=== PATIENT | female | born 1935 | race Caucasian/White ===

== ENCOUNTER 2018-09-25 07:03 | Outpatient (CLI) | payer MEDICARE, BC, SELFPAY ==
[2018-09-25 07:34] LABS: HCT 39.8 % (36.0-46.0); HGB 13.6 g/dL (12.0-15.5); Mean Corp. HGB Concentration 34.2 g/dL (32.0-36.0); Mean Corpuscular Hemoglobin 33.1 pg (27.0-33.0); Mean Corpuscular Volume 96.8 fL (80-95); Mean Platelet Volume 9.5 fL (8.0-11.0); Platelet Count 151 x1000/uL (130-400); RBC 4.11 m/cumm (4.00-5.20); RBC Distribution Width 13.9 % (11.7-14.6); White Blood Cell Count 4.14 k/cumm (4.4-10.8)
[2018-09-25 08:43] LABS: ALT 24 U/L (12-78); AST 24 U/L (15-37); Albumin 3.7 g/dL (3.4-5.0); Alkaline Phosphatase 63 U/L (46-116); Anion Gap 8.3 mmol/L (3-11); BUN 13 mg/dL (7-18); Bilirubin, Total 1.1 mg/dL (0.2-1.0); CO2 28.7 mmol/L (21.0-32.0); CREATININE 0.82 mg/dL (0.55-1.02); Calcium 8.9 mg/dL (8.5-10.1); Chloride 95 mmol/L (98-107); Glucose 90 mg/dL (70-100); Potassium 4.3 mmol/L (3.5-5.1); Sodium 132 mmol/L (136-145); TSH 2.08 uIU/mL (0.358-3.74); Total Protein 6.6 g/dL (6.4-8.2)
== END 2018-09-25 07:23 ==
PROVIDERS: PCP Family Medicine; Visit Provider Internal Medicine
DX: I48.0 Paroxysmal atrial fibrillation (principal); R63.4 Abnormal weight loss; Z79.01 Long term (current) use of anticoagulants
CPT/HCPCS: 36415; 80053; 85027; 84443

== ENCOUNTER 2018-10-14 01:41 | Outpatient (CLI) | payer MEDICARE, BC, SELFPAY ==
[2018-10-14 09:31] LABS: Vitamin B12 356 pg/mL (193-986)
== END 2018-10-14 02:01 ==
PROVIDERS: PCP Family Medicine; Visit Provider Internal Medicine
DX: D75.89 Other specified diseases of blood and blood-forming organs (principal)
CPT/HCPCS: 36415; 82607

== ENCOUNTER 2019-08-04 15:37 | Inpatient (IN) | payer MEDICARE, BC, SELFPAY ==
[2019-08-04] VITALS (72 sets, daily range): BP systolic 105–148; BP diastolic 62–87; PULSE 69–142; RESP 13–33; TEMP 36–36.3; O2SAT 93–99
--- NOTE | 2019-08-04 16:19 | W.ED.GENAD ---
Discharge Plan Disposition Patient Disposition: [facility] INPATIENT Condition: Serious Discharge Details Chief Complaint: Abd Prob Clinical Impression: Cecal volvulus Primary Care Provider: Gulshan Howe ED Provider: Keisha Clarke Home Meds and New Rx's Prescriptions: No Action metoprolol succinate 25 mg tablet extended release 24 hr 25 mg PO DAILY Qty: 90 RF: 3 sertraline 25 mg tablet 12.5 mg PO DAILY Qty: 45 RF: 3 calcium carbonate [Tums] 300 MG tablet,chewable 300 mg PO BID RF: 0 acetaminophen [Acetaminophen Extra Strength] 500 MG tablet 1,000 mg PO TID PRNRF: 0 Eliquis 2.5 mg tablet 2.5 mg PO BID Qty: 180 RF: 3 Medical Decision Making Patient is a pleasant 84-year-old female with past medical history of atrial fibrillation, mitral valve problems, carcinoma in situ uterine cervix, memory disturbance. She is currently anticoagulated on Eliquis. Patient reports that the past 3 days she has been feeling unwell. Describes his further as fatigue. Denies any true abdominal upset to stay. States that she woke feeling nauseated and vomited x1 this morning. Denies any hematemesis. Reports normal bowel and bladder functions with no change in habits. She denies any abdominal discomfort. Denies any fevers. No cough. No chest pain. Shortness of breath. States she has been taking her medications as prescribed. Patient lives alone but is frequently visited by her daughter On exam, patient is resting comfortably. She does appear slightly ill but is notably tachycardic at 117. She is in atrial fibrillation. Lungs are clear. She is irregularly irregular cardiac rhythm. Abdomen is soft she has hypoactive bowel sounds. No tenderness elicited on exam. Hold off on imaging at this time plan for laboratory evaluation. EKG was reviewed by Dr. Michael. Patient is an irregularly irregular rhythm consistent with her history of atrial fibrillation. Currently 117. She does have occasional PVCs. No acute ischemic changes noted. Compared to previous. Spoke with daughter who states that the patient has had pain in the right side of her abdomen. She states that she is confused at baseline but that it has been worse over past 3 days. She states that she has been checking on her daily. She states that she has been encouraging hydration and believes patient has been taking good amount of fluids daily. With this, I am more concerned about potential surgical etiology, particularly as the patient has an elevated lactate. Will obtain noncontrast CT. I did reexamine the patient and she is endorsing some right lower quadrant discomfort on exam although this was not listed initially. Was contacted by the lab as the patient has a lactate of 2.2. Remaining labs are reviewed. No leukocytosis. Sodium is low at 132. She does have acute kidney injury with creatinine 1.4. BUN of 45. Patient is receiving IV hydration. FINDINGS: Heart: The heart demonstrates diffuse enlargement. Liver: The liver is nodular in contour, suggesting cirrhosis. Gallbladder and bile ducts: Sludge in the gallbladder. No calcified stones. No ductal dilation. Pancreas: Normal. No ductal dilation. Spleen: Normal. No splenomegaly. Adrenals: There is a focal hypodense mass in the left adrenal gland, consistent in appearance and density with a benign adrenal adenoma. Kidneys and ureters: 3 cm simple cyst in the right kidney. Stomach and bowel: There is diverticular disease of the colon, without evidence of acute diverticulitis. No perforation, or abscess. No signs or history of bleeding provided. Multiple dilated small bowel loops seen, and markedly dilated cecum with volvulus noted. Appendix: No evidence of appendicitis. Intraperitoneal space: There is a small amount of free fluid in the pelvis and around the liver. No free air. Vasculature: There is coronary artery calcification. Mild dilation of the infrarenal abdominal aorta up to 26 mm. Lymph nodes: Unremarkable. No enlarged lymph nodes. Bladder: Unremarkable as visualized. Reproductive: Unremarkable as visualized. Bones/joints: Unremarkable. No acute fracture. Soft tissues: There is a small fat-containing left inguinal hernia. IMPRESSION: Cecal volvulus with resulting obstruction. No perforation. Spoke with the patient as well as her daughter Renu at this point he would like to move forward with surgical intervention if necessary. Coretta may be reached at [phone]. Patient has a COLST form on file. SHe is a DNR/DNI. Consulted with Dr. Valles who will admit the patient, plan for surgical intervention in the morning. We did discuss reversal of her anticoagulation. Dr. Mejias has ordered this and I did speak with pharmacy will come to prepare the medication. We did attempt to place NG tube and Tavares per patient refused. She has increasing confusion and does appear to be sundowning some. At this time, I feel that she is not actively vomiting, is actually requesting food, NG tube does not emergently need to be placed in the risk of forcing patient to have a study as well outweighs the benefit. I did let Dr. Mejias know of this. Patient was transferred to ICU. HPI General Mode of arrival: ambulatory. Date/Time Provider Initiated Documentation: 08/04/19 16:07. Limitations to Documentation: no limitations. Information obtained by: patient and RN notes reviewed. History of Present Illness 84 year old F presents to the emergency department with the chief complaint of nausea, vomiting, unwell feeling, described as mild, Quality is described as other (denies any pain), and is localized to the abdomen. Patient reports no radiation. Patient started experiencing this day(s) (feeling of unwell x 3 days, N/V this AM) and it has been constant. No relieving factors improve symptom(s), No exacerbating factors reported . Patient notes no other symptoms.. Patient did receive the following treatments prior to arrival, none Related Data Home Medications Medication Instructions Recorded Confirmed calcium carbonate [Tums] 300 mg PO BID tab.chew 09/13/14 08/04/19 acetaminophen [Acetaminophen Extra 1,000 mg PO TID PRN 10/06/15 08/04/19 Strength] metoprolol succinate 25 mg 25 mg PO DAILY #90 tab 09/08/18 08/04/19 tablet,extended release 24 hr sertraline 25 mg tablet 12.5 mg PO DAILY #45 tab 03/09/19 08/04/19 apixaban 2.5 mg tablet 2.5 mg PO BID #180 tab 06/18/19 08/04/19 Previous Rx's Medication Instructions Recorded metoprolol succinate 25 mg 25 mg PO DAILY #90 tab 09/08/18 tablet,extended release 24 hr sertraline 25 mg tablet 12.5 mg PO DAILY #45 tab 03/09/19 apixaban 2.5 mg tablet 2.5 mg PO BID #180 tab 06/18/19 Allergies Allergy/AdvReac Type Severity Reaction Status Date / Time cimetidine AdvReac Intermediate BREAST Verified 03/09/19 13:49 TENDERNESS diltiazem AdvReac Intermediate bowel Verified 03/09/19 13:49 problem Penicillins AdvReac Unknown unknown Verified 03/09/19 13:49 General Stated Complaint: Abd Prob JODY: 3 Review of Systems Constitutional Constitutional: Reports as per HPI, Denies chills, Denies fatigue, Denies fever(s) and Denies headache(s) ENT Ears, Nose, Mouth, and Throat: Denies headache(s) Cardiovascular Cardiovascular: Reports as per HPI, Denies chest pain and Denies dyspnea Respiratory Respiratory: Reports as per HPI, Denies cough and Denies dyspnea Gastrointestinal Gastrointestinal: Reports as per HPI Musculoskeletal Musculoskeletal: Reports as per HPI and Denies back pain Integumentary/Breasts Skin/Breast: Reports as per HPI and Denies rash Neurologic Neurologic: Reports as per HPI and Denies headache(s) Endocrine Endocrine: Denies fatigue PFSH Medical History Low body mass index (Acute) Seasonal affective disorder (Acute) Surgical History Incarcerated Obdurator Hernia (01/31/16) Dr Nicholas, [facility] Family History Mother , vascular at age 95. No problems noted. Social History (Updated 04/07/18 @ 13:14 by Marilu Saravia LPN) Smoking/Tobacco Use Status: Former Tobacco Use Alcohol Intake: never Drug use: Never Substance use type: does not use Adopted: No Caregiver/Support person: No Foster care: No Household members: none Number of Children: 2 Current gender identity: female What type of physical activity do you participate in: walking Frequency: 5-6 times per week Seatbelt use: always Drive intox or ride w/intox port cdl a driver: No Working smoke detector in home: Yes Carbon monox detector in home: Yes Do you feel safe at home: Yes Do you feel safe in your relationship?: Yes Additional Social history: lives alone daughter checks on her Exam Const General: cooperative, comfortable, no acute distress, well developed and ill appearing acutely Nutritional Appearance: average body habitus and well nourished Orientation: alert and awake HENMA Head: normal to inspection Mouth: mucous membranes dry Resp Effort & Inspection: normal respiratory effort, able to speak in complete sentences and no respiratory distress Auscultation: clear to auscultation bilaterally, no rales, no rhonchi and no wheezes Cardio Rate: regular rate Rhythm: regular rhythm Heart Sounds: S1 normal and S2 normal GI Inspection: normal to inspection, no abdominal wall ecchymosis, no edema, non-distended, scar (well healed surgical scar), no visible herniation and no visible pulsation Palpation: soft, no hepatosplenomegaly, not firm, no guarding, no hernias, no masses, not rigid, nontender and No ascites Percussion: dullness to percussion Auscultation: hypoactive bowel sounds Back/Spine/Pelvis Back: no CVA tenderness Skin General skin exam: no rashes or lesions noted Trauma: no lacerations or abrasions Neuro General: patient alert and patient awake Cognition: normal cognition Speech: speech normal Gait: normal gait Psych Appearance: grossly normal and well kempt Mental Status: mental status grossly normal Speech and Movement: speech and movement normal Course Vital Signs Vital signs: Vital Signs Temperature 36 C L 08/04/19 15:40 Pulse 117 H 08/04/19 15:40 Respiratory Rate 16 08/04/19 15:40 Blood Pressure 131/83 08/04/19 15:40 Pulse Oximetry 97 08/04/19 15:40 Temperature 36 C L 08/04/19 15:40 Temperature Source Skin 08/04/19 15:40 Pulse 117 H 08/04/19 15:40 Respiratory Rate 16 08/04/19 15:40 Respiratory Effort 08/04/19 15:55 Blood Pressure 131/83 08/04/19 15:40 Pulse Oximetry 97 08/04/19 15:40 Oxygen Delivery Method Room Air 08/04/19 15:40 Oxygen Flow Rate 0 08/04/19 15:40 Pain Level 0 08/04/19 15:40
[2019-08-04 16:22] LABS: Abs Immature Grans 0.02 k/cumm (0.0-0.09); Absolute Basophil Count 0.01 k/cumm (0.0-0.2); Absolute Lymphocyte Count 1.11 k/cumm (1.2-3.4); Absolute Monocyte Count 0.87 k/cumm (0.11-0.7); Absolute Neutrophil Count 7.88 k/cumm (1.2-6.7); Basophils % 0.1; HCT 48.2 % (36.0-46.0); HGB 16.7 g/dL (12.0-15.5); Immature Grans % 0.2 %; Lymphocytes % 11.2; Mean Corp. HGB Concentration 34.6 g/dL (32.0-36.0); Mean Corpuscular Volume 95.3 fL (80-95); Mean Platelet Volume 10.2 fL (8.0-11.0); Monocytes % 8.8; Neutrophils % 79.7; Platelet Count 249 x1000/uL (130-400); RBC 5.06 m/cumm (4.00-5.20); RBC Distribution Width 14.6 % (11.7-14.6); White Blood Cell Count 9.89 k/cumm (4.4-10.8)
[2019-08-04] MEDS: Normal Saline 1,000 ML 1000 ML IV (16:30)
[2019-08-04 16:40] LABS: ALT 20 U/L (14-59); AST 24 U/L (15-37); Albumin 4.1 g/dL (3.4-5.0); Alkaline Phosphatase 62 U/L (46-116); Anion Gap 9.9 mmol/L (3-11); BUN 45 mg/dL (7-18); Bilirubin, Total 1.7 mg/dL (0.2-1.0); CO2 28.1 mmol/L (21.0-32.0); CREATININE 1.41 mg/dL (0.55-1.02); Calcium 9.4 mg/dL (8.5-10.1); Chloride 94 mmol/L (98-107); Estimated GFR 35.62 (mL/min/1.73m2); Glucose 166 mg/dL (74-106); Potassium 4.1 mmol/L (3.5-5.1); Sodium 132 mmol/L (136-145); Total Protein 7.7 g/dL (6.4-8.2)
[2019-08-04 16:41] LABS: Lactate 2.2 mmol/L (0.6-1.4)
[2019-08-04 16:58] LABS: Troponin I 0.06 ng/Ml (<0.06)
--- NOTE | 2019-08-04 17:00 | DI.CT_ITS ---
EXAM: CT ABDOMEN PELVIS WO CLINICAL HISTORY: N/V, right sided abdominal discomfort COMPARISON: ABD PELVIS WO CONTRAST from 01/31/2016 FINDINGS: CT examination of the abdomen and pelvis was performed without contrast administration. Images obtai mitra through the lung bases. No free intraperitoneal air. Mild free intraperitoneal fluid. There is apparent cecal volvulus with typical bird's beek configuration and cecal dilatation to about 7 cm. There is proximal small bowel obstruction. Colon is otherwise essentially empty. Liver, spleen, and pancreas are unremarkable by noncontrast criteria as are the gallbladder and bile ducts. Abdominal aorta is at the upper limits of normal at about 27 millimeters. No gross abdominal or pelvic adenopathy. Incidental approximately 25 millimeter in diameter right upper pole renal cys t noted, no urinary tract calcification or obstruction. Unremarkable appearance of the urinary bladd er. Incidental sacral nerve root cysts are noted, unchanged from January 2016. IMPRESSION: Findings highly suggestive of cecal volvulus and proximal small bowel obstruction. No significant ad ditional findings.
--- NOTE | 2019-08-04 17:49 | DI.VRAD_ITS ---
Addendum created by Erin Henderson MD on 08/04/2019 5:51:37 PM EDT Findings discussed with TERESA HURST 08/04/2019 5:51 PM EDT. Initial report created on 08/04/2019 5:49:16 PM EDT PROCEDURE INFORMATION: Exam: CT Abdomen And Pelvis Without Contrast Exam date and time: 08/04/2019 5:11 PM Age: 84 years old Clinical indication: Nausea and vomiting; Abdominal pain; Other: RT sided TECHNIQUE: Imaging protocol: Computed tomography of the abdomen and pelvis without contrast. Radiation optimization: All CT scans at this facility use at least one of these dose optimization techniques: automated exposure control; mA and/or kV adjustment per patient size (includes targeted exams where dose is matched to clinical indication); or iterative reconstruction. COMPARISON: CT ABD PELVIS WO CONTRAST 01/31/2016 3:46 PM FINDINGS: Heart: The heart demonstrates diffuse enlargement. Liver: The liver is nodular in contour, suggesting cirrhosis. Gallbladder and bile ducts: Sludge in the gallbladder. No calcified stones. No ductal dilation. Pancreas: Normal. No ductal dilation. Spleen: Normal. No splenomegaly. Adrenals: There is a focal hypodense mass in the left adrenal gland, consistent in appearance and density with a benign adrenal adenoma. Kidneys and ureters: 3 cm simple cyst in the right kidney. Stomach and bowel: There is diverticular disease of the colon, without evidence of acute diverticulitis. No perforation, or abscess. No signs or history of bleeding provided. Multiple dilated small bowel loops seen, and markedly dilated cecum with volvulus noted. Appendix: No evidence of appendicitis. Intraperitoneal space: There is a small amount of free fluid in the pelvis and around the liver. No free air. Vasculature: There is coronary artery calcification. Mild dilation of the infrarenal abdominal aorta up to 26 mm. Lymph nodes: Unremarkable. No enlarged lymph nodes. Bladder: Unremarkable as visualized. Reproductive: Unremarkable as visualized. Bones/joints: Unremarkable. No acute fracture. Soft tissues: There is a small fat-containing left inguinal hernia. IMPRESSION: Cecal volvulus with resulting obstruction. No perforation. Dictated and Authenticated by: Erin Henderson MD. Ordering:JOSLYN Valdes MD
[2019-08-04] MEDS: Lactated Ringers 1,000 ML 200 ML IV (18:09)
--- NOTE | 2019-08-04 20:17 | HPE_ITS ---
Date of service: 08/04/19 Time of Service: 20:17 Assessment and Plan Assessment and plan (1) Unintentional weight loss: Status: Chronic (2) Paroxysmal atrial fibrillation: Status: Chronic (3) Mitral valve disorder: Status: Chronic (4) penitentiary current use of anticoagulant therapy: Status: Acute (5) Atrial flutter by electrocardiography: Status: Acute (6) Seasonal affective disorder: Status: Acute (7) Low body mass index: Status: Acute (8) Atrial flutter by electrocardiography: Status: Inactive (9) Cecal volvulus: Status: Acute Assessment and plan: -reverse elliquis -hydration -type and cross -NPO -supportive care -planning CE in am w/ GETA. d/w daughter and is in agreement w/ Coretta degroot cell: [phone] risk: bleeding/infection/perforation/pneumonia/blood clots there is a 25% chance we would need to proceed w/ laparotomy- for perforation/ ischemia/inability to de-torse. Given her age she is at high risk for heart attack/stroke/prolonged mechanical ventilation. She is also at high risk for wound infections /wound dehiscence/ and other wound complications because of her low body weight. We would need to do GETAa and assoc risks of this. We will plan on reversing her Eliquis at 6 AM, for a 9 AM procedure tomorrow. With the Eliquis reversed that the surgery again higher risk for blood clots and strokes. Patient should have a Tavares and NG tube placed. She is currently refusing. We will consult hospitalist service for medical management. 90 mins spent in consultation w/ family and coordinating care History of Present Illness Consults Consult date: 08/04/19 Narrative: pt is demented. c/o abdominal pain. She has had a previous SLICK for cervical cancer. She does not wear O2 at home. She is not DM. She lives independently- her daughters are very involved in her care. She has had a hernia repair done approx 4 yrs ago. No hx of prior SBO or volvuous to her knowledge. She has lost wt recently. She is on sertraline. She is on elliquis for A. fib. I did d/w Coretta how to proceed w/ Daina's care. They do wish to try CE in am. It will need to be done w/ GETA. There is about 25% change of failure to reduce the volvulous/perforation/ischemia. If she fail turning/has necrosis or we perforate the ceucm- than she would need to go to the OR for surgery. She will need to have anesthesia- risk include: LA/CVA/prolonged mechanical ventilation. D/w daughter and she is in agreement. Will get phone consent in am for procedure- around 8:30. We can't really do surgery tonight b/c of Christieiquseb. Her last dose was this am. will have hosp see for medical management. Review of Systems All systems reviewed & are unremarkable except as noted in HPI and below [facility] Medical History Cecal volvulus (Acute) Low body mass index (Acute) Seasonal affective disorder (Acute) Surgical History Incarcerated Obdurator Hernia (01/31/16) Dr Nicholas, [facility] Family History Mother , vascular at age 95. No problems noted. Social History Smoking/Tobacco Use Status: Former Tobacco Use Alcohol Intake: never Drug use: Never Substance use type: does not use Adopted: No Caregiver/Support person: No Foster care: No Household members: none Number of Children: 2 Current gender identity: female What type of physical activity do you participate in: walking Frequency: 5-6 times per week Seatbelt use: always Drive intox or ride w/intox port cdl a driver: No Working smoke detector in home: Yes Carbon monox detector in home: Yes Do you feel safe at home: Yes Do you feel safe in your relationship?: Yes Additional Social history: lives alone daughter checks on her Meds Home Medications and Allergies Home Medications Medication Instructions Recorded Confirmed Type calcium carbonate [Tums] 300 mg PO BID tab.chew 09/13/14 08/04/19 History acetaminophen [Acetaminophen Extra 1,000 mg PO TID PRN 10/06/15 08/04/19 History Strength] metoprolol succinate 25 mg 25 mg PO DAILY #90 tab 09/08/18 08/04/19 Rx tablet,extended release 24 hr sertraline 25 mg tablet 12.5 mg PO DAILY #45 tab 03/09/19 08/04/19 Rx apixaban 2.5 mg tablet 2.5 mg PO BID #180 tab 06/18/19 08/04/19 Rx Allergies Allergy/AdvReac Type Severity Reaction Status Date / Time cimetidine AdvReac Intermediate BREAST Verified 03/09/19 13:49 TENDERNESS diltiazem AdvReac Intermediate bowel Verified 03/09/19 13:49 problem Penicillins AdvReac Unknown unknown Verified 03/09/19 13:49 Exam HENMT Other: a 7 O x1 at best head is AT/NC PERRLA no eye pain. no sclera redness/jaundice. dentition in good repair pt won't cooperate w/exam Chest Chest: normal inspection of the chest and normal palpation of entire chest wall Resp Effort & Inspection: normal respiratory effort and able to speak in complete sentences Auscultation: clear to auscultation bilaterally Cardio Other: afib. rate controlled. BP stable GI Other: distended. min BS. no hernias. pt denies abdominal pain. no signs of peritontis Skin Other: no breakdown Neuro Other: pt cannot cooperate for exam. moving all ext independently. no focal d eficits Extrem Other: cachexia and muscle wasting. 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 Results Labs Result diagrams: 08/05/19 06:09 08/05/19 06:09 Labs: Laboratory Results - last 24 hr 08/04/19 08/04/19 08/04/19 16:12 16:12 16:35 WBC 9.89 RBC 5.06 Hgb 16.7 H Hct 48.2 H MCV 95.3 H MCH 33.0 MCHC 34.6 RDW 14.6 Plt Count 249 MPV 10.2 Immature Gran % 0.2 Neutrophils % 79.7 Lymphocytes % 11.2 Monocytes % 8.8 Eosinophils % 0.0 Basophils % 0.1 Absolute Neutrophils 7.88 H Absolute Lymphocytes 1.11 L Absolute Monocytes 0.87 H Absolute Eosinophils 0.00 Absolute Basophils 0.01 Sodium 132 L Potassium 4.1 Chloride 94 L Carbon Dioxide 28.1 Anion Gap 9.9 BUN 45 H Creatinine 1.41 H Estimated GFR/1.73 m2 35.62 Glucose 166 H Lactate 2.2 H* Calcium 9.4 Total Bilirubin 1.7 H AST 24 ALT 20 Alkaline Phosphatase 62 Troponin I Total Protein 7.7 Albumin 4.1 08/04/19 16:35 WBC RBC Hgb Hct MCV MCH MCHC RDW Plt Count MPV Immature Gran % Neutrophils % Lymphocytes % Monocytes % Eosinophils % Basophils % Absolute Neutrophils Absolute Lymphocytes Absolute Monocytes Absolute Eosinophils Absolute Basophils Sodium Potassium Chloride Carbon Dioxide Anion Gap BUN Creatinine Estimated GFR/1.73 m2 Glucose Lactate Calcium Total Bilirubin AST ALT Alkaline Phosphatase Troponin I 0.06 Total Protein Albumin Last Vital Signs Temp 36 C L 08/04/19 15:40 Pulse 102 H 08/04/19 19:45 Resp 20 08/04/19 19:45 BP 131/81 08/04/19 19:45 Pulse Ox 96 08/04/19 19:45 COVID-19 Screening Traveled to [place] from one of the affected countries or regions?: No Recent travel in the [place] within the last 8 weeks?: No Recent out of the country travel within the last 8 weeks?: No Exposure or possible exposure to illness during travel?: No Had IN PERSON contact w/suspected or confirmed C-19 person: No Have you had the following symptoms in the past few days?: No Symptoms noted since travel?: No Symptoms
--- NOTE | 2019-08-04 20:51 | NUR.NOTE ---
Nursing Note: Attempted to educate pt on NGT insertion and henley insertion. Pt repeated over and over again I'm going to call my dirt bike mechanic about being held against my will. Pt refusing ALL lines except IV. Provider and surgeon made aware. Receiving nurse made aware.
--- NOTE | 2019-08-04 21:42 | W.MEDCONSULT ---
Date of service: 08/04/19 Time of Service: 21:42 Assessment and Plan Assessment and plan (1) Atrial fibrillation and flutter: Status: Acute Assessment and plan: AFib-flutter. Firstly, Eliquis will need to be reversed. If procedure can be delayed to a window within the 24-48 hour time frame from last dose (depending on surgical risk of bleeding) then can simply hold; if need to proceed sooner then active reversal. As to rate control would continue beta blockers. Since NPO would substitute IV Lopressor 5 mg iv q6h, with additional q4prn doses to maintain rate less than 100. Will so order. History of Present Illness History of Present Illness Chief Complaint: Asked to consult regarding atrial fibrillation Narrative: 84 female with h/o AF, on anticoagulation with Eliquis, and Lopressor for rate control. Admitted to surgical service for cecal volvulus, with planned colonoscopy in AM, and possibly requiring surgery. Last dose Eliquis this AM. Patient denies CP or SOB. EKG shows AF with nonspecific STTW changes; monitor shows AFlutter with variable block. Review of Systems All systems reviewed & are unremarkable except as noted in HPI and below PFSH Medical History Cecal volvulus (Acute) Low body mass index (Acute) Seasonal affective disorder (Acute) Surgical History Incarcerated Obdurator Hernia (01/31/16) Dr Nicholas, [facility] Family History Mother , vascular at age 95. No problems noted. Social History Smoking/Tobacco Use Status: Former Tobacco Use Alcohol Intake: never Drug use: Never Substance use type: does not use Adopted: No Caregiver/Support person: No Foster care: No Household members: none Number of Children: 2 Current gender identity: female What type of physical activity do you participate in: walking Frequency: 5-6 times per week Seatbelt use: always Drive intox or ride w/intox chain saw driver: No Working smoke detector in home: Yes Carbon monox detector in home: Yes Do you feel safe at home: Yes Do you feel safe in your relationship?: Yes Additional Social history: lives alone daughter checks on her Exam Narrative Exam Narrative: 134/87, 100, 36.0, 21. 96% RA. Lungs clear; heart irr/irr, abdomen distended and tympanitic; extremities w/o edema Results Last Vital Signs Temp 36 C L 08/04/19 15:40 Pulse 97 H 08/04/19 20:39 Resp 21 08/04/19 20:39 BP 134/78 08/04/19 20:39 Pulse Ox 96 08/04/19 20:39 Labs Result diagrams: 08/04/19 16:12 08/04/19 16:12 Labs: Laboratory Results - last 24 hr 08/04/19 08/04/19 08/04/19 16:12 16:12 16:35 WBC 9.89 RBC 5.06 Hgb 16.7 H Hct 48.2 H MCV 95.3 H MCH 33.0 MCHC 34.6 RDW 14.6 Plt Count 249 MPV 10.2 Immature Gran % 0.2 Neutrophils % 79.7 Lymphocytes % 11.2 Monocytes % 8.8 Eosinophils % 0.0 Basophils % 0.1 Absolute Neutrophils 7.88 H Absolute Lymphocytes 1.11 L Absolute Monocytes 0.87 H Absolute Eosinophils 0.00 Absolute Basophils 0.01 Sodium 132 L Potassium 4.1 Chloride 94 L Carbon Dioxide 28.1 Anion Gap 9.9 BUN 45 H Creatinine 1.41 H Estimated GFR/1.73 m2 35.62 Glucose 166 H Lactate 2.2 H* Calcium 9.4 Total Bilirubin 1.7 H AST 24 ALT 20 Alkaline Phosphatase 62 Troponin I C-Reactive Protein Total Protein 7.7 Albumin 4.1 08/04/19 08/04/19 16:35 20:29 WBC RBC Hgb Hct MCV MCH MCHC RDW Plt Count MPV Immature Gran % Neutrophils % Lymphocytes % Monocytes % Eosinophils % Basophils % Absolute Neutrophils Absolute Lymphocytes Absolute Monocytes Absolute Eosinophils Absolute Basophils Sodium Potassium Chloride Carbon Dioxide Anion Gap BUN Creatinine Estimated GFR/1.73 m2 Glucose Lactate Calcium Total Bilirubin AST ALT Alkaline Phosphatase Troponin I 0.06 C-Reactive Protein Cancelled Total Protein Albumin
[2019-08-04] MEDS: ACETAMINOPHEN 1,000 MG/100 ML BTL 400 MG IVPB (22:00)
[2019-08-04] MEDS: cefTRIAXone 1 GM/50 ML BAG IVPB (23:23)
[2019-08-04] MEDS: FAMOTIDINE 20 MG/50 ML BAG 200 MG IVPB (23:24)
[2019-08-04] MEDS: metroNIDAZOLE 500 MG/100 ML BAG 100 MG IVPB (23:25)
[2019-08-04] MEDS: Metoprolol 5 MG/5 ML VIAL IVP (23:26)
[2019-08-04] MEDS: Normal Saline 1,000 ML 80 ML IV (23:32)
[2019-08-05] VITALS (87 sets, daily range): BP systolic 70–148; BP diastolic 50–96; PULSE 62–145; RESP 11–31; TEMP 36–36.4; O2SAT 92–100
[2019-08-05] MEDS: MORPHine 2 MG/ML SYR IVP ×3 (03:06→20:29)
[2019-08-05] MEDS: ACETAMINOPHEN 1,000 MG/100 ML BTL 400 MG IVPB ×2 (05:16→22:39)
[2019-08-05] MEDS: Metoprolol 5 MG/5 ML VIAL IVP ×2 (05:23→20:40)
[2019-08-05] MEDS: metroNIDAZOLE 500 MG/100 ML BAG 100 MG IVPB ×3 (05:24→22:41)
[2019-08-05 06:40] LABS: Abs Immature Grans 0.02 k/cumm (0.0-0.09); Absolute Eosinophil Count 0.01 k/cumm (0.0-0.7); Absolute Lymphocyte Count 1.12 k/cumm (1.2-3.4); Absolute Monocyte Count 0.92 k/cumm (0.11-0.7); Absolute Neutrophil Count 7.23 k/cumm (1.2-6.7); Eosinophils % 0.1; HCT 42.9 % (36.0-46.0); HGB 14.7 g/dL (12.0-15.5); Immature Grans % 0.2 %; Mean Corp. HGB Concentration 34.3 g/dL (32.0-36.0); Mean Corpuscular Hemoglobin 32.9 pg (27.0-33.0); Mean Platelet Volume 10.2 fL (8.0-11.0); Monocytes % 9.9; Neutrophils % 77.8; Platelet Count 194 x1000/uL (130-400); RBC 4.47 m/cumm (4.00-5.20); RBC Distribution Width 14.4 % (11.7-14.6)
[2019-08-05 06:42] LABS: Lactate 1.5 mmol/L (0.6-1.4)
[2019-08-05 06:57] LABS: ALT 16 U/L (14-59); AST 22 U/L (15-37); Albumin 3.2 g/dL (3.4-5.0); Alkaline Phosphatase 47 U/L (46-116); BUN 34 mg/dL (7-18); Bilirubin, Total 1.2 mg/dL (0.2-1.0); C-Reactive Protein 0.07 mg/dL (0.0-0.3); CREATININE 0.91 mg/dL (0.55-1.02); Calcium 8.2 mg/dL (8.5-10.1); Chloride 99 mmol/L (98-107); Estimated GFR 59.04 (mL/min/1.73m2); Glucose 105 mg/dL (74-106); Potassium 3.5 mmol/L (3.5-5.1); Sodium 135 mmol/L (136-145); Total Protein 6.1 g/dL (6.4-8.2)
--- NOTE | 2019-08-05 07:00 | DI.RAD_ITS ---
EXAM: XR ABDOMEN FLAT PLATE CLINICAL HISTORY: cecal volvulous TECHNIQUE: COMPARISON: CT ABDOMEN PELVIS WO from 08/04/2019 CT ABDOMEN PELVIS WO from 08/04/2019 FINDINGS: Abdominal film obtained at 0730. Comparison with CT from August 03 again shows large gas collection in the right lower quadrant consistent with cecal volvulus. Marked small bowel distension, gas-fille d, again noted. No gross free air on this supine film. 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 No overall change in comparison with yesterday's C T examination.
--- NOTE | 2019-08-05 08:47 | PDOC.CMIN ---
- If Service Date Differs Date of service: 08/05/19 Time of Service: 08:48 Care Management Initial Assess REASON FOR HOSPITALIZATION:: Cecal volvulus. PAST MEDICAL HISTORY/PAST SURGICAL HISTORY:: Medical/Surgical History: Cecal volvulus, Low body mass index, Seasonal affective disorder, and incarcerated Obdurator Hernia - Dr Nicholas, [facility]. PREVIOUS FUNCTIONAL STATUS/SOCIAL/FAMILY SUPPORTS:: is unable to meet with Daina as she has been in the OR for most of the day. CM contacts Daina's daughter, Coretta, by telephone to obtain information. Coretta reports that Daina lives alone in an apartment in [place]. 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 Daina no longer drives but still cooks her own meals and remains active in her [employer], the [employer] located in [place]. Daina enjoys reading, watching television, corresponding in writing with friends, and going for walks. Daina is independent with her ADLs at baseline. Daina keeps in touch with several good friends in the community and has a supportive family. CURRENT FUNCTIONAL STATUS:: CM is unable to meet with Daina today as she is in the OR. ADVANCE DIRECTIVES:: On file; German Reddy is listed as healthcare agent and Aleena Reddy as alternate agent. Has patient been provided with information about the portal?: No Did the patient sign up for the portal?: No CODE STATUS:: DNR/DNI INSURANCE COVERAGE / FINANCIAL ISSUES:: BCBS, Medicare, and Financial Assist 100. CURRENT HOME/COMMUNITY SERVICES/EQUIPMENT:: Daughter Coretta reports that Daina is independent at baseline and does not have any home/community services. She also does not utilize any medical equipment. Daina is an active member of the [employer] in [place]. PRIMARY CARE PHYSICIAN:: Gulshan Howe DO ([facility]). POTENTIAL DISCHARGE NEEDS:: Follow-up appointments with PCP and surgeon. PATIENT/FAMILY EDUCATION NEEDS:: Discharge instructions, limitations, follow-up plan of care, including Ask Me Three and self-management. ANTICIPATED BARRIERS TO DISCHARGE:: No anticipated barriers at this time. TRANSPORTATION:: To be determined. PLAN:: Anticipate Daina will require short-term rehab prior to returning home when ready. CM will continue to follow.
[2019-08-05] MEDS: cefTRIAXone 1 GM/50 ML BAG IVPB ×2 (09:37→22:17)
--- NOTE | 2019-08-05 09:37 | W.PM.PROGNOT ---
Date of Service Date of service: 08/05/19 Time of Service: 09:38 Assessment and Plan Assessment and plan (1) Atrial fibrillation and flutter: Status: Acute (2) Cecal volvulus: Status: Acute Assessment and plan: pt condition is unchanged from last PM daughter wants to proceed w/ aggressive care. I did d/.w her at lengths risks and benefits. regardless of if we need to proceed with surgery- she is going to require some type of SNF after this admission daughter understands high rate of CT/CVA/penumonia/wound complications- including hernia/infections/dehiscence. prolonged mechanical ventilation. She still wishes to proceed w/ aggressive care. 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 no bm since she has been in ICU. pt would not allow RN to palce ngt or henley. heart rthymn is controlled a. fib. I did review her flat plate from this am w/ rads and is unchanged from CT last pm adn still shows signif volvulus. She denies pain. her abdom is distended. basically unchanged since yest. I did d/w her care w/ daughter gena Reddy. She does want her mom to have a colonoscopy. she will need to geta. risks: bleeding/infection/perforation/aspiration/mi/cav/prolonged mechanical ventilation. there is high risk or perforation and recurrence of the torsion. If the torsion reoccurs- -than we would have to repeat he CE in the am. If there is perforation, or the cecum is ischemic, or we cannot reduce it- than we would need to proceed w/ laparotomy. Risks: high risk for CT/CVA. high risk for wound complications, infections and non healling. she may require colostomy. she may require prolonged mechanical ventilation. This will make her dementia worse and may require permanent SNF. She will prob need to go to short SNF after this admission regardless of what type of reduction we do. She is very confused at this point, and does not appear to be safe for indepent living situation. pt does not know where she is at and orientated to person only. Exam HENMT Other: dentition is fair. no sore throat eyes are clear- no pain or redness. no jaundice no dental abscess Chest Chest: normal inspection of the chest Resp Effort & Inspection: normal respiratory effort and able to speak in complete sentences Auscultation: clear to auscultation bilaterally Cardio Rate: other Rhythm: regular rhythm Other: a fib. rate controlled GI Inspection: normal to inspection and distended Auscultation: absent bowel sounds Other: abdom is firm and distended pt denies pain. mild guarding. 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 pt csannot cooperate w/ exam Objective Objective Clinical Data: Abnormal lab results 08/04/19 08/04/19 08/04/19 Range/Units 16:12 16:12 16:35 Hgb 16.7 H (12.0-15.5) g/dL Hct 48.2 H (36.0-46.0) % MCV 95.3 H (80-95) fL Absolute Neutrophils 7.88 H (1.2-6.7) k/cumm Absolute Lymphocytes 1.11 L (1.2-3.4) k/cumm Absolute Monocytes 0.87 H (0.11-0.7) k/cumm Sodium 132 L (136-145) mmol/L Chloride 94 L (98-107) mmol/L BUN 45 H (7-18) mg/dL Creatinine 1.41 H (0.55-1.02) mg/dL Glucose 166 H (74-106) mg/dL Lactate 2.2 H* (0.6-1.4) mmol/L Calcium (8.5-10.1) mg/dL Total Bilirubin 1.7 H (0.2-1.0) mg/dL Total Protein (6.4-8.2) g/dL Albumin (3.4-5.0) g/dL 08/05/19 08/05/19 08/05/19 Range/Units 06:09 06:09 06:09 Hgb (12.0-15.5) g/dL Hct (36.0-46.0) % MCV 96.0 H (80-95) fL Absolute Neutrophils 7.23 H (1.2-6.7) k/cumm Absolute Lymphocytes 1.12 L (1.2-3.4) k/cumm Absolute Monocytes 0.92 H (0.11-0.7) k/cumm Sodium 135 L (136-145) mmol/L Chloride (98-107) mmol/L BUN 34 H D (7-18) mg/dL Creatinine (0.55-1.02) mg/dL Glucose (74-106) mg/dL Lactate 1.5 H (0.6-1.4) mmol/L Calcium 8.2 L (8.5-10.1) mg/dL Total Bilirubin 1.2 H (0.2-1.0) mg/dL Total Protein 6.1 L (6.4-8.2) g/dL Albumin 3.2 L (3.4-5.0) g/dL Vital Signs Temperature 36 C L 08/05/19 05:16 Temperature Source Temporal Artery Scan 08/05/19 00:51 Pulse 86 08/05/19 03:00 Pulse 90 08/05/19 03:10 Respiratory Rate 17 08/05/19 03:10 Respiratory Effort Non-Labored 08/05/19 00:51 Respiratory Depth Normal 08/05/19 00:51 Respiratory Pattern Normal 08/05/19 00:51 Blood Pressure 123/85 08/05/19 03:00 Blood Pressure Mean 94 08/05/19 03:00 Blood Pressure Position Supine 08/05/19 00:51 Pulse Oximetry 94 L 08/05/19 02:40 Oxygen Delivery Method Room Air 08/05/19 00:51 Oxygen Flow Rate 0 08/05/19 00:51 Pain Level 1 08/05/19 05:16 Intake & Output 08/04/19 08/04/19 08/05/19 11:59 23:59 11:59 Intake Total 1999 600 / 600 Output Total 200 / 200 Balance 1999 400 / 400 Weight 43.6 kg 44.5 kg Intake: IV 1999 600 / 600 Output: Urine 200 / 200 Other: Urine Color Straw Urine Appearance Cloudy Urine Odor Strong Voiding Methods Bedside Commode Laboratory Results WBC 9.30 k/cumm (4.4-10.8) 08/05/19 06:09 RBC 4.47 m/cumm (4.00-5.20) 08/05/19 06:09 Hgb 14.7 g/dL (12.0-15.5) 08/05/19 06:09 Hct 42.9 % (36.0-46.0) 08/05/19 06:09 MCV 96.0 fL (80-95) H 08/05/19 06:09 MCH 32.9 pg (27.0-33.0) 08/05/19 06:09 MCHC 34.3 g/dL (32.0-36.0) 08/05/19 06:09 RDW 14.4 % (11.7-14.6) 08/05/19 06:09 Plt Count 194 x1000/uL (130-400) 08/05/19 06:09 MPV 10.2 fL (8.0-11.0) 08/05/19 06:09 Immature Gran % 0.2 % 08/05/19 06:09 Neutrophils % 77.8 08/05/19 06:09 Lymphocytes % 12.0 08/05/19 06:09 Monocytes % 9.9 08/05/19 06:09 Eosinophils % 0.1 08/05/19 06:09 Basophils % 0.0 08/05/19 06:09 Absolute Neutrophils 7.23 k/cumm (1.2-6.7) H 08/05/19 06:09 Absolute Lymphocytes 1.12 k/cumm (1.2-3.4) L 08/05/19 06:09 Absolute Monocytes 0.92 k/cumm (0.11-0.7) H 08/05/19 06:09 Absolute Eosinophils 0.01 k/cumm (0.0-0.7) 08/05/19 06:09 Absolute Basophils 0.00 k/cumm (0.0-0.2) 08/05/19 06:09 PT Cancelled 08/05/19 07:21 INR Cancelled 08/05/19 07:21 APTT Cancelled 08/05/19 07:21 Sodium 135 mmol/L (136-145) L 08/05/19 06:09 Potassium 3.5 mmol/L (3.5-5.1) 08/05/19 06:09 Chloride 99 mmol/L (98-107) 08/05/19 06:09 Carbon Dioxide 29.0 mmol/L (21.0-32.0) 08/05/19 06:09 Anion Gap 7.0 mmol/L (3-11) 08/05/19 06:09 BUN 34 mg/dL (7-18) H D 08/05/19 06:09 Creatinine 0.91 mg/dL (0.55-1.02) D 08/05/19 06:09 Estimated GFR/1.73 m2 59.04 (mL/min/1.73m2) 08/05/19 06:09 Glucose 105 mg/dL (74-106) D 08/05/19 06:09 Lactate 1.5 mmol/L (0.6-1.4) H 08/05/19 06:09 Calcium 8.2 mg/dL (8.5-10.1) L 08/05/19 06:09 Total Bilirubin 1.2 mg/dL (0.2-1.0) H 08/05/19 06:09 AST 22 U/L (15-37) 08/05/19 06:09 ALT 16 U/L (14-59) 08/05/19 06:09 Alkaline Phosphatase 47 U/L (46-116) 08/05/19 06:09 Troponin I 0.06 ng/Ml (<0.06) 08/04/19 16:35 C-Reactive Protein 0.07 mg/dL (0.0-0.3) 08/05/19 06:09 Total Protein 6.1 g/dL (6.4-8.2) L 08/05/19 06:09 Albumin 3.2 g/dL (3.4-5.0) L 08/05/19 06:09 Patient ABO/Rh A Positive 08/04/19: Antibody Screen Negative 08/04/19:21
[2019-08-05] MEDS: Lactated Ringers 1,000 ML 80 ML IV (09:48)
--- NOTE | 2019-08-05 11:09 | PHA.ADMREV ---
Pharmacy Clinical Review - Admission Clinical Review (Last Reviewed 08/05/19 @ 09:53 by Sharyn Valles DO) Atrial fibrillation and flutter (Acute) Cecal volvulus (Acute) Cecal volvulus (Acute) Low body mass index (Acute) Seasonal affective disorder (Acute) Atrial flutter by electrocardiography (Acute 02/01/16) senior care current use of anticoagulant therapy (Acute 09/25/15) cimetidine Adverse Reaction (Intermediate, Verified 03/09/19 13:49) BREAST TENDERNESS diltiazem Adverse Reaction (Intermediate, Verified 03/09/19 13:49) bowel problem Penicillins Adverse Reaction (Unknown, Verified 03/09/19 13:49) unknown Height 5 ft 3.5 in Weight 44.5 kg - Renal Dosing Renal Dosing: BUN 34 mg/dL (7-18) H D 08/05/19 06:09 Creatinine 0.91 mg/dL (0.55-1.02) D 08/05/19 06:09 Medications needing adjustments: Reviewed - Anticoagulation Anticoagulation: Hgb 14.7 g/dL (12.0-15.5) 08/05/19 06:09 Hct 42.9 % (36.0-46.0) 08/05/19 06:09 Plt Count 194 x1000/uL (130-400) 08/05/19 06:09 INR Cancelled 08/05/19 07:21 Creatinine 0.91 mg/dL (0.55-1.02) D 08/05/19 06:09 DVT Prohphylaxis: N/A Therapeutic Anticoagulation: N/A (CHRONIC COAGULATION HAS BEEN REVERSED WITH ANDEXXA, resume eliquis ZAHIDA) - Opiate Usage Evaluate Pain Scale/Pains Meds: Reviewed Scheduled Bowel Reg ordered if on Opiates?: No ( aware) - Relevant Labs Sodium 135 mmol/L (136-145) L 08/05/19 06:09 Potassium 3.5 mmol/L (3.5-5.1) 08/05/19 06:09 Chloride 99 mmol/L (98-107) 08/05/19 06:09 C-Reactive Protein 0.07 mg/dL (0.0-0.3) 08/05/19 06:09 Electrolytes, C-Reactive P, ESR: Reviewed - Antimicrobial Stewardship Antibiotic appropriateness: Reviewed Surgical Abx d/c within 24 hr: N/A Culture review/Resistance: N/A - DM Control DM Control: Glucose 105 mg/dL (74-106) D 08/05/19 06:09 Insulin Dosing: N/A - Heart Failure/IL Heart Failure/IL: Troponin I 0.06 ng/Ml (<0.06) 08/04/19 16:35 EF%, BELKIS's, B-Blockers, Diuretics: Reviewed - BP Control BP Control: Blood Pressure [Right Arm] 130/87 Blood Pressure 123/85 Blood Pressure 129/92 Blood Pressure 148/75 Blood Pressure 143/76 Blood Pressure 135/62 If elevated: Reviewed - QTc Review If Elevated: Reviewed - IV to PO Switch IV Medications: Reviewed - Home Meds Home Med List reviewed: Reviewed Relevent Home Meds Not ordered & why?: Sertraline (currently npo) - Current meds Current Medication Order Review: Reviewed - Comments Comments/Follow Ups: Low dose Andexxa protocol began @0630
--- NOTE | 2019-08-05 11:54 | W.PM.OP ---
Date of service: 08/05/19 Time of Service: 11:55 Operative Note Operative Note DATE OF PROCEDURE: 08/05/19 PRE-OP DIAGNOSIS: cecal volvulus POST-OP DIAGNOSIS: same PROCEDURE: CE Procedure Description: After informed consent was obtained from her daughter, the patient was taken to the OR and GETA was administered per the dept of anesthesia. a time out was done. The patients name, date of , procedure, allergies to medications and metal in their body was reviewed. a rectal exam was done. External exam was normal. Internal exam revealed a normal sphincter tone and no palpable masses. The scope was then introduced and retrofelexed. No internal hemorrhoids were identified. The scope was then passed up the rectal sigmoid valves. The patient tolerated the procedure well and there were no immediate complications. -could not pass scope thru sigmoid- either adhesions from SLICK or b/c there is no room to distended the colon. I spoke w/ gena and we will proceed w/ open surgery.
--- NOTE | 2019-08-05 12:45 | BOWEL_PTH ---
PATIENT: Daina Reddy LOC: U#:[id number] AGE/SX: 84/F ROOM: RE08/04/[address]: Sharyn Valles : 1935 BED: A DIS: 08/19/2019 SPEC #: [id number] RECD: 08/05/19 15:59 STATUS: SOUT REQ #: [id number] YOSELIN: 08/05/19 12:[address]: Sharyn Valles DEPT: Surgical Specimen RECD BY: Eulalia Perales ENTERED: 08/05/19 15:59 SP TYPE: Bowel OTHR DR: Gulshan Howe, DO Charly Amador Tissues: 1 - BOWEL RESECTION(OTHER) Procedures: GROSS AND MICRO LEVEL 5 Comments: [id number]
--- NOTE | 2019-08-05 13:33 | ROE_ITS ---
Date of service: 08/05/19 Time of Service: 13:33 Operative Note Operative Note DATE OF PROCEDURE: 08/05/19 PRE-OP DIAGNOSIS: cecal volvulus unable to decompress w/ colonoscope POST-OP DIAGNOSIS: same areas of necrosis and splitting of the serosa PROCEDURE: ex lap cecal resection ] SURGEON: Sharyn Valles ASSISTING SURGEON: Michelle Olivera MAINTENANCE SERVICE TECHNICIAN: Chula Cunningham ANESTHESIA: GETA ESTIMATED BLOOD LOSS: 50 PATHOLOGY: other COMPLICATIONS: None Patient was transported to: PACU Patient's condition: stable Findings: 700cc of fluid removed from bowels NGT and henley placed in OR Procedure Description: .dict pt daughter was appraised of findings and pt condition
--- NOTE | 2019-08-05 13:50 | ROE_ITS ---
DATE: AUGUST 05, 2019 Preoperative Diagnosis: Continued cecal volvulus We were unable to proceed with colonoscopy and will proceed with laparotomy. Postoperative Diagnosis: Same with areas of necrosis and serosa denuding to the cecum. Operation: Exploratory laparotomy and right cecal resection. Surgeon: Sharyn aVlles D.O. Access Lead: JOHNNA Diez PA Anesthesia: General Estimated Blood Loss: 50 cc. , 700 cc. of stool was evacuated from the GI tract. Drain was placed on the right side in the pelvis. The patient tolerated the procedure well without complications. History: The patient is an 84 year-old female with advanced dementia but otherwise is in good health from a cardiopulmonary standpoint. She presented to the Emergency Department with a cecal volvulus that did not resolve with conservative medical management. We attempted to do a colonoscopy on her to decompress but I could not could not pass the scope through the sigmoid colon. She has had a previous total abdominal hysterectomy and a hernia repair. I did discuss this with her daughter and she elected to proceed with laparotomy. Informed consent was obtained from her daughter Coretta Reddy, who is her power of estimator printing. I explained the risks and benefits of the procedure including but not limited to bleeding, infection, blood clots, risks of wound problems including infection and dehiscence and hernia, complications from anesthesia including myocardial infarction, cerebrovascular accident, requirement of mechanical ventilation and worsening of her dementia. The patient is a DNR/DNI but her daughter does wish to proceed with surgery. Procedure: The patient was brought to the Surgical Suite and placed in the supine position. Anesthesia was administered per the Department of Anesthesia taking respiratory precautions for COVID. Tavares catheter and NG tube were placed. She has two IVs for access. The patient was prepped and draped in the usual sterile fashion using ChloraPrep scrub solution. She did receive preoperative antibiotics. Time-out was performed. She has had a previous lower abdominal laparotomy for a total abdominal hysterectomy. A vertical midline incision was created 2 inches above and 3 inches below the umbilicus. Electrocautery was used for hemostasis. Baljeet were used to dissect down to the fascia and the fascia was entered sharply. Her abdomen was grossly distended. The incision was then carried superiorly and inferiorly using electrocautery. She has omental adhesions up to the anterior abdominal wall and these were taken down with electrocautery. THe liver and stomach are grossly nl. The NGT is in good position. Pelvic organs are absent. The rest of the colon is colapsed, but normal w no masses. There are a few diverticula in the sigmoid colon. The small bowel is run and is nl. She does have a few small jejunal adhesions down in the pelvis and from her prior obturator hernia repair and SLICK.. These were taken down sharply. She has a gross, massively distended cecum that is probably close to 6 inches in dilation. This is torsed on its mesentery as well as having a few adhesions from small bowel, most likely from her prior surgery. The adhesions were taken down. The cecum is untorsed. When viewing the cecum there is some serosal denuding and some punctate areas of ischemia that do not resolve. There is no gross perforation but it is on such a long floppy, single mesentery that this most likely will just retorse if left in-situ so it was elected to perform a cecal resection. The mesentery attachments were taken down with LigaSure and the mesentery was incised with LigaSure as well. The DHAVAL stapler was used to divide the colon midway on the right colon and removing about 3 inches of distal ileum and dividing the ileum. The antimesenteric ends were then brought together and a DHAVAL was placed on either limb of the bowel and fired creating an anastomosis. A TA-60 was used to close the remaining defect and the ends were oversewn with #4-0 Vicryl. A stay suture was placed proximally and distally to anchor the small bowel together. We have a good lumen and there is no bleeding. There is little spillage of gastric contents but not more than 10 cc. The mesenteric defect was closed with #2-0 Vicryl in a running fashion. The abdomen was copiously irrigated with three liters of saline. All saline was removed. There was no bleeding from the dissection site. There was no bleeding from the staple sites. The liver was normal. She has had a previous total abdominal hysterectomy with bilateral salpingo-oophorectomy. There were no signs of any recurrent cancer in the pelvis. There were a few small diverticula in the sigmoid colon. A G-tube was in good position in the stomach. The stomach appears grossly normal. There were calcifications in the main artery. Sponge, needle, and instrument counts were correct. Because we did have some spillage, a DEBRA-drain was placed in the right lower quadrant and left in the pelvis. Seprafilm was placed on the incision. The peritoneum was closed with #0 Vicryl in an interrupted fashion. The fascia was closed with #0 PDS in a running fashion. The wound fat pad was then irrigated and skin was closed with cade. The drain was sewn with #2-0 Prolene and a wound VACC is applied. The patient tolerated the procedure well. She was extubated in the room and recovered in the Operating Room for 30 minutes and then transferred to the Intensive Care Unit. All COVID respiratory precaution were followed. Her daughter Coretta was advised of the findings.
--- NOTE | 2019-08-05 15:02 | W.PM.PROGNOT ---
Date of Service Date of service: 08/05/19 Time of Service: 15:02 Assessment and Plan Assessment and plan (1) Atrial fibrillation and flutter: Status: Acute Assessment and plan: stable continue metoprolol (2) Cecal volvulus: Status: Acute Assessment and plan: cecum did not appear viable and was on a very long mesentery. resection and primary anastomosis done rather than attempt pexy procedure. no ostomy. pt tolerated well. Daughter- Coretta was updated. cont supportive care telemetry and metoprolol cont abx d/w pharmacy adexxa- pt should not require another dose. there was no bleeding in surgery. ok to start lovenox in am. will not use toradol cont NGT decompression henley to monitor cont supportive care hospitalist will follow pro will need rehab postOP. will see how she progressive. B/c of memory issues- familiar settings may be more benficial (3) Cecal volvulus: Status: Acute (4) S/P right hemicolectomy: Status: Acute Subjective Subjective Interval history since last seen: pt sleeping comfortable in room. arousalable to name. no signs of bleeding currently and none in case. pt not reliable historian. denies abdominal pain or chest pain daughter was updated by nursing on her condition Exam HENMT Other: NGT in place. only about 100cc out since pacu Chest Chest: normal inspection of the chest Resp Effort & Inspection: normal respiratory effort Auscultation: clear to auscultation bilaterally Cardio Rate: regular rate Other: a fib GI Other: dress in place. slight bleeding. otherwise c/d/i. no BS. no distention. DEBRA- 200cc- but looks like irrigation fluid Skin Other: intact Extrem Other: no edema or breakdown Objective Objective Clinical Data: Abnormal lab results 08/04/19 08/04/19 08/04/19 Range/Units 16:12 16:12 16:35 Hgb 16.7 H (12.0-15.5) g/dL Hct 48.2 H (36.0-46.0) % MCV 95.3 H (80-95) fL Absolute Neutrophils 7.88 H (1.2-6.7) k/cumm Absolute Lymphocytes 1.11 L (1.2-3.4) k/cumm Absolute Monocytes 0.87 H (0.11-0.7) k/cumm Sodium 132 L (136-145) mmol/L Chloride 94 L (98-107) mmol/L BUN 45 H (7-18) mg/dL Creatinine 1.41 H (0.55-1.02) mg/dL Glucose 166 H (74-106) mg/dL Lactate 2.2 H* (0.6-1.4) mmol/L Calcium (8.5-10.1) mg/dL Total Bilirubin 1.7 H (0.2-1.0) mg/dL Total Protein (6.4-8.2) g/dL Albumin (3.4-5.0) g/dL 08/05/19 08/05/19 08/05/19 Range/Units 06:09 06:09 06:09 Hgb (12.0-15.5) g/dL Hct (36.0-46.0) % MCV 96.0 H (80-95) fL Absolute Neutrophils 7.23 H (1.2-6.7) k/cumm Absolute Lymphocytes 1.12 L (1.2-3.4) k/cumm Absolute Monocytes 0.92 H (0.11-0.7) k/cumm Sodium 135 L (136-145) mmol/L Chloride (98-107) mmol/L BUN 34 H D (7-18) mg/dL Creatinine (0.55-1.02) mg/dL Glucose (74-106) mg/dL Lactate 1.5 H (0.6-1.4) mmol/L Calcium 8.2 L (8.5-10.1) mg/dL Total Bilirubin 1.2 H (0.2-1.0) mg/dL Total Protein 6.1 L (6.4-8.2) g/dL Albumin 3.2 L (3.4-5.0) g/dL Vital Signs Temperature 36.1 C L 08/05/19 14:29 Temperature Source Temporal Artery Scan 08/05/19 08:00 Pulse 99 H 08/05/19 14:29 Pulse 90 08/05/19 03:10 Respiratory Rate 12 08/05/19 14:29 Respiratory Effort Non-Labored 08/05/19 07:32 Respiratory Depth Normal 08/05/19 07:32 Respiratory Pattern Normal 08/05/19 07:32 Blood Pressure 137/79 04/02/20 14:29 Blood Pressure Mean 100 08/05/19 07:32 Blood Pressure Position Supine 08/05/19 07:32 Pulse Oximetry 98 08/05/19 14:29 Respiratory End-tidal CO2 32 08/05/19 14:29 Oxygen Delivery Method Nasal Cannula 08/05/19 14:29 Oxygen Flow Rate 3 08/05/19 14:29 Pain Level 0 08/05/19 08:00 Intake & Output 08/04/19 08/05/19 08/05/19 23:59 11:59 23:59 Intake Total 1999 / 1999 700 / 1600 900 / 1600 Output Total 200 / 500 300 / 500 Balance 1999 2000 500 / 1100 600 / 1100 Weight 43.6 kg 44.5 kg Intake: IV 1999 700 / 1600 900 / 1600 Output: Urine 200 / 500 300 / 500 Other: Urine Color Yellow Yellow Light Natalia Urine Appearance Clear Clear Urine Odor Strong Emesis Description None Voiding Methods Bedside Commode Laboratory Results WBC 9.30 k/cumm (4.4-10.8) 08/05/19 06:09 RBC 4.47 m/cumm (4.00-5.20) 08/05/19 06:09 Hgb 14.7 g/dL (12.0-15.5) 08/05/19 06:09 Hct 42.9 % (36.0-46.0) 08/05/19 06:09 MCV 96.0 fL (80-95) H 08/05/19 06:09 MCH 32.9 pg (27.0-33.0) 08/05/19 06:09 MCHC 34.3 g/dL (32.0-36.0) 08/05/19 06:09 RDW 14.4 % (11.7-14.6) 08/05/19 06:09 Plt Count 194 x1000/uL (130-400) 08/05/19 06:09 MPV 10.2 fL (8.0-11.0) 08/05/19 06:09 Immature Gran % 0.2 % 08/05/19 06:09 Neutrophils % 77.8 08/05/19 06:09 Lymphocytes % 12.0 08/05/19 06:09 Monocytes % 9.9 08/05/19 06:09 Eosinophils % 0.1 08/05/19 06:09 Basophils % 0.0 08/05/19 06:09 Absolute Neutrophils 7.23 k/cumm (1.2-6.7) H 08/05/19 06:09 Absolute Lymphocytes 1.12 k/cumm (1.2-3.4) L 08/05/19 06:09 Absolute Monocytes 0.92 k/cumm (0.11-0.7) H 08/05/19 06:09 Absolute Eosinophils 0.01 k/cumm (0.0-0.7) 08/05/19 06:09 Absolute Basophils 0.00 k/cumm (0.0-0.2) 08/05/19 06:09 PT Cancelled 08/05/19 07:21 INR Cancelled 08/05/19 07:21 APTT Cancelled 08/05/19 07:21 Sodium 135 mmol/L (136-145) L 08/05/19 06:09 Potassium 3.5 mmol/L (3.5-5.1) 08/05/19 06:09 Chloride 99 mmol/L (98-107) 08/05/19 06:09 Carbon Dioxide 29.0 mmol/L (21.0-32.0) 08/05/19 06:09 Anion Gap 7.0 mmol/L (3-11) 08/05/19 06:09 BUN 34 mg/dL (7-18) H D 08/05/19 06:09 Creatinine 0.91 mg/dL (0.55-1.02) D 08/05/19 06:09 Estimated GFR/1.73 m2 59.04 (mL/min/1.73m2) 08/05/19 06:09 Glucose 105 mg/dL (74-106) D 08/05/19 06:09 Lactate 1.5 mmol/L (0.6-1.4) H 08/05/19 06:09 Calcium 8.2 mg/dL (8.5-10.1) L 08/05/19 06:09 Total Bilirubin 1.2 mg/dL (0.2-1.0) H 08/05/19 06:09 AST 22 U/L (15-37) 08/05/19 06:09 ALT 16 U/L (14-59) 08/05/19 06:09 Alkaline Phosphatase 47 U/L (46-116) 08/05/19 06:09 Troponin I 0.06 ng/Ml (<0.06) 08/04/19 16:35 C-Reactive Protein 0.07 mg/dL (0.0-0.3) 08/05/19 06:09 Total Protein 6.1 g/dL (6.4-8.2) L 08/05/19 06:09 Albumin 3.2 g/dL (3.4-5.0) L 08/05/19 06:09 Patient ABO/Rh A Positive 08/04/19 20:21 Antibody Screen Negative 08/04/19 20:21
--- NOTE | 2019-08-05 16:03 | NUR.NOTE ---
Nursing Note: 1510 Pt back to room 221 S/P planned surgery. VSS. 112/72, 102, 96% sat on 2L NC., RR16. PT SLEEPY, BUT AROUSABLE, THEN FALLS RIGHT BACK TO SLEEP. ET TUBE IN PLACE FROM OR AND PLACED ON LOW INTERMITTENT SUCTION ORDERED. WOULD VAC IN PLACE FROM OR AND DSG WITH SM AMT OF DRAINAGE THAT WAS MARKED UPON ARRIVAL TO ICU. DEBRA TUBE PATENT 100 ML MARIE COLORED DRAINAGE NOTED AND EMPTIED. FAUSTIN PLACED IN OR, PATENT WITH CLEAR YELLOW URINE DRAINING. SCD'S ON. PER MD ORDER SOFT RESTRAINS PLACED SO PATIENT DOES NOT PULL OUT TUBES. TELEM REAPPLIED, AFLUTTER/AFIB PREVIOUSLY NOTED. NS @ 80 CC RUNNING ORDERED. CHANGE OF SHIFT NURSE ENTERED AND REPORT GIVEN AND ALL LINES REVIEWED.
--- NOTE | 2019-08-05 19:07 | PGE_ITS ---
Date of Service Date of service: 08/05/19 Time of Service: 19:07 Assessment and Plan Assessment and plan (1) Atrial fibrillation and flutter: Status: Acute Assessment and plan: Low-dose Lopressor 2.5 mg IV every 6 hours as tolerated. She also has a as needed order if she gets significantly tachycardic. Anticoagulation is on hold for now. I will discuss with Dr. Valles when she would feel that the patient has recovered enough from surgery to restart her anticoagulation. We will check an H&H tonight. Give a small volume bolus and monitor blood pressure overnight. (2) S/P right hemicolectomy: Status: Acute Assessment and plan: Plan as per surgery. Subjective Subjective Interval history since last seen: Patient is waking up from her sedation. She is status post exploratory laparotomy and right cecal resection due to a necrotic cecal volvulus. She did well with surgery and was able to be successfully extubated. She is now on 1/2 L/min per nasal cannula with an oxygen saturation of 97%. Her blood pressures are little soft running in the systolic BP in the low 100s to high 90s. We will recheck an H&H tonight although reportedly there was minimal blood loss with the surgery. Her DEBRA drain has a small amount of blood. I will also give her a fluid bolus as she was felt to be somewhat dehydrated preoperatively. As evidenced by an elevated BUN and elevated urine specific gravity. As for her atrial fibrillation she has a as needed order for IV Lopressor. If her blood pressure will tolerate I will start her on a low scheduled dose of Lo pressor 2.5 mg IV every 6 hours while she is n.p.o. We will hold off anticoagulation until tomorrow. Dr. Valles is written for Lovenox 30 mg subcu daily beginning tomorrow. I will talk with Dr. Valles when we can restart full anticoagulation. Exam Narrative Exam Narrative: Lethargic elderly female who is beginning to wake up she is talking and asking what hospital she is in. She complains of abdominal pain over the incision site. Lungs are clear to auscultation. Heart is irregularly irregular slightly tachycardic in the low 100s. Abdomen is nondistended there is a bandage over the midline with a DEBRA drain that has a small amount of blood in the tubing and in the vacuum bottle. Bowel s ounds are absent. Objective Objective Clinical Data: Abnormal lab results 08/05/19 08/05/19 08/05/19 Range/Units 06:09 06:09 06:09 MCV 96.0 H (80-95) fL Absolute Neutrophils 7.23 H (1.2-6.7) k/cumm Absolute Lymphocytes 1.12 L (1.2-3.4) k/cumm Absolute Monocytes 0.92 H (0.11-0.7) k/cumm Sodium 135 L (136-145) mmol/L BUN 34 H D (7-18) mg/dL Lactate 1.5 H (0.6-1.4) mmol/L Calcium 8.2 L (8.5-10.1) mg/dL Total Bilirubin 1.2 H (0.2-1.0) mg/dL Total Protein 6.1 L (6.4-8.2) g/dL Albumin 3.2 L (3.4-5.0) g/dL Vital Signs Temperature 36.3 C L 08/05/19 15:15 Temperature Source Temporal Artery Scan 08/05/19 08:00 Pulse 103 H 08/05/19 15:15 Pulse 90 08/05/19 03:10 Respiratory Rate 13 08/05/19 15:15 Respiratory Effort Non-Labored 08/05/19 07:32 Respiratory Depth Normal 08/05/19 07:32 Respiratory Pattern Normal 08/05/19 07:32 Blood Pressure 133/79 08/05/19 15:15 Blood Pressure Mean 100 08/05/19 07:32 Blood Pressure Position Supine 08/05/19 07:32 Pulse Oximetry 97 08/05/19 19:00 Respiratory End-tidal CO2 35 08/05/19 14:45 Oxygen Delivery Method Nasal Cannula 08/05/19 19:00 Oxygen Flow Rate 1.5 08/05/19 19:00 Pain Level 0 08/05/19 08:00 Comment 08/05/19 19:00 Intake & Output 08/04/19 08/05/19 08/05/19 23:59 11:59 23:59 Intake Total 1999 800 / 1910 111 1910 Output Total 200 / 850 650 / 850 Balance 1999 600 / 1060 460 / 1060 Weight 43.6 kg 44.5 kg Intake: IV 1999 1110 Output: Drainage 275 / 275 Right Lower Abdomen 275 / 275 Urine 200 / 575 375 / 575 Other: Urine Color Yellow Dark Natalia Urine Appearance Clear Clear Urine Odor Strong Emesis Description None Voiding Methods Bedside Commode Laboratory Results WBC 9.30 k/cumm (4.4-10.8) 08/05/19 06:09 RBC 4.47 m/cumm (4.00-5.20) 08/05/19 06:09 Hgb 14.7 g/dL (12.0-15.5) 08/05/19 06:09 Hct 42.9 % (36.0-46.0) 08/05/19 06:09 MCV 96.0 fL (80-95) H 08/05/19 06:09 MCH 32.9 pg (27.0-33.0) 08/05/19 06:09 MCHC 34.3 g/dL (32.0-36.0) 08/05/19 06:09 RDW 14.4 % (11.7-14.6) 08/05/19 06:09 Plt Count 194 x1000/uL (130-400) 08/05/19 06:09 MPV 10.2 fL (8.0-11.0) 08/05/19 06:09 Immature Gran % 0.2 % 08/05/19 06:09 Neutrophils % 77.8 08/05/19 06:09 Lymphocytes % 12.0 08/05/19 06:09 Monocytes % 9.9 08/05/19 06:09 Eosinophils % 0.1 08/05/19 06:09 Basophils % 0.0 08/05/19 06:09 Absolute Neutrophils 7.23 k/cumm (1.2-6.7) H 08/05/19 06:09 Absolute Lymphocytes 1.12 k/cumm (1.2-3.4) L 08/05/19 06:09 Absolute Monocytes 0.92 k/cumm (0.11-0.7) H 08/05/19 06:09 Absolute Eosinophils 0.01 k/cumm (0.0-0.7) 08/05/19 06:09 Absolute Basophils 0.00 k/cumm (0.0-0.2) 08/05/19 06:09 PT Cancelled 08/05/19 07:21 INR Cancelled 08/05/19 07:21 APTT Cancelled 08/05/19 07:21 Sodium 135 mmol/L (136-145) L 08/05/19 06:09 Potassium 3.5 mmol/L (3.5-5.1) 08/05/19 06:09 Chloride 99 mmol/L (98-107) 08/05/19 06:09 Carbon Dioxide 29.0 mmol/L (21.0-32.0) 08/05/19 06:09 Anion Gap 7.0 mmol/L (3-11) 08/05/19 06:09 BUN 34 mg/dL (7-18) H D 08/05/19 06:09 Creatinine 0.91 mg/dL (0.55-1.02) D 08/05/19 06:09 Estimated GFR/1.73 m2 59.04 (mL/min/1.73m2) 08/05/19 06:09 Glucose 105 mg/dL (74-106) D 08/05/19 06:09 Lactate 1.5 mmol/L (0.6-1.4) H 08/05/19 06:09 Calcium 8.2 mg/dL (8.5-10.1) L 08/05/19 06:09 Total Bilirubin 1.2 mg/dL (0.2-1.0) H 08/05/19 06:09 AST 22 U/L (15-37) 08/05/19 06:09 ALT 16 U/L (14-59) 08/05/19 06:09 Alkaline Phosphatase 47 U/L (46-116) 08/05/19 06:09 Troponin I 0.06 ng/Ml (<0.06) 08/04/19 16:35 C-Reactive Protein 0.07 mg/dL (0.0-0.3) 08/05/19 06:09 Total Protein 6.1 g/dL (6.4-8.2) L 08/05/19 06:09 Albumin 3.2 g/dL (3.4-5.0) L 08/05/19 06:09 Patient ABO/Rh A Positive 08/04/19 20:21 Antibody Screen Negative 08/04/19 20:21
[2019-08-05 19:30] LABS: HGB 16.6 g/dL (12.0-15.5)
[2019-08-05] MEDS: Normal Saline 250 ML IV (20:23)
[2019-08-05 21:19] LABS: Bilirubin Small (Negative); Blood Large (Negative); Clarity Clear (Clear); Glucose Negative (Negative); Ketones 15 mg/dL (Negative); Leukocyte Esterase Negative (Negative); Nitrite Negative (Negative); Specific Gravity >= 1.030 (1.005-1.025); Urobilinogen 0.2 EU/dL (Up TO 0.2); pH 6.5 (5-8)
[2019-08-05 21:37] LABS: Bacteria Negative HPF (Negative); C & S Indicated? No; Casts Negative LPF (Negative); Crystals Negative HPF (Negative); Epithelial Cells Negative HPF (Negative); Mucus Negative (Negative); Other Cells Negative (Negative); RBC >50 HPF (0-2); WBC 0-2 HPF (0-5)
[2019-08-05] MEDS: FAMOTIDINE 20 MG/50 ML BAG 50 MG IVPB (22:16)
[2019-08-06] VITALS (160 sets, daily range): BP systolic 61–128; BP diastolic 39–90; PULSE 72–154; RESP 10–32; TEMP 36.3–37; O2SAT 93–99
[2019-08-06] MEDS: ACETAMINOPHEN 1,000 MG/100 ML BTL 400 MG IVPB ×3 (05:29→21:32)
[2019-08-06] MEDS: Normal Saline 1,000 ML 150 ML IV (05:33)
[2019-08-06] MEDS: metroNIDAZOLE 500 MG/100 ML BAG 100 MG IVPB ×3 (05:35→21:58)
[2019-08-06 06:48] LABS: Abs Immature Grans 0.02 k/cumm (0.0-0.09); HCT 40.9 % (36.0-46.0); HGB 13.9 g/dL (12.0-15.5); Mean Corpuscular Hemoglobin 32.9 pg (27.0-33.0); Mean Corpuscular Volume 96.7 fL (80-95); Mean Platelet Volume 10.4 fL (8.0-11.0); Platelet Count 152 x1000/uL (130-400); RBC 4.23 m/cumm (4.00-5.20); RBC Distribution Width 14.7 % (11.7-14.6)
[2019-08-06 07:11] LABS: ALT 10 U/L (14-59); AST 23 U/L (15-37); Absolute Monocyte Count 0.62 k/cumm (0.11-0.7); Absolute Neutrophil Count 7.48 k/cumm (1.2-6.7); Alkaline Phosphatase 30 U/L (46-116); Anion Gap 7.5 mmol/L (3-11); Atypical Lymphocytes % 4; BUN 28 mg/dL (7-18); Bilirubin, Total 1.1 mg/dL (0.2-1.0); C-Reactive Protein 7.66 mg/dL (0.0-0.3); CO2 23.5 mmol/L (21.0-32.0); CREATININE 0.86 mg/dL (0.55-1.02); Calcium 7.2 mg/dL (8.5-10.1); Chloride 107 mmol/L (98-107); Diff Comment Manual Differential; Glucose 87 mg/dL (74-106); Magnesium 1.5 mg/dL (1.8-2.4); Potassium 3.6 mmol/L (3.5-5.1); RBC Morphology Normal; Sodium 138 mmol/L (136-145); Total Protein 4.1 g/dL (6.4-8.2)
[2019-08-06] MEDS: Normal Saline 500 ML IV (08:12)
[2019-08-06] MEDS: Enoxaparin 30 MG/0.3 ML SYR SC (08:45)
[2019-08-06] MEDS: Pantoprazole 40 MG VIAL IVP (08:45)
[2019-08-06] MEDS: MAGNESIUM SULFATE 4 GM/100 ML BAG IVPB (08:45)
[2019-08-06] MEDS: Normal Saline Flush 10 ML SYR IVP ×7 (08:46→21:36)
--- NOTE | 2019-08-06 09:01 | PDOC.CMIN ---
Care Management Initial Assess REASON FOR HOSPITALIZATION:: Cecal Volvulus PAST MEDICAL HISTORY/PAST SURGICAL HISTORY:: severe mitral valve prolapse, AFIB, hemorrhoidectomy, TIA with symptoms of amaurosis fugax, paraxysmal AFIB; Chronic warfarin therapy, non-hemodynamically significiant atherosclerosis, mile hypercholesterolemia, GERD, SAD, cervical carcinoma in situ diagnosed 2005, essential hypertension. Cone biopsy 1982,1983, Hemorrhoidectomy 1966, oral surgery and dental extractions in 1962 PREVIOUS FUNCTIONAL STATUS/SOCIAL/FAMILY SUPPORTS:: Daina resides alone in her apartment in [place]. She moved from her lifetime house in [facility] in August of 2015. 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 She attends [employer]. She has a very large and supportive family. CURRENT FUNCTIONAL STATUS:: Daina has presented with some confusion. Undetermined if this is her current baseline or if complicated by medical needs at this time; CM continues to follow.
--- NOTE | 2019-08-06 09:02 | PGE_ITS ---
Date of Service Date of service: 08/06/19 Time of Service: 09:02 Assessment and Plan Assessment and plan (1) S/P right hemicolectomy: Status: Acute Assessment and plan: Per Dr. Valles's notes, the patient had a laparotomy and cecal resection but not truly a complete hemicolectomy. The patient is having some postoperative hypotension which appears to be volume related. She w as dehydrated going into her surgery and probably is still hypovolemic. She had minimal blood loss w/ her surgery but her drop in her hemoglobin by 2.6 gm is concerning however she is overall 4500 mL positive for her total hospitalization. I will repeat her hemogram this afternoon. Until we are sure that there is no active bleeding, I will withold her lovenox. If her hemogram is stable then I will restart her lovenox this afternoon. (2) Atrial fibrillation and flutter: Status: Acute Assessment and plan: rate is overall elevated d/t her lopressor being held this a.m. Oncer her BP has stabilized from her fluid boluses, then we can give her lopressor. (3) Hypotension: Status: Acute Assessment and plan: as above. give fluid boluses and monitor her hemogram. No evidence for sepsis (patient w/ no fever or leukocytosis). Qualifiers: Hypotension type: hypotension due to hypovolemia Qualified Code(s): I95.89 - Other hypotension; E86.1 - Hypovolemia (4) Cecal volvulus: Status: Acute Subjective Subjective Interval history since last seen: Postop day #1 laparotomy with cecal resection due to volvulus. Patient's had some mild hypotension overnight requiring repeated fluid boluses. She is in atrial fibrillation with variable rate control. Currently her heart rates in the 130s but had been in the low 100s to 110s during the night. Because of soft blood pressures this morning her morning dose of Lopressor was withheld. She is alert and talking to her family on the phone but she is confused thinking that the nurses are trying to hurt her when in fact they are just trying to do her dressing changes. She is afebrile and her white count is normalized at 8900. Hemoglobin dropped overnight to 13.9 g. However I think she was a little polycythemic due to being dehydrated. Yesterday's hemoglobin is 16 g. DEBRA drain is draining some serosanguineous fluid. There is no clots in the tubing therefore I think this is primarily left of her blood and irrigation fluid from her abdomen. We will keep an eye on her hemoglobin hematocrit. Exam Narrative Exam Narrative: Elderly female lying in bed talking on the phone with her daughter. She seems to be in no acute distress. Lungs are clear to auscultation. Heart is irregularly irregular and tachycardic without murmur Abdomen: She has active bowel sounds the left lower quadrant. Some dried blood on her abdominal dressing. DEBRA drain w/ serosanguinous fluid. Moderate tenderness over her incision Lower extremities w/o edema or cyanosis Neuro: she is alert but confused. She is currently talking on the phone w/ her daughter. She seems to be oriented to knowing she is talking to her daughter but is confused as to where she is or what her nurse is doing. Objective Objective Clinical Data: Abnormal lab results 08/05/19 08/05/19 08/06/19 Range/Units 19:18 20:50 06:06 Hgb 16.6 H (12.0-15.5) g/dL Hct 49.0 H (36.0-46.0) % MCV (80-95) fL RDW (11.7-14.6) % Absolute Neutrophils (1.2-6.7) k/cumm Absolute Lymphocytes (1.2-3.4) k/cumm BUN 28 H (7-18) mg/dL Calcium 7.2 L (8.5-10.1) mg/dL Magnesium 1.5 L (1.8-2.4) mg/dL Total Bilirubin 1.1 H (0.2-1.0) mg/dL ALT 10 L (14-59) U/L Alkaline Phosphatase 30 L (46-116) U/L C-Reactive Protein 7.66 H (0.0-0.3) mg/dL Total Protein 4.1 L (6.4-8.2) g/dL Albumin 2.0 L (3.4-5.0) g/dL Ur Specific [place] >= 1.030 H (1.005-1.025) Urine Protein 100 H (Negative) mg/dL Urine Ketones 15 H (Negative) mg/dL Urine Blood Large H (Negative) Urine Bilirubin Small H (Negative) Urine RBC >50 H (0-2) HPF 04/03/20 Range/Units 06:06 Hgb (12.0-15.5) g/dL Hct (36.0-46.0) % MCV 96.7 H (80-95) fL RDW 14.7 H (11.7-14.6) % Absolute Neutrophils 7.48 H (1.2-6.7) k/cumm Absolute Lymphocytes 0.80 L (1.2-3.4) k/cumm BUN (7-18) mg/dL Calcium (8.5-10.1) mg/dL Magnesium (1.8-2.4) mg/dL Total Bilirubin (0.2-1.0) mg/dL ALT (14-59) U/L Alkaline Phosphatase (46-116) U/L C-Reactive Protein (0.0-0.3) mg/dL Total Protein (6.4-8.2) g/dL Albumin (3.4-5.0) g/dL Ur Specific [place] (1.005-1.025) Urine Protein (Negative) mg/dL Urine Ketones (Negative) mg/dL Urine Blood (Negative) Urine Bilirubin (Negative) Urine RBC (0-2) HPF Vital Signs Temperature 36.3 C L 08/06/19 06:00 Temperature Source Temporal Artery Scan 08/06/19 06:00 Pulse 128 H 08/06/19 06:00 Pulse 108 H 08/06/19 06:20 Respiratory Rate 18 08/06/19 06:20 Respiratory Effort 08/06/19 06:00 Respiratory Depth Normal 08/06/19 04:55 Respiratory Pattern Normal 08/05/19 17:00 Blood Pressure 96/63 L 08/06/19 06:00 Blood Pressure Mean 68 08/06/19 06:00 Blood Pressure Position Supine 08/06/19 04:55 Pulse Oximetry 95 08/06/19 06:20 Respiratory End-tidal CO2 35 08/05/19 14:45 Oxygen Delivery Method Nasal Cannula 08/06/19 04:55 Oxygen Flow Rate 2 08/06/19 04:55 Pain Level 4 08/06/19 05:29 Comment 08/05/19 19:00 Intake & Output 08/05/19 08/05/19 08/06/19 11:59 23:59 11:59 Intake Total 800 / 3160 2360 / 3160 900 / 900 Output Total 200 / 900 700 / 900 750 / 750 Balance 600 / 2260 1660 / 2260 150 / 150 Weight 44.5 kg 50.4 kg Intake: IV 800 / 3160 2360 / 3160 900 / 900 Output: Gastric Drainage 200 / 200 Right Nare 200 / 200 Drainage 275 / 275 250 / 250 Right Lower Abdomen 275 / 275 250 / 250 Urine 200 / 625 425 / 625 300 / 300 Other: Urine Color Yellow Dark Natalia Brown Urine Appearance Clear Cloudy Cloudy Urine Odor Strong Comment ua sent to lab ua sent to lab Emesis Description None Gastric Occult Blood Right Nare Positive Positive Voiding Methods Bedside Commode Laboratory Results WBC 8.90 k/cumm (4.4-10.8) 08/06/19 06:06 RBC 4.23 m/cumm (4.00-5.20) 08/06/19 06:06 Hgb 13.9 g/dL (12.0-15.5) D 08/06/19 06:06 Hct 40.9 % (36.0-46.0) 08/06/19 06:06 MCV 96.7 fL (80-95) H 08/06/19 06:06 MCH 32.9 pg (27.0-33.0) 08/06/19 06:06 MCHC 34.0 g/dL (32.0-36.0) 08/06/19 06:06 RDW 14.7 % (11.7-14.6) H 08/06/19 06:06 Plt Count 152 x1000/uL (130-400) 08/06/19 06:06 MPV 10.4 fL (8.0-11.0) 08/06/19 06:06 Immature Gran % 0.0 % 08/06/19 06:06 Neutrophils % 83.0 08/06/19 06:06 Band Neutrophils % 1.0 % 08/06/19 06:06 Lymphocytes % 5.0 08/06/19 06:06 Atypical Lymphs % 4 08/06/19 06:06 Monocytes % 7.0 08/06/19 06:06 Eosinophils % 0.0 08/06/19 06:06 Basophils % 0.0 08/06/19 06:06 Absolute Neutrophils 7.48 k/cumm (1.2-6.7) H 08/06/19 06:06 Absolute Lymphocytes 0.80 k/cumm (1.2-3.4) L 08/06/19 06:06 Absolute Monocytes 0.62 k/cumm (0.11-0.7) 08/06/19 06:06 Absolute Eosinophils 0.00 k/cumm (0.0-0.7) 08/06/19 06:06 Absolute Basophils 0.00 k/cumm (0.0-0.2) 08/06/19 06:06 Differential Comment Manual differential 08/06/19 06:06 RBC Morphology Normal 08/06/19 06:06 PT Cancelled 08/05/19 07:21 INR Cancelled 08/05/19 07:21 APTT Cancelled 08/05/19 07:21 Sodium 138 mmol/L (136-145) 08/06/19 06:06 Potassium 3.6 mmol/L (3.5-5.1) 08/06/19 06:06 Chloride 107 mmol/L (98-107) 08/06/19 06:06 Carbon Dioxide 23.5 mmol/L (21.0-32.0) 08/06/19 06:06 Anion Gap 7.5 mmol/L (3-11) 08/06/19 06:06 BUN 28 mg/dL (7-18) H 08/06/19 06:06 Creatinine 0.86 mg/dL (0.55-1.02) 08/06/19 06:06 Estimated GFR/1.73 m2 >= 60.00 (mL/min/1.73m2) 08/06/19 06:06 Glucose 87 mg/dL (74-106) 08/06/19 06:06 Lactate 1.5 mmol/L (0.6-1.4) H 08/05/19 06:09 Calcium 7.2 mg/dL (8.5-10.1) L 08/06/19 06:06 Magnesium 1.5 mg/dL (1.8-2.4) L 08/06/19 06:06 Total Bilirubin 1.1 mg/dL (0.2-1.0) H 08/06/19 06:06 AST 23 U/L (15-37) 08/06/19 06:06 ALT 10 U/L (14-59) L 08/06/19 06:06 Alkaline Phosphatase 30 U/L (46-116) L 08/06/19 06:06 Troponin I 0.06 ng/Ml (<0.06) 08/04/19 16:35 C-Reactive Protein 7.66 mg/dL (0.0-0.3) H 08/06/19 06:06 Total Protein 4.1 g/dL (6.4-8.2) L 08/06/19 06:06 Albumin 2.0 g/dL (3.4-5.0) L 08/06/19 06:06 Urine Color Yellow (Yellow) 08/05/19 20:50 Urine Clarity Clear (Clear) 08/05/19 20:50 Urine pH 6.5 (5-8) 08/05/19 20:50 Ur Specific [place] >= 1.030 (1.005-1.025) H 08/05/19 20:50 Urine Protein 100 mg/dL (Negative) H 08/05/19 20:50 Urine Ketones 15 mg/dL (Negative) H 08/05/19 20:50 Urine Blood Large (Negative) H 08/05/19 20:50 Urine Nitrite Negative (Negative) 08/05/19 20:50 Urine Bilirubin Small (Negative) H 08/05/19 20:50 Urine Urobilinogen 0.2 EU/dL (Up TO 0.2) 08/05/19 20:50 Ur Leukocyte Esterase Negative (Negative) 08/05/19 20:50 Urine RBC >50 HPF (0-2) H 08/05/19 20:50 Urine WBC 0-2 HPF (0-5) 08/05/19 20:50 Ur Epithelial Cells Negative HPF (Negative) 08/05/19 20:50 Urine Crystals Negative HPF (Negative) 08/05/19 20:50 Urine Bacteria Negative HPF (Negative) 08/05/19 20:50 Urine Casts Negative LPF (Negative) 08/05/19 20:50 Urine Mucus Negative (Negative) 08/05/19 20:50 Urine Other Negative (Negative) 08/05/19 20:50 Ur Culture Indicated? No 08/05/19 20:50 Urine Glucose Negative mg/dL (Negative) 08/05/19 20:50 Patient ABO/Rh A Positive 08/04/19 20:21 Antibody Screen Negative 08/04/19 20:21
--- NOTE | 2019-08-06 09:13 | PGE_ITS ---
Date of Service Date of service: 08/06/19 Time of Service: 09:13 Assessment and Plan Assessment and plan (1) S/P right hemicolectomy: Status: Acute Assessment and plan: no signs of infection- rocphin and flagyl pain appear well controlled on IV tylenol Lovenox for DVT pepcid pulm toilet/inc spirom PT consulted. up walking as tolerated consider rehab vs home w/ home PT. we will see how she continues to progress -low urine output. 500cc fluid bolus over 1hr and will reassess try to follow ERAS protocol- entereg started if NGT b/c dislodged- leave it out. (very diff to insert in OR) (2) Atrial fibrillation and flutter: Status: Acute Assessment and plan: rate currently controlled. there was minimal dissection. Any bleeding when be from anastomosis or the skin incision. Probably safe to resume on POD #3 (3) Cecal volvulus: Status: Acute (4) Low body mass index: Status: Acute (5) Dementia: Status: Chronic Subjective Subjective Interval history since last seen: pt slept well doing the night. She has not seemed like she had much pain. She has had a low urine output and BP's have been soft. hosp is giving fluid bolus and holding B josefina. She has had minimal out of NGT. no bleeding thru dressing/PICOs unit. She notes mild pain at the lower portion of the incision. She denies CP or COB or cough- but she is a poor historian. She has not had any temps. HR has been stable/controlled. Exam [facility] Head: normal to inspection Other: pt awake/alert adn orientated to self. She seems comfortable and no pain, or anxiety no thrush. no eye pain/redness. no jaw or dental pain. She finds the NGT annoying. Chest Chest: normal inspection of the chest Resp Effort & Inspection: normal respiratory effort and able to speak in complete sentences Auscultation: clear to auscultation bilaterally Cardio Rate: other Rhythm: regular rhythm GI Inspection: incision (dressed. the dressing is c/d/i) Palpation: soft Auscultation: normal bowel sounds Skin Other: no breakdown. she has good IV access Extrem General: capillary refill normal and no clubbing, cyanosis or edema Objective Objective Clinical Data: Abnormal lab results 08/05/19 08/05/19 08/06/19 Range/Units 19:18 20:50 06:06 Hgb 16.6 H (12.0-15.5) g/dL Hct 49.0 H (36.0-46.0) % MCV (80-95) fL RDW (11.7-14.6) % Absolute Neutrophils (1.2-6.7) k/cumm Absolute Lymphocytes (1.2-3.4) k/cumm BUN 28 H (7-18) mg/dL Calcium 7.2 L (8.5-10.1) mg/dL Magnesium 1.5 L (1.8-2.4) mg/dL Total Bilirubin 1.1 H (0.2-1.0) mg/dL ALT 10 L (14-59) U/L Alkaline Phosphatase 30 L (46-116) U/L C-Reactive Protein 7.66 H (0.0-0.3) mg/dL Total Protein 4.1 L (6.4-8.2) g/dL Albumin 2.0 L (3.4-5.0) g/dL Ur Specific [place] >= 1.030 H (1.005-1.025) Urine Protein 100 H (Negative) mg/dL Urine Ketones 15 H (Negative) mg/dL Urine Blood Large H (Negative) Urine Bilirubin Small H (Negative) Urine RBC >50 H (0-2) HPF 08/06/19 Range/Units 06:06 Hgb (12.0-15.5) g/dL Hct (36.0-46.0) % MCV 96.7 H (80-95) fL RDW 14.7 H (11.7-14.6) % Absolute Neutrophils 7.48 H (1.2-6.7) k/cumm Absolute Lymphocytes 0.80 L (1.2-3.4) k/cumm BUN (7-18) mg/dL Calcium (8.5-10.1) mg/dL Magnesium (1.8-2.4) mg/dL Total Bilirubin (0.2-1.0) mg/dL ALT (14-59) U/L Alkaline Phosphatase (46-116) U/L C-Reactive Protein (0.0-0.3) mg/dL Total Protein (6.4-8.2) g/dL Albumin (3.4-5.0) g/dL Ur Specific [place] (1.005-1.025) Urine Protein (Negative) mg/dL Urine Ketones (Negative) mg/dL Urine Blood (Negative) Urine Bilirubin (Negative) Urine RBC (0-2) HPF Vital Signs Temperature 36.3 C L 08/06/19 06:00 Temperature Source Temporal Artery Scan 08/06/19 06:00 Pulse 128 H 08/06/19 06:00 Pulse 108 H 08/06/19 06:20 Respiratory Rate 18 08/06/19 06:20 Respiratory Effort 08/06/19 06:00 Respiratory Depth Normal 08/06/19 04:55 Respiratory Pattern Normal 08/05/19 17:00 Blood Pressure 96/63 L 08/06/19 06:00 Blood Pressure Mean 68 08/06/19 06:00 Blood Pressure Position Supine 08/06/19 04:55 Pulse Oximetry 95 08/06/19 06:20 Respiratory End-tidal CO2 35 08/05/19 14:45 Oxygen Delivery Method Nasal Cannula 08/06/19 04:55 Oxygen Flow Rate 2 08/06/19 04:55 Pain Level 4 08/06/19 05:29 Comment 08/05/19 19:00 Intake & Output 08/05/19 08/05/19 08/06/19 11:59 23:59 11:59 Intake Total 800 / 3160 2360 / 3160 900 / 900 Output Total 200 / 900 700 / 900 750 / 750 Balance 600 / 2260 1660 / 2260 150 / 150 Weight 44.5 kg 50.4 kg Intake: IV 800 / 3160 2360 / 3160 900 / 900 Output: Gastric Drainage 200 / 200 Right Nare 200 / 200 Drainage 275 / 275 250 / 250 Right Lower Abdomen 275 / 275 250 / 250 Urine 200 / 625 425 / 625 300 / 300 Other: Urine Color Yellow Dark Natalia Brown Urine Appearance Clear Cloudy Cloudy Urine Odor Strong Comment ua sent to lab ua sent to lab Emesis Description None Gastric Occult Blood Right Nare Positive Positive Voiding Methods Bedside Commode Laboratory Results WBC 8.90 k/cumm (4.4-10.8) 08/06/19 06:06 RBC 4.23 m/cumm (4.00-5.20) 08/06/19 06:06 Hgb 13.9 g/dL (12.0-15.5) D 08/06/19 06:06 Hct 40.9 % (36.0-46.0) 08/06/19 06:06 MCV 96.7 fL (80-95) H 08/06/19 06:06 MCH 32.9 pg (27.0-33.0) 08/06/19 06:06 MCHC 34.0 g/dL (32.0-36.0) 08/06/19 06:06 RDW 14.7 % (11.7-14.6) H 08/06/19 06:06 Plt Count 152 x1000/uL (130-400) 08/06/19 06:06 MPV 10.4 fL (8.0-11.0) 08/06/19 06:06 Immature Gran % 0.0 % 08/06/19 06:06 Neutrophils % 83.0 08/06/19 06:06 Band Neutrophils % 1.0 % 08/06/19 06:06 Lymphocytes % 5.0 08/06/19 06:06 Atypical Lymphs % 4 08/06/19 06:06 Monocytes % 7.0 08/06/19 06:06 Eosinophils % 0.0 08/06/19 06:06 Basophils % 0.0 08/06/19 06:06 Absolute Neutrophils 7.48 k/cumm (1.2-6.7) H 08/06/19 06:06 Absolute Lymphocytes 0.80 k/cumm (1.2-3.4) L 08/06/19 06:06 Absolute Monocytes 0.62 k/cumm (0.11-0.7) 08/06/19 06:06 Absolute Eosinophils 0.00 k/cumm (0.0-0.7) 08/06/19 06:06 Absolute Basophils 0.00 k/cumm (0.0-0.2) 08/06/19 06:06 Differential Comment Manual differential 08/06/19 06:06 RBC Morphology Normal 08/06/19 06:06 PT Cancelled 08/05/19 07:21 INR Cancelled 08/05/19 07:21 APTT Cancelled 08/05/19 07:21 Sodium 138 mmol/L (136-145) 08/06/19 06:06 Potassium 3.6 mmol/L (3.5-5.1) 08/06/19 06:06 Chloride 107 mmol/L (98-107) 08/06/19 06:06 Carbon Dioxide 23.5 mmol/L (21.0-32.0) 08/06/19 06:06 Anion Gap 7.5 mmol/L (3-11) 08/06/19 06:06 BUN 28 mg/dL (7-18) H 08/06/19 06:06 Creatinine 0.86 mg/dL (0.55-1.02) 08/06/19 06:06 Estimated GFR/1.73 m2 >= 60.00 (mL/min/1.73m2) 08/06/19 06:06 Glucose 87 mg/dL (74-106) 08/06/19 06:06 Lactate 1.5 mmol/L (0.6-1.4) H 08/05/19 06:09 Calcium 7.2 mg/dL (8.5-10.1) L 08/06/19 06:06 Magnesium 1.5 mg/dL (1.8-2.4) L 08/06/19 06:06 Total Bilirubin 1.1 mg/dL (0.2-1.0) H 08/06/19 06:06 AST 23 U/L (15-37) 08/06/19 06:06 ALT 10 U/L (14-59) L 08/06/19 06:06 Alkaline Phosphatase 30 U/L (46-116) L 08/06/19 06:06 Troponin I 0.06 ng/Ml (<0.06) 08/04/19 16:35 C-Reactive Protein 7.66 mg/dL (0.0-0.3) H 08/06/19 06:06 Total Protein 4.1 g/dL (6.4-8.2) L 08/06/19 06:06 Albumin 2.0 g/dL (3.4-5.0) L 08/06/19 06:06 Urine Color Yellow (Yellow) 08/05/19 20:50 Urine Clarity Clear (Clear) 08/05/19 20:50 Urine pH 6.5 (5-8) 08/05/19 20:50 Ur Specific [place] >= 1.030 (1.005-1.025) H 08/05/19 20:50 Urine Protein 100 mg/dL (Negative) H 08/05/19 20:50 Urine Ketones 15 mg/dL (Negative) H 08/05/19 20:50 Urine Blood Large (Negative) H 08/05/19 20:50 Urine Nitrite Negative (Negative) 08/05/19 20:50 Urine Bilirubin Small (Negative) H 08/05/19 20:50 Urine Urobilinogen 0.2 EU/dL (Up TO 0.2) 08/05/19 20:50 Ur Leukocyte Esterase Negative (Negative) 08/05/19 20:50 Urine RBC >50 HPF (0-2) H 08/05/19 20:50 Urine WBC 0-2 HPF (0-5) 08/05/19 20:50 Ur Epithelial Cells Negative HPF (Negative) 08/05/19 20:50 Urine Crystals Negative HPF (Negative) 08/05/19 20:50 Urine Bacteria Negative HPF (Negative) 08/05/19 20:50 Urine Casts Negative LPF (Negative) 08/05/19 20:50 Urine Mucus Negative (Negative) 08/05/19 20:50 Urine Other Negative (Negative) 08/05/19 20:50 Ur Culture Indicated? No 08/05/19 20:50 Urine Glucose Negative mg/dL (Negative) 08/05/19 20:50 Patient ABO/Rh A Positive 08/04/19 20:21 Antibody Screen Negative 08/04/19 20:21
--- NOTE | 2019-08-06 09:15 | CMPROGNOTE_ITS ---
Care Management Progress Note S/O: Daina remains in the ICU at this time. There is a question as to if her mental status is at baseline, per MD. Anticipate she will remain at [facility] for at least the next five days, per MD. She will need to be evaluated by PT/OT for further needs prior to discharge. CM will discuss family [id number] options with Daina and her family when she is more clear. A: 84 year old female admitted 08/04/19 for Cecal Volvulus P: Anticipate she will remain at [facility] for at least the next five days, per MD. She will need to be evaluated by PT/OT for further needs prior to discharge. Dr. Valles reports, at this juncture, she anticipates Daina will likely need family to stay with her with VNA supports or SNF upon discharge.
[2019-08-06] MEDS: MORPHine 2 MG/ML SYR IVP ×4 (09:17→19:40)
[2019-08-06] MEDS: POTASSIUM CHLORIDE/0.9% NACL 1,000 ML 125 MEQ IV ×2 (09:21→18:36)
--- NOTE | 2019-08-06 11:10 | PT.INIE ---
Date of service: 08/06/19 Time of Service: 11:15 PT Notes Visit Reasons: CECAL VOLVULUS Physical Therapy Inpatient Initial Evaluation Date: 08/06/2019 Referring Doctor: Sharyn Valles MD PT Orders: PT CONSULT: In a.m.. Patient has dementia. S/P laparotomy Precautions: Fall. Standard. Activity as tolerated. Patient Profile/Admitting Diagnosis: Patient is an [age]of[age]-old female on long-term anticoagulation who presented to the ED on 08/04/2019 with chief complaint of feeling unwell that started 3 days prior to admission. Per chart review patient reported fatigue as well as nausea with an episode of vomiting. 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 Valles on 08/05/2019. PMHX: Medical History Cecal volvulus (Acute) Low body mass index (Acute) Seasonal affective disorder (Acute) Surgical History Incarcerated Obdurator Hernia (01/31/16) Dr Nicholas, [facility] Social History/Home Situation: Patient is an unreliable historian. Per case management initial report on 08/05/2019, CM contacts Daina's daughter, Coretta, by telephone to obtain information. Coretta reports that Daina lives alone in an apartment in [place]. 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 Daina enjoys reading, watching television, corresponding in writing with friends, and going for walks. Daina is independent with her ADLs at baseline. Daina keeps in touch with several good friends in the community and has a supportive family. Equipment Owned/DME: None Subjective: Patient is agreeable to a PT consult. Patient reports discomfort in her abdominal area with movement and after ambulation activity. Per ICU nurse Lisa, patient has a tendency to be agitated. She remarks that she used to walk and run a lot in the past. Objective: General Observation: Telemetry monitoring in place. IV access to left UE. Anti-thromboembolic pumps on bilateral legs. Surgical dressing over abdominal incision. NGT drain in place. DEBRA drain in place. Quick release foam limb gallegos to bilateral wrists due to tendency of patient to be agitated. Mental Status: Alert and oriented as to person Pain: Patient reported an unquantified pain on the abdominal area with bed mobility and ambulation performance. Vital Signs: Quick HR fluctuations from 126 bpm to 155 bpm throughout session ROM: Right Upper Extremity: Shoulder Flexion WFL. Shoulder abduction WFL. Elbow flexion WFL. Wrist flexion WFL. Opening and closing of hand WFL. Left Upper Extremity: Shoulder Flexion WFL. Shoulder abduction WFL. Elbow flexion WFL. Wrist flexion WFL. Opening and closing of hand WFL. Right Lower Extremity: Hip flexion WFL. Hip abduction WFL. Knee flexion WFL. Ankle dorsiflexion WFL. Ankle plantarflexion WFL. Left Lower Extremity: Hip flexion WFL. Hip abduction WFL. Knee flexion WFL. Ankle dorsiflexion WFL. Ankle plantarflexion WFL. Strength: Right Upper Extremity: Shoulder flexors 4/5. Shoulder abductors 4/5. Elbow flexors 4/5. Elbow extensors 4/5. Pitch Worker strong. Left Upper Extremity: Shoulder flexors 4/5. Shoulder abductors 4/5. Elbow flexors 4/5. Elbow extensors 4/5. Pitch Worker strong. Right Lower Extremity: Hip flexors 4-/5. Hip abductors 4/5. Knee flexors 4/5. Knee extensors 4-/5. Ankle dorsiflexors 4/5. Ankle plantarflexors 4/5. Left Lower Extremity:Hip flexors 4-/5. Hip abductors 4/5. Knee flexors 4/5. Knee extensors 4-/5. Ankle dorsiflexors 4/5. Ankle plantarflexors 4/5. Sensation: Intact as to pain and pressure on bilateral lower extremities. Bed Mobility/Transfers: Rolling minimal assist with minimal to moderate verbal cues needed for correct technique Supine to sit minimal assist with minimal to moderate verbal cues needed for correct technique Sit to supine minimal assist with minimal to moderate verbal cues needed for correct technique Sit to stand minimal assist with minimal to moderate verbal cues needed for correct technique Stand to sit minimal assist with minimal to moderate verbal cues needed for correct technique Bed to chair minimal assist with minimal to moderate verbal cues needed for correct technique Chair to bed minimal assist with minimal to moderate verbal cues needed for correct technique Gait: Patient was able to tolerate level surface ambulation of 60 feet using front wheeled walker with full weight bearing requiring minimal assist and IV pole management from PT as well as wheelchair followed by ICU nurse Lisa. Patient required moderate verbal cueing for walker management, overall safety, and directional changes. Patient complained of abdominal pain after ambulation activity but denied dizziness, chest pain, and headache. Patient demonstrated quick fluctuations in her heart rate from 126 through 152 bpm. Decreased marc. Decreased step height and length. Balance: Static Sitting: Good Dynamic Sitting: Good Static Standing: Fair Dynamic Standing: Fair Special Tests: Mobility Limitations Standardized Measure [facility] AM-PAC 6 clicks Basic Mobility Inpatient Short Form: Raw Score: 17 CMS Score: 50.57% deficit Informed Consent/Education: Patient instructed in purpose of PT consult and plan of care. Assessment: Need for assistive device for all mobility ADL performance, unsteadiness on feet, impaired safety awareness, decreased activity tolerance, and generalized muscle weakness. Patient is an [age]g-old female on long-term anticoagulation who presented to the ED on 08/04/2019 with chief complaint of feeling unwell that started 3 days prior to admission. Per chart review patient reported fatigue as well as nausea with an episode of vomiting. 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 Valles on 08/05/2019. Patient is able to follow simple step commands and was pleasant throughout PT consult and treatment. Patient presents with clinical signs and symptoms consistent with current/admitting diagnoses that have resulted to mobility limitations, gait instability, generalized weakness, and impairment of motor control as demonstrated by the following impairment level findings: 1. Decreased strength to B UE/LE major muscle groups 2. Impaired standing balance 3. Impaired activity tolerance 4. Impaired safety awareness due to dementia Impairments are contributing to the following functional limitations: 1. Dependent bed mobility skills 2. Increased dependence with transfers 3. Inability to safely ambulate without assistive device and physical assistance 4. Increase completion time for mobility ADL performance 5. Increased fall risk 6. Inability to negotiate steps alone safely Patient is assessed as a 97648 moderate complexity based on the following: History: 84-year-old female with impairment level findings, functional limitations, and medical history as listed above Examination: Demonstrable impairment in strength, balance, and activity tolerance with underlying impairments and functional limitations as documented above Presentation: Evolving Decision Makin moderate complexity Goals: Goals X1 week 1. Supine-Sit independent 2. Sit-Supine independent 3. Sit-Stand supervision with FWW 4. Stand-Sit supervision with FWW 5. Bed-Chair supervision with FWW 6. Chair-Bed supervision with FWW 7. Supervision gait on level surface with use of least restrictive device for at least 100 feet without report of pain nor dyspnea with FWW 8. Supervision with home exercise program 9. Good static and dynamic standing balance/tolerance Plan of Care/Treatment Plan: 1-2x/day, 7 days/week x 1 week. Plan of care has been reviewed with the [employer] providing the service under Physical Therapy direction. Initiate Physical Therapy intervention for strengthening, bed mobility, transfers, gait, stairs, balance training, use of assistive device. PT Intervention: Session today consisted of physical therapy initial evaluation followed by initiating bed mobility, transfer and ambulation patient and caregiver retraining along with mobilization to minimize postoperative complications. DISCHARGE RECOMMENDATIONS: Patient will have a benefit from the use of a front-wheeled walker in order to increase independence and reduce fall risk. Patient will benefit from longterm facility placement for continued skilled physical therapy services in order to progress mobility level, strength, and balance in preparation for a safe discharge to home. TREATMENT CODE/TIME: 65850 x 30 minutes, 90504 x 14 minutes beginning at 11:10 AM. Thank you very much for this referral. Venessa Wong PT, DPT, CLT [facility] [place], [place]
[2019-08-06 12:28] LABS: HCT 42.5 % (36.0-46.0); HGB 14.6 g/dL (12.0-15.5)
--- NOTE | 2019-08-06 13:06 | W.NUTCONSULT ---
Date of service: 08/06/19 Time of Service: 13:07 Nutritional Consult ASSESSMENT: 84 year old female admitted in ICU s/p surgery for cecal volvulus. Currently NPO, BMI low for age. Daina at high nutritional risk in view of recent surgery, advanced age, low BMI, hx of poor intake. PMH: dementia. Estimated Needs: 7549-5063 kcal, 50-60 g protein, 1500 ml fluid. Currently DNR/DNI, unclear if would want tube feeding if unable to meet nutrient needs by mouth. Will be available prn. NUTRITIONAL DIAGNOSIS: Unable to meet nutrient intake by mouth as NPO s/p surgery INTERVENTION: NPO MONITORING AND EVALUATION: diet advancement, weight Time Spent in Nutritional Counseling and Treatment: 0 time spent face to face
[2019-08-06] MEDS: Normal Saline 500 ML 30 ML IV (13:52)
[2019-08-06] MEDS: Metoprolol 5 MG/5 ML VIAL IVP ×3 (15:21→23:36)
--- NOTE | 2019-08-06 15:21 | CHAPLAIN ---
Daina was very pleasant and invited me to sit down with her. She is a member of the [facility], [employer], and said the evangelical is aware she is here. She share some personal history, telling me about her four children, her and his . She is very proud of her kids and repeated a few times that they are good kids. Daina struggled with a couple of questions, like where she worked and what he did for work, but in general she seems to be content with life, like being with her kids and seems to be comfortable being here.
--- NOTE | 2019-08-06 15:34 | NUR.NOTE ---
Nursing Note: Pt has been sitting in chair, very compliant with care and easily redirected. Pt not pulling at tubes or lines. Though both IV's in left arm failed today at 1130. New IV placed in right AC. Pt reports having minimal pain when she breaths deep or uses incentive spirometry. Pt has had increased tachycardia- 2.5 mg IVP metoprolol given per MD (Dr. Copeland) recommendation. Pt is reporting having no dizziness, sob, chest pain. LS remain clear, urine out put 150 total for 7a-3p.
--- NOTE | 2019-08-06 15:42 | PT.INTREAT ---
Date of service: 08/06/19 Time of Service: 03:42 PT Notes Visit Reasons: CECAL VOLVULUS Inpatient Physical Therapy Treatment Note [facility] Date: 08/06/2019 Precautions: Fall. Standard. Activity as tolerated. Subjective: Patient is agreeable to a PT afternoon session. Patient reports discomfort in her abdominal area with movement and after ambulation activity. She did ask if she can drink anything as she states that she is very thirsty. ICU nurse Lisa gave patient ice chips per order. Objective: General Observation: Telemetry monitoring in place. IV access to left UE. Anti-thromboembolic pumps on bilateral legs. Surgical dressing over abdominal incision. NGT drain in place. DEBRA drain in place. Quick release foam limb gallegos to bilateral wrists due to tendency of patient to be agitated. Mental Status: Alert and oriented as to person Pain: Patient reported an unquantified pain on the abdominal area with bed mobility and ambulation performance. Vital Signs: Quick HR fluctuations from 126 bpm to 147 Bpm throughout session Sensation: Intact as to pain and pressure on bilateral lower extremities. Assessment: Patient is pleasant and cooperative during PT evaluation this morning and PT session this afternoon. She remains confused requiring moderate to maximal verbal cueing for session participation. Need for assistive device for all mobility ADL performance, unsteadiness on feet, impaired safety awareness, decreased activity tolerance, and generalized muscle weakness. Patient is an 48-57-vipt-old female on long-term anticoagulation who presented to the ED on 08/04/2019 with chief complaint of feeling unwell that started 3 days prior to admission. Per chart review patient reported fatigue as well as nausea with an episode of vomiting. 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 Valles on 08/05/2019. THERA EX: Session in the afternoon consisted of seated range of motion exercises that included ankle dorsiflexion plantarflexion x 20, LAQs x10 seated hip flexion x10 and seated clamshell exercises x10. THERA ACT: Explanation regarding the PT plan of care and plan for tomorrow session shared with patient. Daughter Coretta was also updated about PT plan of care as well as patient performance this morning via phone. Patient was assisted with proper positioning while on bedside recliner to maximize comfort and minimize pain on abdominal area. DISCHARGE RECOMMENDATIONS: Patient will have a benefit from the use of a front-wheeled walker in order to increase independence and reduce fall risk. Patient will benefit from halfway facility placement for continued skilled physical therapy services in order to progress mobility level, strength, and balance in preparation for a safe discharge to home. TREATMENT CODE/TIME: 46501 x 18 minutes, 51617 x 10 minutes beginning at 15:42 PM.
[2019-08-06] MEDS: Normal Saline 1,000 ML 500 ML IV (18:13)
[2019-08-06] MEDS: LORazepam 2 MG/ML VIAL 0.5 MG IVP (20:28)
--- NOTE | 2019-08-06 20:54 | NUR.NOTE ---
Addendum entered by Barby Sahni RN 08/06/19 22:40: Pt still did not respond well to the bolus and Dr. Renner was called again. He ordered a stat EKG to ensure that there was not an ischemic process going on and noted that he would come up to see the pt. He assessed the pt in the room. By this time the BP came up a little better. He did note that there was a 7 point drop in the Hematocrit from earlier at noon, which he noted may be dilutional but he wanted the surgeons to be aware and he had them paged and discussed it with them. He spoke with Dr. Burk who agreed that it was dilutional and that the pt would be reassessed with AM labs. Pt did begin to improve and BPs came back up to acceptable levels without being in reversed trend. Original Note: Nursing Note: 08/06/20191999: Pt began to get very agitated and was stating that she wanted to go home. She noted that she didn't want to get changed and go to the wedding. This nurse along with Aleena Florian RN attempted to re-orient pt numerous times and the was getting more and more irritated and began pulling at her lines. When all attempts to re-direct and reorient were not working and pt began grabbing at this nurses hands and squeezing in an aggressive manner both nurses briefly discussed and decided to give pt ativan as was ordered PRN. Pt was given the ativan and responded quickly. She was then assisted to bed and PM care was finished. Pt continued to get very sleepy and vital signs were assessed. Initially blood pressure dropped to 72/53 with HR in 120's then went up to 91/57 in trend. She was again assessed and BP dropped again. Dr. Renner was then called and he ordered another 250ml bolus and a stat H&H.
[2019-08-06 21:30] LABS: HCT 35.2 % (36.0-46.0); HGB 12.2 g/dL (12.0-15.5)
[2019-08-06] MEDS: Normal Saline 250 ML 999 ML IV (21:37)
--- NOTE | 2019-08-06 21:56 | W.PM.PROGNOT ---
Date of Service Date of service: 08/06/19 Time of Service: 21:56 Assessment and Plan Assessment and plan (1) Hypotension: Status: Acute Assessment and plan: Hypotension. Seems to have been temporally related to dosing of Ativan, but some concern for 7 point drop in hematocrit . May be dilutional but will advise and update surgeon,. No evidence at present for cardiac ischemia or sepsis. Has responded well to fluid bolus, will continue IVF as is for now. Subjective Subjective Interval history since last seen: Called for hypotension. Chart reviewed, patient s/p hemicolectomy for cecal volvulus. Staff report that patient became hypotensive to 70/sys shortly after dose of Ativan given for agitation. Given 250 saline bolus. At present BP 99/sys, pulse 110 (AF), temp 37.0. Heart irr/irr; abdomen somewhat firm but non-tender; dried blood on abdominal dressing. EKG without change; hematocrit down to 35 (from 42 earlier today. I/O + 2600 Exam Narrative Exam Narrative: see above Objective Objective Clinical Data: Abnormal lab results 08/06/19 08/06/19 08/06/19 Range/Units 06:06 06:06 21:20 Hct 35.2 L (36.0-46.0) % MCV 96.7 H (80-95) fL RDW 14.7 H (11.7-14.6) % Absolute Neutrophils 7.48 H (1.2-6.7) k/cumm Absolute Lymphocytes 0.80 L (1.2-3.4) k/cumm BUN 28 H (7-18) mg/dL Calcium 7.2 L (8.5-10.1) mg/dL Magnesium 1.5 L (1.8-2.4) mg/dL Total Bilirubin 1.1 H (0.2-1.0) mg/dL ALT 10 L (14-59) U/L Alkaline Phosphatase 30 L (46-116) U/L C-Reactive Protein 7.66 H (0.0-0.3) mg/dL Total Protein 4.1 L (6.4-8.2) g/dL Albumin 2.0 L (3.4-5.0) g/dL Vital Signs Temperature 37.0 C 08/06/19 19:56 Temperature Source Temporal Artery Scan 08/06/19 19:56 Pulse 104 H 04/03/20 20:00 Pulse 128 H 08/06/19 20:00 Respiratory Rate 14 08/06/19 20:00 Respiratory Effort Non-Labored 08/06/19 19:56 Respiratory Depth Normal 08/06/19 19:56 Respiratory Pattern Normal 08/06/19 19:56 Blood Pressure 110/66 08/06/19 20:00 Blood Pressure Mean 76 08/06/19 20:00 Blood Pressure Position Sitting 08/06/19 19:56 Pulse Oximetry 98 08/06/19 20:00 Respiratory End-tidal CO2 35 08/05/19 14:45 Oxygen Delivery Method Room Air 08/06/19 19:56 Oxygen Flow Rate 0 08/06/19 19:56 Pain Level 2 08/06/19 12:42 Comment 08/05/19 19:00 Intake & Output 08/05/19 08/06/19 08/06/19 23:59 11:59 23:59 Intake Total 2360 / 3160 1440 / 3844.0 2404.0 / 3844.0 Output Total 700 / 900 900 / 1420 520 / 1420 Balance 1660 / 2260 540 / 2424.0 1884.0 / 2424.0 Weight 50.4 kg Intake: IV 2360 / 3160 1440 / 3694.0 2254.0 / 3694.0 Oral 150 / 150 Output: Gastric Drainage 300 / 500 200 / 500 Right Nare 300 / 500 200 / 500 Drainage 275 / 275 300 / 470 170 / 470 Right Lower Abdomen 275 / 275 300 / 470 170 / 470 Urine 425 / 625 300 / 450 150 / 450 Other: Urine Color Dark Jaguar Brown Dark Jaguar Urine Appearance Cloudy Cloudy Comment ua sent to lab henley patent and draining dark jaguar urine No change from previous assessment. Pt still having poor output and MD aware. Giving slow 1000ml bolus NS per order. Emesis Description None Gastric Occult Blood Right Nare Positive Positive Positive Laboratory Results WBC 8.90 k/cumm (4.4-10.8) 08/06/19 06:06 RBC 4.23 m/cumm (4.00-5.20) 08/06/19 06:06 Hgb 12.2 g/dL (12.0-15.5) D 08/06/19 21:20 Hct 35.2 % (36.0-46.0) L 04/03/20 21:20 MCV 96.7 fL (80-95) H 08/06/19 06:06 MCH 32.9 pg (27.0-33.0) 08/06/19 06:06 MCHC 34.0 g/dL (32.0-36.0) 08/06/19 06:06 RDW 14.7 % (11.7-14.6) H 08/06/19 06:06 Plt Count 152 x1000/uL (130-400) 08/06/19 06:06 MPV 10.4 fL (8.0-11.0) 08/06/19 06:06 Immature Gran % 0.0 % 08/06/19 06:06 Neutrophils % 83.0 08/06/19 06:06 Band Neutrophils % 1.0 % 08/06/19 06:06 Lymphocytes % 5.0 08/06/19 06:06 Atypical Lymphs % 4 08/06/19 06:06 Monocytes % 7.0 08/06/19 06:06 Eosinophils % 0.0 08/06/19 06:06 Basophils % 0.0 08/06/19 06:06 Absolute Neutrophils 7.48 k/cumm (1.2-6.7) H 08/06/19 06:06 Absolute Lymphocytes 0.80 k/cumm (1.2-3.4) L 08/06/19 06:06 Absolute Monocytes 0.62 k/cumm (0.11-0.7) 08/06/19 06:06 Absolute Eosinophils 0.00 k/cumm (0.0-0.7) 08/06/19 06:06 Absolute Basophils 0.00 k/cumm (0.0-0.2) 08/06/19 06:06 Differential Comment Manual differential 08/06/19 06:06 RBC Morphology Normal 08/06/19 06:06 PT Cancelled 08/05/19 07:21 INR Cancelled 08/05/19 07:21 APTT Cancelled 08/05/19 07:21 Sodium 138 mmol/L (136-145) 08/06/19 06:06 Potassium 3.6 mmol/L (3.5-5.1) 08/06/19 06:06 Chloride 107 mmol/L (98-107) 08/06/19 06:06 Carbon Dioxide 23.5 mmol/L (21.0-32.0) 08/06/19 06:06 Anion Gap 7.5 mmol/L (3-11) 08/06/19 06:06 BUN 28 mg/dL (7-18) H 08/06/19 06:06 Creatinine 0.86 mg/dL (0.55-1.02) 08/06/19 06:06 Estimated GFR/1.73 m2 >= 60.00 (mL/min/1.73m2) 08/06/19 06:06 Glucose 87 mg/dL (74-106) 08/06/19 06:06 Lactate 1.5 mmol/L (0.6-1.4) H 08/05/19 06:09 Calcium 7.2 mg/dL (8.5-10.1) L 08/06/19 06:06 Magnesium 1.5 mg/dL (1.8-2.4) L 08/06/19 06:06 Total Bilirubin 1.1 mg/dL (0.2-1.0) H 08/06/19 06:06 AST 23 U/L (15-37) 08/06/19 06:06 ALT 10 U/L (14-59) L 08/06/19 06:06 Alkaline Phosphatase 30 U/L (46-116) L 08/06/19 06:06 Troponin I 0.06 ng/Ml (<0.06) 08/04/19 16:35 C-Reactive Protein 7.66 mg/dL (0.0-0.3) H 08/06/19 06:06 Total Protein 4.1 g/dL (6.4-8.2) L 08/06/19 06:06 Albumin 2.0 g/dL (3.4-5.0) L 08/06/19 06:06 Urine Color Yellow (Yellow) 08/05/19 20:50 Urine Clarity Clear (Clear) 08/05/19 20:50 Urine pH 6.5 (5-8) 08/05/19 20:50 Ur Specific [place] >= 1.030 (1.005-1.025) H 08/05/19 20:50 Urine Protein 100 mg/dL (Negative) H 08/05/19 20:50 Urine Ketones 15 mg/dL (Negative) H 08/05/19 20:50 Urine Blood Large (Negative) H 08/05/19 20:50 Urine Nitrite Negative (Negative) 08/05/19 20:50 Urine Bilirubin Small (Negative) H 08/05/19 20:50 Urine Urobilinogen 0.2 EU/dL (Up TO 0.2) 08/05/19 20:50 Ur Leukocyte Esterase Negative (Negative) 08/05/19 20:50 Urine RBC >50 HPF (0-2) H 08/05/19 20:50 Urine WBC 0-2 HPF (0-5) 08/05/19 20:50 Ur Epithelial Cells Negative HPF (Negative) 08/05/19 20:50 Urine Crystals Negative HPF (Negative) 08/05/19 20:50 Urine Bacteria Negative HPF (Negative) 08/05/19 20:50 Urine Casts Negative LPF (Negative) 08/05/19 20:50 Urine Mucus Negative (Negative) 08/05/19 20:50 Urine Other Negative (Negative) 08/05/19 20:50 Ur Culture Indicated? No 08/05/19 20:50 Urine Glucose Negative mg/dL (Negative) 08/05/19 20:50 Patient ABO/Rh A Positive 08/04/19 20:21 Antibody Screen Negative 08/04/19 20:21
[2019-08-06] MEDS: FAMOTIDINE 20 MG/50 ML BAG 200 MG IVPB (22:02)
[2019-08-06] MEDS: cefTRIAXone 1 GM/50 ML BAG IVPB (23:37)
--- NOTE | 2019-08-06 23:48 | NUR.NOTE ---
Nursing Note:2330 Pt was scheduled for the 0000 metoprolol push. This nurse stayed to co-sign the medication and Aleena Florian RN gave half now and will wait an hour to give the other half if the pt can tolerate the first half. If not, will be paged.
[2019-08-07] VITALS (140 sets, daily range): BP systolic 81–152; BP diastolic 47–97; PULSE 70–153; RESP 14–37; TEMP 36.3–37.1; O2SAT 95–99
[2019-08-07] MEDS: Metoprolol 5 MG/5 ML VIAL IVP ×5 (03:00→17:50)
[2019-08-07] MEDS: metroNIDAZOLE 500 MG/100 ML BAG 100 MG IVPB ×3 (05:35→21:46)
[2019-08-07] MEDS: ACETAMINOPHEN 1,000 MG/100 ML BTL 400 MG IVPB ×3 (06:08→21:45)
[2019-08-07] MEDS: POTASSIUM CHLORIDE/0.9% NACL 1,000 ML 125 MEQ IV ×3 (06:09→20:28)
[2019-08-07] MEDS: Normal Saline Flush 10 ML SYR IVP ×4 (06:10→14:11)
[2019-08-07 06:50] LABS: Abs Immature Grans 0.08 k/cumm (0.0-0.09); Absolute Eosinophil Count 0.01 k/cumm (0.0-0.7); Absolute Lymphocyte Count 0.54 k/cumm (1.2-3.4); Eosinophils % 0.1; HCT 36.7 % (36.0-46.0); HGB 12.2 g/dL (12.0-15.5); Immature Grans % 0.7 %; Lymphocytes % 4.6; Mean Corp. HGB Concentration 33.2 g/dL (32.0-36.0); Mean Corpuscular Volume 99.2 fL (80-95); Mean Platelet Volume 10.2 fL (8.0-11.0); Monocytes % 5.1; Neutrophils % 89.5; Platelet Count 156 x1000/uL (130-400); RBC Distribution Width 14.9 % (11.7-14.6); White Blood Cell Count 11.67 k/cumm (4.4-10.8)
[2019-08-07 06:51] LABS: Absolute Neutrophil Count 10.44 k/cumm (1.2-6.7)
[2019-08-07 06:55] LABS: Anion Gap 10.4 mmol/L (3-11); BUN 27 mg/dL (7-18); CO2 18.6 mmol/L (21.0-32.0); CREATININE 0.81 mg/dL (0.55-1.02); Calcium 7.5 mg/dL (8.5-10.1); Chloride 111 mmol/L (98-107); Glucose 85 mg/dL (74-106); Magnesium 2.6 mg/dL (1.8-2.4); Potassium 4.3 mmol/L (3.5-5.1); Sodium 140 mmol/L (136-145)
--- NOTE | 2019-08-07 08:30 | PGE_ITS ---
Date of Service Date of service: 08/07/19 Time of Service: 08:30 Assessment and Plan Assessment and plan (1) Atrial fibrillation and flutter: Status: Acute Assessment and plan: Variable atrial fibrillation rate control. Continues to receive IV Lopressor 5 mg every 6 hours with PRN doses for sustained tachycardia of 130 or greater. If surgery will allow we can try giving her Lopressor via her NG. If she is to remain n.p.o. then we will continue with IV Lopressor. If hypotension becomes problematic from her Lopressor we could try digitalizing her. (2) Hypotension: Status: Acute Assessment and plan: BP seems to have responded to IV fluid boluses. I think she remains relatively hypovolemic. H&H is stabilized overnight. Continue w/ iv fluid hydration. Qualifiers: Hypotension type: hypotension due to hypovolemia Qualified Code(s): I95.89 - Other hypotension; E86.1 - Hypovolemia (3) S/P right hemicolectomy: Status: Acute Assessment and plan: Per Dr. Valles's notes, the patient had a laparotomy and cecal resection but not truly a complete hemicolectomy. 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 (5) DVT prophylaxis: Status: Acute Assessment and plan: resume lovenox as there is no apparent bleeding complications. Once she is able to take oral anticoagulation, she should be put back on her Apixaban. Subjective Subjective Interval history since last seen: Patient currently sleeping. Overnight she had some hypotension that responded to IV fluid boluses. She remains in atrial fibrillation with variable rate control. Hemoglobin stable at 12.2 g. Oxygen saturation 98% on 2 L/min per nasal cannula. According to the cumulative intake and output there is been 530 mL of her DEBRA drain. DEBRA drain looks serosanguineous. I spoke w/ the night nurse and there was only 60 mL total from 2300 on 08/06/2019 to 0700 this morning. Exam Narrative Exam Narrative: Elderly female sleeping. Lungs with some scattered coarse breath sounds Heart irregular irregular and slightly tachycardic Abdomen with hypoactive bowel sounds. DEBRA drain with small amount of serosanguineous fluid. Extremities without peripheral cyanosis or edema Objective Objective Clinical Data: Abnormal lab results 04/07/2208/07/19 08/07/19 Range/Units 21:20 06:25 06:25 WBC 11.67 H D (4.4-10.8) k/cumm RBC 3.70 L (4.00-5.20) m/cumm Hct 35.2 L (36.0-46.0) % MCV 99.2 H (80-95) fL RDW 14.9 H (11.7-14.6) % Absolute Neutrophils 10.44 H (1.2-6.7) k/cumm Absolute Lymphocytes 0.54 L (1.2-3.4) k/cumm Chloride 111 H (98-107) mmol/L Carbon Dioxide 18.6 L (21.0-32.0) mmol/L BUN 27 H (7-18) mg/dL Calcium 7.5 L (8.5-10.1) mg/dL Magnesium 2.6 H (1.8-2.4) mg/dL Vital Signs Temperature 36.4 C L 08/07/19 04:16 Temperature Source Temporal Artery Scan 08/07/19 00:28 Pulse 122 H 08/07/19 08:00 Pulse 112 H 08/07/19 08:01 Respiratory Rate 16 08/07/19 08:01 Respiratory Effort 08/07/19 04:16 Respiratory Depth Normal 08/07/19 04:16 Respiratory Pattern Normal 08/07/19 04:16 Blood Pressure 96/60 L 08/07/19 08:00 Blood Pressure Mean 66 08/07/19 08:00 Blood Pressure Position Sitting 08/06/19 19:56 Pulse Oximetry 98 08/07/19 08:01 Respiratory End-tidal CO2 35 08/05/19 14:45 Oxygen Delivery Method Nasal Cannula 08/07/19 04:16 Oxygen Flow Rate 2 08/07/19 04:16 Pain Level 2 08/06/19 12:42 Comment 08/05/19 19:00 Intake & Output 08/06/19 08/06/19 08/07/19 11:59 23:59 11:59 Intake Total 1440 / 4294.0 2854.0 / 4294.0 1210 / 1210 Output Total 900 / 1730 830 / 1730 340 / 340 Balance 540 / 2564.0 2024.0 / 2564.0 870 / 870 Weight 50.4 kg 49.5 kg Intake: IV 1440 / 4144.0 2704.0 / 4144.0 1100 / 1100 Oral 150 / 150 50 / 50 Injectate 60 / 60 Right Lower Abdomen 60 / 60 Output: Gastric Drainage 300 / 550 250 / 550 200 / 200 Right Nare 300 / 550 250 / 550 200 / 200 Drainage 300 / 530 230 / 530 Right Lower Abdomen 300 / 530 230 / 530 Urine 300 / 650 350 / 650 140 / 140 Other: Urine Color Brown Dark Jaguar Dark Jaguar Urine Appearance Cloudy Cloudy Cloudy Comment henley patent and draining dark jaguar urine No change from previous assessment. Pt still having poor output and MD aware. Giving slow 1000ml bolus NS per order. henley in place draining adequate amts of dark jaguar urine since 2299. Gastric Occult Blood Right Nare Positive Positive Positive Laboratory Results WBC 11.67 k/cumm (4.4-10.8) H D 08/07/19 06:25 RBC 3.70 m/cumm (4.00-5.20) L 08/07/19 06:25 Hgb 12.2 g/dL (12.0-15.5) 08/07/19 06:25 Hct 36.7 % (36.0-46.0) 08/07/19 06:25 MCV 99.2 fL (80-95) H 08/07/19 06:25 MCH 33.0 pg (27.0-33.0) 08/07/19 06:25 MCHC 33.2 g/dL (32.0-36.0) 08/07/19 06:25 RDW 14.9 % (11.7-14.6) H 08/07/19 06:25 Plt Count 156 x1000/uL (130-400) 08/07/19 06:25 MPV 10.2 fL (8.0-11.0) 08/07/19 06:25 Immature Gran % 0.7 % 08/07/19 06:25 Neutrophils % 89.5 08/07/19 06:25 Band Neutrophils % 1.0 % 08/06/19 06:06 Lymphocytes % 4.6 08/07/19 06:25 Atypical Lymphs % 4 08/06/19 06:06 Monocytes % 5.1 08/07/19 06:25 Eosinophils % 0.1 08/07/19 06:25 Basophils % 0.0 08/07/19 06:25 Absolute Neutrophils 10.44 k/cumm (1.2-6.7) H 08/07/19 06:25 Absolute Lymphocytes 0.54 k/cumm (1.2-3.4) L 08/07/19 06:25 Absolute Monocytes 0.60 k/cumm (0.11-0.7) 08/07/19 06:25 Absolute Eosinophils 0.01 k/cumm (0.0-0.7) 08/07/19 06:25 Absolute Basophils 0.00 k/cumm (0.0-0.2) 08/07/19 06:25 Differential Comment Manual differential 08/06/19 06:06 RBC Morphology Normal 08/06/19 06:06 PT Cancelled 08/05/19 07:21 INR Cancelled 08/05/19 07:21 APTT Cancelled 08/05/19 07:21 Sodium 140 mmol/L (136-145) 08/07/19 06:25 Potassium 4.3 mmol/L (3.5-5.1) 08/07/19 06:25 Chloride 111 mmol/L (98-107) H 08/07/19 06:25 Carbon Dioxide 18.6 mmol/L (21.0-32.0) L 08/07/19 06:25 Anion Gap 10.4 mmol/L (3-11) 08/07/19 06:25 BUN 27 mg/dL (7-18) H 08/07/19 06:25 Creatinine 0.81 mg/dL (0.55-1.02) 08/07/19 06:25 Estimated GFR/1.73 m2 >= 60.00 (mL/min/1.73m2) 08/07/19 06:25 Glucose 85 mg/dL (74-106) 08/07/19 06:25 Lactate 1.5 mmol/L (0.6-1.4) H 08/05/19 06:09 Calcium 7.5 mg/dL (8.5-10.1) L 08/07/19 06:25 Magnesium 2.6 mg/dL (1.8-2.4) H 08/07/19 06:25 Total Bilirubin 1.1 mg/dL (0.2-1.0) H 08/06/19 06:06 AST 23 U/L (15-37) 08/06/19 06:06 ALT 10 U/L (14-59) L 08/06/19 06:06 Alkaline Phosphatase 30 U/L (46-116) L 08/06/19 06:06 Troponin I 0.06 ng/Ml (<0.06) 08/04/19 16:35 C-Reactive Protein 7.66 mg/dL (0.0-0.3) H 08/06/19 06:06 Total Protein 4.1 g/dL (6.4-8.2) L 08/06/19 06:06 Albumin 2.0 g/dL (3.4-5.0) L 08/06/19 06:06 Urine Color Yellow (Yellow) 08/05/19 20:50 Urine Clarity Clear (Clear) 08/05/19 20:50 Urine pH 6.5 (5-8) 08/05/19 20:50 Ur Specific [place] >= 1.030 (1.005-1.025) H 08/05/19 20:50 Urine Protein 100 mg/dL (Negative) H 08/05/19 20:50 Urine Ketones 15 mg/dL (Negative) H 08/05/19 20:50 Urine Blood Large (Negative) H 08/05/19 20:50 Urine Nitrite Negative (Negative) 08/05/19 20:50 Urine Bilirubin Small (Negative) H 08/05/19 20:50 Urine Urobilinogen 0.2 EU/dL (Up TO 0.2) 08/05/19 20:50 Ur Leukocyte Esterase Negative (Negative) 08/05/19 20:50 Urine RBC >50 HPF (0-2) H 08/05/19 20:50 Urine WBC 0-2 HPF (0-5) 08/05/19 20:50 Ur Epithelial Cells Negative HPF (Negative) 08/05/19 20:50 Urine Crystals Negative HPF (Negative) 08/05/19 20:50 Urine Bacteria Negative HPF (Negative) 08/05/19 20:50 Urine Casts Negative LPF (Negative) 08/05/19 20:50 Urine Mucus Negative (Negative) 08/05/19 20:50 Urine Other Negative (Negative) 08/05/19 20:50 Ur Culture Indicated? No 08/05/19 20:50 Urine Glucose Negative mg/dL (Negative) 08/05/19 20:50 Patient ABO/Rh A Positive 08/04/19 20:21 Antibody Screen Negative 08/04/19 20:21
[2019-08-07] MEDS: Enoxaparin 30 MG/0.3 ML SYR SC (09:45)
[2019-08-07] MEDS: Pantoprazole 40 MG VIAL IVP (09:47)
--- NOTE | 2019-08-07 09:50 | W.PM.PROGNOT ---
Date of Service Date of service: 08/07/19 Time of Service: 09:51 Assessment and Plan Assessment and plan (1) DVT prophylaxis: Status: Acute Assessment and plan: A\\ No signs of bleeding P\ Lovenox restarted by Dr. Copeland this am (2) Dementia: Status: Chronic Assessment and plan: A\\ Had to get a small dose of Ativan. Has been sleeping since P\\ Will decrease dose of ativan to 0.25 mg Qualifiers: Dementia behavioral disturbance: with behavioral disturbance Dementia type: unspecified type Qualified Code(s): F03.91 - Unspecified dementia with behavioral disturbance (3) S/P right hemicolectomy: Status: Acute Assessment and plan: A\\ POD # 2 s/p cecectomy for cecal volvulous Few bowel sounds noted Still with bilious NG output P\\ Continue with NG suction As soon as NG output decreases will start her back on eliquis and lopressor (4) Atrial fibrillation and flutter: Status: Acute Assessment and plan: A\\ A-fib. On IV metoprolol P\\ Appreciate Hospitalist group assisting with patient Will try to start Eliquis as soon as NG output decreased (5) Leukocytosis: Status: Acute Assessment and plan: A\\ Slight increase in her wbc count On rocephin and Flagyl P\\ Continue on antibiotics Monitor for fevers and recheck WBC count tomorrow At risk for pneumonia- contiinue with ISP as much as possible Qualifiers: Leukocytosis type: other Qualified Code(s): D72.828 - Other elevated white blood cell count (6) Discharge planning issues: Status: Acute Assessment and plan: A\\ Will need Rehab once she recovers Subjective Subjective Interval history since last seen: Mrs. Reddy was agitated last night at just after 7 pm. She was give one dose of 0.5 mg of ativan. She has been sleeping since then. She will arouse to when shaken a little but will go right back to sleep. Had a low BP after the ativan with SBP in the 70's. HCT was lower but HGB was stable. She was give a [address] Renner. Appreciate his assistance. This morning BP's in the 90's to low 100's which is her normal. No BM and no flatus NG still putting out quite a bit of bilious fluid. Exam Const General: comfortable (sleeping) Resp Effort & Inspection: normal respiratory effort Auscultation: clear to auscultation bilaterally Cardio Rate: regular rate Rhythm: abnormal rhythm Heart Sounds: no murmurs GI Inspection: other (OPAL in place with small amount of blood) Palpation: soft and nontender (no grimacing and doesn't wake up with palpation) Auscultation: hypoactive bowel sounds Other: DEBRA drain with serosanguinous discharge. Tubbing stripped of any clots Objective Objective Clinical Data: Abnormal lab results 08/06/19 08/07/19 08/07/19 Range/Units 21:20 06:25 06:25 WBC 11.67 H D (4.4-10.8) k/cumm RBC 3.70 L (4.00-5.20) m/cumm Hct 35.2 L (36.0-46.0) % MCV 99.2 H (80-95) fL RDW 14.9 H (11.7-14.6) % Absolute Neutrophils 10.44 H (1.2-6.7) k/cumm Absolute Lymphocytes 0.54 L (1.2-3.4) k/cumm Chloride 111 H (98-107) mmol/L Carbon Dioxide 18.6 L (21.0-32.0) mmol/L BUN 27 H (7-18) mg/dL Calcium 7.5 L (8.5-10.1) mg/dL Magnesium 2.6 H (1.8-2.4) mg/dL Vital Signs Temperature 97.3 F L 08/07/19 07:40 Temperature Source Temporal Artery Scan 08/07/19 07:40 Pulse 122 H 08/07/19 08:00 Pulse 112 H 08/07/19 08:01 Respiratory Rate 16 08/07/19 08:01 Respiratory Effort Non-Labored 08/07/19 07:40 Respiratory Depth Normal 08/07/19 07:40 Respiratory Pattern Normal 08/07/19 07:40 Blood Pressure 96/60 L 08/07/19 08:00 Blood Pressure Mean 66 08/07/19 08:00 Blood Pressure Position Sitting 08/06/19 19:56 Pulse Oximetry 98 08/07/19 09:11 Respiratory End-tidal CO2 35 08/05/19 14:45 Oxygen Delivery Method Nasal Cannula 08/07/19 09:11 Oxygen Flow Rate 2 08/07/19 09:11 Pain Level 0 08/07/19 07:40 Comment 08/05/19 19:00 Intake & Output 08/06/19 08/06/19 08/07/19 11:59 23:59 11:59 Intake Total 1440 / 4294.0 2854.0 / 4294.0 1410 / 1410 Output Total 900 / 1730 830 / 1730 340 / 340 Balance 540 / 2564.0 2024.0 / 2564.0 1070 / 1070 Weight 111 lb 1.808 oz 109 lb 2.061 oz Intake: IV 1440 / 4144.0 2704.0 / 4144.0 1300 / 1300 Oral 150 / 150 50 / 50 Injectate 60 / 60 Right Lower Abdomen 60 / 60 Output: Gastric Drainage 300 / 550 250 / 550 200 / 200 Right Nare 300 / 550 250 / 550 200 / 200 Drainage 300 / 530 230 / 530 Right Lower Abdomen 300 / 530 230 / 530 Urine 300 / 650 350 / 650 140 / 140 Other: Urine Color Brown Dark Jaguar Dark Jaguar Urine Appearance Cloudy Cloudy Cloudy Comment henley patent and draining dark jaguar urine No change from previous assessment. Pt still having poor output and MD aware. Giving slow 1000ml bolus NS per order. Pt sleeping per last shift no complaints Gastric Occult Blood Right Nare Positive Positive Positive Laboratory Results WBC 11.67 k/cumm (4.4-10.8) H D 08/07/19 06:25 RBC 3.70 m/cumm (4.00-5.20) L 08/07/19 06:25 Hgb 12.2 g/dL (12.0-15.5) 08/07/19 06:25 Hct 36.7 % (36.0-46.0) 08/07/19 06:25 MCV 99.2 fL (80-95) H 08/07/19 06:25 MCH 33.0 pg (27.0-33.0) 08/07/19 06:25 MCHC 33.2 g/dL (32.0-36.0) 08/07/19 06:25 RDW 14.9 % (11.7-14.6) H 08/07/19 06:25 Plt Count 156 x1000/uL (130-400) 08/07/19 06:25 MPV 10.2 fL (8.0-11.0) 08/07/19 06:25 Immature Gran % 0.7 % 08/07/19 06:25 Neutrophils % 89.5 08/07/19 06:25 Band Neutrophils % 1.0 % 08/06/19 06:06 Lymphocytes % 4.6 08/07/19 06:25 Atypical Lymphs % 4 08/06/19 06:06 Monocytes % 5.1 08/07/19 06:25 Eosinophils % 0.1 08/07/19 06:25 Basophils % 0.0 08/07/19 06:25 Absolute Neutrophils 10.44 k/cumm (1.2-6.7) H 08/07/19 06:25 Absolute Lymphocytes 0.54 k/cumm (1.2-3.4) L 08/07/19 06:25 Absolute Monocytes 0.60 k/cumm (0.11-0.7) 08/07/19 06:25 Absolute Eosinophils 0.01 k/cumm (0.0-0.7) 08/07/19 06:25 Absolute Basophils 0.00 k/cumm (0.0-0.2) 08/07/19 06:25 Differential Comment Manual differential 08/06/19 06:06 RBC Morphology Normal 08/06/19 06:06 PT Cancelled 08/05/19 07:21 INR Cancelled 08/05/19 07:21 APTT Cancelled 08/05/19 07:21 Sodium 140 mmol/L (136-145) 08/07/19 06:25 Potassium 4.3 mmol/L (3.5-5.1) 08/07/19 06:25 Chloride 111 mmol/L (98-107) H 08/07/19 06:25 Carbon Dioxide 18.6 mmol/L (21.0-32.0) L 08/07/19 06:25 Anion Gap 10.4 mmol/L (3-11) 08/07/19 06:25 BUN 27 mg/dL (7-18) H 08/07/19 06:25 Creatinine 0.81 mg/dL (0.55-1.02) 08/07/19 06:25 Estimated GFR/1.73 m2 >= 60.00 (mL/min/1.73m2) 08/07/19 06:25 Glucose 85 mg/dL (74-106) 08/07/19 06:25 Lactate 1.5 mmol/L (0.6-1.4) H 08/05/19 06:09 Calcium 7.5 mg/dL (8.5-10.1) L 08/07/19 06:25 Magnesium 2.6 mg/dL (1.8-2.4) H 08/07/19 06:25 Total Bilirubin 1.1 mg/dL (0.2-1.0) H 08/06/19 06:06 AST 23 U/L (15-37) 08/06/19 06:06 ALT 10 U/L (14-59) L 08/06/19 06:06 Alkaline Phosphatase 30 U/L (46-116) L 08/06/19 06:06 Troponin I 0.06 ng/Ml (<0.06) 08/04/19 16:35 C-Reactive Protein 7.66 mg/dL (0.0-0.3) H 08/06/19 06:06 Total Protein 4.1 g/dL (6.4-8.2) L 08/06/19 06:06 Albumin 2.0 g/dL (3.4-5.0) L 08/06/19 06:06 Urine Color Yellow (Yellow) 08/05/19 20:50 Urine Clarity Clear (Clear) 08/05/19 20:50 Urine pH 6.5 (5-8) 08/05/19 20:50 Ur Specific [place] >= 1.030 (1.005-1.025) H 08/05/19 20:50 Urine Protein 100 mg/dL (Negative) H 08/05/19 20:50 Urine Ketones 15 mg/dL (Negative) H 08/05/19 20:50 Urine Blood Large (Negative) H 08/05/19 20:50 Urine Nitrite Negative (Negative) 08/05/19 20:50 Urine Bilirubin Small (Negative) H 08/05/19 20:50 Urine Urobilinogen 0.2 EU/dL (Up TO 0.2) 08/05/19 20:50 Ur Leukocyte Esterase Negative (Negative) 08/05/19 20:50 Urine RBC >50 HPF (0-2) H 08/05/19 20:50 Urine WBC 0-2 HPF (0-5) 08/05/19 20:50 Ur Epithelial Cells Negative HPF (Negative) 08/05/19 20:50 Urine Crystals Negative HPF (Negative) 08/05/19 20:50 Urine Bacteria Negative HPF (Negative) 08/05/19 20:50 Urine Casts Negative LPF (Negative) 08/05/19 20:50 Urine Mucus Negative (Negative) 08/05/19 20:50 Urine Other Negative (Negative) 08/05/19 20:50 Ur Culture Indicated? No 08/05/19 20:50 Urine Glucose Negative mg/dL (Negative) 08/05/19 20:50 Patient ABO/Rh A Positive 08/04/19 20:21 Antibody Screen Negative 08/04/19 20:21
--- NOTE | 2019-08-07 11:39 | PT.INNT ---
Date of service: 08/07/19 Time of Service: 11:39 PT Notes Visit Reasons: CECAL VOLVULUS Attempted several times to rouse patient, she is unable to sustain opening her yes and would resume sleep. Tried sliding B LE to edge of bed to elicit some active muscle contraction for supine to sit but to no avail. Per nurse, patient was given 0.5 mg of Ativan at 7 pm last noc due to increased agitation. Will see patient in the afternoon and will re-attempt mobility retraining as tolerated.
--- NOTE | 2019-08-07 12:09 | CMPROGNOTE_ITS ---
- If Service Date Differs Date of service: 08/07/19 Time of Service: 12:09 Care Management Progress Note S/O: Daina was sleeping when CM attempted to meet with her. Per RN, she was agitated last night and was given a small dose of ativan, and has been sleeping since. CM called Daina's daughter, Coretta, and discussed discharge plans with her. Coretta agrees that a short term rehab stay would benefit her mother. She will determine the next steps with the facility regarding ferry terminal supervisor placement vs home with more support. Coretta stated that her mother would prefer to be home, but as we don't know what her capacity will be going forward, she thinks she will be agreeable to short term rehab to see how she does in that environment. Coretta requested referrals to be sent to the [facility] for consideration. CM will continue to follow. A: 84 year old female admitted 08/04/19 for Cecal Volvulus P: Anticipate she will remain at [facility] for at least the next four days, per MD. She was evaluated by PT/OT for further needs prior to discharge. PT recommends SNF vs 24/[address] Valles reports, at this juncture, she anticipates Daina will likely need family to stay with her with VNA supports or SNF upon discharge. CM will send referrals to local SNF's for consideration. CM will continue to follow and support discharge planning considerations.
--- NOTE | 2019-08-07 14:39 | PT.INTREAT ---
Date of service: 08/07/19 Time of Service: 14:39 PT Notes Visit Reasons: CECAL VOLVULUS Inpatient Physical Therapy Treatment Note [facility] Date: 08/07/2019 Precautions: Fall. Standard. Activity as tolerated. Subjective: Patient is more awake this afternoon is able to sustain a longer conversation although speech is still a little garbled. Patient is agreeable to a PT afternoon session. Patient reports discomfort in her abdominal area with movement and after ambulation activity. Per ICU nurse, patient is able to move her lower legs a lot better than she did this morning. Patient reported being dizzy when she was assisted back in bed. Objective: General Observation: Telemetry monitoring in place. IV access to left UE. Anti-thromboembolic pumps on bilateral legs. Surgical dressing over abdominal incision. NGT drain in place. DEBRA drain in place. Patient appears to be more pale than she did yesterday. Pain: Patient reported an unquantified pain on the abdominal area with bed mobility and ambulation performance. Vital Signs: Patient continues to be in atrial fibrillation. BED MOBILITY/TRANSFERS: Rolling moderate assist of 2 Supine to sit moderate assist of 2 with HOB at 35 degrees Sit to supine moderate assist of 2 with HOB at 35 degrees Sit to stand minimal assist of 2 with moderate to maximal verbal cueing Stand to sit moderate assist of 2 with HOB at 35 degrees Bed to chair moderate assist of 2 with HOB at 35 degrees Chair to bed moderate assist of 2 with HOB at 35 degrees GAIT: Patient is able to tolerate short distance ambulation of 5 steps forward and 5 steps backward using front wheeled walker to and from edge of bed with minimal assist of ICU nurse and this PT and with maximal verbal cueing for safe technique. Patient did report discomfort and abdominal area with ambulation activity. She also reported dizziness once that she was placed back in bed. Assessment: Patient is more aware of her environment in the afternoon and is able to to follow instructions for mobility ADL retraining with the assistance of a nurse. Her speech though remains mildly garbled. Discomfort in abdominal area limits ability and tolerance for transfer and ambulation tasks at this time. No services were provided this morning for patient due to extreme drowsiness that resulted from from intake of Ativan to manage increasing agitation last night. DISCHARGE RECOMMENDATIONS: Patient will benefit from the use of a front-wheeled walker in order to increase independence and reduce fall risk. SNF versus 25/11 care. TREATMENT CODE/TIME: 59843 x 27 minutes beginning at 14:39 PM.
[2019-08-07] MEDS: MORPHine 2 MG/ML SYR IVP ×2 (18:26→22:12)
[2019-08-07] MEDS: LORazepam 2 MG/ML VIAL IVP ×2 (19:49→21:46)
[2019-08-07] MEDS: cefTRIAXone 1 GM/50 ML BAG IVPB (22:19)
--- NOTE | 2019-08-07 23:07 | NUR.NOTE ---
Nursing Note: Pt very agitated beginning at 2100, PRN ativan given by Trevor Zavala RN as ordered PRN. This had no effect on pt. She continues to pull at tunes and lines , these being IV's, DEBRA drain, Wound Vac and [place]. PT also given PRN morphine for pain management, this medication also had no effect on pt behavior. Pt not redirectable and is a direct risk to self at this time. This nurse and Trevor Zavala RN attempted to help pt to chair , pt was unable to follow commands and unable to be directed. Pt took a few steps and then returned to bed. MD notified of situation, new orders at that time (see JUL). Pt lost IV access in right wrist, new IV placed by this nurse in left wrist. Vital signs have remain stable 129/65, HR 123, RR 16. PT agitation ceased and is currently (5) sleeping in bed.
[2019-08-08] VITALS (49 sets, daily range): BP systolic 105–159; BP diastolic 61–111; PULSE 74–121; RESP 12–27; TEMP 36.1–37.1; O2SAT 93–98
[2019-08-08] MEDS: Normal Saline Flush 10 ML SYR IVP ×5 (00:06→09:36)
[2019-08-08] MEDS: Metoprolol 5 MG/5 ML VIAL IVP ×2 (00:06→05:00)
[2019-08-08] MEDS: metroNIDAZOLE 500 MG/100 ML BAG 100 MG IVPB ×3 (04:59→21:35)
[2019-08-08] MEDS: ACETAMINOPHEN 1,000 MG/100 ML BTL 400 MG IVPB ×3 (04:59→21:34)
[2019-08-08 06:26] LABS: Abs Immature Grans 0.05 k/cumm (0.0-0.09); Absolute Basophil Count 0.01 k/cumm (0.0-0.2); Absolute Eosinophil Count 0.07 k/cumm (0.0-0.7); Absolute Monocyte Count 0.51 k/cumm (0.11-0.7); Absolute Neutrophil Count 9.74 k/cumm (1.2-6.7); Basophils % 0.1; Eosinophils % 0.6; HCT 37.2 % (36.0-46.0); HGB 12.3 g/dL (12.0-15.5); Immature Grans % 0.5 %; Lymphocytes % 6.1; Mean Corp. HGB Concentration 33.1 g/dL (32.0-36.0); Mean Corpuscular Hemoglobin 33.1 pg (27.0-33.0); Mean Platelet Volume 9.9 fL (8.0-11.0); Monocytes % 4.6; Neutrophils % 88.1; Platelet Count 172 x1000/uL (130-400); RBC 3.72 m/cumm (4.00-5.20); RBC Distribution Width 15.1 % (11.7-14.6); White Blood Cell Count 11.06 k/cumm (4.4-10.8)
[2019-08-08 06:30] LABS: Absolute Lymphocyte Count 0.67 k/cumm (1.2-3.4)
[2019-08-08 07:09] LABS: Anion Gap 13.4 mmol/L (3-11); BUN 28 mg/dL (7-18); CO2 17.6 mmol/L (21.0-32.0); CREATININE 0.87 mg/dL (0.55-1.02); Calcium 7.9 mg/dL (8.5-10.1); Chloride 114 mmol/L (98-107); Glucose 94 mg/dL (74-106); Potassium 4.7 mmol/L (3.5-5.1); Sodium 145 mmol/L (136-145)
--- NOTE | 2019-08-08 08:57 | W.PM.PROGNOT ---
Date of Service Date of service: 08/08/19 Time of Service: 08:57 Assessment and Plan Assessment and plan (1) DVT prophylaxis: Status: Acute Assessment and plan: A\\ No signs of bleeding P\\ Restart Eliquis today Stop Lovenox tomorrow (2) Dementia: Status: Chronic Assessment and plan: A\\ Night time agitation Given Phenergan last night Very somnolent this am P\\ Discuss with Hospitalist about a PO medication for agitation Qualifiers: Dementia behavioral disturbance: with behavioral disturbance Dementia type: unspecified type Qualified Code(s): F03.91 - Unspecified dementia with behavioral disturbance (3) S/P right hemicolectomy: Status: Acute Assessment and plan: A\\ POD # 3 s/p cecectomy for cecal volvulous bowel sounds noted P\\ Start on sips of clears (4) Atrial fibrillation and flutter: Status: Acute Assessment and plan: A\\ A-fib. Has some crackles today on exam as well as increase in murmur- most likely patient is fluid overloaded P\\ Appreciate Hospitalist group assisting with patient Start Eliquis and Lopressor today IV lasix x1 this am (5) Leukocytosis: Status: Acute Assessment and plan: A\\ Slight decrease in her wbc count from yesterday On rocephin and Flagyl P\\ Continue on antibiotics Monitor for fevers and recheck WBC count tomorrow At risk for pneumonia- contiinue with ISP as much as possible Qualifiers: Leukocytosis type: other Qualified Code(s): D72.828 - Other elevated white blood cell count (6) Discharge planning issues: Status: Acute Assessment and plan: A\\ Will need Rehab once she recovers Subjective Subjective Interval history since last seen: Mrs Reddy is sedated again this am. She was agitated last night and was given some phenergan. She doesn't complain of pain with re-positioning. She does wake up when you shake her shoulder. UOP did drop to 20 cc an hour last night. Increased serous drainage from around the DEBRA drain NG tube was removed last night after being clamped for 4 hours Exam Const General: other (somnolent) Resp Effort & Inspection: normal respiratory effort Auscultation: crackles Cardio Rate: tachycardic Rhythm: abnormal rhythm Heart Sounds: murmur systolic IV/ GI Palpation: soft and nontender Other: OPAL dressing in place DEBRA drain stripped again. Serous output No erythema around the DEBRA drain Objective Objective Clinical Data: Abnormal lab results 08/08/19 08/08/19 Range/Units 06:05 06:05 WBC 11.06 H (4.4-10.8) k/cumm RBC 3.72 L (4.00-5.20) m/cumm MCV 100.0 H (80-95) fL MCH 33.1 H (27.0-33.0) pg RDW 15.1 H (11.7-14.6) % Absolute Neutrophils 9.74 H (1.2-6.7) k/cumm Absolute Lymphocytes 0.67 L (1.2-3.4) k/cumm Chloride 114 H (98-107) mmol/L Carbon Dioxide 17.6 L (21.0-32.0) mmol/L Anion Gap 13.4 H (3-11) mmol/L BUN 28 H (7-18) mg/dL Calcium 7.9 L (8.5-10.1) mg/dL Vital Signs Temperature 97.0 F L 08/08/19 07:36 Temperature Source Temporal Artery Scan 08/08/19 07:36 Pulse 76 08/08/19 06:00 Pulse 109 H 08/08/19 07:00 Respiratory Rate 13 08/08/19 07:00 Respiratory Effort Non-Labored 08/08/19 07:36 Respiratory Depth Normal 08/08/19 07:36 Respiratory Pattern Normal 08/08/19 04:15 Blood Pressure 117/64 08/08/19 06:00 Blood Pressure Mean 77 08/08/19 06:00 Blood Pressure Position Right Lateral 08/07/19 15:30 Pulse Oximetry 96 08/08/19 07:00 Respiratory End-tidal CO2 35 08/05/19 14:45 Oxygen Delivery Method Room Air 08/08/19 07:36 Oxygen Flow Rate 0 08/08/19 07:36 Pain Level 0 08/08/19 07:36 Comment 08/05/19 19:00 Intake & Output 08/07/19 08/07/19 08/08/19 11:59 23:59 11:59 Intake Total 1410 / 3439.584 2029.584 / 3439.584 550.25 / 550.25 Output Total 495 / 955 460 / 955 143 / 143 Balance 915 / 2484.584 1569.584 / 2484.584 407.25 / 407.25 Weight 109 lb 2.061 oz 106 lb 14.787 oz Intake: IV 1300 / 3289.584 1989.584 / 3289.584 500.25 / 500.25 Oral 50 / 70 20 / 70 0 / 0 Injectate 60 / 80 20 / 80 50 / 50 Right Lower Abdomen 60 / 80 20 / 80 50 / 50 Output: Gastric Drainage 200 / 250 50 / 250 Right Nare 200 / 250 50 / 250 Drainage 30 / 140 110 / 140 Right Lower Abdomen 30 / 140 110 / 140 Urine 265 / 565 300 / 565 143 / 143 Other: Urine Color Dark Jaguar Dark Jaguar Light Jaguar Urine Appearance Cloudy Clear Sediment Comment Urine Dip done, pulled clean UA from leg port not from bag patent and draining dark jaguar urine. Urine Output/hr is 27ml/hr since 0315 Gastric Occult Blood Right Nare Positive Laboratory Results WBC 11.06 k/cumm (4.4-10.8) H 08/08/19 06:05 RBC 3.72 m/cumm (4.00-5.20) L 08/08/19 06:05 Hgb 12.3 g/dL (12.0-15.5) 08/08/19 06:05 Hct 37.2 % (36.0-46.0) 08/08/19 06:05 MCV 100.0 fL (80-95) H 08/08/19 06:05 MCH 33.1 pg (27.0-33.0) H 08/08/19 06:05 MCHC 33.1 g/dL (32.0-36.0) 08/08/19 06:05 RDW 15.1 % (11.7-14.6) H 08/08/19 06:05 Plt Count 172 x1000/uL (130-400) 08/08/19 06:05 MPV 9.9 fL (8.0-11.0) 08/08/19 06:05 Immature Gran % 0.5 % 08/08/19 06:05 Neutrophils % 88.1 08/08/19 06:05 Band Neutrophils % 1.0 % 08/06/19 06:06 Lymphocytes % 6.1 08/08/19 06:05 Atypical Lymphs % 4 08/06/19 06:06 Monocytes % 4.6 08/08/19 06:05 Eosinophils % 0.6 08/08/19 06:05 Basophils % 0.1 08/08/19 06:05 Absolute Neutrophils 9.74 k/cumm (1.2-6.7) H 08/08/19 06:05 Absolute Lymphocytes 0.67 k/cumm (1.2-3.4) L 08/08/19 06:05 Absolute Monocytes 0.51 k/cumm (0.11-0.7) 08/08/19 06:05 Absolute Eosinophils 0.07 k/cumm (0.0-0.7) 08/08/19 06:05 Absolute Basophils 0.01 k/cumm (0.0-0.2) 08/08/19 06:05 Differential Comment Manual differential 08/06/19 06:06 RBC Morphology Normal 08/06/19 06:06 PT Cancelled 08/05/19 07:21 INR Cancelled 08/05/19 07:21 APTT Cancelled 08/05/19 07:21 Sodium 145 mmol/L (136-145) 08/08/19 06:05 Potassium 4.7 mmol/L (3.5-5.1) 08/08/19 06:05 Chloride 114 mmol/L (98-107) H 08/08/19 06:05 Carbon Dioxide 17.6 mmol/L (21.0-32.0) L 08/08/19 06:05 Anion Gap 13.4 mmol/L (3-11) H 08/08/19 06:05 BUN 28 mg/dL (7-18) H 08/08/19 06:05 Creatinine 0.87 mg/dL (0.55-1.02) 08/08/19 06:05 Estimated GFR/1.73 m2 >= 60.00 (mL/min/1.73m2) 08/08/19 06:05 Glucose 94 mg/dL (74-106) 08/08/19 06:05 Lactate 1.5 mmol/L (0.6-1.4) H 08/05/19 06:09 Calcium 7.9 mg/dL (8.5-10.1) L 08/08/19 06:05 Magnesium 2.6 mg/dL (1.8-2.4) H 08/07/19 06:25 Total Bilirubin 1.1 mg/dL (0.2-1.0) H 08/06/19 06:06 AST 23 U/L (15-37) 08/06/19 06:06 ALT 10 U/L (14-59) L 08/06/19 06:06 Alkaline Phosphatase 30 U/L (46-116) L 08/06/19 06:06 Troponin I 0.06 ng/Ml (<0.06) 08/04/19 16:35 C-Reactive Protein 7.66 mg/dL (0.0-0.3) H 08/06/19 06:06 Total Protein 4.1 g/dL (6.4-8.2) L 08/06/19 06:06 Albumin 2.0 g/dL (3.4-5.0) L 08/06/19 06:06 Urine Color Yellow (Yellow) 08/05/19 20:50 Urine Clarity Clear (Clear) 08/05/19 20:50 Urine pH 6.5 (5-8) 08/05/19 20:50 Ur Specific [place] >= 1.030 (1.005-1.025) H 08/05/19 20:50 Urine Protein 100 mg/dL (Negative) H 08/05/19 20:50 Urine Ketones 15 mg/dL (Negative) H 08/05/19 20:50 Urine Blood Large (Negative) H 08/05/19 20:50 Urine Nitrite Negative (Negative) 08/05/19 20:50 Urine Bilirubin Small (Negative) H 08/05/19 20:50 Urine Urobilinogen 0.2 EU/dL (Up TO 0.2) 08/05/19 20:50 Ur Leukocyte Esterase Negative (Negative) 08/05/19 20:50 Urine RBC >50 HPF (0-2) H 08/05/19 20:50 Urine WBC 0-2 HPF (0-5) 08/05/19 20:50 Ur Epithelial Cells Negative HPF (Negative) 08/05/19 20:50 Urine Crystals Negative HPF (Negative) 08/05/19 20:50 Urine Bacteria Negative HPF (Negative) 08/05/19 20:50 Urine Casts Negative LPF (Negative) 08/05/19 20:50 Urine Mucus Negative (Negative) 08/05/19 20:50 Urine Other Negative (Negative) 08/05/19 20:50 Ur Culture Indicated? No 08/05/19 20:50 Urine Glucose Negative mg/dL (Negative) 08/05/19 20:50 Patient ABO/Rh A Positive 08/04/19 20:21 Antibody Screen Negative 08/04/19 20:21
--- NOTE | 2019-08-08 09:07 | PGE_ITS ---
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 Trial of clear liquids today as per Dr. Burk. (2) Atrial fibrillation and flutter: Status: Acute Assessment and plan: Resume PO lopressor w/ continued use of prn iv lopressor for sustained HR = or > 130 bpm. resume her Apixaban and dc her lovenox (3) Hypotension: Status: Resolved Assessment and plan: stable hemogram (Hb 12 gm). no evidence for bleeding. At this point she is probably a little hypervolemic (increase of her MR murmur and bibasliar rales); I agree w/ Dr. Burk that we can decrease her iv fluids and give her some lasix. Qualifiers: Hypotension type: hypotension due to hypovolemia Qualified Code(s): I95.89 - Other hypotension; E86.1 - Hypovolemia (4) Dementia: Status: Chronic Assessment and plan: trial of low dose Desyrel at night. Hopefully it will not over sedate her. Qualifiers: Dementia type: unspecified type Dementia behavioral disturbance: with behavioral disturbance Qualified Code(s): F03.91 - Unspecified dementia with behavioral disturbance (5) DVT prophylaxis: Status: Acute Assessment and plan: resume lovenox as there is no apparent bleeding complications. Once she is able to take oral anticoagulation, she should be put back on her Apixaban. Subjective Subjective Interval history since last seen: Patient became agitated last night required Phenergan. She is now very somnolent. She is arousable with tactile stimulation moaning and groaning but not having any coherent conversation. Exam Narrative Exam Narrative: Thin elderly female who is somnolent but arousable. Not oriented. She will reach out the air or moan if she is stimulated. Lungs are clear to auscultation anteriorly. She has some basilar rales. Heart is irregularly irregular with a harsh holosystolic murmur over the apex. Abdomen with scant bowel sounds. DEBRA drain with no output Objective Objective Clinical Data: Abnormal lab results 08/08/19 08/08/19 Range/Units 06:05 06:05 WBC 11.06 H (4.4-10.8) k/cumm RBC 3.72 L (4.00-5.20) m/cumm MCV 100.0 H (80-95) fL MCH 33.1 H (27.0-33.0) pg RDW 15.1 H (11.7-14.6) % Absolute Neutrophils 9.74 H (1.2-6.7) k/cumm Absolute Lymphocytes 0.67 L (1.2-3.4) k/cumm Chloride 114 H (98-107) mmol/L Carbon Dioxide 17.6 L (21.0-32.0) mmol/L Anion Gap 13.4 H (3-11) mmol/L BUN 28 H (7-18) mg/dL Calcium 7.9 L (8.5-10.1) mg/dL Vital Signs Temperature 36.1 C L 08/08/19 07:36 Temperature Source Temporal Artery Scan 08/08/19 07:36 Pulse 76 08/08/19 06:00 Pulse 109 H 08/08/19 07:00 Respiratory Rate 13 08/08/19 07:00 Respiratory Effort Non-Labored 08/08/19 07:36 Respiratory Depth Normal 08/08/19 07:36 Respiratory Pattern Normal 08/08/19 04:15 Blood Pressure 117/64 08/08/19 06:00 Blood Pressure Mean 77 08/08/19 06:00 Blood Pressure Position Right Lateral 08/07/19 15:30 Pulse Oximetry 96 08/08/19 07:00 Respiratory End-tidal CO2 35 08/05/19 14:45 Oxygen Delivery Method Room Air 08/08/19 07:36 Oxygen Flow Rate 0 08/08/19 07:36 Pain Level 0 08/08/19 07:36 Comment 08/05/19 19:00 Intake & Output 08/07/19 08/07/19 08/08/19 11:59 23:59 11:59 Intake Total 1410 / 3439.584 2029.584 / 3439.584 550.25 / 550.25 Output Total 495 / 955 460 / 955 143 / 143 Balance 915 / 2484.584 1569.584 / 2484.584 407.25 / 407.25 Weight 49.5 kg 48.5 kg Intake: IV 1300 / 3289.584 1989584 / 3289.584 500.25 / 500.25 Oral 50 / 70 20 / 70 0 / 0 Injectate 60 / 80 20 / 80 50 / 50 Right Lower Abdomen 60 / 80 20 / 80 50 / 50 Output: Gastric Drainage 200 / 250 50 / 250 Right Nare 200 / 250 50 / 250 Drainage 30 / 140 110 / 140 Right Lower Abdomen 30 / 140 110 / 140 Urine 265 / 565 300 / 565 143 / 143 Other: Urine Color Dark Jaguar Dark Jaguar Light Jaguar Urine Appearance Cloudy Clear Sediment Comment Urine Dip done, pulled clean UA from leg port not from bag patent and draining dark jaguar urine. Urine Output/hr is 27ml/hr since 0315 Gastric Occult Blood Right Nare Positive Laboratory Results WBC 11.06 k/cumm (4.4-10.8) H 08/08/19 06:05 RBC 3.72 m/cumm (4.00-5.20) L 08/08/19 06:05 Hgb 12.3 g/dL (12.0-15.5) 08/08/19 06:05 Hct 37.2 % (36.0-46.0) 08/08/19 06:05 MCV 100.0 fL (80-95) H 08/08/19 06:05 MCH 33.1 pg (27.0-33.0) H 08/08/19 06:05 MCHC 33.1 g/dL (32.0-36.0) 08/08/19 06:05 RDW 15.1 % (11.7-14.6) H 08/08/19 06:05 Plt Count 172 x1000/uL (130-400) 08/08/19 06:05 MPV 9.9 fL (8.0-11.0) 08/08/19 06:05 Immature Gran % 0.5 % 08/08/19 06:05 Neutrophils % 88.1 08/08/19 06:05 Band Neutrophils % 1.0 % 08/06/19 06:06 Lymphocytes % 6.1 08/08/19 06:05 Atypical Lymphs % 4 08/06/19 06:06 Monocytes % 4.6 08/08/19 06:05 Eosinophils % 0.6 08/08/19 06:05 Basophils % 0.1 08/08/19 06:05 Absolute Neutrophils 9.74 k/cumm (1.2-6.7) H 08/08/19 06:05 Absolute Lymphocytes 0.67 k/cumm (1.2-3.4) L 08/08/19 06:05 Absolute Monocytes 0.51 k/cumm (0.11-0.7) 08/08/19 06:05 Absolute Eosinophils 0.07 k/cumm (0.0-0.7) 08/08/19 06:05 Absolute Basophils 0.01 k/cumm (0.0-0.2) 08/08/19 06:05 Differential Comment Manual differential 08/06/19 06:06 RBC Morphology Normal 08/06/19 06:06 PT Cancelled 08/05/19 07:21 INR Cancelled 08/05/19 07:21 APTT Cancelled 08/05/19 07:21 Sodium 145 mmol/L (136-145) 08/08/19 06:05 Potassium 4.7 mmol/L (3.5-5.1) 08/08/19 06:05 Chloride 114 mmol/L (98-107) H 08/08/19 06:05 Carbon Dioxide 17.6 mmol/L (21.0-32.0) L 08/08/19 06:05 Anion Gap 13.4 mmol/L (3-11) H 08/08/19 06:05 BUN 28 mg/dL (7-18) H 08/08/19 06:05 Creatinine 0.87 mg/dL (0.55-1.02) 08/08/19 06:05 Estimated GFR/1.73 m2 >= 60.00 (mL/min/1.73m2) 08/08/19 06:05 Glucose 94 mg/dL (74-106) 08/08/19 06:05 Lactate 1.5 mmol/L (0.6-1.4) H 08/05/19 06:09 Calcium 7.9 mg/dL (8.5-10.1) L 08/08/19 06:05 Magnesium 2.6 mg/dL (1.8-2.4) H 08/07/19 06:25 Total Bilirubin 1.1 mg/dL (0.2-1.0) H 08/06/19 06:06 AST 23 U/L (15-37) 08/06/19 06:06 ALT 10 U/L (14-59) L 08/06/19 06:06 Alkaline Phosphatase 30 U/L (46-116) L 08/06/19 06:06 Troponin I 0.06 ng/Ml (<0.06) 08/04/19 16:35 C-Reactive Protein 7.66 mg/dL (0.0-0.3) H 08/06/19 06:06 Total Protein 4.1 g/dL (6.4-8.2) L 08/06/19 06:06 Albumin 2.0 g/dL (3.4-5.0) L 08/06/19 06:06 Urine Color Yellow (Yellow) 08/05/19 20:50 Urine Clarity Clear (Clear) 08/05/19 20:50 Urine pH 6.5 (5-8) 08/05/19 20:50 Ur Specific [place] >= 1.030 (1.005-1.025) H 08/05/19 20:50 Urine Protein 100 mg/dL (Negative) H 08/05/19 20:50 Urine Ketones 15 mg/dL (Negative) H 08/05/19 20:50 Urine Blood Large (Negative) H 08/05/19 20:50 Urine Nitrite Negative (Negative) 08/05/19 20:50 Urine Bilirubin Small (Negative) H 08/05/19 20:50 Urine Urobilinogen 0.2 EU/dL (Up TO 0.2) 08/05/19 20:50 Ur Leukocyte Esterase Negative (Negative) 08/05/19 20:50 Urine RBC >50 HPF (0-2) H 08/05/19 20:50 Urine WBC 0-2 HPF (0-5) 08/05/19 20:50 Ur Epithelial Cells Negative HPF (Negative) 08/05/19 20:50 Urine Crystals Negative HPF (Negative) 08/05/19 20:50 Urine Bacteria Negative HPF (Negative) 08/05/19 20:50 Urine Casts Negative LPF (Negative) 08/05/19 20:50 Urine Mucus Negative (Negative) 08/05/19 20:50 Urine Other Negative (Negative) 08/05/19 20:50 Ur Culture Indicated? No 08/05/19 20:50 Urine Glucose Negative mg/dL (Negative) 08/05/19 20:50 Patient ABO/Rh A Positive 04/01/20 20:21 Antibody Screen Negative 08/04/19 20:21
[2019-08-08] MEDS: Pantoprazole 40 MG VIAL IVP (09:32)
[2019-08-08] MEDS: Furosemide 20 MG/2 ML VIAL IVP (09:34)
[2019-08-08] MEDS: Metoprolol 25 MG TAB PO ×3 (09:38→20:18)
[2019-08-08] MEDS: Apixaban 2.5 MG TAB PO ×2 (09:38→20:17)
--- NOTE | 2019-08-08 13:20 | CMPROGNOTE_ITS ---
- If Service Date Differs Date of service: 08/08/19 Time of Service: 13:21 Care Management Progress Note S/O: Per report, Daina has spent most of the day sleeping. CM sent referrals to both the [facility] and [facility] for consideration, at the request of Coretta, her daughter. CM explained that these would not be reviewed until Friday, and that CM would update Coretta after hearing from these facilities on Friday. CM will continue to follow. A: 84 year old female admitted 08/04/19 for Cecal Volvulus P: Anticipate she will remain at [facility] for at least the next three days, per MD. She was evaluated by PT/OT for further needs prior to discharge. PT recommends SNF vs 24/[address] Valles reports, at this juncture, she anticipates Daina will likely need family to stay with her with VNA supports or SNF upon discharge. CM sent referrals to local SNF's for consideration. CM will continue to follow and support discharge planning considerations.
--- NOTE | 2019-08-08 14:02 | PTTR_ITS ---
Date of service: 08/08/19 Time of Service: 14:02 PT Notes Visit Reasons: CECAL VOLVULUS Inpatient Physical Therapy Treatment Note [facility] Date: 08/08/2019 Precautions: Fall. Standard. Activity as tolerated. Subjective: I want water. In the afternoon, patient was looking for her pocketbook, coat, and shoes so she could go for a walk. She asked to go to the bathroom after a short ambulation activity with this PT. She continues to comp nedra of abdominal pain when asked to stand up from chair. Objective: General Observation: Telemetry monitoring in place. Tavares catheter in place. NGT removed last noc. IV access to R UE. Surgical dressing over abdominal incision. DEBRA drain in place. Patient appears to be more pale than she did yesterday. Pain: Patient reported an unquantified pain on the abdominal area with bed mobility and ambulation performance. Vital Signs: Patient continues to be in nonsustained atrial fibrillation. BED MOBILITY/TRANSFERS: Rolling moderate assist of 2 Supine to sit minimal assist of 2 in the morning; in the afternoon moderate assist of 2 with HOB at 35 degrees Sit to supine minimal assist of 2 in the morning; in the afternoon moderate assist of 2 with HOB at 35 degrees Sit to stand minimal assist of 2 with moderate to maximal verbal cueing Stand to sit minimal assist of 2 in the morning; in the afternoon moderate assist of 2 Bed to chair minimal assist of 2 in the morning; in the afternoon moderate assist of 2 Chair to bed minimal assist of 2 in the morning; in the afternoon moderate assist of 2 GAIT: Patient is able to tolerate level surface ambulation of 40 feet in the morning and 20 feet in the afternoon using front wheeled walker to and from edge of bed with minimal assist of ICU nurse and this PT and with maximal verbal cueing for safe technique. Patient did report discomfort and abdominal area with ambulation activity. No report of dizziness but of fatigue on both legs in the afternoon. Assessment: Patient remained somnolent this morning but is able to open eyes on command although required repetitive cueing to stay on task throughout PT session. She looked more tired during the afternoon session and required more assistance/cueing. Patient will continue to benefit from skilled services in order to maximize mobility level. DISCHARGE RECOMMENDATIONS: Patient will benefit from the use of a front-wheeled walker in order to increase independence and reduce fall risk. SNF versus 25/11 care. TREATMENT CODE/TIME: Session 1, 31679 x 34 minutes beginning at 10:40AM. Session [id number] 0 x 34 minutes beginning at 14:02 PM.
[2019-08-08] MEDS: POTASSIUM CHLORIDE/0.9% NACL 1,000 ML 125 MEQ IV (16:10)
[2019-08-08] MEDS: traZODone 50 MG TAB 25 MG PO (20:16)
[2019-08-08] MEDS: cefTRIAXone 1 GM/50 ML BAG IVPB (22:40)
[2019-08-08] MEDS: MORPHine 2 MG/ML SYR IVP (23:51)
[2019-08-09] VITALS (41 sets, daily range): BP systolic 103–164; BP diastolic 61–109; PULSE 58–154; RESP 14–24; TEMP 36.1–36.7; O2SAT 94–100
[2019-08-09] MEDS: MORPHine 2 MG/ML SYR IVP ×2 (01:50→06:40)
[2019-08-09] MEDS: traZODone 50 MG TAB 25 MG PO (03:12)
[2019-08-09] MEDS: ACETAMINOPHEN 1,000 MG/100 ML BTL 400 MG IVPB (04:40)
[2019-08-09] MEDS: metroNIDAZOLE 500 MG/100 ML BAG 100 MG IVPB ×2 (04:41→14:33)
[2019-08-09] MEDS: POTASSIUM CHLORIDE/0.9% NACL 1,000 ML 85 MEQ IV (04:41)
[2019-08-09] MEDS: Metoprolol 25 MG TAB PO (06:31)
[2019-08-09 06:32] LABS: Abs Immature Grans 0.09 k/cumm (0.0-0.09); Absolute Basophil Count 0.02 k/cumm (0.0-0.2); Absolute Eosinophil Count 0.28 k/cumm (0.0-0.7); Absolute Lymphocyte Count 1.04 k/cumm (1.2-3.4); Absolute Monocyte Count 0.56 k/cumm (0.11-0.7); Absolute Neutrophil Count 7.65 k/cumm (1.2-6.7); Basophils % 0.2; Eosinophils % 2.9; HCT 40.2 % (36.0-46.0); HGB 13.6 g/dL (12.0-15.5); Immature Grans % 0.9 %; Lymphocytes % 10.8; Mean Corp. HGB Concentration 33.8 g/dL (32.0-36.0); Mean Corpuscular Hemoglobin 33.2 pg (27.0-33.0); Mean Platelet Volume 9.8 fL (8.0-11.0); Monocytes % 5.8; Neutrophils % 79.4; Platelet Count 205 x1000/uL (130-400); RBC Distribution Width 14.9 % (11.7-14.6); White Blood Cell Count 9.64 k/cumm (4.4-10.8)
[2019-08-09 06:40] LABS: Anion Gap 9.7 mmol/L (3-11); BUN 22 mg/dL (7-18); CO2 21.3 mmol/L (21.0-32.0); Calcium 7.9 mg/dL (8.5-10.1); Chloride 112 mmol/L (98-107); Glucose 131 mg/dL (74-106); Potassium 3.9 mmol/L (3.5-5.1); Sodium 143 mmol/L (136-145)
[2019-08-09] MEDS: Normal Saline Flush 10 ML SYR IVP ×4 (06:40→16:59)
[2019-08-09] MEDS: Pantoprazole 40 MG VIAL IVP (07:48)
[2019-08-09] MEDS: Metoprolol CR 50 MG TABCR PO (07:50)
[2019-08-09] MEDS: Apixaban 2.5 MG TAB PO ×2 (07:50→19:33)
--- NOTE | 2019-08-09 08:23 | W.PM.PROGNOT ---
Date of Service Date of service: 08/09/19 Time of Service: 08:24 Assessment and Plan Assessment and plan (1) Cecal volvulus: Status: Acute Assessment and plan: s/p laparotomy and cecectomy POD #4. Trial of soft foods as per ordered by surgery. Entereg put on hold due to diarrhea pending review by surgeon later today. (2) Atrial fibrillation and flutter: Status: Acute Assessment and plan: Switch from short acting Lopressor to long-acting Toprol-XL and increase her dose to 50 mg daily. Continue to use IV Lopressor on a as needed basis for sustained heart rates greater than or equal to 130 bpm. Continue apixaban. (3) Dementia: Status: Chronic Assessment and plan: Increase her Desyrel to 50 mg each evening and add melatonin at bedtime. Try to avoid benzodiazepines or other strongly sedating medications.. Qualifiers: Dementia type: unspecified type Dementia behavioral disturbance: with behavioral disturbance Qualified Code(s): F03.91 - Unspecified dementia with behavioral disturbance (4) DVT prophylaxis: Status: Acute Assessment and plan: Currently on apixaban (5) Discharge planning issues: Status: Acute Assessment and plan: Patient will likely need short-term SNF placement for rehab. Physical therapy has been ordered to assist with regaining her strength and ambulatory abilities Subjective Subjective Interval history since last seen: POD #4 status post laparotomy and cecal resection for cecal volvulus. Patient is having liquid diarrhea. Heme positive which is not unexpected. No shortness of breath. No increase in abdominal discomfort. Still with poor oral intake. Adequate urine output. We will continue with IV fluids until she is taking adequate oral intake. Diet has been advanced this morning to soft foods. Rhythm remains atrial fibrillation in the high 90s to 110s. Again increase her metoprolol dose and switch her to long-acting Toprol-XL. She is currently back on her apixaban for stroke prophylaxis. With regard to her dementia she had a restless night last night got confused. She was started on Desyrel 25 mg every evening and required an additional Desyrel 25 mg around 2 AM. We will try and avoid heavy sedatives because of her sensitivity. The 2 previous nights she been treated with Ativan and then treated with Phenergan both of which caused oversedation. I would increase her Desyrel to 50 mg each evening and add melatonin at bedtime. Exam Narrative Exam Narrative: Thin elderly female who is awake and alert and oriented to person but is confused in terms of time and place. She knows she is in [place]. She believes that she been watching a football game last night. When asked who she was watching she said [place] I expect. Lungs are clear to auscultation anteriorly posteriorly she has diminished breath sounds at the bases no rhonchi or wheezing and no rales. Heart is irregularly irregular and slightly tachycardic. Her mitral regurgitant murmur is less prominent today. Abdomen has DEBRA drain and dressing. Dressing has dried blood over it. There is no fresh blood coming from the wound. Abdomen soft with minimal tenderness and active bowel sounds. 90 ML's of serous to serosanguineous drainage from her DEBRA drain from last night. 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 Objective Objective Clinical Data: Abnormal lab results 08/09/19 08/09/19 Range/Units 06:00 06:00 MCV 98.0 H (80-95) fL MCH 33.2 H (27.0-33.0) pg RDW 14.9 H (11.7-14.6) % Absolute Neutrophils 7.65 H (1.2-6.7) k/cumm Absolute Lymphocytes 1.04 L (1.2-3.4) k/cumm Chloride 112 H (98-107) mmol/L BUN 22 H D (7-18) mg/dL Glucose 131 H (74-106) mg/dL Calcium 7.9 L (8.5-10.1) mg/dL Vital Signs Temperature 36.4 C L 08/09/19 03:33 Temperature Source Tympanic 08/08/19 19:45 Pulse 102 H 08/09/19 06:58 Pulse 113 H 08/09/19 06:58 Respiratory Rate 19 08/09/19 06:58 Respiratory Effort 08/09/19 03:33 Respiratory Depth Normal 08/09/19 03:33 Respiratory Pattern Normal 08/09/19 03:33 Blood Pressure 153/93 H 08/09/19 06:58 Blood Pressure Mean 108 08/09/19 06:58 Blood Pressure Position Right Lateral 08/07/19 15:30 Pulse Oximetry 95 08/09/19 03:33 Respiratory End-tidal CO2 35 08/05/19 14:45 Oxygen Delivery Method Room Air 08/09/19 03:33 Oxygen Flow Rate 0 08/09/19 03:33 Pain Level 0 08/09/19 03:33 Comment 08/05/19 19:00 Intake & Output 08/08/19 08/08/19 08/09/19 11:59 23:59 11:59 Intake Total 1905.25 / 3367.75 1462.50 / 3367.75 1078.75 / 1078.75 Output Total 1013 / 1923 910 / 1923 225 / 225 Balance 892.25 / 1444.75 552.50 / 1444.75 853.75 / 853.75 Weight 48.5 kg 43.2 kg Intake: IV 1500.25 / 2362.75 862.50 / 2362.75 818.75 / 818.75 Oral 355 / 915 560 / 915 170 / 170 Injectate 50 / 90 40 / 90 90 / 90 Right Lower Abdomen 50 / 90 40 / 90 90 / 90 Output: Drainage 70 / 155 85 / 155 Right Lower Abdomen 70 / 155 85 / 155 Urine 943 / 1768 825 / 1768 225 / 225 Other: Urine Color Straw Dark Natalia Dark Natalia Urine Appearance Clear Clear Clear Comment Urine dip complete, as reminder this is after 20mg IV push Lasix earlier. henley to gravity with medium yellow urine henley is intact,with adequate urine output. Stool Occult Blood Positive Positive Stool Size Moderate Moderate Stool Characteristics Brown Liquid Black Brown Laboratory Results WBC 9.64 k/cumm (4.4-10.8) 08/09/19 06:00 RBC 4.10 m/cumm (4.00-5.20) 08/09/19 06:00 Hgb 13.6 g/dL (12.0-15.5) 08/09/19 06:00 Hct 40.2 % (36.0-46.0) 08/09/19 06:00 MCV 98.0 fL (80-95) H 08/09/19 06:00 MCH 33.2 pg (27.0-33.0) H 08/09/19 06:00 MCHC 33.8 g/dL (32.0-36.0) 08/09/19 06:00 RDW 14.9 % (11.7-14.6) H 08/09/19 06:00 Plt Count 205 x1000/uL (130-400) 08/09/19 06:00 MPV 9.8 fL (8.0-11.0) 08/09/19 06:00 Immature Gran % 0.9 % 08/09/19 06:00 Neutrophils % 79.4 08/09/19 06:00 Band Neutrophils % 1.0 % 08/06/19 06:06 Lymphocytes % 10.8 08/09/19 06:00 Atypical Lymphs % 4 08/06/19 06:06 Monocytes % 5.8 08/09/19 06:00 Eosinophils % 2.9 08/09/19 06:00 Basophils % 0.2 08/09/19 06:00 Absolute Neutrophils 7.65 k/cumm (1.2-6.7) H 08/09/19 06:00 Absolute Lymphocytes 1.04 k/cumm (1.2-3.4) L 08/09/19 06:00 Absolute Monocytes 0.56 k/cumm (0.11-0.7) 08/09/19 06:00 Absolute Eosinophils 0.28 k/cumm (0.0-0.7) 08/09/19 06:00 Absolute Basophils 0.02 k/cumm (0.0-0.2) 08/09/19 06:00 Differential Comment Manual differential 08/06/19 06:06 RBC Morphology Normal 08/06/19 06:06 PT Cancelled 08/05/19 07:21 INR Cancelled 08/05/19 07:21 APTT Cancelled 08/05/19 07:21 Sodium 143 mmol/L (136-145) 08/09/19 06:00 Potassium 3.9 mmol/L (3.5-5.1) 08/09/19 06:00 Chloride 112 mmol/L (98-107) H 08/09/19 06:00 Carbon Dioxide 21.3 mmol/L (21.0-32.0) 08/09/19 06:00 Anion Gap 9.7 mmol/L (3-11) 08/09/19 06:00 BUN 22 mg/dL (7-18) H D 08/09/19 06:00 Creatinine 0.80 mg/dL (0.55-1.02) 08/09/19 06:00 Estimated GFR/1.73 m2 >= 60.00 (mL/min/1.73m2) 08/09/19 06:00 Glucose 131 mg/dL (74-106) H 08/09/19 06:00 Lactate 1.5 mmol/L (0.6-1.4) H 08/05/19 06:09 Calcium 7.9 mg/dL (8.5-10.1) L 08/09/19 06:00 Magnesium 2.6 mg/dL (1.8-2.4) H 08/07/19 06:25 Total Bilirubin 1.1 mg/dL (0.2-1.0) H 08/06/19 06:06 AST 23 U/L (15-37) 08/06/19 06:06 ALT 10 U/L (14-59) L 08/06/19 06:06 Alkaline Phosphatase 30 U/L (46-116) L 08/06/19 06:06 Troponin I 0.06 ng/Ml (<0.06) 08/04/19 16:35 C-Reactive Protein 7.66 mg/dL (0.0-0.3) H 08/06/19 06:06 Total Protein 4.1 g/dL (6.4-8.2) L 08/06/19 06:06 Albumin 2.0 g/dL (3.4-5.0) L 08/06/19 06:06 Urine Color Yellow (Yellow) 08/05/19 20:50 Urine Clarity Clear (Clear) 08/05/19 20:50 Urine pH 6.5 (5-8) 08/05/19 20:50 Ur Specific [place] >= 1.030 (1.005-1.025) H 08/05/19 20:50 Urine Protein 100 mg/dL (Negative) H 08/05/19 20:50 Urine Ketones 15 mg/dL (Negative) H 08/05/19 20:50 Urine Blood Large (Negative) H 08/05/19 20:50 Urine Nitrite Negative (Negative) 08/05/19 20:50 Urine Bilirubin Small (Negative) H 08/05/19 20:50 Urine Urobilinogen 0.2 EU/dL (Up TO 0.2) 08/05/19 20:50 Ur Leukocyte Esterase Negative (Negative) 08/05/19 20:50 Urine RBC >50 HPF (0-2) H 08/05/19 20:50 Urine WBC 0-2 HPF (0-5) 08/05/19 20:50 Ur Epithelial Cells Negative HPF (Negative) 08/05/19 20:50 Urine Crystals Negative HPF (Negative) 08/05/19 20:50 Urine Bacteria Negative HPF (Negative) 08/05/19 20:50 Urine Casts Negative LPF (Negative) 08/05/19 20:50 Urine Mucus Negative (Negative) 08/05/19 20:50 Urine Other Negative (Negative) 08/05/19 20:50 Ur Culture Indicated? No 08/05/19 20:50 Urine Glucose Negative mg/dL (Negative) 08/05/19 20:50 Patient ABO/Rh A Positive 08/04/19 20:21 Antibody Screen Negative 08/04/19 20:21
--- NOTE | 2019-08-09 13:02 | W.NUTRFU ---
Date of service: 08/09/19 Time of Service: 13:02 Nutritional Follow up NOTE: Daina advanced to Regular Diet on 08/08/19 at dinner. Met with Daina today, she is pleasantly confused, is eating about 20% of meals, nursing is supplementing with ensure clear- takes 1-2 daily. Will continue to provide small calorie dense meals. Weight down since admission, most likely a result of fluid shifts and not meeting nutrient needs for several days. Will continue to monitor po intake, weight trends and labs and make recommendations for optimal nutrient/fluid intake. At nutritional risk in view of low BMI, advanced age and poor intake. Time Spent in Nutritional Counseling and Treatment: 10 min spent face to face
--- NOTE | 2019-08-09 13:05 | PT.INTREAT ---
Date of service: 08/09/19 Time of Service: 13:05 PT Notes Visit Reasons: CECAL VOLVULUS Inpatient Physical Therapy Treatment Note [facility] Date: 08/09/2019 Precautions: Fall. Standard. Activity as tolerated. Impaired safety awareness. Subjective: Patient continues to be somnolent in the morning but was more awake and conversant in the afternoon. Per nurse Clarice, patient had a rough night last night and was only able to to rest about 45 minutes prior to the afternoon visit. Patient denies any headache, chest pain, and dizziness for both sessions. She did complain of discomfort on R UE (disappeared with rest) when assistance with positioning was given by nurse Pedersen. Patient did verbalize discomfort in abdominal area with bed mobility and transfer tasks in the morning; none was reported in the afternoon. Objective: General Observation: Dark/rust-colored urine. Telemetry monitoring in place. Tavares catheter in place. IV access to R UE. Surgical dressing over abdominal incision. DEBRA drain in place. Lips pale as yesterday. Pain: Patient continues to report pain on the abdominal area with bed mobility and ambulation performance. BED MOBILITY/TRANSFERS: Supine to sit total assist in the morning; minimal assist of 2 with HOB at 35 degrees in the afternoon Sit to stand total assist in the morning, minimal assist of 2 in the afternoon with maximal verbal cues required for correct technique Stand to sit total assist in the morning, minimal assist of 2 in the afternoon with maximal verbal cues required for correct technique Bed to chair total assist in the morning, minimal assist of 2 in the afternoon with maximal verbal cues required for correct technique Chair to bed total assist in the morning, minimal assist of 2 in the afternoon with maximal verbal cues required for correct technique GAIT: Patient was not able to perform any ambulation task in the morning due to somnolence and severe fatigue. In the afternoon patient was able to tolerate 4 feet +6 feet of short distance ambulation from bed to the commode for toileting and then to the bedside recliner to rest afterwards using front wheeled walker with minimal assist of 2 and maximal verbal cueing for safe technique. THERA EX: In the morning session, patient tolerated seated level range of motion exercises consisting of ankle dorsiflexion/plantarflexion x10, long arc quads x10, and active assistive seated hip flexion exercises x10 with good response. Assessment: Level of wakefulness, impaired safety awareness, abdominal pain, and generalized muscle weakness continue to limit patient performance during PT sessions. The STEDY machine needed to be used for transfer activities during the morning session as patient's level of alertness was very low and was having difficulty bearing her body weight despite assistance of 2 caregivers. Patient will continue to benefit from skilled physical therapy services in order to maximize functional mobility level and reduce fall risk. DISCHARGE RECOMMENDATIONS: Patient will benefit from the use of a front-wheeled walker in order to increase independence and reduce fall risk. SNF versus / care. TREATMENT CODE/TIME: Session 1--44292 x 31 minutes, 44583 x 10 minutes beginning at 9:52 AM. Session 2--9753 [id number] x 43 minutes beginning at 13:05 PM.
[2019-08-09] MEDS: Acetaminophen 325 MG TAB 650 MG PO ×2 (14:33→19:32)
--- NOTE | 2019-08-09 15:05 | PDOC.CMPRO ---
- If Service Date Differs Date of service: 08/09/19 Time of Service: 15:05 Care Management Progress Note S/O: Daina is sitting in a chair when CM meets with her. She easily engages in conversation but is pleasantly confused. Nursing staff advise she's received several phone calls from family members today. When CM asks Daina about the phone calls, she replies she and her were the only ones on the train so when the phone rang, she had to answer it. Her diet was advanced to soft foods last evening and she reportedly is tolerating it well. Anticipate she will remain at [facility] for a few more days. CM will continue to follow. A: Daina is a 84 year old male admitted to [facility] on 08/04/2019 for cecal volvulus. P: Anticipate Daina will discharge to a SNF placement when medically cleared by provider. At the request of family, [facility] and [facility], but CM learned this morning that [facility] to [facility]. Daina has been evaluated by PT, who notes Daina would benefit from the use of a FWW. CM will continue to support patient and discharge planning needs.
--- NOTE | 2019-08-09 15:55 | CHAPLAIN ---
Daina was sitting up in the chair when I visited. She talked about her family, her parents and her children, without any sense of timing - as if her parents were still alive and her children were young, and then talking about her children in the present time. She was very pleasant, and easily engaged in a conversation. She asked me if I'd seen someone walking in with me. There was not one with me. She did not seem to be clear on where she is and made it sound like she had been demanded to do some work while she was here.
--- NOTE | 2019-08-09 16:18 | W.PM.PROGNOT ---
Date of Service Date of service: 08/09/19 Time of Service: 16:18 Assessment and Plan Assessment and plan (1) Dementia: Status: Chronic Qualifiers: Dementia type: unspecified type Dementia behavioral disturbance: with behavioral disturbance Qualified Code(s): F03.91 - Unspecified dementia with behavioral disturbance (2) S/P right hemicolectomy: Status: Acute Assessment and plan: Patient is doing well from a surgical standpoint. Wound. We will stop the Entereg. There are no signs of infection. I am going to stop her antibiotics. Her DEBRA drain was removed. We will continue her on lactobacillus. She is tolerating a regular diet. We will continue with protein supplements. Stop her GI prophylaxis. She was restarted on Eliquis. There is no signs of bleeding. Her hemoglobin is stable. Her Lovenox has been stopped. cont to encourage pulm toilet -she does have some swelling in LE. stop fluids and 20mg lasix -she will need some type of rehab post-hospitalization. her mentation is poor and I'm not certain she is ok to go back to independent living situation. prob plan for d/c on Friday. doing very well (3) Atrial fibrillation and flutter: Status: Acute Assessment and plan: rate controlled back on po beta josefina and ellquis (4) Low body mass index: Status: Acute Assessment and plan: protein supplements Subjective Subjective Interval history since last seen: pt is doing well. generally she does not seem to be in pain- except when she was up walking. She has not been sleeping at night. She is eating pretty well- mostly picks at food. Will eat when queued. Seems to be more of a memory issue than a GI issue. she was incont of stool x2 today. heme+. But Hgb has been stable. Pt does not c/o of anything- denies cp or sob. She is tolerating diet and fluids. LE are mildly swollen. will d/c fluids. if no improvement in am - than lasix. drain is just serous- this is removed and will stop abx. pt walked early in the day and did ok. However, this afternoon, the Rn's state she is very tired and a 2 person transfer w/ minimal pt assistance. Her mentation seems to be the same as prior to surgery. She will need rehab after her admission. I think she is going to require 24 hr memory care assistance post-hospitalization Exam HENMT Ears: hearing grossly normal bilaterally Mouth: oral mucosae normal and tongue normal Teeth and gingiva: dentures Other: no thrush Eyes Sclera: sclerae normal Resp Effort & Inspection: normal respiratory effort Auscultation: clear to auscultation bilaterally Other: few crackles at bases per RN GI Other: incision c/d/i. + BS. drain- serous only. site c/d/i- drain is removed. Skin Other: no breakdown Extrem Other: +1 edema Objective Objective Clinical Data: Abnormal lab results 08/09/19 08/09/19 Range/Units 06:00 06:00 MCV 98.0 H (80-95) fL MCH 33.2 H (27.0-33.0) pg RDW 14.9 H (11.7-14.6) % Absolute Neutrophils 7.65 H (1.2-6.7) k/cumm Absolute Lymphocytes 1.04 L (1.2-3.4) k/cumm Chloride 112 H (98-107) mmol/L BUN 22 H D (7-18) mg/dL Glucose 131 H (74-106) mg/dL Calcium 7.9 L (8.5-10.1) mg/dL Vital Signs Temperature 36.7 C 08/09/19 15:56 Temperature Source Temporal Artery Scan 08/09/19 15:56 Pulse 101 H 08/09/19 15:56 Pulse 118 H 08/09/19 14:09 Respiratory Rate 15 08/09/19 15:56 Respiratory Effort Non-Labored 08/09/19 15:56 Respiratory Depth Normal 08/09/19 15:56 Respiratory Pattern Normal 08/09/19 15:56 Blood Pressure 125/85 08/09/19 15:56 Blood Pressure Mean 98 08/09/19 15:56 Blood Pressure Position Sitting 08/09/19 15:56 Pulse Oximetry 95 08/09/19 15:56 Respiratory End-tidal CO2 35 08/05/19 14:45 Oxygen Delivery Method Room Air 08/09/19 15:56 Oxygen Flow Rate 0 08/09/19 15:56 Pain Level 0 08/09/19 11:34 Comment 08/05/19 19:00 Intake & Output 08/08/19 08/09/19 08/09/19 23:59 11:59 23:59 Intake Total 1462.50 / 3367.75 1613.167 / 2258.750 645.583 / 2258.750 Output Total 910 / 1923 385 / 765 380 / 765 Balance 552.50 / 1444.75 1228.167 / 1493.750 265.583 / 1493.750 Weight 43.2 kg Intake: IV 862.50 / 2362.75 1343.167 / 1628.750 285.583 / 1628.750 Oral 560 / 915 270 / 630 360 / 630 Injectate 40 / 90 0 / 0 Right Lower Abdomen 40 / 90 0 / 0 Output: Drainage 85 / 155 160 / 240 80 / 240 Right Lower Abdomen 85 / 155 160 / 240 80 / 240 Urine 825 / 1768 225 / 525 300 / 525 Other: Urine Color Dark Jaguar Dark Jaguar Dark Jaguar Urine Appearance Clear Clear Clear Comment henley to gravity with medium yellow urine henley draining jaguar urine Dark urine in henley Stool Occult Blood Positive Positive Positive Stool Size Moderate Moderate Moderate Stool Characteristics Brown Liquid Liquid Black Brown Brown Laboratory Results WBC 9.64 k/cumm (4.4-10.8) 08/09/19 06:00 RBC 4.10 m/cumm (4.00-5.20) 08/09/19 06:00 Hgb 13.6 g/dL (12.0-15.5) 08/09/19 06:00 Hct 40.2 % (36.0-46.0) 08/09/19 06:00 MCV 98.0 fL (80-95) H 08/09/19 06:00 MCH 33.2 pg (27.0-33.0) H 08/09/19 06:00 MCHC 33.8 g/dL (32.0-36.0) 08/09/19 06:00 RDW 14.9 % (11.7-14.6) H 08/09/19 06:00 Plt Count 205 x1000/uL (130-400) 08/09/19 06:00 MPV 9.8 fL (8.0-11.0) 08/09/19 06:00 Immature Gran % 0.9 % 08/09/19 06:00 Neutrophils % 79.4 08/09/19 06:00 Band Neutrophils % 1.0 % 08/06/19 06:06 Lymphocytes % 10.8 08/09/19 06:00 Atypical Lymphs % 4 08/06/19 06:06 Monocytes % 5.8 08/09/19 06:00 Eosinophils % 2.9 08/09/19 06:00 Basophils % 0.2 08/09/19 06:00 Absolute Neutrophils 7.65 k/cumm (1.2-6.7) H 08/09/19 06:00 Absolute Lymphocytes 1.04 k/cumm (1.2-3.4) L 08/09/19 06:00 Absolute Monocytes 0.56 k/cumm (0.11-0.7) 08/09/19 06:00 Absolute Eosinophils 0.28 k/cumm (0.0-0.7) 08/09/19 06:00 Absolute Basophils 0.02 k/cumm (0.0-0.2) 08/09/19 06:00 Differential Comment Manual differential 08/06/19 06:06 RBC Morphology Normal 08/06/19 06:06 PT Cancelled 08/05/19 07:21 INR Cancelled 08/05/19 07:21 APTT Cancelled 08/05/19 07:21 Sodium 143 mmol/L (136-145) 08/09/19 06:00 Potassium 3.9 mmol/L (3.5-5.1) 08/09/19 06:00 Chloride 112 mmol/L (98-107) H 08/09/19 06:00 Carbon Dioxide 21.3 mmol/L (21.0-32.0) 08/09/19 06:00 Anion Gap 9.7 mmol/L (3-11) 08/09/19 06:00 BUN 22 mg/dL (7-18) H D 08/09/19 06:00 Creatinine 0.80 mg/dL (0.55-1.02) 08/09/19 06:00 Estimated GFR/1.73 m2 >= 60.00 (mL/min/1.73m2) 08/09/19 06:00 Glucose 131 mg/dL (74-106) H 08/09/19 06:00 Lactate 1.5 mmol/L (0.6-1.4) H 08/05/19 06:09 Calcium 7.9 mg/dL (8.5-10.1) L 08/09/19 06:00 Magnesium 2.6 mg/dL (1.8-2.4) H 08/07/19 06:25 Total Bilirubin 1.1 mg/dL (0.2-1.0) H 08/06/19 06:06 AST 23 U/L (15-37) 08/06/19 06:06 ALT 10 U/L (14-59) L 08/06/19 06:06 Alkaline Phosphatase 30 U/L (46-116) L 08/06/19 06:06 Troponin I 0.06 ng/Ml (<0.06) 08/04/19 16:35 C-Reactive Protein 7.66 mg/dL (0.0-0.3) H 08/06/19 06:06 Total Protein 4.1 g/dL (6.4-8.2) L 08/06/19 06:06 Albumin 2.0 g/dL (3.4-5.0) L 08/06/19 06:06 Urine Color Yellow (Yellow) 08/05/19 20:50 Urine Clarity Clear (Clear) 08/05/19 20:50 Urine pH 6.5 (5-8) 08/05/19 20:50 Ur Specific [place] >= 1.030 (1.005-1.025) H 08/05/19 20:50 Urine Protein 100 mg/dL (Negative) H 08/05/19 20:50 Urine Ketones 15 mg/dL (Negative) H 08/05/19 20:50 Urine Blood Large (Negative) H 08/05/19 20:50 Urine Nitrite Negative (Negative) 08/05/19 20:50 Urine Bilirubin Small (Negative) H 08/05/19 20:50 Urine Urobilinogen 0.2 EU/dL (Up TO 0.2) 08/05/19 20:50 Ur Leukocyte Esterase Negative (Negative) 08/05/19 20:50 Urine RBC >50 HPF (0-2) H 08/05/19 20:50 Urine WBC 0-2 HPF (0-5) 08/05/19 20:50 Ur Epithelial Cells Negative HPF (Negative) 08/05/19 20:50 Urine Crystals Negative HPF (Negative) 08/05/19 20:50 Urine Bacteria Negative HPF (Negative) 08/05/19 20:50 Urine Casts Negative LPF (Negative) 08/05/19 20:50 Urine Mucus Negative (Negative) 08/05/19 20:50 Urine Other Negative (Negative) 08/05/19 20:50 Ur Culture Indicated? No 08/05/19 20:50 Urine Glucose Negative mg/dL (Negative) 08/05/19 20:50 Patient ABO/Rh A Positive 08/04/19 20:21 Antibody Screen Negative 08/04/19 20:21
[2019-08-09] MEDS: Furosemide 20 MG/2 ML VIAL IVP (16:59)
[2019-08-09] MEDS: Metoprolol 12.5 MG TAB PO (18:52)
[2019-08-09] MEDS: Lactobacillus Acidophilus CAP 1 CAP PO (19:32)
[2019-08-09] MEDS: traZODone 50 MG TAB PO (19:33)
[2019-08-09] MEDS: Melatonin 3 MG TAB 6 MG PO (19:33)
--- NOTE | 2019-08-09 20:06 | NUR.NOTE ---
Nursing Note: 199908/09/2019 Dr. Renner came in and re-assessed the pt and noted that he would like an order for Metoprolol 12.5mg at 2300 if her heart rate increased and sustained again. He was not able to elaborate in his order, but this nurse noted that a note would be made as to the conversation. Both this nurse and Mary Haney RN were made aware of the order and the parameters. He also noted that she should have 75mg of Metoprolol XL in the morning.
--- NOTE | 2019-08-09 22:40 | NUR.NOTE ---
Nursing Note:[id number] 08/09/2019 In reviewing the MAR this nurse realized that Dr. Valles had not d/c'd the NS with 20Kcl at 85ml/hr, though this nurse was present in the room when she told off going nurse Clarice Andrews RN to d/c the fluids due to edema. This nurse then cancelled the fluid as a verbal order. Dr. Valles's note after her visit does correlate with this plan.
[2019-08-10] VITALS (78 sets, daily range): BP systolic 84–148; BP diastolic 50–110; PULSE 60–140; RESP 14–26; TEMP 36.4–37.3; O2SAT 93–98
--- NOTE | 2019-08-10 00:02 | NUR.NOTE ---
Nursing Note:At beginning of shift pt very agitated wanting to leave- Unable to be redirected. Pt repeating self I need to go, my parents will worry if I don't get home. This nurse attempted to reorient pt that she is in hospital post surgery. Pt continued to pull at henley and lines, unable to redirect. At 2345 pt repositioned by this nurse and Jackie Haney RN and given oral hydration. She quickly fell asleep after repositioning, she is currently resting quietly.
[2019-08-10] MEDS: MORPHine 2 MG/ML SYR IVP (01:59)
[2019-08-10] MEDS: Normal Saline Flush 10 ML SYR IVP ×2 (02:00→10:40)
[2019-08-10] MEDS: Metoprolol 12.5 MG TAB PO (02:56)
[2019-08-10 06:30] LABS: Abs Immature Grans 0.16 k/cumm (0.0-0.09); Absolute Basophil Count 0.01 k/cumm (0.0-0.2); Absolute Lymphocyte Count 0.73 k/cumm (1.2-3.4); Absolute Monocyte Count 0.53 k/cumm (0.11-0.7); Absolute Neutrophil Count 6.31 k/cumm (1.2-6.7); Basophils % 0.1; Eosinophils % 3.7; HCT 37.5 % (36.0-46.0); HGB 12.6 g/dL (12.0-15.5); Lymphocytes % 9.1; Mean Corp. HGB Concentration 33.6 g/dL (32.0-36.0); Mean Corpuscular Hemoglobin 32.6 pg (27.0-33.0); Mean Corpuscular Volume 96.9 fL (80-95); Mean Platelet Volume 9.2 fL (8.0-11.0); Monocytes % 6.6; Neutrophils % 78.5; Platelet Count 197 x1000/uL (130-400); RBC 3.87 m/cumm (4.00-5.20); RBC Distribution Width 14.7 % (11.7-14.6); White Blood Cell Count 8.04 k/cumm (4.4-10.8)
[2019-08-10 06:32] LABS: Anion Gap 8.3 mmol/L (3-11); BUN 18 mg/dL (7-18); CO2 21.7 mmol/L (21.0-32.0); CREATININE 0.73 mg/dL (0.55-1.02); Calcium 7.5 mg/dL (8.5-10.1); Chloride 110 mmol/L (98-107); Glucose 114 mg/dL (74-106); Potassium 3.1 mmol/L (3.5-5.1); Sodium 140 mmol/L (136-145)
--- NOTE | 2019-08-10 08:14 | W.PM.PROGNOT ---
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 Tolerated soft foods as per ordered by surgery. Appears to be recovering well given her age. Normalized white count is reassuring. Nutritional status is poor, as evident by low albumin. Continue to supplement potassium. Will ask for additional nutrition support as this will be dozier to improve her strength so she can regain function after this significant surgery. (2) Atrial fibrillation and flutter: Status: Acute Assessment and plan: Patient was switched yesterday from short acting metoprolol tartrate to long-acting metoprolol succinate and dose increased to 50 mg and then 75 mg daily this morning. I expect it will take a few more days to come to steady state, so I would not increase this dose further today, the patient's rate is above my tolerant goal of 90-110 bpm. continue to use IV metoprolol on a as needed basis for sustained heart rates greater than or equal to 130 bpm. Continue apixaban. (3) Dementia: Status: Chronic Assessment and plan: Continue trazodone 50 mg each evening with melatonin at bedtime. Continue to try to avoid benzodiazepines or other strongly sedating medications. Qualifiers: Dementia behavioral disturbance: with behavioral disturbance Dementia type: unspecified type Qualified Code(s): F03.91 - Unspecified dementia with behavioral disturbance (4) DVT prophylaxis: Status: Acute Assessment and plan: Currently on apixaban (5) Discharge planning issues: Status: Acute Assessment and plan: Patient will likely need short-term SNF placement for rehab. Physical therapy has been ordered to assist with regaining her strength and ambulatory abilities Subjective Subjective Patient reports: denies blood in stool Interval history since last seen: 24 hr: Metoprolol succinate increased to 50mg, then got additional 25mg tartrate overnight, AM succinate dose increased again to 75mg. Last dose of morphine for abdominal pain about 2 AM DEBRA drain removed by surgery yesterday, diet advanced by surgery 1 time dose of furosemide yesterday Patient had difficulty tolerating full physical therapy yesterday due to fatigue No new complaints per patient, other than feeling drained of energy. Minimal pain currently. Denies fever. States she had some nausea yesterday, but not currently. She does feel like she would like to eat. Per nursing, HR low in mid 80s, running 110s even at rest. Had loose stools yesterday but only smears overnight. Stool is occult blood positive, but less gross blood in the stool. She did eat some food and a full shake last night. Exam Narrative Exam Narrative: Thin elderly female who is awake and alert and oriented to person. Lungs are clear to auscultation anteriorly posteriorly she has mildly diminished breath sounds at the bases but no rhonchi or wheezing and no rales. Heart is irregularly irregular and slightly tachycardic. I do not appreciate a murmur today. Abdomen soft. Active bowel sounds. midline wound is dry and intact with cade. There is no fresh blood or other drainage coming from the wound. Extremities are warm, 1+ edema to the shins bilaterally, not tender. Objective Objective Clinical Data: Abnormal lab results 08/10/19 08/10/19 Range/Units 06:04 06:04 RBC 3.87 L (4.00-5.20) m/cumm MCV 96.9 H (80-95) fL RDW 14.7 H (11.7-14.6) % Absolute Lymphocytes 0.73 L (1.2-3.4) k/cumm Potassium 3.1 L (3.5-5.1) mmol/L Chloride 110 H (98-107) mmol/L Glucose 114 H (74-106) mg/dL Calcium 7.5 L (8.5-10.1) mg/dL Vital Signs Temperature 36.4 C L 08/09/19 19:15 Temperature Source Temporal Artery Scan 08/09/19 19:15 Pulse 103 H 08/10/19 04:00 Pulse Rhythm Irregular 08/09/19 23:10 Pulse 106 H 08/10/19 04:01 Respiratory Rate 17 08/10/19 04:01 Respiratory Effort Non-Labored 08/09/19 23:10 Respiratory Depth Normal 08/09/19 23:10 Respiratory Pattern Normal 08/09/19 23:10 Blood Pressure 112/77 08/10/19 04:00 Blood Pressure Mean 85 08/10/19 04:00 Blood Pressure Position Sitting 08/09/19 15:56 Pulse Oximetry 93 L 08/10/19 01:31 Respiratory End-tidal CO2 35 08/05/19 14:45 Oxygen Delivery Method Room Air 08/09/19 19:15 Oxygen Flow Rate 0 08/09/19 19:15 Pain Level 0 08/09/19 11:34 Comment 08/05/19 19:00 Intake & Output 08/09/19 08/09/19 08/10/19 11:59 23:59 11:59 Intake Total 1613.167 / 2658.750 1045.583 / 2658.750 Output Total 385 / 1865 1480 / 1865 450 / 450 Balance 1228.167 / 793.750 -434.417 / 793.750 -450 / -450 Weight 43.2 kg 56.2 kg Intake: IV 1343.167 / 1728.750 385.583 / 1728.750 Oral 270 / 930 660 / 930 Injectate 0 / 0 Right Lower Abdomen 0 / 0 Output: Drainage 160 / 240 80 / 240 Right Lower Abdomen 160 / 240 80 / 240 Urine 225 / 1625 1400 / 1625 450 / 450 Other: Urine Color Dark Jaguar Yellow Yellow Straw Urine Appearance Clear Clear Clear Comment henley draining jaguar urine Urine was jaguar prior to Lasix admin,then went pale yellow. Stool Occult Blood Positive Positive Stool Size Moderate Moderate Smear Stool Characteristics Liquid Liquid Brown Mucoid Brown Green Laboratory Results WBC 8.04 k/cumm (4.4-10.8) 08/10/19 06:04 RBC 3.87 m/cumm (4.00-5.20) L 08/10/19 06:04 Hgb 12.6 g/dL (12.0-15.5) 08/10/19 06:04 Hct 37.5 % (36.0-46.0) 08/10/19 06:04 MCV 96.9 fL (80-95) H 08/10/19 06:04 MCH 32.6 pg (27.0-33.0) 08/10/19 06:04 MCHC 33.6 g/dL (32.0-36.0) 08/10/19 06:04 RDW 14.7 % (11.7-14.6) H 08/10/19 06:04 Plt Count 197 x1000/uL (130-400) 08/10/19 06:04 MPV 9.2 fL (8.0-11.0) 08/10/19 06:04 Immature Gran % 2.0 % 08/10/19 06:04 Neutrophils % 78.5 08/10/19 06:04 Band Neutrophils % 1.0 % 08/06/19 06:06 Lymphocytes % 9.1 08/10/19 06:04 Atypical Lymphs % 4 08/06/19 06:06 Monocytes % 6.6 08/10/19 06:04 Eosinophils % 3.7 08/10/19 06:04 Basophils % 0.1 08/10/19 06:04 Absolute Neutrophils 6.31 k/cumm (1.2-6.7) 08/10/19 06:04 Absolute Lymphocytes 0.73 k/cumm (1.2-3.4) L 08/10/19 06:04 Absolute Monocytes 0.53 k/cumm (0.11-0.7) 08/10/19 06:04 Absolute Eosinophils 0.30 k/cumm (0.0-0.7) 08/10/19 06:04 Absolute Basophils 0.01 k/cumm (0.0-0.2) 08/10/19 06:04 Differential Comment Manual differential 08/06/19 06:06 RBC Morphology Normal 08/06/19 06:06 PT Cancelled 08/05/19 07:21 INR Cancelled 08/05/19 07:21 APTT Cancelled 08/05/19 07:21 Sodium 140 mmol/L (136-145) 08/10/19 06:04 Potassium 3.1 mmol/L (3.5-5.1) L 08/10/19 06:04 Chloride 110 mmol/L (98-107) H 08/10/19 06:04 Carbon Dioxide 21.7 mmol/L (21.0-32.0) 08/10/19 06:04 Anion Gap 8.3 mmol/L (3-11) 08/10/19 06:04 BUN 18 mg/dL (7-18) 08/10/19 06:04 Creatinine 0.73 mg/dL (0.55-1.02) 08/10/19 06:04 Estimated GFR/1.73 m2 >= 60.00 (mL/min/1.73m2) 08/10/19 06:04 Glucose 114 mg/dL (74-106) H 08/10/19 06:04 Lactate 1.5 mmol/L (0.6-1.4) H 08/05/19 06:09 Calcium 7.5 mg/dL (8.5-10.1) L 08/10/19 06:04 Magnesium 2.6 mg/dL (1.8-2.4) H 08/07/19 06:25 Total Bilirubin 1.1 mg/dL (0.2-1.0) H 08/06/19 06:06 AST 23 U/L (15-37) 08/06/19 06:06 ALT 10 U/L (14-59) L 08/06/19 06:06 Alkaline Phosphatase 30 U/L (46-116) L 08/06/19 06:06 Troponin I 0.06 ng/Ml (<0.06) 08/04/19 16:35 C-Reactive Protein 7.66 mg/dL (0.0-0.3) H 08/06/19 06:06 Total Protein 4.1 g/dL (6.4-8.2) L 08/06/19 06:06 Albumin 2.0 g/dL (3.4-5.0) L 08/06/19 06:06 Urine Color Yellow (Yellow) 08/05/19 20:50 Urine Clarity Clear (Clear) 08/05/19 20:50 Urine pH 6.5 (5-8) 08/05/19 20:50 Ur Specific [place] >= 1.030 (1.005-1.025) H 08/05/19 20:50 Urine Protein 100 mg/dL (Negative) H 08/05/19 20:50 Urine Ketones 15 mg/dL (Negative) H 08/05/19 20:50 Urine Blood Large (Negative) H 08/05/19 20:50 Urine Nitrite Negative (Negative) 08/05/19 20:50 Urine Bilirubin Small (Negative) H 08/05/19 20:50 Urine Urobilinogen 0.2 EU/dL (Up TO 0.2) 08/05/19 20:50 Ur Leukocyte Esterase Negative (Negative) 08/05/19 20:50 Urine RBC >50 HPF (0-2) H 08/05/19 20:50 Urine WBC 0-2 HPF (0-5) 08/05/19 20:50 Ur Epithelial Cells Negative HPF (Negative) 08/05/19 20:50 Urine Crystals Negative HPF (Negative) 08/05/19 20:50 Urine Bacteria Negative HPF (Negative) 08/05/19 20:50 Urine Casts Negative LPF (Negative) 08/05/19 20:50 Urine Mucus Negative (Negative) 08/05/19 20:50 Urine Other Negative (Negative) 08/05/19 20:50 Ur Culture Indicated? No 08/05/19 20:50 Urine Glucose Negative mg/dL (Negative) 08/05/19 20:50 Patient ABO/Rh A Positive 08/04/19 20:21 Antibody Screen Negative 08/04/19 20:21
[2019-08-10] MEDS: Potassium Chloride Liquid 20 MEQ PKT PO ×2 (09:17→20:11)
[2019-08-10] MEDS: Apixaban 2.5 MG TAB PO ×2 (09:18→20:12)
[2019-08-10] MEDS: Sertraline 25 MG TAB 12.5 MG PO (09:18)
[2019-08-10] MEDS: Lactobacillus Acidophilus CAP 1 CAP PO ×2 (09:19→20:12)
[2019-08-10] MEDS: METOPROLOL CR 50 MG, METOPROLOL CR 25 MG 75 MG PO (09:19)
[2019-08-10] MEDS: Metoprolol 5 MG/5 ML VIAL 2.5 MG IVP (10:38)
--- NOTE | 2019-08-10 10:56 | W.NUTRFU ---
Date of service: 08/10/19 Time of Service: 10:56 Nutritional Follow up NOTE: Daina continues to have poor po intake, will consume two ensure clears per day (400 kcal, 20 g protein) and about 20% of meals (300-400 kcal). Estimated Needs: 3439-5741 (25-30 kcal/kg), 56-67 g protein, 1650 ml fluid. Current po intake meeting approximately 50% of needs at this time. Daina at risk for malnutrition due to illness due to extended period of time meeting 50% of less nutrient needs for weight stability. Met with Daina/nursing in ICU today and discussed ways to increase po intake. Will provide ensure clear, CIB shakes and additional high nutrient foods at all meals. Nursing to document intake. Will continue to follow and adjust meal plan for optimal intake for strength and ADLs. Time Spent in Nutritional Counseling and Treatment: 15 min spent face to face
[2019-08-10] MEDS: Metoprolol 25 MG TAB PO ×3 (12:26→23:22)
--- NOTE | 2019-08-10 12:31 | NUR.NOTE ---
Nursing Note: 1050 Metoprolol IVP x1 2.5mg given per MD order for HR control. Pt tolerated well. VSS throughout IVP.
--- NOTE | 2019-08-10 13:11 | PT.INTREAT ---
Date of service: 08/10/19 Time of Service: 13:11 PT Notes Visit Reasons: CECAL VOLVULUS Inpatient Physical Therapy Treatment Note [facility] Date: 08/10/2019 Precautions: Fall. Standard. Activity as tolerated. Subjective: I want water, my mouth is dry. In the afternoon, patient was looking for her pocketbook. She asked to go to the bathroom after a short ambulation activity with PT in morning. She continues to complain of abdominal pain when asked to stand up from chair. Objective: General Observation: Telemetry monitoring in place. Tavares catheter in place. IV access to R UE. Surgical dressing over abdominal incision. DEBRA drain in place. Pain: Patient reported an unquantified pain on the abdominal area with bed mobility and ambulation performance. Vital Signs: Patient continues to be in nonsustained atrial fibrillation. BED MOBILITY/TRANSFERS: Rolling moderate assist of 2 Supine to sit minimal assist of 2 in the morning; in the afternoon moderate assist of 2 with HOB at 35 degrees Sit to supine minimal assist of 2 in the morning; in the afternoon moderate assist of 2 with HOB at 35 degrees Sit to stand minimal assist of 2 with moderate to maximal verbal cueing, Patient tolerated standing for 2 minutes with use FWW to assist in bathing from nursing. Noted fatigue post. Stand to sit minimal assist of 2 in the morning; in the afternoon moderate assist of 2 Bed to chair minimal assist of 1 in the morning Chair to bed moderate assist of 2 in the afternoon moderate assist of 2 GAIT: Patient is able to tolerate level surface ambulation of 5 feet in the morning and 5 feet in the afternoon using front wheeled walker to and from edge of bed with minimal assist of ICU nurse and this PT and with maximal verbal cueing for safe technique. Patient did report discomfort and abdominal area with ambulation activity. Reported dizziness and fatigue on both legs in the afternoon. Assessment: Patient remained somnolent this morning but is able to open eyes on command although required repetitive cueing to stay on task throughout PT session. She looked more tired during the afternoon session and required more assistance/cueing. Patient will continue to benefit from skilled services in order to maximize mobility level. DISCHARGE RECOMMENDATIONS: Patient will benefit from the use of a front-wheeled walker in order to increase independence and reduce fall risk. SNF versus 25/11 care. TREATMENT CODE/TIME: Session 1, 03630, 43215 x 30 minutes beginning at 8:45AM. Session 2 25004 x2 35 minutes minutes combined session beginning at 11:00 AM and resumed at 12:50.
--- NOTE | 2019-08-10 13:38 | W.PM.PROGNOT ---
Date of Service Date of service: 08/10/19 Time of Service: 09:05 Assessment and Plan Assessment and plan (1) Discharge planning issues: Status: Acute (2) S/P right hemicolectomy: Status: Acute Assessment and plan: A/P: Patient is doing very well, up with one assist with transfers this morning. Midline incision is healing well. No signs or symptoms of infection. DEBRA drain site (DEBRA drain removed yesterday) is healing with minimal drainage Denies abdominal pain. (3) Dementia: Status: Chronic Qualifiers: Dementia type: unspecified type Dementia behavioral disturbance: with behavioral disturbance Qualified Code(s): F03.91 - Unspecified dementia with behavioral disturbance Subjective Subjective Interval history since last seen: Daina denies having any pain this morning. She was sitting up in the chair upon this providers arrival. Exam Const General: cooperative, healthy appearing and comfortable Orientation: alert and oriented to person Resp Effort & Inspection: normal respiratory effort, no audible wheezes and no cough GI Inspection: normal to inspection and incision (Dany in place. ) Palpation: soft, no guarding and nontender Other: DEBRA drain site- Mild drainage on dressing. NO erythema, swelling or induration. Other: Dark yellow colored urine in the henley bag. Objective Objective Clinical Data: Abnormal lab results 08/10/19 08/10/19 Range/Units 06:04 06:04 RBC 3.87 L (4.00-5.20) m/cumm MCV 96.9 H (80-95) fL RDW 14.7 H (11.7-14.6) % Absolute Lymphocytes 0.73 L (1.2-3.4) k/cumm Potassium 3.1 L (3.5-5.1) mmol/L Chloride 110 H (98-107) mmol/L Glucose 114 H (74-106) mg/dL Calcium 7.5 L (8.5-10.1) mg/dL Vital Signs Temperature 36.4 C L 08/10/19 12:33 Temperature Source Temporal Artery Scan 08/10/19 12:33 Pulse 107 H 08/10/19 13:10 Pulse Rhythm Irregular 08/10/19 08:00 Pulse 103 H 08/10/19 13:10 Respiratory Rate 19 08/10/19 13:10 Respiratory Effort Non-Labored 08/10/19 08:00 Respiratory Depth Normal 08/10/19 08:00 Respiratory Pattern Normal 08/10/19 08:00 Blood Pressure 109/60 08/10/19 13:10 Blood Pressure Mean 72 08/10/19 13:10 Blood Pressure Position Sitting 08/09/19 15:56 Pulse Oximetry 94 L 08/10/19 12:33 Respiratory End-tidal CO2 35 08/05/19 14:45 Oxygen Delivery Method Room Air 08/10/19 12:33 Oxygen Flow Rate 0 08/10/19 12:33 Pain Level 0 08/10/19 12:33 Comment 08/05/19 19:00 Intake & Output 08/09/19 08/10/19 08/10/19 18:59 06:59 18:59 Intake Total 1070.000 / 1470.000 400 / 4131.792 0798 / 1020 Output Total 450 / 2000 1550 / 2000 200 / 200 Balance 620.000 / -530.000 -1150 / -530.000 820 / 820 Weight 56.2 kg 51.8 kg Intake: IV 610.000 / 710.000 100 / 710.000 Oral 460 / 760 300 / 760 1020 / 1020 Output: Drainage 150 / 150 Right Lower Abdomen 150 / 150 Urine 300 / 1850 1550 / 1850 200 / 200 Other: Urine Color Dark Jaguar Yellow Dark Jaguar Straw Urine Appearance Clear Clear Clear Urine Odor None Comment Dark urine in henley Urine was jaguar prior to Lasix admin,then went pale yellow. Stool Occult Blood Positive Stool Size Moderate Smear Moderate Stool Characteristics Liquid Liquid Mucoid Brown Green Voiding Methods Indwelling Catheter Laboratory Results WBC 8.04 k/cumm (4.4-10.8) 08/10/19 06:04 RBC 3.87 m/cumm (4.00-5.20) L 08/10/19 06:04 Hgb 12.6 g/dL (12.0-15.5) 08/10/19 06:04 Hct 37.5 % (36.0-46.0) 08/10/19 06:04 MCV 96.9 fL (80-95) H 08/10/19 06:04 MCH 32.6 pg (27.0-33.0) 08/10/19 06:04 MCHC 33.6 g/dL (32.0-36.0) 08/10/19 06:04 RDW 14.7 % (11.7-14.6) H 08/10/19 06:04 Plt Count 197 x1000/uL (130-400) 08/10/19 06:04 MPV 9.2 fL (8.0-11.0) 08/10/19 06:04 Immature Gran % 2.0 % 08/10/19 06:04 Neutrophils % 78.5 08/10/19 06:04 Band Neutrophils % 1.0 % 08/06/19 06:06 Lymphocytes % 9.1 08/10/19 06:04 Atypical Lymphs % 4 08/06/19 06:06 Monocytes % 6.6 08/10/19 06:04 Eosinophils % 3.7 08/10/19 06:04 Basophils % 0.1 08/10/19 06:04 Absolute Neutrophils 6.31 k/cumm (1.2-6.7) 08/10/19 06:04 Absolute Lymphocytes 0.73 k/cumm (1.2-3.4) L 08/10/19 06:04 Absolute Monocytes 0.53 k/cumm (0.11-0.7) 08/10/19 06:04 Absolute Eosinophils 0.30 k/cumm (0.0-0.7) 08/10/19 06:04 Absolute Basophils 0.01 k/cumm (0.0-0.2) 08/10/19 06:04 Differential Comment Manual differential 08/06/19 06:06 RBC Morphology Normal 08/06/19 06:06 PT Cancelled 08/05/19 07:21 INR Cancelled 08/05/19 07:21 APTT Cancelled 08/05/19 07:21 Sodium 140 mmol/L (136-145) 08/10/19 06:04 Potassium 3.1 mmol/L (3.5-5.1) L 08/10/19 06:04 Chloride 110 mmol/L (98-107) H 08/10/19 06:04 Carbon Dioxide 21.7 mmol/L (21.0-32.0) 08/10/19 06:04 Anion Gap 8.3 mmol/L (3-11) 08/10/19 06:04 BUN 18 mg/dL (7-18) 08/10/19 06:04 Creatinine 0.73 mg/dL (0.55-1.02) 08/10/19 06:04 Estimated GFR/1.73 m2 >= 60.00 (mL/min/1.73m2) 08/10/19 06:04 Glucose 114 mg/dL (74-106) H 08/10/19 06:04 Lactate 1.5 mmol/L (0.6-1.4) H 08/05/19 06:09 Calcium 7.5 mg/dL (8.5-10.1) L 08/10/19 06:04 Magnesium 2.6 mg/dL (1.8-2.4) H 08/07/19 06:25 Total Bilirubin 1.1 mg/dL (0.2-1.0) H 08/06/19 06:06 AST 23 U/L (15-37) 08/06/19 06:06 ALT 10 U/L (14-59) L 08/06/19 06:06 Alkaline Phosphatase 30 U/L (46-116) L 08/06/19 06:06 Troponin I 0.06 ng/Ml (<0.06) 08/04/19 16:35 C-Reactive Protein 7.66 mg/dL (0.0-0.3) H 08/06/19 06:06 Total Protein 4.1 g/dL (6.4-8.2) L 08/06/19 06:06 Albumin 2.0 g/dL (3.4-5.0) L 08/06/19 06:06 Urine Color Yellow (Yellow) 08/05/19 20:50 Urine Clarity Clear (Clear) 08/05/19 20:50 Urine pH 6.5 (5-8) 08/05/19 20:50 Ur Specific [place] >= 1.030 (1.005-1.025) H 08/05/19 20:50 Urine Protein 100 mg/dL (Negative) H 08/05/19 20:50 Urine Ketones 15 mg/dL (Negative) H 08/05/19 20:50 Urine Blood Large (Negative) H 08/05/19 20:50 Urine Nitrite Negative (Negative) 08/05/19 20:50 Urine Bilirubin Small (Negative) H 08/05/19 20:50 Urine Urobilinogen 0.2 EU/dL (Up TO 0.2) 04/02/20 20:50 Ur Leukocyte Esterase Negative (Negative) 08/05/19 20:50 Urine RBC >50 HPF (0-2) H 08/05/19 20:50 Urine WBC 0-2 HPF (0-5) 08/05/19 20:50 Ur Epithelial Cells Negative HPF (Negative) 08/05/19 20:50 Urine Crystals Negative HPF (Negative) 08/05/19 20:50 Urine Bacteria Negative HPF (Negative) 08/05/19 20:50 Urine Casts Negative LPF (Negative) 08/05/19 20:50 Urine Mucus Negative (Negative) 08/05/19 20:50 Urine Other Negative (Negative) 08/05/19 20:50 Ur Culture Indicated? No 08/05/19 20:50 Urine Glucose Negative mg/dL (Negative) 08/05/19 20:50 Patient ABO/Rh A Positive 08/04/19 20:21 Antibody Screen Negative 08/04/19 20:21
--- NOTE | 2019-08-10 14:07 | PDOC.CMPRO ---
- If Service Date Differs Date of service: 08/10/19 Time of Service: 14:07 Care Management Progress Note S/O: Daina is sitting in a chair when CM comes to meet with her. She is covered by several blankets and shares she is cold but the blankets help. Daina is interactive but she appears very tired and struggles to keep her eyes open. She presents as confused again today and asks if CM is traveling and just passing through or if I will be remaining in town. Nursing staff report Daina is very weak and requires assistance to get from the bed to the chair. She is receiving physical therapy and is a 2 person assist at this time. CM will continue to follow. A: Daina is a 84 year old female admitted to the hospital on 08/04/2019 for cecal volvulus. P: Anticipate Daina may be discharging to a SNF placement tomorrow. A referral was faxed to the [facility] on Friday and is awaiting review. CM contacts Daina's daughter, Coretta, by telephone to discuss other SNF options. Family is agreeable to other nearby long term facilities, however, [facility] is not currently accepting new admissions, [facility] is full, and Candida, the admission coordinator at [facility], had left for the day at the time of CM's phone call. CM will continue to support patient, family and discharge planning needs.
[2019-08-10] MEDS: Lactated Ringers 500 ML IV (16:35)
[2019-08-10] MEDS: Acetaminophen 325 MG TAB 650 MG PO ×2 (17:51→23:22)
[2019-08-10] MEDS: traZODone 50 MG TAB PO (20:12)
[2019-08-10] MEDS: Melatonin 3 MG TAB 6 MG PO (20:12)
[2019-08-11] VITALS (13 sets, daily range): BP systolic 105–168; BP diastolic 71–110; PULSE 80–111; RESP 16–20; TEMP 36.5–36.6; O2SAT 94–98
--- NOTE | 2019-08-11 | DI.US_ITS ---
EXAM: US LOWER EXTREMITY VENOUS RT CLINICAL HISTORY: right leg pain/swelling post op. TECHNIQUE: Ultrasound performed using standard protocol. COMPARISON: LEFT BREAST ULTRASOUND from 01/10/2017 FINDINGS: Duplex venous ultrasound was performed according to the usual protocol. The deep veins are freely com pressible throughout and there is normal flow augmentation with manual calf compression. 2D and Doppl er evaluation are unremarkable. IMPRESSION: No evidence of deep venous thrombosis of the lower extremity DATA REPOSITORY:
--- NOTE | 2019-08-11 05:12 | NUR.NOTE ---
Nursing Note: Pt rested most of night soundly. Pt woke up during repositionings but easily fell back asleep. At 0300 pt alert and awake asking for a snack. This nurse provided tea, pudding and toast. Pt drank sips, and ate few bites. Pt sat up and had pleasant conversation with this nurse until 0330. She then requested the TV be on. Conversation with this nurse was very pleasant though pt remained very confused- remote and recent memory not intact. Though she can tell stories from longterm memory she is unable to organize time line of memories and needs frequent reorienting of current situation. After snack and conversation pt watched television until 0400 when she then began resting with eyes closed. This nurse into room to lay bed flat and move side table. PT did not wake for this action. Pt is currently resting comfortably in bed.
[2019-08-11] MEDS: Metoprolol 25 MG TAB PO ×3 (05:26→18:07)
[2019-08-11 05:50] LABS: Anion Gap 7.9 mmol/L (3-11); BUN 19 mg/dL (7-18); CO2 21.1 mmol/L (21.0-32.0); CREATININE 0.69 mg/dL (0.55-1.02); Calcium 7.2 mg/dL (8.5-10.1); Chloride 107 mmol/L (98-107); Glucose 115 mg/dL (74-106); Magnesium 1.2 mg/dL (1.8-2.4); Potassium 3.4 mmol/L (3.5-5.1); Sodium 136 mmol/L (136-145)
--- NOTE | 2019-08-11 06:09 | NUR.NOTE ---
Nursing Note: Pt legs very warm and edematous, pt also reporting right lower leg pain, refusing pain medication. SCDs in place.
[2019-08-11] MEDS: Acetaminophen 325 MG TAB 650 MG PO (06:32)
--- NOTE | 2019-08-11 09:24 | PDOC.CMPRO ---
- If Service Date Differs Date of service: 08/11/19 Time of Service: 09:24 Care Management Progress Note S/O: Daina remains acute today, she was moved to the medical surgical unit. SOHAIL contacted her daughter Coretta and provided update and contact number for the unit. [facility] referral pending, [facility] contacted the [facility] early this morning and left a message for admissions. If no bed is available on she will need to transition to [facility] for PT and OT prior to SNF placement. 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 P: Daina is not ready for discharge today, she continues to have medication adjustments and low urine output. Plan will be for her to discharge to a SNF when medically ready. [facility] contacted the [facility] they continue to review the referral. CM will continue to support patient, family and discharge planning needs.
[2019-08-11] MEDS: Lactobacillus Acidophilus CAP 1 CAP PO ×2 (09:54→19:50)
[2019-08-11] MEDS: Apixaban 2.5 MG TAB PO ×2 (09:54→19:50)
[2019-08-11] MEDS: Potassium Chloride Liquid 20 MEQ PKT PO ×2 (09:54→19:49)
[2019-08-11] MEDS: Sertraline 25 MG TAB 12.5 MG PO (09:54)
[2019-08-11] MEDS: Normal Saline Flush 10 ML SYR IVP (09:55)
[2019-08-11] MEDS: MAGNESIUM SULFATE 2 GM/50 ML BAG IVPB ×2 (09:55→12:26)
--- NOTE | 2019-08-11 10:00 | PGE_ITS ---
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 Tolerating foods as per ordered by surgery. Appears to be recovering well given her age in terms of her surgery. Normalized white count yesterday. Nutritional status is poor, as evident by low albumin. Continue nutritional support including supplemental magnesium and potassium. (2) Atrial fibrillation and flutter: Status: Acute Assessment and plan: Patient was switched yesterday from short acting metoprolol tartrate to long-acting metoprolol succinate, ovaries were more difficult to control. This may be related to some intravascular depletion as well. She is better on the shorter acting metoprolol and a slightly higher dose. We will continue this. Continue apixaban. (3) Dementia: Status: Chronic Assessment and plan: Continue trazodone 50 mg each evening with melatonin at bedtime. Continue to try to avoid benzodiazepines or other strongly sedating medications. Qualifiers: Dementia type: unspecified type Dementia behavioral disturbance: with behavioral disturbance Qualified Code(s): F03.91 - Unspecified dementia with behavioral disturbance (4) Leg pain, right: Status: Acute Assessment and plan: There is some asymmetry on exam and leg pain. She is on apixaban, but I think we should still rule out DVT with lower extremity ultrasound. This may be musculoskeletal as well. (5) Oliguria: Status: Acute Assessment and plan: patient's renal function is reassuring, but I am still concerned that she is a little intravascularly depleted. She did get Lasix 2 days ago, and reported lower energy and has had a higher heart rate since. She is drinking fluids, but not much. I will give her an additional gentle bolus of LR and monitor her urine output. (6) DVT prophylaxis: Status: Acute Assessment and plan: Currently on apixaban (7) Discharge planning issues: Status: Acute Assessment and plan: Patient will likely need short-term SNF placement for rehab, ready to go today per surgery. Physical therapy has been ordered to assist with regaining her strength and ambulatory abilities. I like to see her urine output be adequate and the leg veins assessed before discharge to rehab. Subjective Subjective Patient reports: denies vomiting and fever Interval history since last seen: 24hr: 500ml bolus lactated Ringer's given for low urine output Metoprolol changed to 25 mg 4 times daily of tartrate form after patient needed additional metoprolol yesterday morning IV Patient states she feels about the same. Has some abdominal pain around the scar, but not bad. No chest pain or palpitations. Not coughing or short of breath. She is eating, but not a big appetite. She still feels low energy overall. She reported a new pain in her right lower extremity around the ankle to the nurses, though she states she has had some pain there over the past 2 weeks when I talk with her. Exam Narrative Exam Narrative: Thin elderly female who is awake and alert and oriented to person. Lungs are clear to auscultation anteriorly posteriorly she has mildly diminished breath sounds at the bases but no rhonchi or wheezing and no rales. Heart is irregularly irregular and slightly tachycardic. I do not appreciate a murmur today. Abdomen soft. Active bowel sounds. midline wound is dry and intact with cade, inferior aspect of wound is dressed. No drainage noted coming from the wound. Extremities are warm, 1+ edema to the shins on left, 2+ on right. Some tenderness in popliteal fossa and and dorsal foot, some pain in calf with flexion of ankle. Objective Objective Clinical Data: Abnormal lab results 08/11/19 Range/Units 05:25 Potassium 3.4 L (3.5-5.1) mmol/L BUN 19 H (7-18) mg/dL Glucose 115 H (74-106) mg/dL Calcium 7.2 L (8.5-10.1) mg/dL Magnesium 1.2 L (1.8-2.4) mg/dL Vital Signs Temperature 36.5 C 08/11/19 03:23 Temperature Source Tympanic 08/11/19 03:23 Pulse 94 H 08/11/19 03:23 Pulse Rhythm Irregular 08/10/19 23:47 Pulse 100 H 08/11/19 03:21 Respiratory Rate 16 08/11/19 03:23 Respiratory Effort Non-Labored 08/10/19 23:47 Respiratory Depth Normal 08/10/19 23:47 Respiratory Pattern Normal 08/10/19 23:47 Blood Pressure 124/85 08/11/19 03:23 Blood Pressure Mean 92 08/11/19 03:21 Blood Pressure Position Sitting 08/09/19 15:56 Pulse Oximetry 96 08/11/19 03:23 Respiratory End-tidal CO2 35 08/05/19 14:45 Oxygen Delivery Method Room Air 08/11/19 03:23 Oxygen Flow Rate 0 08/11/19 03:23 Pain Level 0 08/11/19 03:23 Comment 08/05/19 19:00 Intake & Output 08/10/19 08/10/19 08/11/19 11:59 23:59 11:59 Intake Total 480 / 1890 1410 / 1890 100 / 100 Output Total 450 / 725 275 / 725 80 / 80 Balance 30 / 1165 1135 / 1165 Weight 56.2 kg 51.8 kg 56.2 kg Intake: IV 500 / 500 Oral 480 / 1390 910 / 1390 100 / 100 Output: Urine 450 / 725 275 / 725 80 / 80 Other: Urine Color Yellow Dark Natalia Straw Straw Urine Appearance Clear Clear Clear Urine Odor None Stool Occult Blood Positive Stool Size Moderate Small Small Stool Characteristics Liquid Soft Soft Liquid Liquid Mucoid Bloody Brown Voiding Methods Indwelling Catheter Laboratory Results WBC 8.04 k/cumm (4.4-10.8) 08/10/19 06:04 RBC 3.87 m/cumm (4.00-5.20) L 08/10/19 06:04 Hgb 12.6 g/dL (12.0-15.5) 08/10/19 06:04 Hct 37.5 % (36.0-46.0) 08/10/19 06:04 MCV 96.9 fL (80-95) H 08/10/19 06:04 MCH 32.6 pg (27.0-33.0) 08/10/19 06:04 MCHC 33.6 g/dL (32.0-36.0) 08/10/19 06:04 RDW 14.7 % (11.7-14.6) H 08/10/19 06:04 Plt Count 197 x1000/uL (130-400) 08/10/19 06:04 MPV 9.2 fL (8.0-11.0) 08/10/19 06:04 Immature Gran % 2.0 % 08/10/19 06:04 Neutrophils % 78.5 08/10/19 06:04 Band Neutrophils % 1.0 % 08/06/19 06:06 Lymphocytes % 9.1 08/10/19 06:04 Atypical Lymphs % 4 08/06/19 06:06 Monocytes % 6.6 08/10/19 06:04 Eosinophils % 3.7 08/10/19 06:04 Basophils % 0.1 08/10/19 06:04 Absolute Neutrophils 6.31 k/cumm (1.2-6.7) 08/10/19 06:04 Absolute Lymphocytes 0.73 k/cumm (1.2-3.4) L 08/10/19 06:04 Absolute Monocytes 0.53 k/cumm (0.11-0.7) 08/10/19 06:04 Absolute Eosinophils 0.30 k/cumm (0.0-0.7) 08/10/19 06:04 Absolute Basophils 0.01 k/cumm (0.0-0.2) 08/10/19 06:04 Differential Comment Manual differential 08/06/19 06:06 RBC Morphology Normal 08/06/19 06:06 PT Cancelled 08/05/19 07:21 INR Cancelled 08/05/19 07:21 APTT Cancelled 08/05/19 07:21 Sodium 136 mmol/L (136-145) 08/11/19 05:25 Potassium 3.4 mmol/L (3.5-5.1) L 08/11/19 05:25 Chloride 107 mmol/L (98-107) 08/11/19 05:25 Carbon Dioxide 21.1 mmol/L (21.0-32.0) 08/11/19 05:25 Anion Gap 7.9 mmol/L (3-11) 08/11/19 05:25 BUN 19 mg/dL (7-18) H 08/11/19 05:25 Creatinine 0.69 mg/dL (0.55-1.02) 08/11/19 05:25 Estimated GFR/1.73 m2 >= 60.00 (mL/min/1.73m2) 08/11/19 05:25 Glucose 115 mg/dL (74-106) H 08/11/19 05:25 Lactate 1.5 mmol/L (0.6-1.4) H 08/05/19 06:09 Calcium 7.2 mg/dL (8.5-10.1) L 08/11/19 05:25 Magnesium 1.2 mg/dL (1.8-2.4) L 08/11/19 05:25 Total Bilirubin 1.1 mg/dL (0.2-1.0) H 08/06/19 06:06 AST 23 U/L (15-37) 08/06/19 06:06 ALT 10 U/L (14-59) L 08/06/19 06:06 Alkaline Phosphatase 30 U/L (46-116) L 08/06/19 06:06 Troponin I 0.06 ng/Ml (<0.06) 08/04/19 16:35 C-Reactive Protein 7.66 mg/dL (0.0-0.3) H 08/06/19 06:06 Total Protein 4.1 g/dL (6.4-8.2) L 08/06/19 06:06 Albumin 2.0 g/dL (3.4-5.0) L 08/06/19 06:06 Urine Color Yellow (Yellow) 08/05/19 20:50 Urine Clarity Clear (Clear) 08/05/19 20:50 Urine pH 6.5 (5-8) 08/05/19 20:50 Ur Specific [place] >= 1.030 (1.005-1.025) H 08/05/19 20:50 Urine Protein 100 mg/dL (Negative) H 08/05/19 20:50 Urine Ketones 15 mg/dL (Negative) H 08/05/19 20:50 Urine Blood Large (Negative) H 08/05/19 20:50 Urine Nitrite Negative (Negative) 08/05/19 20:50 Urine Bilirubin Small (Negative) H 08/05/19 20:50 Urine Urobilinogen 0.2 EU/dL (Up TO 0.2) 08/05/19 20:50 Ur Leukocyte Esterase Negative (Negative) 08/05/19 20:50 Urine RBC >50 HPF (0-2) H 08/05/19 20:50 Urine WBC 0-2 HPF (0-5) 08/05/19 20:50 Ur Epithelial Cells Negative HPF (Negative) 08/05/19 20:50 Urine Crystals Negative HPF (Negative) 08/05/19 20:50 Urine Bacteria Negative HPF (Negative) 08/05/19 20:50 Urine Casts Negative LPF (Negative) 08/05/19 20:50 Urine Mucus Negative (Negative) 08/05/19 20:50 Urine Other Negative (Negative) 08/05/19 20:50 Ur Culture Indicated? No 08/05/19 20:50 Urine Glucose Negative mg/dL (Negative) 08/05/19 20:50 Patient ABO/Rh A Positive 08/04/19 20:21 Antibody Screen Negative 08/04/19 20:21
--- NOTE | 2019-08-11 10:19 | PGE_ITS ---
Date of Service Date of service: 08/11/19 Time of Service: 10:19 Assessment and Plan Assessment and plan (1) Oliguria: Status: Acute Assessment and plan: check urinary electrolytes unclear if dehydration - pt has had very low input check echo (2) Leg pain, right: Status: Acute Assessment and plan: US- pd (3) S/P right hemicolectomy: Status: Acute Assessment and plan: Today is postop day #6 from right cecal resection for volvulus. Patient is not eating well. But this may be her baseline. We will continue to do calorie counts and protein shakes. Patient was supposed to go to a rehab unit today, but she has had minimal urinary output and has new right lower extremity pain. She will be checked for DVT. Her drain is out. She is off antibiotics. She is a 2 person transfer. I do not see her being able to go back to independent living situation. SNF placement is pd. currently no one is taking admissions due to Covid. May need to swing her. (4) Atrial fibrillation and flutter: Status: Acute Assessment and plan: pt is high fall risk. question if she should go back on the elliquis Subjective Subjective Interval history since last seen: pt currently sleeping. Got up to toilet and was tired out. 2 person transfer at best. Fatigues very easily. Low urine ouput over night- only 80cc. 200cc this am. LE edema stil per nursing she is also still present. She is still up 1L of fluid. C/o R calf pain and US ordered. Patient has not been eating much in the past 24 hours. She is only had few bites of food. Calorie counts are ordered. She has not had any nausea or vomiting. She has had a formed bowel movement that is heme positive per nursing. Her hemoglobin remained stable. She is started on Eliquis. She was a x2 patient transfer to the toilet. She is also high fall risk I do not feel at this point that she is a good candidate for full anticoagulation. Exam Narrative Exam Narrative: Patient slept throughout the entire exam and did not even wake up. Nursing says she is arousable Resp Effort & Inspection: normal respiratory effort Auscultation: clear to auscultation bilaterally GI Percussion: normal to percussion Other: Incision clean dry and intact. She has good bowel sounds. Her drain has been removed. Skin Other: No breakdown Extrem Other: +1 edema of the lower extremities Objective Objective Clinical Data: Abnormal lab results 08/11/19 Range/Units 05:25 Potassium 3.4 L (3.5-5.1) mmol/L BUN 19 H (7-18) mg/dL Glucose 115 H (74-106) mg/dL Calcium 7.2 L (8.5-10.1) mg/dL Magnesium 1.2 L (1.8-2.4) mg/dL Vital Signs Temperature 36.5 C 08/11/19 03:23 Temperature Source Tympanic 08/11/19 03:23 Pulse 94 H 08/11/19 03:23 Pulse Rhythm Irregular 08/10/19 23:47 Pulse 100 H 08/11/19 03:21 Respiratory Rate 16 08/11/19 03:23 Respiratory Effort Non-Labored 08/10/19 23:47 Respiratory Depth Normal 08/10/19 23:47 Respiratory Pattern Normal 08/10/19 23:47 Blood Pressure 124/85 08/11/19 03:23 Blood Pressure Mean 92 08/11/19 03:21 Blood Pressure Position Sitting 08/09/19 15:56 Pulse Oximetry 96 08/11/19 03:23 Respiratory End-tidal CO2 35 08/05/19 14:45 Oxygen Delivery Method Room Air 08/11/19 03:23 Oxygen Flow Rate 0 08/11/19 03:23 Pain Level 0 08/11/19 03:23 Comment 08/05/19 19:00 Intake & Output 08/10/19 08/10/19 08/11/19 11:59 23:59 11:59 Intake Total 480 / 1890 1410 / 1890 100 / 100 Output Total 450 / 725 275 / 725 80 / 80 Balance 30 / 1165 1135 / 1165 Weight 56.2 kg 51.8 kg 56.2 kg Intake: IV 500 / 500 Oral 480 / 1390 910 / 1390 100 / 100 Output: Urine 450 / 725 275 / 725 80 / 80 Other: Urine Color Yellow Dark Natalia Straw Straw Urine Appearance Clear Clear Clear Urine Odor None Stool Occult Blood Positive Stool Size Moderate Small Small Stool Characteristics Liquid Soft Soft Liquid Liquid Mucoid Bloody Brown Voiding Methods Indwelling Catheter Laboratory Results WBC 8.04 k/cumm (4.4-10.8) 08/10/19 06:04 RBC 3.87 m/cumm (4.00-5.20) L 08/10/19 06:04 Hgb 12.6 g/dL (12.0-15.5) 08/10/19 06:04 Hct 37.5 % (36.0-46.0) 08/10/19 06:04 MCV 96.9 fL (80-95) H 08/10/19 06:04 MCH 32.6 pg (27.0-33.0) 08/10/19 06:04 MCHC 33.6 g/dL (32.0-36.0) 08/10/19 06:04 RDW 14.7 % (11.7-14.6) H 08/10/19 06:04 Plt Count 197 x1000/uL (130-400) 08/10/19 06:04 MPV 9.2 fL (8.0-11.0) 08/10/19 06:04 Immature Gran % 2.0 % 08/10/19 06:04 Neutrophils % 78.5 08/10/19 06:04 Band Neutrophils % 1.0 % 08/06/19 06:06 Lymphocytes % 9.1 08/10/19 06:04 Atypical Lymphs % 4 08/06/19 06:06 Monocytes % 6.6 08/10/19 06:04 Eosinophils % 3.7 08/10/19 06:04 Basophils % 0.1 08/10/19 06:04 Absolute Neutrophils 6.31 k/cumm (1.2-6.7) 08/10/19 06:04 Absolute Lymphocytes 0.73 k/cumm (1.2-3.4) L 08/10/19 06:04 Absolute Monocytes 0.53 k/cumm (0.11-0.7) 08/10/19 06:04 Absolute Eosinophils 0.30 k/cumm (0.0-0.7) 08/10/19 06:04 Absolute Basophils 0.01 k/cumm (0.0-0.2) 08/10/19 06:04 Differential Comment Manual differential 08/06/19 06:06 RBC Morphology Normal 08/06/19 06:06 PT Cancelled 08/05/19 07:21 INR Cancelled 08/05/19 07:21 APTT Cancelled 08/05/19 07:21 Sodium 136 mmol/L (136-145) 08/11/19 05:25 Potassium 3.4 mmol/L (3.5-5.1) L 08/11/19 05:25 Chloride 107 mmol/L (98-107) 08/11/19 05:25 Carbon Dioxide 21.1 mmol/L (21.0-32.0) 08/11/19 05:25 Anion Gap 7.9 mmol/L (3-11) 08/11/19 05:25 BUN 19 mg/dL (7-18) H 08/11/19 05:25 Creatinine 0.69 mg/dL (0.55-1.02) 08/11/19 05:25 Estimated GFR/1.73 m2 >= 60.00 (mL/min/1.73m2) 08/11/19 05:25 Glucose 115 mg/dL (74-106) H 08/11/19 05:25 Lactate 1.5 mmol/L (0.6-1.4) H 08/05/19 06:09 Calcium 7.2 mg/dL (8.5-10.1) L 08/11/19 05:25 Magnesium 1.2 mg/dL (1.8-2.4) L 08/11/19 05:25 Total Bilirubin 1.1 mg/dL (0.2-1.0) H 08/06/19 06:06 AST 23 U/L (15-37) 08/06/19 06:06 ALT 10 U/L (14-59) L 08/06/19 06:06 Alkaline Phosphatase 30 U/L (46-116) L 08/06/19 06:06 Troponin I 0.06 ng/Ml (<0.06) 08/04/19 16:35 C-Reactive Protein 7.66 mg/dL (0.0-0.3) H 08/06/19 06:06 Total Protein 4.1 g/dL (6.4-8.2) L 08/06/19 06:06 Albumin 2.0 g/dL (3.4-5.0) L 08/06/19 06:06 Urine Color Yellow (Yellow) 08/05/19 20:50 Urine Clarity Clear (Clear) 08/05/19 20:50 Urine pH 6.5 (5-8) 08/05/19 20:50 Ur Specific [place] >= 1.030 (1.005-1.025) H 08/05/19 20:50 Urine Protein 100 mg/dL (Negative) H 08/05/19 20:50 Urine Ketones 15 mg/dL (Negative) H 08/05/19 20:50 Urine Blood Large (Negative) H 08/05/19 20:50 Urine Nitrite Negative (Negative) 08/05/19 20:50 Urine Bilirubin Small (Negative) H 08/05/19 20:50 Urine Urobilinogen 0.2 EU/dL (Up TO 0.2) 08/05/19 20:50 Ur Leukocyte Esterase Negative (Negative) 08/05/19 20:50 Urine RBC >50 HPF (0-2) H 08/05/19 20:50 Urine WBC 0-2 HPF (0-5) 08/05/19 20:50 Ur Epithelial Cells Negative HPF (Negative) 08/05/19 20:50 Urine Crystals Negative HPF (Negative) 08/05/19 20:50 Urine Bacteria Negative HPF (Negative) 08/05/19 20:50 Urine Casts Negative LPF (Negative) 08/05/19 20:50 Urine Mucus Negative (Negative) 08/05/19 20:50 Urine Other Negative (Negative) 08/05/19 20:50 Ur Culture Indicated? No 08/05/19 20:50 Urine Glucose Negative mg/dL (Negative) 08/05/19 20:50 Patient ABO/Rh A Positive 08/04/19 20:21 Antibody Screen Negative 08/04/19 20:21
[2019-08-11] MEDS: Lactated Ringers 500 ML IV (11:20)
[2019-08-11 12:20] LABS: Creatinine,Urine 63.22 mg/dL; POTASSIUM,URINE RANDOM 29 mmol/L; Sodium, Urine 68 mmol/L
--- NOTE | 2019-08-11 12:59 | PT.INTREAT ---
Date of service: 08/11/19 Time of Service: 09:00 PT Notes Visit Reasons: CECAL VOLVULUS PT Notes Visit Reasons: CECAL VOLVULUS Inpatient Physical Therapy Treatment Note [facility] Date: 08/11/2019 Precautions: Fall. Standard. Activity as tolerated. Subjective: Daina notes that she is feeling a little better this morning. She notes she is tired in the PM and is not very hungry. Objective: General Observation: Telemetry monitoring in place. Tavares catheter in place. IV R UE. Surgical dressing over abdominal incision. DEBRA drain in place. Pain: Patient reported an unquantified pain on the abdominal area with bed mobility and ambulation performance. Vital Signs: Patient continues to be in nonsustained atrial fibrillation. BED MOBILITY/TRANSFERS: Rolling: AM and PM SBA Supine to sit SBA with HOB at 35 degrees AM and PM Sit to supine S with HOB at 35 degrees Sit to stand SBA in AM, minimal assist of 1 with moderate verbal cueing for proper hand placement in PM Stand to sit SBA in both AM and PM with cueing to reach back for chair with UE prior to sitting Bed to chair minimal assist of 1 PM, Patient after exercise in AM chose to stay in bed Patient remained up in chair with safety strip under. GAIT: Patient is able to tolerate level surface ambulation for 1 minutes standing bedside marching this morning. Tolerated 5 feet bed to chair in the PM using front wheeled walker with verbal cueing for safe technique. Patient did report discomfort and abdominal area with transfers. Reported dizziness and fatigue in the afternoon following transfer from bed to chair, this was the first time up other than with PT in AM. Therapeutic Exercise: Completed UE/LE strength and conditioning in open chain fashion per flow sheet AM/PM promoting bicep curls, shldr flexion, seated hip flexion, LAQ, heel slides, ankle pumps and SLR. Completed without complaints of pain. Assessment: Patient more alert throughout her PT session today. Remains confused. Continues to require cueing for proper hand placement with transfers. Fatigues quickly however much less assistance needed in comparison to yesterday. Patient will continue to benefit from skilled services in order to maximize mobility level. DISCHARGE RECOMMENDATIONS: SNF versus / care. TREATMENT CODE/TIME: Session 1, [id number], [id number] 25 minutes beginning at 9:00 AM. Session 2 [id number], [id number] 25 minutes beginning at 12:35 PM.
[2019-08-11] MEDS: Melatonin 3 MG TAB 6 MG PO (19:49)
[2019-08-11] MEDS: traZODone 50 MG TAB PO (19:50)
--- NOTE | 2019-08-11 20:18 | W.PM.DS.N ---
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 FAC.(LEVEL 1) Condition: Serious Discharge Details Chief Complaint: Abd Prob Clinical Impression: Cecal volvulus Reason For Visit: CECAL VOLVULUS/s/p cecal resection Admit Date/Time: 08/04/19 18:59 Admit Provider: Sharyn Valles Attending Provider: Sharyn Valles Primary Care Provider: Gulshan Howe [facility] Hospital Course: Surgical course per Dr. Valles Patient has chronic atrial fibrillation and postoperatively had elevated heart rates and medicine was consulted. Metoprolol was converted to tartrate form to allow for faster titration, and IV metoprolol was also used. She ended up on a dose of 37.5 mg Toprol tartrate twice daily, which is 50% higher than her outpatient dose of 25 mg metoprolol succinate daily. Patient had bilateral lower extremity swelling postoperatively, which was worse on the right side. She had some pain in that right leg and a lower extremity venous ultrasound was done 08/11/2019, which showed no DVT. Transthoracic echocardiogram performed 08/11/2019 which showed globally normal left ventricular systolic function with ejection fraction of 65%. There was moderate 2/4 mitral vegetation and moderate to severe 3/4 tricuspid regurgitation. Pulmonary artery systolic pressure was 32 mmHg. Small left pleural effusion was also noted. Patient became oliguric several days postoperatively. This appears to have corresponded with the use of furosemide for her lower extremity edema and concern for CHF, along with her poor oral intake. A FENa of 0.5% did confirm prerenal azotemia, and the patient did respond to a second 500 mL bolus of lactated Ringer's. Her renal function was stable and her fluid intake and urine output had improved by the end of her stay. Patient's nutritional status was suspected to be chronically poor, though her albumin was normal on admission. Potassium and magnesium was low and was supplemented. Nutrition was consulted, who recommended liquid supplements, but was concerned of the patient's total caloric intake was adequate. Feeding tube was not considered given her baseline dementia. Home Meds and New Rx's Prescriptions: New melatonin 3 mg Tablet Extended Release 6 mg PO HS PRN (Reason: insom) 30 Days Qty: 60 RF: 12 acidophilus-pectin, citrus 25 million cell -100 mg Tablet 1 cap PO BID 30 Days Qty: 60 RF: 0 tramadol 50 mg tablet 50 mg PO Q6H PRNQty: 14 RF: 0 Continued metoprolol succinate 25 mg tablet extended release 24 hr 25 mg PO DAILY Qty: 90 RF: 3 sertraline 25 mg tablet 12.5 mg PO DAILY Qty: 45 RF: 3 calcium carbonate [Tums] 300 MG tablet,chewable 300 mg PO BID RF: 0 acetaminophen [Acetaminophen Extra Strength] 500 MG tablet 1,000 mg PO TID PRNRF: 0 Eliquis 2.5 mg tablet 2.5 mg PO BID Qty: 180 RF: 3 Discharge Instructions Additional Instructions: -incentive spirometry 10x/ hr while awake -up walking to tolerance -PT as tolerated -encourage eating -OK to shower -has PICOs wound system on incision. This can be just left in place. If falls off or stops working- meplix dressing daily. -cover PICOs to bath -regular soft diet -protein/nutritional supplments BID between meals -calorie counts daily -encourage fluids -F/u w/ stoiber in clinic on 08/19 -F/u PCP in 2 wks Activity:: physical therapy Equipment/Supplies:: Walker Diet:: protein shakes BID. no restrictions. DS: Data Vitals/I&O Vitals and I&O: Vital Signs Temperature 36.6 C 08/11/19 17:55 Temperature Source Tympanic 08/11/19 17:55 Pulse 111 H 08/11/19 17:55 Pulse Rhythm Irregular 08/11/19 17:51 Pulse 104 H 08/11/19 12:00 Respiratory Rate 18 08/11/19 17:55 Respiratory Effort Non-Labored 08/11/19 17:51 Respiratory Depth Normal 08/11/19 17:51 Respiratory Pattern Normal 08/11/19 17:51 Blood Pressure 168/110 H 08/11/19 17:55 Blood Pressure Mean 82 08/11/19 09:41 Blood Pressure Position Sitting 08/09/19 15:56 Pulse Oximetry 98 08/11/19 17:55 Respiratory End-tidal CO2 35 08/05/19 14:45 Oxygen Delivery Method Room Air 08/11/19 17:55 Oxygen Flow Rate 0 08/11/19 17:55 Pain Level 0 08/11/19 17:55 Comment 08/05/19 19:00 Intake & Output 08/10/19 08/11/19 08/11/19 23:59 11:59 23:59 Intake Total 1410 / 1890 150 / 820 670 / 820 Output Total 275 / 725 280 / 955 675 / 955 Balance 1135 / 1165 -130 / -135 -5 / -135 Weight 51.8 kg 56.2 kg Intake: IV 500 / 500 550 / 550 Oral 910 / 1390 150 / 270 120 / 270 Output: Urine 275 / 725 80 / 680 600 / 680 Stool 200 / 275 75 / 275 Other: Urine Color Dark Natalia Straw Light Natalia Urine Appearance Clear Clear Clear Urine Odor None Stool Occult Blood Positive Positive Stool Size Small Moderate Moderate Stool Characteristics Soft Liquid Soft Liquid Black Mucoid Bloody Brown Voiding Methods Indwelling Catheter Data Completed and Pending Labs on day of discharge: Labs from last 24 hours 08/11/19 08/11/19 11:20 05:25 Sodium 136 Potassium 3.4 L Chloride 107 Carbon Dioxide 21.1 Anion Gap 7.9 BUN 19 H Creatinine 0.69 Estimated GFR/1.73 m2 >= 60.00 Glucose 115 H Calcium 7.2 L Magnesium 1.2 L Ur Random Creatinine 63.22 Ur Random Sodium 68 Ur Random Potassium 29 [facility] Medical History (Updated 08/13/19 @ 11:50 by Sharyn Valles DO) Cecal volvulus (Acute) Dementia (Chronic) Low body mass index (Acute) Mood disturbance (Inactive 04/04/15) Seasonal affective disorder (Acute) Surgical History (Updated 08/05/19 @ 16:25 by Sharyn Valles DO) Incarcerated Obdurator Hernia (01/31/16) Dr Nicholas, [facility] S/P right hemicolectomy (Acute) Family History Mother , vascular at age 95. No problems noted. 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
[2019-08-12 00:42] VITALS: BP 137/86; PULSE 106; RESP 19; TEMP 36.8; O2SAT 99
[2019-08-12] MEDS: Melatonin 3 MG TAB 6 MG PO ×2 (00:44→20:04)
[2019-08-12] MEDS: Apixaban 2.5 MG TAB PO ×3 (00:44→20:04)
[2019-08-12] MEDS: Metoprolol 25 MG TAB PO ×3 (00:44→12:34)
[2019-08-12] MEDS: traZODone 50 MG TAB PO ×2 (00:44→20:04)
[2019-08-12 07:54] VITALS: BP 124/89; PULSE 94; RESP 16; TEMP 36.8; O2SAT 96
[2019-08-12 08:35] LABS: Anion Gap 7.3 mmol/L (3-11); BUN 14 mg/dL (7-18); CO2 23.7 mmol/L (21.0-32.0); CREATININE 0.62 mg/dL (0.55-1.02); Calcium 7.6 mg/dL (8.5-10.1); Chloride 104 mmol/L (98-107); Glucose 92 mg/dL (74-106); Magnesium 1.7 mg/dL (1.8-2.4); Potassium 3.9 mmol/L (3.5-5.1); Sodium 135 mmol/L (136-145)
[2019-08-12] MEDS: Potassium Chloride Liquid 20 MEQ PKT PO ×2 (09:31→20:05)
[2019-08-12] MEDS: Lactobacillus Acidophilus CAP 1 CAP PO ×2 (09:32→20:04)
[2019-08-12] MEDS: MAGNESIUM SULFATE 2 GM/50 ML BAG IVPB (09:32)
[2019-08-12] MEDS: Sertraline 25 MG TAB 12.5 MG PO (09:32)
[2019-08-12] MEDS: Normal Saline Flush 10 ML SYR IVP ×2 (09:33→22:35)
--- NOTE | 2019-08-12 10:53 | PGE_ITS ---
Date of Service Date of service: 08/12/19 Time of Service: 10:53 Assessment and Plan Assessment and plan (1) Cecal volvulus: Status: Acute Assessment and plan: s/p laparotomy and cecectomy POD #7. Tolerating foods as per ordered by surgery. Appears to be recovering well given her age in terms of her surgery. Normalized white count. Nutritional status is poor, as evident by low albumin. Continue nutritional support including supplemental magnesium and potassium. (2) Atrial fibrillation and flutter: Status: Acute Assessment and plan: She is better on the shorter acting metoprolol and a slightly higher dose, will convert to twice daily dosing. Continue apixaban. (3) Dementia: Status: Chronic Assessment and plan: Continue trazodone 50 mg each evening with melatonin at bedtime. Continue to try to avoid benzodiazepines or other strongly sedating medications. Qualifiers: Dementia type: unspecified type Dementia behavioral disturbance: with behavioral disturbance Qualified Code(s): F03.91 - Unspecified dementia with behavioral disturbance (4) Leg pain, right: Status: Acute Assessment and plan: lower extremity ultrasound negative for DVT. Pain yesterday was likely musculoskeletal. (5) Oliguria: Status: Acute Assessment and plan: Much improved. Renal function stable. FENa consistent with prerenal, which corresponds to her response to the gentle fluid bolus. This point her oral fluid intake has improved I think she will do fine. We will remove Tavares. (6) DVT prophylaxis: Status: Acute Assessment and plan: Currently on apixaban (7) Discharge planning issues: Status: Acute Assessment and plan: Patient will likely need short-term SNF placement for rehab, ready to go today per surgery. Physical therapy has been ordered to assist with regaining her strength and ambulatory abilities. Plan is to [facility] if continuing to improve. Subjective Subjective Patient reports: tolerating a regular diet; denies fever Interval history since last seen: 24 hours: Given additional 500 cc bolus of LR, improved urine output. FENa 0.5% Lower extremity vascular ultrasound negative for DVT Patient feeling a lot more energy today. Worked well with PT per nursing. Drinking more fluids, ate breakfast. No nausea vomiting. Small bowel movement. No gross blood. She denies chest pain, cough, shortness of breath. Exam Narrative Exam Narrative: Thin elderly female sitting up in a chair drinking who is awake and alert and oriented to person. Lungs are clear to auscultation anteriorly posteriorly she has mildly diminished breath sounds at the bases but no rhonchi or wheezing and no rales. Heart is irregularly irregular. I do not appreciate a murmur today. Abdomen soft. Active bowel sounds. midline wound is dry and intact with cade, inferior aspect of wound is dressed with slight serosanguineous drainage on dressing. Extremities are warm, 1+ edema to the shins on left, 2+ on right. Not tender today. Objective Objective Clinical Data: Abnormal lab results 08/12/19 Range/Units 08:15 Sodium 135 L (136-145) mmol/L Calcium 7.6 L (8.5-10.1) mg/dL Magnesium 1.7 L (1.8-2.4) mg/dL Vital Signs Temperature 36.8 C 08/12/19 07:54 Temperature Source Tympanic 08/12/19 07:54 Pulse 94 H 08/12/19 07:54 Pulse Rhythm Irregular 08/12/19 10:38 Pulse 104 H 08/11/19 12:00 Respiratory Rate 16 08/12/19 07:54 Respiratory Effort Non-Labored 08/12/19 10:38 Respiratory Depth Normal 08/12/19 10:38 Respiratory Pattern Normal 08/12/19 10:38 Blood Pressure 124/89 08/12/19 07:54 Blood Pressure Mean 82 08/11/19 09:41 Blood Pressure Position Sitting 08/09/19 15:56 Pulse Oximetry 96 08/12/19 07:54 Respiratory End-tidal CO2 35 08/05/19 14:45 Oxygen Delivery Method Room Air 08/12/19 07:54 Oxygen Flow Rate 0 08/12/19 07:54 Pain Level 0 08/12/19 07:54 Comment 08/05/19 19:00 Intake & Output 08/11/19 08/11/19 08/12/19 11:59 23:59 11:59 Intake Total 150 / 820 670 / 820 890 / 890 Output Total 280 / 955 675 / 955 650 / 650 Balance -130 / -135 -5 / -135 240 / 240 Weight 56.2 kg 56.7 kg Intake: IV 550 / 550 Oral 150 / 270 120 / 270 890 / 890 Output: Urine 80 / 680 600 / 680 650 / 650 Stool 200 / 275 75 / 275 Other: Urine Color Straw Light Natalia Yellow Urine Appearance Clear Clear Clear Stool Occult Blood Positive Positive Stool Size Moderate Moderate Small Stool Characteristics Liquid Soft Soft Black Black Brown Bloody Bloody Laboratory Results WBC 8.04 k/cumm (4.4-10.8) 08/10/19 06:04 RBC 3.87 m/cumm (4.00-5.20) L 08/10/19 06:04 Hgb 12.6 g/dL (12.0-15.5) 08/10/19 06:04 Hct 37.5 % (36.0-46.0) 08/10/19 06:04 MCV 96.9 fL (80-95) H 08/10/19 06:04 MCH 32.6 pg (27.0-33.0) 08/10/19 06:04 MCHC 33.6 g/dL (32.0-36.0) 08/10/19 06:04 RDW 14.7 % (11.7-14.6) H 08/10/19 06:04 Plt Count 197 x1000/uL (130-400) 08/10/19 06:04 MPV 9.2 fL (8.0-11.0) 08/10/19 06:04 Immature Gran % 2.0 % 08/10/19 06:04 Neutrophils % 78.5 08/10/19 06:04 Band Neutrophils % 1.0 % 08/06/19 06:06 Lymphocytes % 9.1 08/10/19 06:04 Atypical Lymphs % 4 08/06/19 06:06 Monocytes % 6.6 08/10/19 06:04 Eosinophils % 3.7 08/10/19 06:04 Basophils % 0.1 08/10/19 06:04 Absolute Neutrophils 6.31 k/cumm (1.2-6.7) 08/10/19 06:04 Absolute Lymphocytes 0.73 k/cumm (1.2-3.4) L 08/10/19 06:04 Absolute Monocytes 0.53 k/cumm (0.11-0.7) 08/10/19 06:04 Absolute Eosinophils 0.30 k/cumm (0.0-0.7) 08/10/19 06:04 Absolute Basophils 0.01 k/cumm (0.0-0.2) 08/10/19 06:04 Differential Comment Manual differential 08/06/19 06:06 RBC Morphology Normal 08/06/19 06:06 PT Cancelled 08/05/19 07:21 INR Cancelled 08/05/19 07:21 APTT Cancelled 08/05/19 07:21 Sodium 135 mmol/L (136-145) L 08/12/19 08:15 Potassium 3.9 mmol/L (3.5-5.1) 08/12/19 08:15 Chloride 104 mmol/L (98-107) 08/12/19 08:15 Carbon Dioxide 23.7 mmol/L (21.0-32.0) 08/12/19 08:15 Anion Gap 7.3 mmol/L (3-11) 08/12/19 08:15 BUN 14 mg/dL (7-18) 08/12/19 08:15 Creatinine 0.62 mg/dL (0.55-1.02) 08/12/19 08:15 Estimated GFR/1.73 m2 >= 60.00 (mL/min/1.73m2) 08/12/19 08:15 Glucose 92 mg/dL (74-106) 08/12/19 08:15 Lactate 1.5 mmol/L (0.6-1.4) H 08/05/19 06:09 Calcium 7.6 mg/dL (8.5-10.1) L 08/12/19 08:15 Magnesium 1.7 mg/dL (1.8-2.4) L 08/12/19 08:15 Total Bilirubin 1.1 mg/dL (0.2-1.0) H 08/06/19 06:06 AST 23 U/L (15-37) 08/06/19 06:06 ALT 10 U/L (14-59) L 08/06/19 06:06 Alkaline Phosphatase 30 U/L (46-116) L 08/06/19 06:06 Troponin I 0.06 ng/Ml (<0.06) 08/04/19 16:35 C-Reactive Protein 7.66 mg/dL (0.0-0.3) H 08/06/19 06:06 Total Protein 4.1 g/dL (6.4-8.2) L 08/06/19 06:06 Albumin 2.0 g/dL (3.4-5.0) L 08/06/19 06:06 Urine Color Yellow (Yellow) 08/05/19 20:50 Urine Clarity Clear (Clear) 08/05/19 20:50 Urine pH 6.5 (5-8) 08/05/19 20:50 Ur Specific [place] >= 1.030 (1.005-1.025) H 08/05/19 20:50 Urine Protein 100 mg/dL (Negative) H 08/05/19 20:50 Urine Ketones 15 mg/dL (Negative) H 08/05/19 20:50 Urine Blood Large (Negative) H 08/05/19 20:50 Urine Nitrite Negative (Negative) 08/05/19 20:50 Urine Bilirubin Small (Negative) H 08/05/19 20:50 Urine Urobilinogen 0.2 EU/dL (Up TO 0.2) 08/05/19 20:50 Ur Leukocyte Esterase Negative (Negative) 08/05/19 20:50 Urine RBC >50 HPF (0-2) H 08/05/19 20:50 Urine WBC 0-2 HPF (0-5) 08/05/19 20:50 Ur Epithelial Cells Negative HPF (Negative) 08/05/19 20:50 Urine Crystals Negative HPF (Negative) 08/05/19 20:50 Urine Bacteria Negative HPF (Negative) 08/05/19 20:50 Urine Casts Negative LPF (Negative) 08/05/19 20:50 Urine Mucus Negative (Negative) 08/05/19 20:50 Urine Other Negative (Negative) 08/05/19 20:50 Ur Culture Indicated? No 08/05/19 20:50 Ur Random Creatinine 63.22 mg/dL 08/11/19 11:20 Ur Random Sodium 68 mmol/L 08/11/19 11:20 Ur Random Potassium 29 mmol/L 08/11/19 11:20 Urine Glucose Negative mg/dL (Negative) 08/05/19 20:50 Patient ABO/Rh A Positive 08/04/19 20:21 Antibody Screen Negative 08/04/19 20:21
--- NOTE | 2019-08-12 11:22 | PGE_ITS ---
Date of Service Date of service: 08/12/19 Time of Service: 11:22 Subjective Subjective Interval history since last seen: Daina is about the same. She is sleeping in the chair when I came to see her. She doesn't remmeber if she had breakfast. She c/o LE edema. adn pain in Leg today the midportion of her incision is draining serous fluid. does not appear to be infected. does not appear to be healing. fascia is intact She still has her henley in adn is putting out cl urine Exam Chest Chest: normal inspection of the chest Resp Effort & Inspection: normal respiratory effort and able to speak in complete sentences Auscultation: clear to auscultation bilaterally Cardio Other: a fib rate controlled GI Other: soft. good BS. a 2 portion of the middle of the incision does not appear to be healing. She has a small seroma. fascia is intact. no redness. minimal pain. + BM. no diarrhea. Extrem General: pedal edema (remains unchanged ) Objective Objective Clinical Data: Abnormal lab results 08/12/19 Range/Units 08:15 Sodium 135 L (136-145) mmol/L Calcium 7.6 L (8.5-10.1) mg/dL Magnesium 1.7 L (1.8-2.4) mg/dL Vital Signs Temperature 36.8 C 08/12/19 07:54 Temperature Source Tympanic 08/12/19 07:54 Pulse 94 H 08/12/19 07:54 Pulse Rhythm Irregular 08/12/19 10:38 Pulse 104 H 08/11/19 12:00 Respiratory Rate 16 08/12/19 07:54 Respiratory Effort Non-Labored 08/12/19 10:38 Respiratory Depth Normal 08/12/19 10:38 Respiratory Pattern Normal 08/12/19 10:38 Blood Pressure 124/89 08/12/19 07:54 Blood Pressure Mean 82 08/11/19 09:41 Blood Pressure Position Sitting 08/09/19 15:56 Pulse Oximetry 96 08/12/19 07:54 Respiratory End-tidal CO2 35 08/05/19 14:45 Oxygen Delivery Method Room Air 08/12/19 07:54 Oxygen Flow Rate 0 08/12/19 07:54 Pain Level 0 08/12/19 07:54 Comment 08/05/19 19:00 Intake & Output 08/11/19 08/11/1908/11/20 11:59 23:59 11:59 Intake Total 150 / 820 670 / 820 890 / 890 Output Total 280 / 955 675 / 955 650 / 650 Balance -130 / -135 -5 / -135 240 / 240 Weight 56.2 kg 56.7 kg Intake: IV 550 / 550 Oral 150 / 270 120 / 270 890 / 890 Output: Urine 80 / 680 600 / 680 650 / 650 Stool 200 / 275 75 / 275 Other: Urine Color Straw Light Natalia Yellow Urine Appearance Clear Clear Clear Stool Occult Blood Positive Positive Stool Size Moderate Moderate Small Stool Characteristics Liquid Soft Soft Black Black Brown Bloody Bloody Laboratory Results WBC 8.04 k/cumm (4.4-10.8) 08/10/19 06:04 RBC 3.87 m/cumm (4.00-5.20) L 08/10/19 06:04 Hgb 12.6 g/dL (12.0-15.5) 08/10/19 06:04 Hct 37.5 % (36.0-46.0) 08/10/19 06:04 MCV 96.9 fL (80-95) H 08/10/19 06:04 MCH 32.6 pg (27.0-33.0) 08/10/19 06:04 MCHC 33.6 g/dL (32.0-36.0) 08/10/19 06:04 RDW 14.7 % (11.7-14.6) H 08/10/19 06:04 Plt Count 197 x1000/uL (130-400) 08/10/19 06:04 MPV 9.2 fL (8.0-11.0) 08/10/19 06:04 Immature Gran % 2.0 % 08/10/19 06:04 Neutrophils % 78.5 08/10/19 06:04 Band Neutrophils % 1.0 % 08/06/19 06:06 Lymphocytes % 9.1 08/10/19 06:04 Atypical Lymphs % 4 08/06/19 06:06 Monocytes % 6.6 08/10/19 06:04 Eosinophils % 3.7 08/10/19 06:04 Basophils % 0.1 08/10/19 06:04 Absolute Neutrophils 6.31 k/cumm (1.2-6.7) 08/10/19 06:04 Absolute Lymphocytes 0.73 k/cumm (1.2-3.4) L 08/10/19 06:04 Absolute Monocytes 0.53 k/cumm (0.11-0.7) 08/10/19 06:04 Absolute Eosinophils 0.30 k/cumm (0.0-0.7) 08/10/19 06:04 Absolute Basophils 0.01 k/cumm (0.0-0.2) 08/10/19 06:04 Differential Comment Manual differential 08/06/19 06:06 RBC Morphology Normal 08/06/19 06:06 PT Cancelled 08/05/19 07:21 INR Cancelled 08/05/19 07:21 APTT Cancelled 08/05/19 07:21 Sodium 135 mmol/L (136-145) L 08/12/19 08:15 Potassium 3.9 mmol/L (3.5-5.1) 08/12/19 08:15 Chloride 104 mmol/L (98-107) 08/12/19 08:15 Carbon Dioxide 23.7 mmol/L (21.0-32.0) 08/12/19 08:15 Anion Gap 7.3 mmol/L (3-11) 08/12/19 08:15 BUN 14 mg/dL (7-18) 08/12/19 08:15 Creatinine 0.62 mg/dL (0.55-1.02) 08/12/19 08:15 Estimated GFR/1.73 m2 >= 60.00 (mL/min/1.73m2) 08/12/19 08:15 Glucose 92 mg/dL (74-106) 08/12/19 08:15 Lactate 1.5 mmol/L (0.6-1.4) H 08/05/19 06:09 Calcium 7.6 mg/dL (8.5-10.1) L 08/12/19 08:15 Magnesium 1.7 mg/dL (1.8-2.4) L 08/12/19 08:15 Total Bilirubin 1.1 mg/dL (0.2-1.0) H 08/06/19 06:06 AST 23 U/L (15-37) 08/06/19 06:06 ALT 10 U/L (14-59) L 08/06/19 06:06 Alkaline Phosphatase 30 U/L (46-116) L 08/06/19 06:06 Troponin I 0.06 ng/Ml (<0.06) 08/04/19 16:35 C-Reactive Protein 7.66 mg/dL (0.0-0.3) H 08/06/19 06:06 Total Protein 4.1 g/dL (6.4-8.2) L 08/06/19 06:06 Albumin 2.0 g/dL (3.4-5.0) L 08/06/19 06:06 Urine Color Yellow (Yellow) 08/05/19 20:50 Urine Clarity Clear (Clear) 08/05/19 20:50 Urine pH 6.5 (5-8) 08/05/19 20:50 Ur Specific [place] >= 1.030 (1.005-1.025) H 08/05/19 20:50 Urine Protein 100 mg/dL (Negative) H 08/05/19 20:50 Urine Ketones 15 mg/dL (Negative) H 08/05/19 20:50 Urine Blood Large (Negative) H 08/05/19 20:50 Urine Nitrite Negative (Negative) 08/05/19 20:50 Urine Bilirubin Small (Negative) H 08/05/19 20:50 Urine Urobilinogen 0.2 EU/dL (Up TO 0.2) 08/05/19 20:50 Ur Leukocyte Esterase Negative (Negative) 08/05/19 20:50 Urine RBC >50 HPF (0-2) H 08/05/19 20:50 Urine WBC 0-2 HPF (0-5) 08/05/19 20:50 Ur Epithelial Cells Negative HPF (Negative) 08/05/19 20:50 Urine Crystals Negative HPF (Negative) 08/05/19 20:50 Urine Bacteria Negative HPF (Negative) 08/05/19 20:50 Urine Casts Negative LPF (Negative) 08/05/19 20:50 Urine Mucus Negative (Negative) 08/05/19 20:50 Urine Other Negative (Negative) 08/05/19 20:50 Ur Culture Indicated? No 08/05/19 20:50 Ur Random Creatinine 63.22 mg/dL 08/11/19 11:20 Ur Random Sodium 68 mmol/L 08/11/19 11:20 Ur Random Potassium 29 mmol/L 08/11/19 11:20 Urine Glucose Negative mg/dL (Negative) 08/05/19 20:50 Patient ABO/Rh A Positive 08/04/19 20:21 Antibody Screen Negative 08/04/19 20:21
--- NOTE | 2019-08-12 13:25 | PT.INTREAT ---
Date of service: 08/12/19 PT Notes Visit Reasons: CECAL VOLVULUS/s/p cecal resection Inpatient Physical Therapy Treatment Note [facility] Date: 08/12/2019 Precautions: Fall. Standard. Activity as tolerated. Abdominal incision from recent surgery, place gait belt high up. Subjective: Daina is agreeable to doing exercises with PT today. Nurse Lake present in room at the start of session in the morning. Daina was wondering why she was at the hospital. Nurse Lake explained to her that she is here because of her recent surgery and that we are all here providing assistance for her as she recovers. She states that her doctor told her to do as much as she can so she can get better fast. She reported minor discomfort on her abdominal area that subsided with rest. She stated that she has not walked as far as she did today since she came in to this hospital. Objective: General Observation: Tavares catheter in place which was removed at the end of the afternoon PT session by nurse Lake. IV access to L UE still open. Dany seen on abdominal surgical incsion. DEBRA drain remains in place. Pain: Daina reports minimal pain which she describes as soreness on abdominal area with movement transitions from sit<>stand and after long distance ambulation BED MOBILITY/TRANSFERS: Sit to stand SBA in AM and PM with minimal cueing for hand placement Stand to sit SBA in AM and PM with minimal cueing to reach back for chair with UE prior to sitting Wheelchair to chair SBA in AM and PM with minimal cueing for hand placement GAIT: Patient is able to tolerate level surface ambulation 175 feet + 50 feet using front wheeled walker with verbal cueing for safe technique, SBA and wheelchair follow provided by PT. Complained of soreness across lower abdominal area during ambulation that subsided with a seated rest. Increasing marc noted with increasing step observed. Patient required 1 seated rest in the morning and 3 seated rests in the afternoon. Minimal verbal cues needed for walker management as patient tends to lag behind her walker. Oxygen saturation ranged from 88% to 92% on room air during ambulation activity. Therapeutic Exercise: Completed seated level exercising comes exercises consisting of full arc quads x10 seated hip flexion x10 without report of discomfort abdominal surgical incision, and seated hip abduction adduction x10 with good response. Patient was able to tolerate x 15 reps in the afternoon for all 3 exercises with report of fatigue requiring longer rests in between each exercise. Assessment: Daina is near baseline level of wakefulness/alertness and is more able to follow single to 2-step commands. She is demonstrating increasing level of independence with mobility ADL performance as noted above. She continues to complain of abdominal discomofrt with increasing amblation distance that subsides with rest. She was able to tolerate longer distance ambulation with a walker but remains to be in need of verbal cueing for overall safety. Patient will continue to benefit from skilled services in order to maximize mobility level. DISCHARGE RECOMMENDATIONS: SNF versus 24/ care. Will need front wheeled walker to maximize mobility ADL performance. TREATMENT CODE/TIME: Session 1-- 22861 x 25 minutes, 94279 x14 minutes beginning at 8:54 AM. Session 2-- [id number] x 25 minutes , [id number] x 18 minutes beginning at 13:25 PM.
[2019-08-12 14:50] VITALS: BP 94/70; PULSE 92; RESP 24; TEMP 37.1; O2SAT 96
[2019-08-12 15:03] VITALS: BP 112/76; PULSE 94
[2019-08-12 16:09] VITALS: BP 98/64; PULSE 84; RESP 18; TEMP 36.5; O2SAT 94
--- NOTE | 2019-08-12 16:10 | PDOC.CMPRO ---
- If Service Date Differs Date of service: 08/12/19 Time of Service: 16:10 Care Management Progress Note S/O: Daina was resting when CM attempted to visit with her today. CM contacted the [facility] today- they currently do not have any open beds available. CM resubmitted her referral to [facility] today, as they are open for admissions. Due to this change in plan, Daina will not enter SWB status today, as she is being considered for admission at [facility]. CM will update family once a decision is made regarding SNF placement vs. SWB at [facility]. CM will continue to follow. 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 P: Daina is close to being ready for discharge. Plan will be for her to discharge to a SNF when medically ready. CM contacted [facility], who is considering her for admission. CM will continue to support patient, family and discharge planning needs.
[2019-08-12] MEDS: Metoprolol 25 MG TAB 37.5 MG PO (20:03)
[2019-08-12] MEDS: Acetaminophen 325 MG TAB 650 MG PO (22:34)
[2019-08-12] MEDS: MORPHine 2 MG/ML SYR IVP (22:34)
[2019-08-12 23:18] VITALS: BP 100/67; PULSE 98; RESP 19; TEMP 36.5; O2SAT 96
[2019-08-13] VITALS (7 sets, daily range): BP systolic 104–128; BP diastolic 61–77; PULSE 74–107; RESP 18–20; TEMP 36.2–37.3; O2SAT 94–99
[2019-08-13] MEDS: Potassium Chloride Liquid 20 MEQ PKT PO ×2 (08:32→20:20)
[2019-08-13] MEDS: Apixaban 2.5 MG TAB PO (08:32)
[2019-08-13] MEDS: Lactobacillus Acidophilus CAP 1 CAP PO ×2 (08:32→20:20)
[2019-08-13] MEDS: Metoprolol 25 MG TAB 37.5 MG PO ×2 (08:33→20:20)
[2019-08-13] MEDS: Normal Saline Flush 10 ML SYR IVP ×2 (08:33→20:22)
[2019-08-13] MEDS: Sertraline 25 MG TAB 12.5 MG PO (08:58)
--- NOTE | 2019-08-13 11:45 | PGE_ITS ---
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 I don't think this is safe for her to return to. She is on blood thinners- adn is a fall risk. She will occ have some mild agitation when she is tired. She is not physically abusive to self or staff. She does not self harm. Qualifiers: Dementia behavioral disturbance: with behavioral disturbance Dementia type: unspecified type Qualified Code(s): F03.91 - Unspecified dementia with behavioral disturbance (2) S/P right hemicolectomy: Status: Acute Assessment and plan: from a surgical standpoint she is doing well She can have a regular diet protein supplements she does require cueing to eat/drink She is often incont of stool and urine. in the am she is able to get up to a commode. I think this will improve onces she regains strength. She has a OPAL vac on that needs to be changed about every 5 days. (3) Atrial fibrillation and flutter: Status: Acute (4) Low body mass index: Status: Acute (5) Seasonal affective disorder: Status: Acute Assessment and plan: pt has a hx of some mild depression in the fall, and a lifetime hx of some mild dysthmyia. She is very pleasant. However, she is very confused and requires constant cueing. She would not remember to eat. She tires/fatigue very quickly/with minimal effort. When she b/c tired she b/c even more confused. This is worst at night. She has never b/c agitated or become combative. SHe is very pleasant at all times and never physically abusive. When she was in the ICU, she had some trouble sleeping at night. When we gave her meds to help sleep- she wound up sleeping 14 hrs. She is very sensitive to medications and does not require more than melatonin to sleep. She was never agitated or abusive in anyway; just anxious. SHe does not do well w/ change- in her environment or schedule. When she was moved form ICU to med- surg, she got agitated- and was scared and suspicious. But by the next day did well. Her family is also very involved in her care adn responsive. When she talks to one of her daughters- this calms her down as well. Now that she is out of the ICU, she is sleeping at night adn following a regular schedule. She is very pleasant and happy adn cooperative. She is starting to regain some of her stamina- please refer to PT notes. Exam Const Other: pt sitting up in bed taking her pills and eating breakfast. Responds to name. eats w/ queing. denies any pain. no cough and good urine outpt per RN. pt does not eat much. see PT notes. pt gets very tired/worn out easily and towards the end of the day. Than she b/c a 2 person assist to transfer. [facility] Ears: hearing grossly normal bilaterally Face and sinus: normal facial exam Mouth: oral mucosae normal Teeth and gingiva: dentures and edentulous Throat: posterior oropharynx normal Eyes Sclera: sclerae normal Resp Effort & Inspection: normal respiratory effort and able to speak in complete sentences Auscultation: clear to auscultation bilaterally Cardio Other: a fib. rate controlled. back on elliquis GI Other: + bs. mins pain. has OPAL dressing in place. minimal drainage. + BS. Skin Other: no breakdown Extrem General: normal to inspection and pedal edema Objective Objective Clinical Data: Vital Signs Temperature 36.2 C L 08/13/19 07:40 Temperature Source Tympanic 08/13/19 07:40 Pulse 95 H 08/13/19 07:40 Pulse Rhythm Irregular 08/13/19 04:16 Pulse 104 H 08/11/19 12:00 Respiratory Rate 18 08/13/19 07:40 Respiratory Effort Non-Labored 08/13/19 04:16 Respiratory Depth Normal 08/13/19 04:16 Respiratory Pattern Normal 08/13/19 04:16 Blood Pressure 119/71 08/13/19 07:40 Blood Pressure Mean 82 08/11/19 09:41 Blood Pressure Position Sitting 08/09/19 15:56 Pulse Oximetry 94 L 08/13/19 07:40 Respiratory End-tidal CO2 35 08/05/19 14:45 Oxygen Delivery Method Room Air 08/13/19 07:40 Oxygen Flow Rate 0 08/13/19 07:40 Pain Level 0 08/13/19 07:40 Comment 08/05/19 19:00 Intake & Output 08/12/19 08/12/19 08/13/19 11:59 23:59 11:59 Intake Total 890 / 1180 290 / 1180 Output Total 650 / 1160 510 / 1160 625 / 625 Balance - -625 / -625 Weight 56.7 kg 55.6 kg Intake: IV 50 / 50 Oral 890 / 1130 240 / 1130 Output: Urine 650 / 1160 510 / 1160 625 / 625 Other: Urine Color Yellow Yellow Yellow Urine Appearance Clear Clear Clear Urine Odor None Stool Size Small Small Stool Characteristics Soft Soft Brown Brown Voiding Methods Bedside Commode Bedside Commode Laboratory Results WBC 8.04 k/cumm (4.4-10.8) 08/10/19 06:04 RBC 3.87 m/cumm (4.00-5.20) L 08/10/19 06:04 Hgb 12.6 g/dL (12.0-15.5) 08/10/19 06:04 Hct 37.5 % (36.0-46.0) 08/10/19 06:04 MCV 96.9 fL (80-95) H 08/10/19 06:04 MCH 32.6 pg (27.0-33.0) 08/10/19 06:04 MCHC 33.6 g/dL (32.0-36.0) 08/10/19 06:04 RDW 14.7 % (11.7-14.6) H 08/10/19 06:04 Plt Count 197 x1000/uL (130-400) 08/10/19 06:04 MPV 9.2 fL (8.0-11.0) 08/10/19 06:04 Immature Gran % 2.0 % 08/10/19 06:04 Neutrophils % 78.5 08/10/19 06:04 Band Neutrophils % 1.0 % 08/06/19 06:06 Lymphocytes % 9.1 08/10/19 06:04 Atypical Lymphs % 4 08/06/19 06:06 Monocytes % 6.6 08/10/19 06:04 Eosinophils % 3.7 08/10/19 06:04 Basophils % 0.1 08/10/19 06:04 Absolute Neutrophils 6.31 k/cumm (1.2-6.7) 08/10/19 06:04 Absolute Lymphocytes 0.73 k/cumm (1.2-3.4) L 08/10/19 06:04 Absolute Monocytes 0.53 k/cumm (0.11-0.7) 08/10/19 06:04 Absolute Eosinophils 0.30 k/cumm (0.0-0.7) 08/10/19 06:04 Absolute Basophils 0.01 k/cumm (0.0-0.2) 08/10/19 06:04 Differential Comment Manual differential 08/06/19 06:06 RBC Morphology Normal 08/06/19 06:06 PT Cancelled 08/05/19 07:21 INR Cancelled 08/05/19 07:21 APTT Cancelled 08/05/19 07:21 Sodium 135 mmol/L (136-145) L 08/12/19 08:15 Potassium 3.9 mmol/L (3.5-5.1) 08/12/19 08:15 Chloride 104 mmol/L (98-107) 08/12/19 08:15 Carbon Dioxide 23.7 mmol/L (21.0-32.0) 08/12/19 08:15 Anion Gap 7.3 mmol/L (3-11) 08/12/19 08:15 BUN 14 mg/dL (7-18) 08/12/19 08:15 Creatinine 0.62 mg/dL (0.55-1.02) 08/12/19 08:15 Estimated GFR/1.73 m2 >= 60.00 (mL/min/1.73m2) 08/12/19 08:15 Glucose 92 mg/dL (74-106) 08/12/19 08:15 Lactate 1.5 mmol/L (0.6-1.4) H 08/05/19 06:09 Calcium 7.6 mg/dL (8.5-10.1) L 08/12/19 08:15 Magnesium 1.7 mg/dL (1.8-2.4) L 08/12/19 08:15 Total Bilirubin 1.1 mg/dL (0.2-1.0) H 08/06/19 06:06 AST 23 U/L (15-37) 08/06/19 06:06 ALT 10 U/L (14-59) L 08/06/19 06:06 Alkaline Phosphatase 30 U/L (46-116) L 08/06/19 06:06 Troponin I 0.06 ng/Ml (<0.06) 08/04/19 16:35 C-Reactive Protein 7.66 mg/dL (0.0-0.3) H 08/06/19 06:06 Total Protein 4.1 g/dL (6.4-8.2) L 08/06/19 06:06 Albumin 2.0 g/dL (3.4-5.0) L 08/06/19 06:06 Urine Color Yellow (Yellow) 08/05/19 20:50 Urine Clarity Clear (Clear) 08/05/19 20:50 Urine pH 6.5 (5-8) 08/05/19 20:50 Ur Specific [place] >= 1.030 (1.005-1.025) H 08/05/19 20:50 Urine Protein 100 mg/dL (Negative) H 08/05/19 20:50 Urine Ketones 15 mg/dL (Negative) H 08/05/19 20:50 Urine Blood Large (Negative) H 08/05/19 20:50 Urine Nitrite Negative (Negative) 08/05/19 20:50 Urine Bilirubin Small (Negative) H 08/05/19 20:50 Urine Urobilinogen 0.2 EU/dL (Up TO 0.2) 08/05/19 20:50 Ur Leukocyte Esterase Negative (Negative) 08/05/19 20:50 Urine RBC >50 HPF (0-2) H 08/05/19 20:50 Urine WBC 0-2 HPF (0-5) 08/05/19 20:50 Ur Epithelial Cells Negative HPF (Negative) 08/05/19 20:50 Urine Crystals Negative HPF (Negative) 08/05/19 20:50 Urine Bacteria Negative HPF (Negative) 08/05/19 20:50 Urine Casts Negative LPF (Negative) 08/05/19 20:50 Urine Mucus Negative (Negative) 08/05/19 20:50 Urine Other Negative (Negative) 08/05/19 20:50 Ur Culture Indicated? No 08/05/19 20:50 Ur Random Creatinine 63.22 mg/dL 08/11/19 11:20 Ur Random Sodium 68 mmol/L 08/11/19 11:20 Ur Random Potassium 29 mmol/L 08/11/19 11:20 Urine Glucose Negative mg/dL (Negative) 08/05/19 20:50 Patient ABO/Rh A Positive 08/04/19 20:21 Antibody Screen Negative 08/04/19 20:21
--- NOTE | 2019-08-13 13:27 | PT.INPN ---
Date of service: 08/13/19 Time of Service: 13:27 PT Notes Visit Reasons: CECAL VOLVULUS/s/p cecal resection Inpatient Physical Therapy Progress Note Date: 08/13/2019 Dates of Service: 08/06/2019 through 08/13/2019 Precautions: Fall. Standard. Activity as tolerated. Abdominal incision from recent surgery with DEBRA drain, place gait belt high up. SUBJECTIVE: In the morning, patient reported feeling 'heady' sitting up in bed. Symptom disappeared with staying seated at edge of bed for 3 to 5 minutes. Patient continued to report minor, tolerable discomfort in abdominal area with mobility ADL performance. She did not report fatigue during the afternoon session as she did this morning. OBJECTIVE: General Observation: IV access to L UE still open. Dany seen on abdominal surgical incision. DEBRA drain remains in place. Left UE remains swollen. PAIN: Minimal discomfort in abdominal area BED MOBILITY/TRANSFERS: Sit to stand SBA in AM and PM with minimal cueing for hand placement Stand to sit SBA in AM and PM with minimal cueing to reach back for chair with UE prior to sitting Wheelchair to chair SBA in AM and PM with minimal cueing for hand placement Chair to wheelchair SBA in AM and PM with minimal cueing for hand placement GAIT: Patient is able to tolerate level surface ambulation 100 feet times 2 in the morning and 200 feet +50 feet in the afternoon using front wheeled walker with moderate verbal cueing given to stay close to the walker. SBA and wheelchair follow provided by PT. Complained of minimal soreness across lower abdominal area during ambulation that subsided with a seated rest. Akila low in the morning but significantly improved in the afternoon. Patient required 2 seated rests in the morning and none in the afternoon. Minimal verbal cues needed for walker management as patient tends to lag behind her walker. STAIRS: In the afternoon, patient was able to tolerate six 4 inch steps and four 6 inch steps while holding onto bilateral rails with step over step pattern requiring only standby assist of this PT without any complaints of abdominal soreness or discomfort. THEREX: In the morning session patient tolerated ankle dorsiflexion plantarflexion x15, long arc quads x15, seated hip flexion x15, and seated hip abduction x15. In the afternoon patient tolerated ankle dorsiflexion plantarflexion x15, mini squats x15, and heel raises x15, with good response. ASSESSMENT: Patient continues to demonstrate improving functional mobility independence as well as increasing tolerance to exercises. She continues to report tolerable discomfort around surgical incision with mobility performance. Swelling in the left upper extremity has been reported to nurse Rupali today. Due to patient's cognitive level and pre-existing dementia, she will require supervision for all mobility ADL performance using a front wheeled walker. Patient will continue to benefit from skilled services in order to maximize mobility level. Patient continues to present with clinical signs and symptoms consistent with current/admitting diagnoses that have resulted to mobility limitations, gait instability, generalized weakness, and impairment of motor control as demonstrated by the following impairment level findings: 1. Decreased strength to B UE/LE major muscle groups 2. Impaired standing balance 3. Impaired activity tolerance 4. Impaired safety awareness due to dementia Impairments continue to contribute to the following functional limitations: 1. Dependent bed mobility skills 2. Increased dependence with transfers 3. Inability to safely ambulate without assistive device and physical assistance 4. Increase completion time for mobility ADL performance 5. Increased fall risk 6. Inability to negotiate steps alone safely Patient is assessed as a 28557 moderate complexity based on the following: History: 84-year-old female with impairment level findings, functional limitations, and medical history as listed above Examination: Demonstrable impairment in strength, balance, and activity tolerance with underlying impairments and functional limitations as documented above Presentation: Evolving Decision Makin moderate complexity Goals: Goals X1 week 1. Supine-Sit independent NOT MET, CONTINUE 2. Sit-Supine independent NOT MET, CONTINUE 3. Sit-Stand supervision with FWW NOT MET, CONTINUE 4. Stand-Sit supervision with FWW NOT MET, CONTINUE 5. Bed-Chair supervision with FWW NOT MET, CONTINUE 6. Chair-Bed supervision with FWW NOT MET, CONTINUE 7. Supervision gait on level surface with use of least restrictive device for at least 100 feet without report of pain nor dyspnea with FWW NOT MET, CONTINUE 8. Supervision with home exercise program NOT MET, CONTINUE 9. Good static and dynamic standing balance/tolerance NOT MET, CONTINUE Plan of Care/Treatment Plan: 1-2x/day, 7 days/week x 1 week. Plan of care has been reviewed with the WIRE DRAWING MACHINE OPERATOR providing the service under Physical Therapy direction. Initiate Physical Therapy intervention for strengthening, bed mobility, transfers, gait, stairs, balance training, use of assistive device. DISCHARGE RECOMMENDATIONS: SNF versus 25/11 care. Will need front wheeled walker to maximize mobility ADL performance. TREATMENT CODE/TIME: Session 1-- 22793 x 40 minutes, [id number] x 26 minutes beginning at 9:20 AM. Session 2-- [id number] x 25 minutes , [id number] x 13 minutes beginning at 13:27 PM. Thank you very much for this referral. Venessa Wong PT, DPT, CLT [facility] [place], [place]
--- NOTE | 2019-08-13 13:41 | PGE_ITS ---
Date of Service Date of service: 08/13/19 Time of Service: 13:41 Assessment and Plan Assessment and plan (1) Cecal volvulus: Status: Acute Assessment and plan: s/p laparotomy and cecectomy POD #. Tolerating regular diet and taking some supplemental shakes, though nutritional status is poor. I appreciate assessment technician input. Continue nutritional support as the patient tolerates, supplemental magnesium as well.. Given her baseline dementia, I do not think a feeding tube would be appropriate. (2) Atrial fibrillation and flutter: Status: Acute Assessment and plan: Heart rate has stabilized. Continue twice daily metoprolol tartrate at 37.5 mg dose for now (her home dose was 25 mg of succinate daily so this is 50% more). continue apixaban. (3) Dementia: Status: Chronic Assessment and plan: Continue trazodone 50 mg each evening with melatonin at bedtime. Continue to try to avoid benzodiazepines or other strongly sedating medications. No change. Qualifiers: Dementia type: unspecified type Dementia behavioral disturbance: with behavioral disturbance Qualified Code(s): F03.91 - Unspecified dementia with behavioral disturbance (4) Leg pain, right: Status: Acute Assessment and plan: lower extremity ultrasound negative for DVT. Pain yesterday was likely musculoskeletal. (5) Oliguria: Status: Acute Assessment and plan: Now resolved, renal function stable throughout. FENa in response to fluids was consistent with prerenal. (6) DVT prophylaxis: Status: Acute Assessment and plan: Currently on apixaban (7) Discharge planning issues: Status: Acute Assessment and plan: Patient has both short-term and likely long-term residential needs. She has been improving with physical therapy. Nutrition status is poor resulting in generalized weakness. Continue working with physical therapy until appropriate and safe placement can be found. Subjective Subjective Patient reports: denies fever Interval history since last seen: 24-hour events: Patient reported some lightheadedness with standing. Her metoprolol tartrate was decreased from 25 mg 4 times a day to 37.5 mg twice a day. Ms. Garcia states she is feeling better. She denies cough or shortness of breath. She states she is drinking her shakes, though nutrition is concerned that she is not getting enough calories. She is moving her bowels. She denies chest pain or palpitations. She did walk well with physical therapy today per nursing. Exam Narrative Exam Narrative: Thin elderly female sitting up in a chair drinking who is awake and alert and oriented to person. Lungs are clear to auscultation bilaterally with no wheezing or rales and improved air movement. Heart is irregularly irregular. I do not appreciate a murmur today. Abdomen soft. Active bowel sounds. midline wound is now dressed, mini wound VAC placed along the inferior aspect of the wound. Extremities are warm, 1+ edema to the shins on left, 2+ on right. Not tender today. Objective Objective Clinical Data: Vital Signs Temperature 36.9 C 08/13/19 11:20 Temperature Source Tympanic 08/13/19 11:20 Pulse 94 H 08/13/19 11:20 Pulse Rhythm Irregular 08/13/19 12:36 Pulse 104 H 08/11/19 12:00 Respiratory Rate 19 08/13/19 11:20 Respiratory Effort Non-Labored 08/13/19 12:36 Respiratory Depth Normal 08/13/19 12:36 Respiratory Pattern Normal 08/13/19 12:36 Blood Pressure 108/69 08/13/19 11:20 Blood Pressure Mean 82 08/11/19 09:41 Blood Pressure Position Sitting 08/09/19 15:56 Pulse Oximetry 96 08/13/19 11:20 Respiratory End-tidal CO2 35 08/05/19 14:45 Oxygen Delivery Method Room Air 08/13/19 11:20 Oxygen Flow Rate 0 08/13/19 11:20 Pain Level 0 08/13/19 11:20 Comment 08/05/19 19:00 Intake & Output 08/12/19 08/13/19 08/13/19 23:59 11:59 23:59 Intake Total 290 / 1180 Output Total 510 / 1160 625 / 625 Balance - -625 / -625 Weight 55.6 kg Intake: IV 50 / 50 Oral 240 / 1130 Output: Urine 510 / 1160 625 / 625 Other: Urine Color Yellow Yellow Yellow Urine Appearance Clear Clear Clear Urine Odor None Normal Stool Size Small Stool Characteristics Soft Brown Voiding Methods Bedside Commode Bedside Commode Toilet Laboratory Results WBC 8.04 k/cumm (4.4-10.8) 08/10/19 06:04 RBC 3.87 m/cumm (4.00-5.20) L 08/10/19 06:04 Hgb 12.6 g/dL (12.0-15.5) 08/10/19 06:04 Hct 37.5 % (36.0-46.0) 08/10/19 06:04 MCV 96.9 fL (80-95) H 08/10/19 06:04 MCH 32.6 pg (27.0-33.0) 08/10/19 06:04 MCHC 33.6 g/dL (32.0-36.0) 08/10/19 06:04 RDW 14.7 % (11.7-14.6) H 08/10/19 06:04 Plt Count 197 x1000/uL (130-400) 08/10/19 06:04 MPV 9.2 fL (8.0-11.0) 08/10/19 06:04 Immature Gran % 2.0 % 08/10/19 06:04 Neutrophils % 78.5 08/10/19 06:04 Band Neutrophils % 1.0 % 08/06/19 06:06 Lymphocytes % 9.1 08/10/19 06:04 Atypical Lymphs % 4 08/06/19 06:06 Monocytes % 6.6 08/10/19 06:04 Eosinophils % 3.7 08/10/19 06:04 Basophils % 0.1 08/10/19 06:04 Absolute Neutrophils 6.31 k/cumm (1.2-6.7) 08/10/19 06:04 Absolute Lymphocytes 0.73 k/cumm (1.2-3.4) L 08/10/19 06:04 Absolute Monocytes 0.53 k/cumm (0.11-0.7) 08/10/19 06:04 Absolute Eosinophils 0.30 k/cumm (0.0-0.7) 08/10/19 06:04 Absolute Basophils 0.01 k/cumm (0.0-0.2) 08/10/19 06:04 Differential Comment Manual differential 08/06/19 06:06 RBC Morphology Normal 08/06/19 06:06 PT Cancelled 08/05/19 07:21 INR Cancelled 08/05/19 07:21 APTT Cancelled 08/05/19 07:21 Sodium 135 mmol/L (136-145) L 08/12/19 08:15 Potassium 3.9 mmol/L (3.5-5.1) 08/12/19 08:15 Chloride 104 mmol/L (98-107) 08/12/19 08:15 Carbon Dioxide 23.7 mmol/L (21.0-32.0) 08/12/19 08:15 Anion Gap 7.3 mmol/L (3-11) 08/12/19 08:15 BUN 14 mg/dL (7-18) 08/12/19 08:15 Creatinine 0.62 mg/dL (0.55-1.02) 08/12/19 08:15 Estimated GFR/1.73 m2 >= 60.00 (mL/min/1.73m2) 08/12/19 08:15 Glucose 92 mg/dL (74-106) 08/12/19 08:15 Lactate 1.5 mmol/L (0.6-1.4) H 08/05/19 06:09 Calcium 7.6 mg/dL (8.5-10.1) L 08/12/19 08:15 Magnesium 1.7 mg/dL (1.8-2.4) L 08/12/19 08:15 Total Bilirubin 1.1 mg/dL (0.2-1.0) H 08/06/19 06:06 AST 23 U/L (15-37) 08/06/19 06:06 ALT 10 U/L (14-59) L 08/06/19 06:06 Alkaline Phosphatase 30 U/L (46-116) L 08/06/19 06:06 Troponin I 0.06 ng/Ml (<0.06) 08/04/19 16:35 C-Reactive Protein 7.66 mg/dL (0.0-0.3) H 08/06/19 06:06 Total Protein 4.1 g/dL (6.4-8.2) L 08/06/19 06:06 Albumin 2.0 g/dL (3.4-5.0) L 08/06/19 06:06 Urine Color Yellow (Yellow) 08/05/19 20:50 Urine Clarity Clear (Clear) 08/05/19 20:50 Urine pH 6.5 (5-8) 08/05/19 20:50 Ur Specific [place] >= 1.030 (1.005-1.025) H 08/05/19 20:50 Urine Protein 100 mg/dL (Negative) H 08/05/19 20:50 Urine Ketones 15 mg/dL (Negative) H 08/05/19 20:50 Urine Blood Large (Negative) H 08/05/19 20:50 Urine Nitrite Negative (Negative) 08/05/19 20:50 Urine Bilirubin Small (Negative) H 08/05/19 20:50 Urine Urobilinogen 0.2 EU/dL (Up TO 0.2) 08/05/19 20:50 Ur Leukocyte Esterase Negative (Negative) 08/05/19 20:50 Urine RBC >50 HPF (0-2) H 08/05/19 20:50 Urine WBC 0-2 HPF (0-5) 08/05/19 20:50 Ur Epithelial Cells Negative HPF (Negative) 08/05/19 20:50 Urine Crystals Negative HPF (Negative) 08/05/19 20:50 Urine Bacteria Negative HPF (Negative) 08/05/19 20:50 Urine Casts Negative LPF (Negative) 08/05/19 20:50 Urine Mucus Negative (Negative) 08/05/19 20:50 Urine Other Negative (Negative) 08/05/19 20:50 Ur Culture Indicated? No 08/05/19 20:50 Ur Random Creatinine 63.22 mg/dL 08/11/19 11:20 Ur Random Sodium 68 mmol/L 08/11/19 11:20 Ur Random Potassium 29 mmol/L 08/11/19 11:20 Urine Glucose Negative mg/dL (Negative) 08/05/19 20:50 Patient ABO/Rh A Positive 08/04/19 20:21 Antibody Screen Negative 08/04/19 20:21
--- NOTE | 2019-08-13 15:06 | CMPROGNOTE_ITS ---
- If Service Date Differs Date of service: 08/13/19 Time of Service: 15:06 Care Management Progress Note S/O: Daina was resting when CM attempted to visit with her. CM contacted [facility] and [facility] today, both of which did not have a bed offer for Daina today. [facility] does not have bed availability currently, CM will continue to inquire. [facility] will consider her for admission on Friday, depending on the updated documentation sent by CM regarding medications and be haviors. Daina has been appropriate at [facility], with some mild agitation post surgically, at night. Per report, she has been confused as she is not in her normal environment. Per report, she is not eating well, and nutrition has been consulted. According to her [place] AD on file, she does not want to have tube feeding. CM discussed the plan with Coretta, Daina's daughter. [facility] sent Coretta a LT TED application for her and her siblings to complete on Daina's behalf in order to address skilled nursing needs. If no placement available on Friday, CM will consider SWB, in coordination with the provider and nursing staff. CM will continue to follow. 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 P: Daina is close to being ready for discharge. Plan will be for her to discharge to a SNF when medically ready. [facility] contacted [facility], who is considering her for admission. CM will continue to support patient, family and discharge planning needs.
--- NOTE | 2019-08-13 15:35 | W.NUTRFU ---
Date of service: 08/13/19 Time of Service: 15:35 Nutritional Follow up NOTE: Calorie Count for 08/11/19 & 08/12/19: 300 kcal, 10 g protein. Estimated Needs: 2310-6953 kcal, 55-66 g protein, 1600 ml fluid. Currently meeting<25% of nutrient and fluid needs. Continues to decline functionally, does not want to eat or drink and is very lethargic. Per SW, does not want artifical nutrition if unable to meet needs by mouth. Daina receives ensure TID, but often refuses. Will continue to encourage to increase intake. Time Spent in Nutritional Counseling and Treatment: 10 min spent face to face
[2019-08-13 16:52] LABS: HCT 36.6 % (36.0-46.0); HGB 12.8 g/dL (12.0-15.5)
--- NOTE | 2019-08-13 18:50 | NUR.NOTE ---
Pt presents with 4 bouts of large amounts of bloody stools, 1st one pt was on toilet to urinate, and after urinating a small amount of blood tinged the toilet water. 2nd one, pt exited her chair and while alarm was going off she made it to BS, upon entering room r/t sound of alarm pt had a large puddle of blood on floor, and in brief, and on gown, and socks. 4th incident pt asked to go to [facility] for BM and upon lowering her brief there was all blood puddle few small clots that ran out the sides. 4th incident pt made it to BS and 300mL blood , few small clots noted, maroon colored blood, in large amounts. Hat placed in room to measure volume. Fluids strongly encouraged, pt somewhat compliant. VS obtained and entered into the computer, pulse is elevated from earlier in the day from 76- 106. All other vitals stayed consistent. H&H results returned and results are stable, actually increased slightly as when compared to yesterdays results. IV access started in R AC to be proactive if the need would arise for IV access. Billing Adjudicator and MD made aware of each incident that arises. Will continue to monitor, report to oncoming nurse and encourage fluids.
[2019-08-13] MEDS: Magnesium Oxide 400 MG TAB PO (20:20)
[2019-08-13] MEDS: traZODone 50 MG TAB PO (20:20)
[2019-08-13] MEDS: Pantoprazole 40 MG VIAL IVP (20:21)
[2019-08-13] MEDS: Melatonin 3 MG TAB 6 MG PO (20:21)
[2019-08-13] MEDS: Acetaminophen 325 MG TAB 650 MG PO (21:42)
[2019-08-14 03:13] VITALS: BP 119/77; PULSE 69; RESP 18; TEMP 36.7; O2SAT 96
[2019-08-14 06:48] LABS: HCT 30.6 % (36.0-46.0); HGB 10.2 g/dL (12.0-15.5); Mean Corp. HGB Concentration 33.3 g/dL (32.0-36.0); Mean Corpuscular Hemoglobin 32.4 pg (27.0-33.0); Mean Corpuscular Volume 97.1 fL (80-95); Mean Platelet Volume 8.4 fL (8.0-11.0); Platelet Count 269 x1000/uL (130-400); RBC 3.15 m/cumm (4.00-5.20); RBC Distribution Width 15.8 % (11.7-14.6); White Blood Cell Count 7.35 k/cumm (4.4-10.8)
[2019-08-14 06:57] LABS: Anion Gap 5.7 mmol/L (3-11); BUN 12 mg/dL (7-18); CO2 26.3 mmol/L (21.0-32.0); CREATININE 0.65 mg/dL (0.55-1.02); Calcium 7.8 mg/dL (8.5-10.1); Chloride 104 mmol/L (98-107); Glucose 97 mg/dL (74-106); Potassium 4.4 mmol/L (3.5-5.1); Sodium 136 mmol/L (136-145)
[2019-08-14 07:35] VITALS: BP 119/69; PULSE 94; RESP 18; TEMP 36.6; O2SAT 97
[2019-08-14] MEDS: Pantoprazole 40 MG VIAL IVP ×2 (08:17→20:30)
[2019-08-14] MEDS: Lactobacillus Acidophilus CAP 1 CAP PO ×2 (08:17→20:29)
[2019-08-14] MEDS: Normal Saline Flush 10 ML SYR IVP ×2 (08:17→20:30)
[2019-08-14] MEDS: Metoprolol 25 MG TAB 37.5 MG PO ×2 (08:17→20:31)
[2019-08-14] MEDS: Magnesium Oxide 400 MG TAB PO ×2 (08:17→20:29)
[2019-08-14] MEDS: Potassium Chloride Liquid 20 MEQ PKT PO ×2 (08:17→20:30)
[2019-08-14] MEDS: Sertraline 25 MG TAB 12.5 MG PO (08:18)
[2019-08-14 11:35] VITALS: BP 95/61; PULSE 93; RESP 18; TEMP 36.4; O2SAT 100
[2019-08-14 12:04] LABS: HGB 11.3 g/dL (12.0-15.5)
--- NOTE | 2019-08-14 13:15 | PGE_ITS ---
Date of Service Date of service: 08/14/19 Time of Service: 11:15 Assessment and Plan Assessment and plan (1) S/P right hemicolectomy: Status: Acute Assessment and plan: She may have had some bleeding from the anastomosis. Her Eliquis has been held. The volume of bleeding has been small and her HgB stable today. Will switch to clears as a precaution today and monitor. Subjective Subjective Interval history since last seen: Patient has no complaints. Nurse reports that patient had small bloody BM this am Exam Narrative Exam Narrative: Awake, alert Abdomen soft, no significant tenderness OPAL dressing in place with about 1cm area of spotting. Objective Objective Clinical Data: Abnormal lab results 08/14/19 08/14/19 08/14/19 Range/Units 06:10 06:10 11:55 RBC 3.15 L (4.00-5.20) m/cumm Hgb 10.2 L D 11.3 L (12.0-15.5) g/dL Hct 30.6 L 33.0 L (36.0-46.0) % MCV 97.1 H (80-95) fL RDW 15.8 H (11.7-14.6) % Calcium 7.8 L (8.5-10.1) mg/dL Vital Signs Temperature 97.5 F L 08/14/19 11:35 Temperature Source Tympanic 08/14/19 11:35 Pulse 93 H 08/14/19 11:35 Pulse Rhythm Irregular 08/14/19 08:20 Pulse 104 H 08/11/19 12:00 Respiratory Rate 18 08/14/19 11:35 Respiratory Effort Non-Labored 08/14/19 08:20 Respiratory Depth Normal 08/14/19 08:20 Respiratory Pattern Normal 08/14/19 08:20 Blood Pressure 95/61 L 08/14/19 11:35 Blood Pressure Mean 82 08/11/19 09:41 Blood Pressure Position Sitting 08/09/19 15:56 Pulse Oximetry 100 08/14/19 11:35 Respiratory End-tidal CO2 35 08/05/19 14:45 Oxygen Delivery Method Room Air 08/14/19 11:35 Oxygen Flow Rate 0 08/14/19 11:35 Pain Level 0 08/14/19 11:35 Comment 08/05/19 19:00 Intake & Output 04/02/2108/14/19 08/14/19 23:59 11:59 23:59 Intake Total 250 / 250 Output Total 800 / 1425 1250 / 1550 300 / 1550 Balance -550 / -1175 -1230 / -1530 -300 / -1530 Intake: IV Oral 240 / 240 Output: Urine 500 / 1125 1250 / 1550 300 / 1550 Stool 300 / 300 Other: Urine Color Yellow Yellow Yellow Urine Appearance Clear Clear Clear Urine Odor Normal Normal Normal Comment mixed with bm mixed with stool. Stool Occult Blood Positive Positive Stool Size Moderate Small Moderate Stool Characteristics Soft Soft Liquid Formed Bloody Brown Liquid Bloody Voiding Methods Toilet Toilet Toilet Laboratory Results WBC 7.35 k/cumm (4.4-10.8) 08/14/19 06:10 RBC 3.15 m/cumm (4.00-5.20) L 08/14/19 06:10 Hgb 11.3 g/dL (12.0-15.5) L 08/14/19 11:55 Hct 33.0 % (36.0-46.0) L 08/14/19 11:55 MCV 97.1 fL (80-95) H 08/14/19 06:10 MCH 32.4 pg (27.0-33.0) 08/14/19 06:10 MCHC 33.3 g/dL (32.0-36.0) 08/14/19 06:10 RDW 15.8 % (11.7-14.6) H 08/14/19 06:10 Plt Count 269 x1000/uL (130-400) 08/14/19 06:10 MPV 8.4 fL (8.0-11.0) 08/14/19 06:10 Immature Gran % 2.0 % 08/10/19 06:04 Neutrophils % 78.5 08/10/19 06:04 Band Neutrophils % 1.0 % 08/06/19 06:06 Lymphocytes % 9.1 08/10/19 06:04 Atypical Lymphs % 4 08/06/19 06:06 Monocytes % 6.6 08/10/19 06:04 Eosinophils % 3.7 08/10/19 06:04 Basophils % 0.1 08/10/19 06:04 Absolute Neutrophils 6.31 k/cumm (1.2-6.7) 08/10/19 06:04 Absolute Lymphocytes 0.73 k/cumm (1.2-3.4) L 08/10/19 06:04 Absolute Monocytes 0.53 k/cumm (0.11-0.7) 08/10/19 06:04 Absolute Eosinophils 0.30 k/cumm (0.0-0.7) 08/10/19 06:04 Absolute Basophils 0.01 k/cumm (0.0-0.2) 08/10/19 06:04 Differential Comment Manual differential 08/06/19 06:06 RBC Morphology Normal 08/06/19 06:06 PT Cancelled 08/05/19 07:21 INR Cancelled 08/05/19 07:21 APTT Cancelled 08/05/19 07:21 Sodium 136 mmol/L (136-145) 08/14/19 06:10 Potassium 4.4 mmol/L (3.5-5.1) 08/14/19 06:10 Chloride 104 mmol/L (98-107) 08/14/19 06:10 Carbon Dioxide 26.3 mmol/L (21.0-32.0) 08/14/19 06:10 Anion Gap 5.7 mmol/L (3-11) 08/14/19 06:10 BUN 12 mg/dL (7-18) 08/14/19 06:10 Creatinine 0.65 mg/dL (0.55-1.02) 08/14/19 06:10 Estimated GFR/1.73 m2 >= 60.00 (mL/min/1.73m2) 08/14/19 06:10 Glucose 97 mg/dL (74-106) 08/14/19 06:10 Lactate 1.5 mmol/L (0.6-1.4) H 08/05/19 06:09 Calcium 7.8 mg/dL (8.5-10.1) L 08/14/19 06:10 Magnesium 1.7 mg/dL (1.8-2.4) L 08/12/19 08:15 Total Bilirubin 1.1 mg/dL (0.2-1.0) H 08/06/19 06:06 AST 23 U/L (15-37) 08/06/19 06:06 ALT 10 U/L (14-59) L 08/06/19 06:06 Alkaline Phosphatase 30 U/L (46-116) L 08/06/19 06:06 Troponin I 0.06 ng/Ml (<0.06) 08/04/19 16:35 C-Reactive Protein 7.66 mg/dL (0.0-0.3) H 08/06/19 06:06 Total Protein 4.1 g/dL (6.4-8.2) L 08/06/19 06:06 Albumin 2.0 g/dL (3.4-5.0) L 08/06/19 06:06 Urine Color Yellow (Yellow) 08/05/19 20:50 Urine Clarity Clear (Clear) 08/05/19 20:50 Urine pH 6.5 (5-8) 08/05/19 20:50 Ur Specific [place] >= 1.030 (1.005-1.025) H 08/05/19 20:50 Urine Protein 100 mg/dL (Negative) H 08/05/19 20:50 Urine Ketones 15 mg/dL (Negative) H 08/05/19 20:50 Urine Blood Large (Negative) H 08/05/19 20:50 Urine Nitrite Negative (Negative) 08/05/19 20:50 Urine Bilirubin Small (Negative) H 08/05/19 20:50 Urine Urobilinogen 0.2 EU/dL (Up TO 0.2) 08/05/19 20:50 Ur Leukocyte Esterase Negative (Negative) 08/05/19 20:50 Urine RBC >50 HPF (0-2) H 08/05/19 20:50 Urine WBC 0-2 HPF (0-5) 08/05/19 20:50 Ur Epithelial Cells Negative HPF (Negative) 08/05/19 20:50 Urine Crystals Negative HPF (Negative) 08/05/19 20:50 Urine Bacteria Negative HPF (Negative) 08/05/19 20:50 Urine Casts Negative LPF (Negative) 08/05/19 20:50 Urine Mucus Negative (Negative) 08/05/19 20:50 Urine Other Negative (Negative) 08/05/19 20:50 Ur Culture Indicated? No 08/05/19 20:50 Ur Random Creatinine 63.22 mg/dL 08/11/19 11:20 Ur Random Sodium 68 mmol/L 08/11/19 11:20 Ur Random Potassium 29 mmol/L 08/11/19 11:20 Urine Glucose Negative mg/dL (Negative) 08/05/19 20:50 Patient ABO/Rh A Positive 08/04/19 20:21 Antibody Screen Negative 08/04/19 20:21
--- NOTE | 2019-08-14 13:40 | W.PM.PROGNOT ---
Date of Service Date of service: 08/14/19 Time of Service: 13:40 Assessment and Plan Assessment and plan (1) Bright red blood per rectum: Status: Acute Assessment and plan: Discussed with general surgery - likely bleeding from anasthamotic site. Anticoagulation stopped indefinitely, diet downgraded to clears. Placed back on tele - will monitor. 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 As above (3) Atrial fibrillation and flutter: Status: Acute Assessment and plan: Apixaban d/c'ed in setting of bleeding. Placed back on tele in setting of acute bleeding (4) Dementia: Status: Chronic Assessment and plan: Continue trazodone 50 mg, melatonin at bedtime. Avoid benzodiazepines. Qualifiers: Dementia type: unspecified type Dementia behavioral disturbance: with behavioral disturbance Qualified Code(s): F03.91 - Unspecified dementia with behavioral disturbance (5) Leg pain, right: Status: Resolved Assessment and plan: Denies pain today. (6) Oliguria: Status: Resolved Assessment and plan: Resolved with hydration (7) DVT prophylaxis: Status: Acute Assessment and plan: TEDs/SCDS. Cannot tolerate chemical anticoagulation due to GI bleeding (8) Discharge planning issues: Status: Acute Assessment and plan: Consult palliative care. Will require SNF placement Subjective Subjective Interval history since last seen: Had bright red blood per rectum x 4 yesterday evening; stools were brown overnight; 1 bright red BM today so far. Kelley dizzy sitting up and appears to be orthostatic. Doing better laying down. Denies dizziness laying down, chest pain, shortness of breath, nausea, abdominal pain. Diet downgraded to clears. Exam Narrative Exam Narrative: General: Very pleasant elderly female, initially sleeping/tachypnea - no dyspnea laying flat in bed; A&Ox2 HEENT: EOMI, MMM Heart: irregularly irregular rhythm Lungs: CTAB anteriorly Abdomen: soft, nondistended; midline abdominal incision is dressed - c/d/i; drain in place Extremities: 2+ BLE edema, symmetric Objective Objective Clinical Data: Abnormal lab results 08/14/19 08/14/19 08/14/19 Range/Units 06:10 06:10 11:55 RBC 3.15 L (4.00-5.20) m/cumm Hgb 10.2 L D 11.3 L (12.0-15.5) g/dL Hct 30.6 L 33.0 L (36.0-46.0) % MCV 97.1 H (80-95) fL RDW 15.8 H (11.7-14.6) % Calcium 7.8 L (8.5-10.1) mg/dL Vital Signs Temperature 36.4 C L 08/14/19 11:35 Temperature Source Tympanic 08/14/19 11:35 Pulse 93 H 08/14/19 11:35 Pulse Rhythm Irregular 08/14/19 08:20 Pulse 104 H 08/11/19 12:00 Respiratory Rate 18 08/14/19 11:35 Respiratory Effort Non-Labored 08/14/19 08:20 Respiratory Depth Normal 08/14/19 08:20 Respiratory Pattern Normal 08/14/19 08:20 Blood Pressure 95/61 L 08/14/19 11:35 Blood Pressure Mean 82 08/11/19 09:41 Blood Pressure Position Sitting 08/09/19 15:56 Pulse Oximetry 100 08/14/19 11:35 Respiratory End-tidal CO2 35 08/05/19 14:45 Oxygen Delivery Method Room Air 08/14/19 11:35 Oxygen Flow Rate 0 08/14/19 11:35 Pain Level 0 08/14/19 11:35 Comment 08/05/19 19:00 Intake & Output 08/13/19 08/14/19 08/14/19 23:59 11:59 23:59 Intake Total 250 / 250 20 / 260 240 / 260 Output Total 800 / 1425 1250 / 1550 300 / 1550 Balance -550 / -1175 -1230 / -1290 -60 / -1290 Intake: IV Oral 240 / 240 240 / 240 Output: Urine 500 / 1125 1250 / 1550 300 / 1550 Stool 300 / 300 Other: Urine Color Yellow Yellow Yellow Urine Appearance Clear Clear Clear Urine Odor Normal Normal Normal Comment mixed with bm mixed with stool. Stool Occult Blood Positive Positive Stool Size Moderate Small Moderate Stool Characteristics Soft Soft Liquid Formed Bloody Brown Liquid Bloody Voiding Methods Toilet Toilet Toilet Laboratory Results WBC 7.35 k/cumm (4.4-10.8) 08/14/19 06:10 RBC 3.15 m/cumm (4.00-5.20) L 08/14/19 06:10 Hgb 11.3 g/dL (12.0-15.5) L 08/14/19 11:55 Hct 33.0 % (36.0-46.0) L 08/14/19 11:55 MCV 97.1 fL (80-95) H 08/14/19 06:10 MCH 32.4 pg (27.0-33.0) 08/14/19 06:10 MCHC 33.3 g/dL (32.0-36.0) 08/14/19 06:10 RDW 15.8 % (11.7-14.6) H 08/14/19 06:10 Plt Count 269 x1000/uL (130-400) 08/14/19 06:10 MPV 8.4 fL (8.0-11.0) 08/14/19 06:10 Immature Gran % 2.0 % 08/10/19 06:04 Neutrophils % 78.5 08/10/19 06:04 Band Neutrophils % 1.0 % 08/06/19 06:06 Lymphocytes % 9.1 08/10/19 06:04 Atypical Lymphs % 4 08/06/19 06:06 Monocytes % 6.6 08/10/19 06:04 Eosinophils % 3.7 08/10/19 06:04 Basophils % 0.1 08/10/19 06:04 Absolute Neutrophils 6.31 k/cumm (1.2-6.7) 08/10/19 06:04 Absolute Lymphocytes 0.73 k/cumm (1.2-3.4) L 08/10/19 06:04 Absolute Monocytes 0.53 k/cumm (0.11-0.7) 08/10/19 06:04 Absolute Eosinophils 0.30 k/cumm (0.0-0.7) 08/10/19 06:04 Absolute Basophils 0.01 k/cumm (0.0-0.2) 08/10/19 06:04 Differential Comment Manual differential 08/06/19 06:06 RBC Morphology Normal 08/06/19 06:06 PT Cancelled 08/05/19 07:21 INR Cancelled 08/05/19 07:21 APTT Cancelled 08/05/19 07:21 Sodium 136 mmol/L (136-145) 08/14/19 06:10 Potassium 4.4 mmol/L (3.5-5.1) 08/14/19 06:10 Chloride 104 mmol/L (98-107) 08/14/19 06:10 Carbon Dioxide 26.3 mmol/L (21.0-32.0) 08/14/19 06:10 Anion Gap 5.7 mmol/L (3-11) 08/14/19 06:10 BUN 12 mg/dL (7-18) 08/14/19 06:10 Creatinine 0.65 mg/dL (0.55-1.02) 08/14/19 06:10 Estimated GFR/1.73 m2 >= 60.00 (mL/min/1.73m2) 08/14/19 06:10 Glucose 97 mg/dL (74-106) 08/14/19 06:10 Lactate 1.5 mmol/L (0.6-1.4) H 08/05/19 06:09 Calcium 7.8 mg/dL (8.5-10.1) L 08/14/19 06:10 Magnesium 1.7 mg/dL (1.8-2.4) L 08/12/19 08:15 Total Bilirubin 1.1 mg/dL (0.2-1.0) H 08/06/19 06:06 AST 23 U/L (15-37) 08/06/19 06:06 ALT 10 U/L (14-59) L 08/06/19 06:06 Alkaline Phosphatase 30 U/L (46-116) L 08/06/19 06:06 Troponin I 0.06 ng/Ml (<0.06) 08/04/19 16:35 C-Reactive Protein 7.66 mg/dL (0.0-0.3) H 08/06/19 06:06 Total Protein 4.1 g/dL (6.4-8.2) L 08/06/19 06:06 Albumin 2.0 g/dL (3.4-5.0) L 08/06/19 06:06 Urine Color Yellow (Yellow) 08/05/19 20:50 Urine Clarity Clear (Clear) 08/05/19 20:50 Urine pH 6.5 (5-8) 04/02/20 20:50 Ur Specific [place] >= 1.030 (1.005-1.025) H 08/05/19 20:50 Urine Protein 100 mg/dL (Negative) H 08/05/19 20:50 Urine Ketones 15 mg/dL (Negative) H 08/05/19 20:50 Urine Blood Large (Negative) H 08/05/19 20:50 Urine Nitrite Negative (Negative) 08/05/19 20:50 Urine Bilirubin Small (Negative) H 08/05/19 20:50 Urine Urobilinogen 0.2 EU/dL (Up TO 0.2) 08/05/19 20:50 Ur Leukocyte Esterase Negative (Negative) 08/05/19 20:50 Urine RBC >50 HPF (0-2) H 08/05/19 20:50 Urine WBC 0-2 HPF (0-5) 08/05/19 20:50 Ur Epithelial Cells Negative HPF (Negative) 08/05/19 20:50 Urine Crystals Negative HPF (Negative) 08/05/19 20:50 Urine Bacteria Negative HPF (Negative) 08/05/19 20:50 Urine Casts Negative LPF (Negative) 08/05/19 20:50 Urine Mucus Negative (Negative) 08/05/19 20:50 Urine Other Negative (Negative) 08/05/19 20:50 Ur Culture Indicated? No 08/05/19 20:50 Ur Random Creatinine 63.22 mg/dL 08/11/19 11:20 Ur Random Sodium 68 mmol/L 08/11/19 11:20 Ur Random Potassium 29 mmol/L 08/11/19 11:20 Urine Glucose Negative mg/dL (Negative) 08/05/19 20:50 Patient ABO/Rh A Positive 08/04/19 20:21 Antibody Screen Negative 08/04/19 20:21
--- NOTE | 2019-08-14 14:33 | PTTR_ITS ---
Date of service: 08/14/19 Time of Service: 14:33 PT Notes Visit Reasons: CECAL VOLVULUS/s/p cecal resection Physical Therapy Inpatient Treatment Note Date: 08/14/2019 Precautions: Fall. Standard. Activity as tolerated. Abdominal incision from recent surgery with DEBRA drain, place gait belt high up. SUBJECTIVE: Patient stated being dizzy in the morning. No abdominal pain compliant for both sessions. Denies fatigue, headache, and chest pain throughout. OBJECTIVE: General Observation: IV access to L UE still open. Sperry seen on abdominal surgical incision. DEBRA drain remains in place. Left UE remains swollen. B LE TEDS on. PAIN: None BED MOBILITY/TRANSFERS: Sit to stand CGA in AM due to dizzinessand but imporved to SBA in the PM with minimal cueing for hand placement Stand to sit CGA in AM due to dizzinessand but imporved to SBA in the PM with minimal cueing for hand placement Wheelchair to chair CGA in AM due to dizzinessand but imporved to SBA in the PM with minimal cueing for hand placement Chair to wheelchair CGA in AM due to dizzinessand but imporved to SBA in the PM with minimal cueing for hand placement GAIT: Patient is able to tolerate level surface ambulation 125 feet x 2 in the morning and 300 feet in the afternoon with CGA to SBA using front wheeled walker with moderate verbal cueing given to stay close to the walker. No wheelchair follow provided in the afternoon. Akila significantly improved. Trunk more erect. Needed one seated rest in the morning due to complaint of dizziness; two standing rests in the afternoon. Minimal verbal cues needed for walker management as patient tends to lag behind her walker. THEREX: For both sessions, patient tolerated ankle dorsiflexion plantarflexion x 15, long arc quads x15, seated hip flexion x15, and seated hip abduction x15. She also performed shoulder horizontal abduction/adduction as well as shoulder flexion/extension x 10 coordinated with chest expansion and deep breathing exercises. THERA ACT: Continued supervision, cueing, and training during toileting tasks, transfers, and ambulation. ASSESSMENT: Daina has walked her farthest today without any seated rests but with two standing rests. Complained of dizziness with positional changes from bed to chair and after walking senior living around the nurse's loop requiring one seated rest. No complaints of dizziness in the afternoon except after reclining on chair after a long walk. Nurse Clarice updated this PT and patient about HR being in the 160s. Patient continues to demonstrate improving functional mobility independence as well as increasing tolerance to exercises. No complaints of abdominal discomfort today. Swelling in the left upper extremity seems to be abating. Patient wears bilateral TEDS today to address B leg swelling. Due to patient's cognitive level and pre-existing dementia, she will require supervision for all mobility ADL performance using a front wheeled walker. Patient will continue to benefit from skilled services in order to maximize mobility level. DISCHARGE RECOMMENDATIONS: SNF versus 24/ care. Will need front wheeled walker to maximize mobility ADL performance. TREATMENT CODE/TIME: Session 1-- 77898 x 30 minutes, [id number] x 16 minutes beginning at 9:31 AM. Session 2-- [id number] x 25 minutes , [id number] x 13 minutes beginning at 14:33 PM.
--- NOTE | 2019-08-14 14:59 | PDOC.CMPRO ---
- If Service Date Differs Date of service: 08/14/19 Time of Service: 14:59 Care Management Progress Note S/O: Daina experienced a GI bleed yesterday. Her diet has been down graded to clears and she is back on tele for monitoring. A palliative care consult has been ordered. CM continues to seek a SNF placement for Daina. [facility] not have bed availability currently, CM will continue to inquire. [facility] her for admission next week, if patient is stable and ready for discharge at that time. Family were sent a long-term Medicaid application to complete on Daina's behalf in order to address retirement needs. CM will continue to follow. A: Daina is a 84 year old female admitted to the hospital on 08/04/2019 for cecal volvulus, status post right hemicolectomy. P: Anticipate Daina will discharge to a SNF when medically cleared by provider. CM contacted [facility], who is considering her for admission. CM will continue to support patient, family and discharge planning needs.
[2019-08-14 15:20] VITALS: BP 119/79; PULSE 68; RESP 18; TEMP 36.5; O2SAT 96
[2019-08-14 20:00] VITALS: BP 123/79; PULSE 99; RESP 17; TEMP 36.6; O2SAT 95
[2019-08-14] MEDS: traZODone 50 MG TAB PO (20:29)
[2019-08-14 23:30] VITALS: BP 122/62; PULSE 83; RESP 16; TEMP 36; O2SAT 96
[2019-08-15 04:40] VITALS: BP 125/72; PULSE 95; RESP 16; TEMP 36.7; O2SAT 95
[2019-08-15 07:18] LABS: Absolute Basophil Count 0.01 k/cumm (0.0-0.2); Absolute Eosinophil Count 0.19 k/cumm (0.0-0.7); Absolute Lymphocyte Count 1.23 k/cumm (1.2-3.4); Absolute Monocyte Count 0.53 k/cumm (0.11-0.7); Absolute Neutrophil Count 5.12 k/cumm (1.2-6.7); Basophils % 0.1; Eosinophils % 2.6; HCT 30.8 % (36.0-46.0); HGB 10.5 g/dL (12.0-15.5); Immature Grans % 1.4 %; Lymphocytes % 17.1; Mean Corp. HGB Concentration 34.1 g/dL (32.0-36.0); Mean Corpuscular Hemoglobin 33.4 pg (27.0-33.0); Mean Corpuscular Volume 98.1 fL (80-95); Mean Platelet Volume 8.3 fL (8.0-11.0); Monocytes % 7.4; Neutrophils % 71.4; Platelet Count 260 x1000/uL (130-400); RBC 3.14 m/cumm (4.00-5.20); RBC Distribution Width 16.1 % (11.7-14.6); White Blood Cell Count 7.18 k/cumm (4.4-10.8)
[2019-08-15 07:20] LABS: Anion Gap 4.2 mmol/L (3-11); BUN 7 mg/dL (7-18); CO2 27.8 mmol/L (21.0-32.0); CREATININE 0.68 mg/dL (0.55-1.02); Calcium 7.9 mg/dL (8.5-10.1); Chloride 103 mmol/L (98-107); Glucose 92 mg/dL (74-106); Magnesium 1.8 mg/dL (1.8-2.4); Potassium 4.5 mmol/L (3.5-5.1); Sodium 135 mmol/L (136-145)
[2019-08-15 07:50] VITALS: BP 107/75; PULSE 105; RESP 18; TEMP 36.5; O2SAT 97
[2019-08-15] MEDS: Normal Saline Flush 10 ML SYR IVP ×2 (08:11→20:23)
[2019-08-15] MEDS: Pantoprazole 40 MG VIAL IVP ×2 (08:11→20:23)
[2019-08-15] MEDS: Metoprolol 25 MG TAB 37.5 MG PO ×2 (08:11→20:24)
[2019-08-15] MEDS: Lactobacillus Acidophilus CAP 1 CAP PO ×2 (08:11→20:24)
[2019-08-15] MEDS: Magnesium Oxide 400 MG TAB PO ×2 (08:12→20:24)
[2019-08-15] MEDS: Sertraline 25 MG TAB 12.5 MG PO (08:12)
[2019-08-15] MEDS: Acetaminophen 325 MG TAB 650 MG PO ×2 (09:18→20:24)
[2019-08-15 10:22] VITALS: BP 104/70; BP 106/72; BP 108/73; PULSE 70; PULSE 72; PULSE 85
[2019-08-15 12:10] VITALS: BP 113/74; PULSE 85; RESP 17; TEMP 36.3; O2SAT 98
--- NOTE | 2019-08-15 13:15 | PT.INTREAT ---
Date of service: 08/15/19 Time of Service: 13:15 PT Notes Visit Reasons: CECAL VOLVULUS/s/p cecal resection Physical Therapy Inpatient Treatment Note Date: 08/15/2019 Precautions: Fall. Standard. Activity as tolerated. Abdominal incision from recent surgery with DEBRA drain, place gait belt high up. SUBJECTIVE: aDina complained of being a bit dizzy after bowel movement. No abdominal pain complaint during and after ambulation activity. Did complain of bother her legs weighing a ton but denied any headache, chest pain, fatigue. She states that her son German was in this morning. OBJECTIVE: General Observation: Telemetry monitoring back on as of 08/14/2019. IV access to L UE still open. Dany seen on abdominal surgical incision. DEBRA drain remains in place. Left UE swelling seems to be abating. B LE TEDS on. Back on clear liquid diet per order. PAIN: None BED MOBILITY/TRANSFERS: Sit to stand SBA with minimal cueing for hand placement Stand to sit SBA with minimal cueing for hand placement Wheelchair to chair SBA with minimal cueing for hand placement Chair to wheelchair SBA with minimal cueing for hand placement GAIT: Patient tolerated level surface ambulation 200 feet with SBA using front wheeled walker with minimal verbal cueing given to stay close to the walker. No wheelchair follow needed. Akila significantly improved. Trunk more erect. THEREX: Ankle dorsiflexion plantarflexion x 20, long arc quads x 20, seated hip flexion x 20, and seated hip abduction x 20. She also performed shoulder horizontal abduction/adduction as well as shoulder flexion/extension x 10 coordinated with chest expansion and deep breathing exercises. THERA ACT: Continued supervision, cueing, and training during toileting tasks, transfers, and ambulation. ASSESSMENT: Minimally decreased distance walked today as nurse Sully brought up the issue of patient complaining of leg pain yesterday. Will plan on gradually increasing activity tolerance tomorrow as tolerated. Patient will continue to require supervision level for all mobility ADL performance due to cognitive level. DISCHARGE RECOMMENDATIONS: SNF versus 24/7 care. Will need front wheeled walker to maximize mobility ADL performance. TREATMENT CODE/TIME: Session 1-- [id number] x 22 minutes beginning at 11:36 AM. Session 2-- [id number] x 16 minutes , [id number] x 15 minutes beginning at 13:15 PM.
--- NOTE | 2019-08-15 13:48 | W.PM.PROGNOT ---
Date of Service Date of service: 08/15/19 Time of Service: 13:48 Assessment and Plan Assessment and plan (1) Bright red blood per rectum: Status: Acute Assessment and plan: Clinically slowing down/resolved. Discussed with general surgery - likely bleeding from anasthamotic site. Anticoagulation stopped indefinitely, diet downgraded to clears. Will defer to general surgery. Consult palliative care. 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 As above (3) Atrial fibrillation and flutter: Status: Acute Assessment and plan: Apixaban d/c'ed in setting of bleeding. Continue to monitor on tele. (4) Dementia: Status: Chronic Assessment and plan: Continue trazodone 50 mg, melatonin at bedtime. Avoid benzodiazepines. Qualifiers: Dementia type: unspecified type Dementia behavioral disturbance: with behavioral disturbance Qualified Code(s): F03.91 - Unspecified dementia with behavioral disturbance (5) Leg pain, right: Status: Resolved Assessment and plan: Denies pain today. (6) Oliguria: Status: Resolved Assessment and plan: Resolved with hydration (7) DVT prophylaxis: Status: Acute Assessment and plan: TEDs/SCDS. Cannot tolerate chemical anticoagulation due to GI bleeding (8) Discharge planning issues: Status: Acute Assessment and plan: Consult palliative care. Will require SNF placement Subjective Subjective Interval history since last seen: I think I'm doing quite well. My mouth is a little bit dry. No further bleeding reported. Patient denies dizziness, chest pain, shortness of breath, nausea, abdominal pain. Exam Narrative Exam Narrative: General: Very pleasant elderly female, sleeping in a chair, easily arousable, NAD HEENT: EOMI, MMM, does not appear dehydrated Heart: irregularly irregular rhythm Lungs: CTAB Abdomen: soft, nondistended; midline abdominal incision is dressed Extremities: 2+ BLE edema, symmetric, wearing TEDs Objective Objective Clinical Data: Abnormal lab results 08/15/19 08/15/19 Range/Units 07:00 07:00 RBC 3.14 L (4.00-5.20) m/cumm Hgb 10.5 L (12.0-15.5) g/dL Hct 30.8 L (36.0-46.0) % MCV 98.1 H (80-95) fL MCH 33.4 H (27.0-33.0) pg RDW 16.1 H (11.7-14.6) % Sodium 135 L (136-145) mmol/L Calcium 7.9 L (8.5-10.1) mg/dL Vital Signs Temperature 36.3 C L 08/15/19 12:10 Temperature Source Tympanic 08/15/19 12:10 Pulse 85 08/15/19 12:10 Pulse Rhythm Irregular 08/15/19 08:15 Pulse 104 H 08/11/19 12:00 Respiratory Rate 17 08/15/19 12:10 Respiratory Effort Non-Labored 08/15/19 08:15 Respiratory Depth Normal 08/15/19 08:15 Respiratory Pattern Normal 08/15/19 08:15 Blood Pressure 113/74 08/15/19 12:10 Blood Pressure Mean 82 08/11/19 09:41 Blood Pressure Position Sitting 08/09/19 15:56 Pulse Oximetry 98 08/15/19 12:10 Respiratory End-tidal CO2 35 08/05/19 14:45 Oxygen Delivery Method Room Air 08/15/19 12:10 Oxygen Flow Rate 0 08/15/19 12:10 Pain Level 0 08/15/19 12:10 Comment 08/15/19 10:22 Intake & Output 08/14/19 08/15/19 08/15/19 23:59 11:59 23:59 Intake Total 260 / 280 Output Total 1200 / 2450 900 / 900 Balance -940 / -2170 -880 / -880 Weight 51.3 kg Intake: IV Oral 240 / 240 Output: Urine 1200 / 2450 900 / 900 Other: Urine Color Light Natalia Yellow Urine Appearance Clear Clear Urine Odor Normal Normal Comment mixed with bm urine was mixed with bm Stool Size Small Small Stool Characteristics Liquid Liquid Brown Brown Bloody Voiding Methods Toilet Toilet Laboratory Results WBC 7.18 k/cumm (4.4-10.8) 08/15/19 07:00 RBC 3.14 m/cumm (4.00-5.20) L 08/15/19 07:00 Hgb 10.5 g/dL (12.0-15.5) L 08/15/19 07:00 Hct 30.8 % (36.0-46.0) L 08/15/19 07:00 MCV 98.1 fL (80-95) H 08/15/19 07:00 MCH 33.4 pg (27.0-33.0) H 08/15/19 07:00 MCHC 34.1 g/dL (32.0-36.0) 08/15/19 07:00 RDW 16.1 % (11.7-14.6) H 08/15/19 07:00 Plt Count 260 x1000/uL (130-400) 08/15/19 07:00 MPV 8.3 fL (8.0-11.0) 08/15/19 07:00 Immature Gran % 1.4 % 08/15/19 07:00 Neutrophils % 71.4 08/15/19 07:00 Band Neutrophils % 1.0 % 08/06/19 06:06 Lymphocytes % 17.1 08/15/19 07:00 Atypical Lymphs % 4 08/06/19 06:06 Monocytes % 7.4 08/15/19 07:00 Eosinophils % 2.6 08/15/19 07:00 Basophils % 0.1 08/15/19 07:00 Absolute Neutrophils 5.12 k/cumm (1.2-6.7) 08/15/19 07:00 Absolute Lymphocytes 1.23 k/cumm (1.2-3.4) 08/15/19 07:00 Absolute Monocytes 0.53 k/cumm (0.11-0.7) 08/15/19 07:00 Absolute Eosinophils 0.19 k/cumm (0.0-0.7) 08/15/19 07:00 Absolute Basophils 0.01 k/cumm (0.0-0.2) 08/15/19 07:00 Differential Comment Manual differential 08/06/19 06:06 RBC Morphology Normal 08/06/19 06:06 PT Cancelled 08/05/19 07:21 INR Cancelled 08/05/19 07:21 APTT Cancelled 08/05/19 07:21 Sodium 135 mmol/L (136-145) L 08/15/19 07:00 Potassium 4.5 mmol/L (3.5-5.1) 08/15/19 07:00 Chloride 103 mmol/L (98-107) 08/15/19 07:00 Carbon Dioxide 27.8 mmol/L (21.0-32.0) 08/15/19 07:00 Anion Gap 4.2 mmol/L (3-11) 08/15/19 07:00 BUN 7 mg/dL (7-18) 08/15/19 07:00 Creatinine 0.68 mg/dL (0.55-1.02) 08/15/19 07:00 Estimated GFR/1.73 m2 >= 60.00 (mL/min/1.73m2) 08/15/19 07:00 Glucose 92 mg/dL (74-106) 08/15/19 07:00 Lactate 1.5 mmol/L (0.6-1.4) H 08/05/19 06:09 Calcium 7.9 mg/dL (8.5-10.1) L 08/15/19 07:00 Magnesium 1.8 mg/dL (1.8-2.4) 08/15/19 07:00 Total Bilirubin 1.1 mg/dL (0.2-1.0) H 08/06/19 06:06 AST 23 U/L (15-37) 08/06/19 06:06 ALT 10 U/L (14-59) L 08/06/19 06:06 Alkaline Phosphatase 30 U/L (46-116) L 08/06/19 06:06 Troponin I 0.06 ng/Ml (<0.06) 08/04/19 16:35 C-Reactive Protein 7.66 mg/dL (0.0-0.3) H 08/06/19 06:06 Total Protein 4.1 g/dL (6.4-8.2) L 08/06/19 06:06 Albumin 2.0 g/dL (3.4-5.0) L 08/06/19 06:06 Urine Color Yellow (Yellow) 08/05/19 20:50 Urine Clarity Clear (Clear) 08/05/19 20:50 Urine pH 6.5 (5-8) 08/05/19 20:50 Ur Specific [place] >= 1.030 (1.005-1.025) H 08/05/19 20:50 Urine Protein 100 mg/dL (Negative) H 08/05/19 20:50 Urine Ketones 15 mg/dL (Negative) H 08/05/19 20:50 Urine Blood Large (Negative) H 08/05/19 20:50 Urine Nitrite Negative (Negative) 08/05/19 20:50 Urine Bilirubin Small (Negative) H 08/05/19 20:50 Urine Urobilinogen 0.2 EU/dL (Up TO 0.2) 08/05/19 20:50 Ur Leukocyte Esterase Negative (Negative) 08/05/19 20:50 Urine RBC >50 HPF (0-2) H 08/05/19 20:50 Urine WBC 0-2 HPF (0-5) 08/05/19 20:50 Ur Epithelial Cells Negative HPF (Negative) 08/05/19 20:50 Urine Crystals Negative HPF (Negative) 08/05/19 20:50 Urine Bacteria Negative HPF (Negative) 08/05/19 20:50 Urine Casts Negative LPF (Negative) 08/05/19 20:50 Urine Mucus Negative (Negative) 08/05/19 20:50 Urine Other Negative (Negative) 08/05/19 20:50 Ur Culture Indicated? No 08/05/19 20:50 Ur Random Creatinine 63.22 mg/dL 08/11/19 11:20 Ur Random Sodium 68 mmol/L 08/11/19 11:20 Ur Random Potassium 29 mmol/L 08/11/19 11:20 Urine Glucose Negative mg/dL (Negative) 08/05/19 20:50 Patient ABO/Rh A Positive 08/04/19 20:21 Antibody Screen Negative 08/04/19 20:21
--- NOTE | 2019-08-15 14:38 | CMPROGNOTE_ITS ---
- If Service Date Differs Date of service: 08/15/19 Time of Service: 14:38 Care Management Progress Note S/O: No change in plan. Daina is improved today. She remains afebrile and remains on a downgraded diet of clears. A palliative care consult has been ordered. CM continues to seek a SNF placement for Daina. [facility] does not have bed availability currently, CM will continue to inquire. [facility] her for [facility] next week, if patient is stable and ready for discharge at that time. 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 CM will continue to follow. A: Daina is a 84 year old female admitted to the hospital on 08/04/2019 for cecal volvulus, status post right hemicolectomy. P: Anticipate Daina will discharge to a SNF when medically cleared by provider. CM contacted [facility], who is considering her for admission. CM will continue to support patient, family and discharge planning needs.
[2019-08-15 15:35] VITALS: BP 110/73; PULSE 92; RESP 17; TEMP 36.7; O2SAT 97
[2019-08-15 19:20] VITALS: BP 110/73; PULSE 118; RESP 20; TEMP 37.1; O2SAT 97
--- NOTE | 2019-08-15 20:16 | W.PM.PROGNOT ---
Date of Service Date of service: 08/15/19 Time of Service: 14:45 Assessment and Plan Assessment and plan (1) S/P right hemicolectomy: Status: Acute Assessment and plan: Her Hgb is stable and clinical bleeding minimal. Will advance diet to soft and monitor. Subjective Subjective Interval history since last seen: Patient denies any pain or concerns. Nursing notes do not show any BM today. Exam Narrative Exam Narrative: Alert, comfortable Abdomen soft, dressing intact with small amount of spotting similar to yesterday. Objective Objective Clinical Data: Abnormal lab results 08/15/19 08/15/19 Range/Units 07:00 07:00 RBC 3.14 L (4.00-5.20) m/cumm Hgb 10.5 L (12.0-15.5) g/dL Hct 30.8 L (36.0-46.0) % MCV 98.1 H (80-95) fL MCH 33.4 H (27.0-33.0) pg RDW 16.1 H (11.7-14.6) % Sodium 135 L (136-145) mmol/L Calcium 7.9 L (8.5-10.1) mg/dL Vital Signs Temperature 98.8 F 08/15/19 19:20 Temperature Source Temporal Artery Scan 08/15/19 19:20 Pulse 118 H 08/15/19 19:20 Pulse Rhythm Irregular 08/15/19 14:00 Pulse 104 H 08/11/19 12:00 Respiratory Rate 20 08/15/19 19:20 Respiratory Effort Non-Labored 08/15/19 14:00 Respiratory Depth Normal 08/15/19 14:00 Respiratory Pattern Normal 08/15/19 14:00 Blood Pressure 110/73 08/15/19 19:20 Blood Pressure Mean 82 08/11/19 09:41 Blood Pressure Position Sitting 08/09/19 15:56 Pulse Oximetry 97 08/15/19 19:20 Respiratory End-tidal CO2 35 08/05/19 14:45 Oxygen Delivery Method Room Air 08/15/19 19:20 Oxygen Flow Rate 0 08/15/19 19:20 Pain Level 0 08/15/19 19:20 Comment 08/15/19 10:22 Intake & Output 08/14/19 08/15/19 08/15/19 23:59 11:59 23:59 Intake Total 740 / 760 20 / 460 440 / 460 Output Total 1200 / 2450 900 / 1600 700 / 1600 Balance -460 / -1690 -880 / -1140 -260 / -1140 Weight 113 lb 1.554 oz Intake: IV 20 20 Oral 720 / 720 440 / 440 Output: Urine 1200 / 2450 900 / 1600 700 / 1600 Other: Urine Color Light Natalia Yellow Yellow Urine Appearance Clear Clear Clear Urine Odor Normal Normal Normal Comment mixed with bm urine was mixed with bm Stool Size Small Small Small Stool Characteristics Liquid Liquid Liquid Brown Brown Bloody Bloody Voiding Methods Toilet Toilet Toilet Laboratory Results WBC 7.18 k/cumm (4.4-10.8) 08/15/19 07:00 RBC 3.14 m/cumm (4.00-5.20) L 08/15/19 07:00 Hgb 10.5 g/dL (12.0-15.5) L 08/15/19 07:00 Hct 30.8 % (36.0-46.0) L 08/15/19 07:00 MCV 98.1 fL (80-95) H 08/15/19 07:00 MCH 33.4 pg (27.0-33.0) H 08/15/19 07:00 MCHC 34.1 g/dL (32.0-36.0) 08/15/19 07:00 RDW 16.1 % (11.7-14.6) H 08/15/19 07:00 Plt Count 260 x1000/uL (130-400) 08/15/19 07:00 MPV 8.3 fL (8.0-11.0) 08/15/19 07:00 Immature Gran % 1.4 % 08/15/19 07:00 Neutrophils % 71.4 08/15/19 07:00 Band Neutrophils % 1.0 % 08/06/19 06:06 Lymphocytes % 17.1 08/15/19 07:00 Atypical Lymphs % 4 08/06/19 06:06 Monocytes % 7.4 08/15/19 07:00 Eosinophils % 2.6 08/15/19 07:00 Basophils % 0.1 08/15/19 07:00 Absolute Neutrophils 5.12 k/cumm (1.2-6.7) 08/15/19 07:00 Absolute Lymphocytes 1.23 k/cumm (1.2-3.4) 08/15/19 07:00 Absolute Monocytes 0.53 k/cumm (0.11-0.7) 08/15/19 07:00 Absolute Eosinophils 0.19 k/cumm (0.0-0.7) 08/15/19 07:00 Absolute Basophils 0.01 k/cumm (0.0-0.2) 08/15/19 07:00 Differential Comment Manual differential 08/06/19 06:06 RBC Morphology Normal 08/06/19 06:06 PT Cancelled 08/05/19 07:21 INR Cancelled 08/05/19 07:21 APTT Cancelled 08/05/19 07:21 Sodium 135 mmol/L (136-145) L 08/15/19 07:00 Potassium 4.5 mmol/L (3.5-5.1) 08/15/19 07:00 Chloride 103 mmol/L (98-107) 08/15/19 07:00 Carbon Dioxide 27.8 mmol/L (21.0-32.0) 08/15/19 07:00 Anion Gap 4.2 mmol/L (3-11) 08/15/19 07:00 BUN 7 mg/dL (7-18) 08/15/19 07:00 Creatinine 0.68 mg/dL (0.55-1.02) 08/15/19 07:00 Estimated GFR/1.73 m2 >= 60.00 (mL/min/1.73m2) 08/15/19 07:00 Glucose 92 mg/dL (74-106) 08/15/19 07:00 Lactate 1.5 mmol/L (0.6-1.4) H 08/05/19 06:09 Calcium 7.9 mg/dL (8.5-10.1) L 08/15/19 07:00 Magnesium 1.8 mg/dL (1.8-2.4) 08/15/19 07:00 Total Bilirubin 1.1 mg/dL (0.2-1.0) H 08/06/19 06:06 AST 23 U/L (15-37) 08/06/19 06:06 ALT 10 U/L (14-59) L 08/06/19 06:06 Alkaline Phosphatase 30 U/L (46-116) L 08/06/19 06:06 Troponin I 0.06 ng/Ml (<0.06) 08/04/19 16:35 C-Reactive Protein 7.66 mg/dL (0.0-0.3) H 08/06/19 06:06 Total Protein 4.1 g/dL (6.4-8.2) L 08/06/19 06:06 Albumin 2.0 g/dL (3.4-5.0) L 08/06/19 06:06 Urine Color Yellow (Yellow) 08/05/19 20:50 Urine Clarity Clear (Clear) 08/05/19 20:50 Urine pH 6.5 (5-8) 08/05/19 20:50 Ur Specific [place] >= 1.030 (1.005-1.025) H 08/05/19 20:50 Urine Protein 100 mg/dL (Negative) H 08/05/19 20:50 Urine Ketones 15 mg/dL (Negative) H 08/05/19 20:50 Urine Blood Large (Negative) H 08/05/19 20:50 Urine Nitrite Negative (Negative) 08/05/19 20:50 Urine Bilirubin Small (Negative) H 08/05/19 20:50 Urine Urobilinogen 0.2 EU/dL (Up TO 0.2) 08/05/19 20:50 Ur Leukocyte Esterase Negative (Negative) 08/05/19 20:50 Urine RBC >50 HPF (0-2) H 08/05/19 20:50 Urine WBC 0-2 HPF (0-5) 08/05/19 20:50 Ur Epithelial Cells Negative HPF (Negative) 08/05/19 20:50 Urine Crystals Negative HPF (Negative) 08/05/19 20:50 Urine Bacteria Negative HPF (Negative) 08/05/19 20:50 Urine Casts Negative LPF (Negative) 08/05/19 20:50 Urine Mucus Negative (Negative) 08/05/19 20:50 Urine Other Negative (Negative) 08/05/19 20:50 Ur Culture Indicated? No 08/05/19 20:50 Ur Random Creatinine 63.22 mg/dL 08/11/19 11:20 Ur Random Sodium 68 mmol/L 08/11/19 11:20 Ur Random Potassium 29 mmol/L 08/11/19 11:20 Urine Glucose Negative mg/dL (Negative) 08/05/19 20:50 Patient ABO/Rh A Positive 08/04/19 20:21 Antibody Screen Negative 08/04/19 20:21
[2019-08-15] MEDS: traZODone 50 MG TAB PO (20:25)
[2019-08-15] MEDS: Melatonin 3 MG TAB 6 MG PO (21:54)
[2019-08-16] VITALS (8 sets, daily range): BP systolic 96–118; BP diastolic 62–76; PULSE 80–147; RESP 16–18; TEMP 35.9–37; O2SAT 96–98
[2019-08-16 06:57] LABS: Abs Immature Grans 0.06 k/cumm (0.0-0.09); Absolute Eosinophil Count 0.11 k/cumm (0.0-0.7); Absolute Lymphocyte Count 1.25 k/cumm (1.2-3.4); Absolute Monocyte Count 0.43 k/cumm (0.11-0.7); Absolute Neutrophil Count 5.33 k/cumm (1.2-6.7); Eosinophils % 1.5; HCT 31.9 % (36.0-46.0); HGB 10.7 g/dL (12.0-15.5); Immature Grans % 0.8 %; Lymphocytes % 17.4; Mean Corp. HGB Concentration 33.5 g/dL (32.0-36.0); Mean Corpuscular Hemoglobin 33.2 pg (27.0-33.0); Mean Corpuscular Volume 99.1 fL (80-95); Mean Platelet Volume 8.5 fL (8.0-11.0); Neutrophils % 74.3; Platelet Count 331 x1000/uL (130-400); RBC 3.22 m/cumm (4.00-5.20); RBC Distribution Width 16.5 % (11.7-14.6); White Blood Cell Count 7.18 k/cumm (4.4-10.8)
[2019-08-16 07:16] LABS: Anion Gap 3.8 mmol/L (3-11); BUN 6 mg/dL (7-18); CO2 28.2 mmol/L (21.0-32.0); CREATININE 0.73 mg/dL (0.55-1.02); Chloride 103 mmol/L (98-107); Glucose 92 mg/dL (74-106); Magnesium 1.9 mg/dL (1.8-2.4); Potassium 4.3 mmol/L (3.5-5.1); Sodium 135 mmol/L (136-145)
[2019-08-16] MEDS: Sertraline 25 MG TAB 12.5 MG PO (08:05)
[2019-08-16] MEDS: Lactobacillus Acidophilus CAP 1 CAP PO ×2 (08:05→19:41)
[2019-08-16] MEDS: Magnesium Oxide 400 MG TAB PO ×2 (08:05→19:40)
[2019-08-16] MEDS: Metoprolol 25 MG TAB 37.5 MG PO (08:07)
[2019-08-16] MEDS: IRON SUCROSE COMPLEX 200 MG in Normal Saline 100 ML 400 MG IVPB (11:10)
--- NOTE | 2019-08-16 11:33 | W.PM.PROGNOT ---
Date of Service Date of service: 08/16/19 Time of Service: 11:34 Assessment and Plan Assessment and plan (1) Bright red blood per rectum: Status: Resolved (2) Anemia due to blood loss, acute: Status: Acute Assessment and plan: appears to be improving. stop damian romano not stable for d/c secondary to her heart rate and acute hgb loss venefer cont supportive care (3) Dementia: Status: Chronic Qualifiers: Dementia behavioral disturbance: with behavioral disturbance Dementia type: unspecified type Qualified Code(s): F03.91 - Unspecified dementia with behavioral disturbance (4) Atrial fibrillation and flutter: Status: Acute Assessment and plan: rate has not been controlled. pt is off of elequis due to bleeding (5) S/P right hemicolectomy: Status: Acute Subjective Subjective Interval history since last seen: pt c/o low back pain. unsure of clinicaly relveance. good be from surgery or abscess or bleeding. or could be from having a bad back. Clnically she looks good otherwise. Her VSS are stable. She eats very small amounts. Her stools have been brown since Friday. She has no cough. She generally uses the toilet. She doesnt appear to be in pain. no fevers. no N/V. no cough. Exam [facility] Mouth: oral mucosae normal Teeth and gingiva: dentures Other: no thrush no eye pain or swelling. Chest Chest: normal inspection of the chest Resp Effort & Inspection: normal respiratory effort and able to speak in complete sentences Cardio Other: her heart rate has been irregular GI Inspection: normal to inspection Other: good BS. incision c/d/i. Privo dressing in place w/ minimal strikethrough. nontender Extrem General: normal to inspection (mild edema) Objective Objective Clinical Data: Abnormal lab results 08/16/19 08/16/19 Range/Units 06:05 06:05 RBC 3.22 L (4.00-5.20) m/cumm Hgb 10.7 L (12.0-15.5) g/dL Hct 31.9 L (36.0-46.0) % MCV 99.1 H (80-95) fL MCH 33.2 H (27.0-33.0) pg RDW 16.5 H (11.7-14.6) % Sodium 135 L (136-145) mmol/L BUN 6 L (7-18) mg/dL Calcium 8.0 L (8.5-10.1) mg/dL Vital Signs Temperature 36.8 C 08/16/19 11:20 Temperature Source Tympanic 08/16/19 11:20 Pulse 82 08/16/19 11:20 Pulse Rhythm Irregular 08/16/19 09:20 Pulse 104 H 08/11/19 12:00 Respiratory Rate 17 08/16/19 11:20 Respiratory Effort Non-Labored 08/16/19 09:20 Respiratory Depth Normal 08/16/19 09:20 Respiratory Pattern Normal 08/16/19 09:20 Blood Pressure 96/62 L 08/16/19 11:20 Blood Pressure Mean 82 08/11/19 09:41 Blood Pressure Position Sitting 08/09/19 15:56 Pulse Oximetry 96 08/16/19 11:20 Respiratory End-tidal CO2 35 08/05/19 14:45 Oxygen Delivery Method Room Air 08/16/19 11:20 Oxygen Flow Rate 0 08/16/19 11:20 Pain Level 0 08/16/19 11:20 Comment 08/15/19 10:22 Intake & Output 08/15/19 08/15/19 08/16/19 11:59 23:59 11:59 Intake Total 20 / 640 / 660 200 / 200 Output Total 900 / 2950 2050 / 2950 1250 / 1250 Balance -880 / -2290 -1410 / -2290 -1050 / -1050 Weight 51.3 kg 51.7 kg Intake: IV Oral 640 / 640 200 / 200 Output: Urine 900 / 2950 2050 / 2950 1250 / 1250 Other: Urine Color Yellow Yellow Yellow Urine Appearance Clear Clear Clear Urine Odor Normal None None Comment urine was mixed with bm patient had mxture of urine and stool Stool Size Small Small Small Stool Characteristics Liquid Soft Soft Brown Brown Brown Voiding Methods Toilet Bedside Commode Toilet Laboratory Results WBC 7.18 k/cumm (4.4-10.8) 08/16/19 06:05 RBC 3.22 m/cumm (4.00-5.20) L 08/16/19 06:05 Hgb 10.7 g/dL (12.0-15.5) L 08/16/19 06:05 Hct 31.9 % (36.0-46.0) L 08/16/19 06:05 MCV 99.1 fL (80-95) H 08/16/19 06:05 MCH 33.2 pg (27.0-33.0) H 08/16/19 06:05 MCHC 33.5 g/dL (32.0-36.0) 08/16/19 06:05 RDW 16.5 % (11.7-14.6) H 08/16/19 06:05 Plt Count 331 x1000/uL (130-400) 08/16/19 06:05 MPV 8.5 fL (8.0-11.0) 08/16/19 06:05 Immature Gran % 0.8 % 08/16/19 06:05 Neutrophils % 74.3 08/16/19 06:05 Band Neutrophils % 1.0 % 08/06/19 06:06 Lymphocytes % 17.4 08/16/19 06:05 Atypical Lymphs % 4 08/06/19 06:06 Monocytes % 6.0 08/16/19 06:05 Eosinophils % 1.5 08/16/19 06:05 Basophils % 0.0 08/16/19 06:05 Absolute Neutrophils 5.33 k/cumm (1.2-6.7) 08/16/19 06:05 Absolute Lymphocytes 1.25 k/cumm (1.2-3.4) 08/16/19 06:05 Absolute Monocytes 0.43 k/cumm (0.11-0.7) 08/16/19 06:05 Absolute Eosinophils 0.11 k/cumm (0.0-0.7) 08/16/19 06:05 Absolute Basophils 0.00 k/cumm (0.0-0.2) 08/16/19 06:05 Differential Comment Manual differential 08/06/19 06:06 RBC Morphology Normal 08/06/19 06:06 PT Cancelled 08/05/19 07:21 INR Cancelled 08/05/19 07:21 APTT Cancelled 08/05/19 07:21 Sodium 135 mmol/L (136-145) L 08/16/19 06:05 Potassium 4.3 mmol/L (3.5-5.1) 08/16/19 06:05 Chloride 103 mmol/L (98-107) 08/16/19 06:05 Carbon Dioxide 28.2 mmol/L (21.0-32.0) 08/16/19 06:05 Anion Gap 3.8 mmol/L (3-11) 08/16/19 06:05 BUN 6 mg/dL (7-18) L 08/16/19 06:05 Creatinine 0.73 mg/dL (0.55-1.02) 08/16/19 06:05 Estimated GFR/1.73 m2 >= 60.00 (mL/min/1.73m2) 08/16/19 06:05 Glucose 92 mg/dL (74-106) 08/16/19 06:05 Lactate 1.5 mmol/L (0.6-1.4) H 08/05/19 06:09 Calcium 8.0 mg/dL (8.5-10.1) L 08/16/19 06:05 Magnesium 1.9 mg/dL (1.8-2.4) 08/16/19 06:05 Total Bilirubin 1.1 mg/dL (0.2-1.0) H 08/06/19 06:06 AST 23 U/L (15-37) 08/06/19 06:06 ALT 10 U/L (14-59) L 08/06/19 06:06 Alkaline Phosphatase 30 U/L (46-116) L 08/06/19 06:06 Troponin I 0.06 ng/Ml (<0.06) 08/04/19 16:35 C-Reactive Protein 7.66 mg/dL (0.0-0.3) H 08/06/19 06:06 Total Protein 4.1 g/dL (6.4-8.2) L 08/06/19 06:06 Albumin 2.0 g/dL (3.4-5.0) L 08/06/19 06:06 Urine Color Yellow (Yellow) 08/05/19 20:50 Urine Clarity Clear (Clear) 08/05/19 20:50 Urine pH 6.5 (5-8) 08/05/19 20:50 Ur Specific [place] >= 1.030 (1.005-1.025) H 08/05/19 20:50 Urine Protein 100 mg/dL (Negative) H 08/05/19 20:50 Urine Ketones 15 mg/dL (Negative) H 08/05/19 20:50 Urine Blood Large (Negative) H 08/05/19 20:50 Urine Nitrite Negative (Negative) 08/05/19 20:50 Urine Bilirubin Small (Negative) H 08/05/19 20:50 Urine Urobilinogen 0.2 EU/dL (Up TO 0.2) 08/05/19 20:50 Ur Leukocyte Esterase Negative (Negative) 08/05/19 20:50 Urine RBC >50 HPF (0-2) H 08/05/19 20:50 Urine WBC 0-2 HPF (0-5) 08/05/19 20:50 Ur Epithelial Cells Negative HPF (Negative) 08/05/19 20:50 Urine Crystals Negative HPF (Negative) 08/05/19 20:50 Urine Bacteria Negative HPF (Negative) 08/05/19 20:50 Urine Casts Negative LPF (Negative) 08/05/19 20:50 Urine Mucus Negative (Negative) 08/05/19 20:50 Urine Other Negative (Negative) 08/05/19 20:50 Ur Culture Indicated? No 08/05/19 20:50 Ur Random Creatinine 63.22 mg/dL 08/11/19 11:20 Ur Random Sodium 68 mmol/L 08/11/19 11:20 Ur Random Potassium 29 mmol/L 08/11/19 11:20 Urine Glucose Negative mg/dL (Negative) 08/05/19 20:50 Patient ABO/Rh A Positive 08/04/19 20:21 Antibody Screen Negative 08/04/19 20:21
[2019-08-16] MEDS: Acetaminophen 325 MG TAB 650 MG PO ×2 (11:37→18:24)
[2019-08-16] MEDS: Normal Saline Flush 10 ML SYR IVP (11:38)
[2019-08-16] MEDS: Pantoprazole 40 MG TABCR PO ×2 (11:54→19:41)
--- NOTE | 2019-08-16 12:21 | W.PM.PROGNOT ---
Date of Service Date of service: 08/16/19 Time of Service: 12:21 Assessment and Plan Assessment and plan (1) Bright red blood per rectum: Status: Resolved Assessment and plan: likely bled from anasthamotic site in setting of anticoagulation, but now tolerating a diet and bleeding resolved. Will not resume anticoagulation. Consult palliative care. 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 As above (3) Atrial fibrillation and flutter: Status: Acute Assessment and plan: Apixaban d/c'ed in setting of bleeding. Continue to monitor on tele. I split metoprolol from 37.5 mg PO BID to 25 mg PO TID, which will hopefully result in more consistently controlled rates. (4) Dementia: Status: Chronic Assessment and plan: Continue trazodone 50 mg, melatonin at bedtime. Avoid benzodiazepines. Qualifiers: Dementia type: unspecified type Dementia behavioral disturbance: with behavioral disturbance Qualified Code(s): F03.91 - Unspecified dementia with behavioral disturbance (5) Leg pain, right: Status: Resolved Assessment and plan: Denies pain today. (6) Oliguria: Status: Resolved Assessment and plan: Resolved with hydration (7) DVT prophylaxis: Status: Acute Assessment and plan: TEDs/SCDS. Cannot tolerate chemical anticoagulation due to GI bleeding (8) Discharge planning issues: Status: Acute Assessment and plan: Consult palliative care. Will require SNF placement Subjective Subjective Interval history since last seen: Ms Reddy states she is feeling well. She just had a non-bloody brown BM. Denies dizziness, chest pain, shortness of breath, nausea, vomiting, abdominal pain. Nursing notes rates get slightly rapid on tele right before her dose of metoprolol is due. Exam Narrative Exam Narrative: General: Very pleasant elderly female, sitting in a chair, eating lunch, looks well HEENT: EOMI, MMM Heart: irregularly irregular rhythm Lungs: CTAB Abdomen: soft, nondistended; midline abdominal incision is dressed Extremities: 1+ BLE edema, symmetric, wearing TEDs Objective Objective Clinical Data: Abnormal lab results 08/16/19 08/16/19 Range/Units 06:05 06:05 RBC 3.22 L (4.00-5.20) m/cumm Hgb 10.7 L (12.0-15.5) g/dL Hct 31.9 L (36.0-46.0) % MCV 99.1 H (80-95) fL MCH 33.2 H (27.0-33.0) pg RDW 16.5 H (11.7-14.6) % Sodium 135 L (136-145) mmol/L BUN 6 L (7-18) mg/dL Calcium 8.0 L (8.5-10.1) mg/dL Vital Signs Temperature 36.8 C 08/16/19 11:20 Temperature Source Tympanic 08/16/19 11:20 Pulse 82 08/16/19 11:20 Pulse Rhythm Irregular 08/16/19 09:20 Pulse 104 H 08/11/19 12:00 Respiratory Rate 17 08/16/19 11:20 Respiratory Effort Non-Labored 08/16/19 09:20 Respiratory Depth Normal 08/16/19 09:20 Respiratory Pattern Normal 08/16/19 09:20 Blood Pressure 96/62 L 08/16/19 11:20 Blood Pressure Mean 82 08/11/19 09:41 Blood Pressure Position Sitting 08/09/19 15:56 Pulse Oximetry 96 08/16/19 11:20 Respiratory End-tidal CO2 35 08/05/19 14:45 Oxygen Delivery Method Room Air 08/16/19 11:20 Oxygen Flow Rate 0 08/16/19 11:20 Pain Level 5 08/16/19 11:37 Comment 08/15/19 10:22 Intake & Output 08/15/19 08/16/19 08/16/19 23:59 11:59 23:59 Intake Total 640 / 660 310 / 310 Output Total 2049 1250 / 1250 Balance -1410 / -2290 -940 / -940 Weight 51.7 kg Intake: IV 110 / 110 Oral 640 / 640 200 / 200 Output: Urine 0 / 2950 1250 / 1250 Other: Urine Color Yellow Yellow Urine Appearance Clear Clear Urine Odor None None Comment patient had mxture of urine and stool Stool Size Small Small Stool Characteristics Soft Soft Brown Brown Voiding Methods Bedside Commode Toilet Laboratory Results WBC 7.18 k/cumm (4.4-10.8) 08/16/19 06:05 RBC 3.22 m/cumm (4.00-5.20) L 08/16/19 06:05 Hgb 10.7 g/dL (12.0-15.5) L 08/16/19 06:05 Hct 31.9 % (36.0-46.0) L 08/16/19 06:05 MCV 99.1 fL (80-95) H 08/16/19 06:05 MCH 33.2 pg (27.0-33.0) H 08/16/19 06:05 MCHC 33.5 g/dL (32.0-36.0) 08/16/19 06:05 RDW 16.5 % (11.7-14.6) H 08/16/19 06:05 Plt Count 331 x1000/uL (130-400) 08/16/19 06:05 MPV 8.5 fL (8.0-11.0) 08/16/19 06:05 Immature Gran % 0.8 % 08/16/19 06:05 Neutrophils % 74.3 08/16/19 06:05 Band Neutrophils % 1.0 % 08/06/19 06:06 Lymphocytes % 17.4 08/16/19 06:05 Atypical Lymphs % 4 08/06/19 06:06 Monocytes % 6.0 08/16/19 06:05 Eosinophils % 1.5 08/16/19 06:05 Basophils % 0.0 08/16/19 06:05 Absolute Neutrophils 5.33 k/cumm (1.2-6.7) 08/16/19 06:05 Absolute Lymphocytes 1.25 k/cumm (1.2-3.4) 08/16/19 06:05 Absolute Monocytes 0.43 k/cumm (0.11-0.7) 08/16/19 06:05 Absolute Eosinophils 0.11 k/cumm (0.0-0.7) 08/16/19 06:05 Absolute Basophils 0.00 k/cumm (0.0-0.2) 08/16/19 06:05 Differential Comment Manual differential 08/06/19 06:06 RBC Morphology Normal 08/06/19 06:06 PT Cancelled 08/05/19 07:21 INR Cancelled 08/05/19 07:21 APTT Cancelled 08/05/19 07:21 Sodium 135 mmol/L (136-145) L 08/16/19 06:05 Potassium 4.3 mmol/L (3.5-5.1) 08/16/19 06:05 Chloride 103 mmol/L (98-107) 08/16/19 06:05 Carbon Dioxide 28.2 mmol/L (21.0-32.0) 08/16/19 06:05 Anion Gap 3.8 mmol/L (3-11) 08/16/19 06:05 BUN 6 mg/dL (7-18) L 08/16/19 06:05 Creatinine 0.73 mg/dL (0.55-1.02) 08/16/19 06:05 Estimated GFR/1.73 m2 >= 60.00 (mL/min/1.73m2) 08/16/19 06:05 Glucose 92 mg/dL (74-106) 08/16/19 06:05 Lactate 1.5 mmol/L (0.6-1.4) H 08/05/19 06:09 Calcium 8.0 mg/dL (8.5-10.1) L 08/16/19 06:05 Magnesium 1.9 mg/dL (1.8-2.4) 08/16/19 06:05 Total Bilirubin 1.1 mg/dL (0.2-1.0) H 08/06/19 06:06 AST 23 U/L (15-37) 08/06/19 06:06 ALT 10 U/L (14-59) L 08/06/19 06:06 Alkaline Phosphatase 30 U/L (46-116) L 08/06/19 06:06 Troponin I 0.06 ng/Ml (<0.06) 08/04/19 16:35 C-Reactive Protein 7.66 mg/dL (0.0-0.3) H 08/06/19 06:06 Total Protein 4.1 g/dL (6.4-8.2) L 08/06/19 06:06 Albumin 2.0 g/dL (3.4-5.0) L 08/06/19 06:06 Urine Color Yellow (Yellow) 08/05/19 20:50 Urine Clarity Clear (Clear) 08/05/19 20:50 Urine pH 6.5 (5-8) 08/05/19 20:50 Ur Specific [place] >= 1.030 (1.005-1.025) H 08/05/19 20:50 Urine Protein 100 mg/dL (Negative) H 08/05/19 20:50 Urine Ketones 15 mg/dL (Negative) H 08/05/19 20:50 Urine Blood Large (Negative) H 08/05/19 20:50 Urine Nitrite Negative (Negative) 08/05/19 20:50 Urine Bilirubin Small (Negative) H 08/05/19 20:50 Urine Urobilinogen 0.2 EU/dL (Up TO 0.2) 08/05/19 20:50 Ur Leukocyte Esterase Negative (Negative) 08/05/19 20:50 Urine RBC >50 HPF (0-2) H 08/05/19 20:50 Urine WBC 0-2 HPF (0-5) 08/05/19 20:50 Ur Epithelial Cells Negative HPF (Negative) 08/05/19 20:50 Urine Crystals Negative HPF (Negative) 08/05/19 20:50 Urine Bacteria Negative HPF (Negative) 08/05/19 20:50 Urine Casts Negative LPF (Negative) 08/05/19 20:50 Urine Mucus Negative (Negative) 08/05/19 20:50 Urine Other Negative (Negative) 08/05/19 20:50 Ur Culture Indicated? No 08/05/19 20:50 Ur Random Creatinine 63.22 mg/dL 08/11/19 11:20 Ur Random Sodium 68 mmol/L 08/11/19 11:20 Ur Random Potassium 29 mmol/L 08/11/19 11:20 Urine Glucose Negative mg/dL (Negative) 08/05/19 20:50 Patient ABO/Rh A Positive 08/04/19 20:21 Antibody Screen Negative 08/04/19 20:21
--- NOTE | 2019-08-16 15:25 | CMPROGNOTE_ITS ---
- If Service Date Differs Date of service: 08/16/19 Time of Service: 15:26 Care Management Progress Note S/O:Daina was lying in bed when CM met with her. She was pleasant and smiling and stated that she is feeling good. Daina had a non-bloody stool last night. Her heart rate continues to increase with activity just before her metoprolol is due and medication adjustments are planned to address this. A: Daina is a 84 year old female admitted to the hospital on 08/04/2019 for cecal volvulus, status post right hemicolectomy. P: Anticipate Daina will discharge to a SNF when medically cleared by provider. [facility] is considering her for admission. CM will continue to support patient, family and discharge planning needs. cc:
--- NOTE | 2019-08-16 15:58 | PT.INTREAT ---
Date of service: 08/16/19 Time of Service: 15:00 PT Notes Visit Reasons: CECAL VOLVULUS/s/p cecal resection Physical Therapy Inpatient Treatment Note Date: 08/16/2019 Precautions: Fall. Standard. Activity as tolerated. Abdominal incision from recent surgery with DEBRA drain, place gait belt high up. SUBJECTIVE: Daina notes that she is very cold this afternoon. She is agreeable to performed some exercises however is not sure she is up to walking far this afternoon. OBJECTIVE: General Observation: Telemetry monitoring back on as of 08/14/2019. IV access to L UE still open. Dany seen on abdominal surgical incision. DEBRA drain remains in place. B LE TEDS on. PAIN: None BED MOBILITY/TRANSFERS: Sit to stand S with minimal cueing for hand placement Stand to sit S with minimal cueing for hand placement Bed to chair S with minimal cueing for hand placement Chair to Bed S with minimal cueing for hand placement GAIT: Patient tolerated level surface ambulation 200 feet with SBA using front wheeled walker with minimal verbal cueing given to stay close to the walker. No wheelchair follow needed. Akila significantly improved. Trunk more erect. THEREX: Ankle dorsiflexion plantarflexion x 20, long arc quads x 20, seated hip flexion x 20, stand hip flexion x10, and stand hip abduction x 20. She also performed shoulder horizontal abduction/adduction as well as shoulder flexion/extension x 20 coordinated with chest expansion and deep breathing exercises. THERA ACT: Continued supervision, cueing with staying close to her walker, and training during toileting tasks, transfers, and ambulation. ASSESSMENT: Will plan on gradually increasing activity tolerance tomorrow as tolerated. Patient will continue to require supervision level for all mobility ADL performance due to cognitive level. DISCHARGE RECOMMENDATIONS: SNF versus 24/ care. Will need front wheeled walker to maximize mobility ADL performance. TREATMENT CODE/TIME: Session 1- [id number] 25 minutes beginning at 13:00 PM. Ashly Cisneros, MOIRA
[2019-08-16] MEDS: Metoprolol 25 MG TAB PO (16:18)
[2019-08-16] MEDS: Melatonin 3 MG TAB 6 MG PO (19:41)
[2019-08-16] MEDS: traZODone 50 MG TAB PO (19:41)
--- NOTE | 2019-08-16 21:32 | PCNE_ITS ---
Date of service: 08/16/19 Time of Service: 16:32 History of Present Illness Narrative: Patient is an 84-year-old woman with dementia. She had a volvulus which required a resection. Unfortunately she in the past she had atrial fibrillation and was on anticoagulants. She developed bleeding and her Eliquis was on hold. I was asked by Dr. Bocanegra to address anticoagulation due to A. fib in the setting of recent resection and bleeding. Patient told me to talk with her daughter. She was not certain what when I saw talk with. Care management asked me to discuss this with Coretta at [phone]. I talked to Coretta about her mom's dilemma i.e. being on anticoagulation with bleeding from possible anastomosis. I also talked to her about the risk of not being anticoagulated and strokes. Both patient and her daughter Coretta stated that they would prefer to not have anticoagulation on board since she was actively bleeding recently. Coretta thought that perhaps this could be reconsidered in about 3 months after her bowels had healed. Coretta tell me that her mom's entire desire is to go back to where she was living. She loves her apartment. She likes being able to walk to the post office and to be outside. She loves to mail cards to people for all occasions. At the same time Coretta is unsure that her mom will be able to go back to independent living. Consults Consult date: 08/16/19 Requesting physician: Samantha Bocanegra Assessment and Plan Assessment and plan (1) Bright red blood per rectum: Status: Resolved (2) Dementia: Status: Chronic Qualifiers: Dementia type: unspecified type Dementia behavioral disturbance: with behavioral disturbance Qualified Code(s): F03.91 - Unspecified dementia with behavioral disturbance (3) Atrial flutter by electrocardiography: Status: Acute (4) rn long term care current use of anticoagulant therapy: Status: Acute (5) Advanced care planning/counseling discussion: Status: Acute Assessment and plan: Regarding the question of anticoagulation both the patient and her daughter Coretta feel that it is prudent to stop the anticoagulation. Coretta felt that this could be revisited in 3 months after her mother has healed from this operation. They understand the risk of stroke Dementia I do think that Daina has more dementia than initially meets the eye. She may not be able to live independently in the future. I hope is that she could go someplace where there is opportunity for her to be able to walk outside as that seems to be important to her She loves her cards. She had multiple cards on her tray table and according to her daughter loves to mail people cards. It would be nice if she could have s ome activities while hospitalized that would involve making cards for people since that is 1 of the things she enjoys She is a DNR/DNI Thank you very much for this consult Review of Systems Narrative: The patient herself had no complaints. She said she felt pretty good. [facility] Medical History (Updated 08/17/19 @ 16:38 by Melissa Laird MD, [place]) Anemia due to blood loss, acute (Acute) Cecal volvulus (Acute) Dementia (Chronic) Low body mass index (Acute) Seasonal affective disorder (Acute) Surgical History (Updated 08/05/19 @ 16:25 by Sharyn Valles DO) Incarcerated Obdurator Hernia (01/31/16) Dr Nicholas, [facility] S/P right hemicolectomy (Acute) Family History Mother , vascular at age 95. No problems noted. 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 Her heart is irregular. Her lungs are clear but shallow breathing. Her abdomen is appropriately tender but not distended. She does not have any edema Results Last Vital Signs Temp 98.4 F 08/16/19 19:49 Pulse 87 08/16/19 19:49 Resp 18 08/16/19 19:49 BP 113/74 08/16/19 19:49 Pulse Ox 96 08/16/19 19:49 Labs Result diagrams: 08/17/19 06:08 08/17/19 06:08 Labs: Laboratory Results - last 24 hr 08/16/19 08/16/19 06:05 06:05 WBC 7.18 RBC 3.22 L Hgb 10.7 L Hct 31.9 L MCV 99.1 H MCH 33.2 H MCHC 33.5 RDW 16.5 H Plt Count 331 MPV 8.5 Immature Gran % 0.8 Neutrophils % 74.3 Lymphocytes % 17.4 Monocytes % 6.0 Eosinophils % 1.5 Basophils % 0.0 Absolute Neutrophils 5.33 Absolute Lymphocytes 1.25 Absolute Monocytes 0.43 Absolute Eosinophils 0.11 Absolute Basophils 0.00 Sodium 135 L Potassium 4.3 Chloride 103 Carbon Dioxide 28.2 Anion Gap 3.8 BUN 6 L Creatinine 0.73 Estimated GFR/1.73 m2 >= 60.00 Glucose 92 Calcium 8.0 L Magnesium 1.9
[2019-08-17] VITALS (7 sets, daily range): BP systolic 100–121; BP diastolic 68–77; PULSE 61–148; RESP 16–18; TEMP 36.5–36.6; O2SAT 94–97
[2019-08-17 06:38] LABS: Abs Immature Grans 0.03 k/cumm (0.0-0.09); Absolute Basophil Count 0.01 k/cumm (0.0-0.2); Absolute Eosinophil Count 0.11 k/cumm (0.0-0.7); Absolute Monocyte Count 0.38 k/cumm (0.11-0.7); Absolute Neutrophil Count 5.62 k/cumm (1.2-6.7); Basophils % 0.1; Eosinophils % 1.6; HCT 31.2 % (36.0-46.0); HGB 10.3 g/dL (12.0-15.5); Immature Grans % 0.4 %; Lymphocytes % 12.8; Mean Platelet Volume 8.5 fL (8.0-11.0); Monocytes % 5.4; Neutrophils % 79.7; Platelet Count 290 x1000/uL (130-400); RBC 3.12 m/cumm (4.00-5.20); RBC Distribution Width 16.9 % (11.7-14.6); White Blood Cell Count 7.05 k/cumm (4.4-10.8)
[2019-08-17 06:49] LABS: Anion Gap 6.2 mmol/L (3-11); BUN 6 mg/dL (7-18); CO2 27.8 mmol/L (21.0-32.0); CREATININE 0.73 mg/dL (0.55-1.02); Chloride 102 mmol/L (98-107); Glucose 89 mg/dL (74-106); Sodium 136 mmol/L (136-145)
[2019-08-17 07:05] LABS: Ferritin 859 ng/mL (8-252); Magnesium 1.9 mg/dL (1.8-2.4)
[2019-08-17 07:09] LABS: Iron 154 ug/dL (50-170); Total Iron Binding Capacity 158 ug/dL (250-450); Transferrin Sat 97 % (15-50)
[2019-08-17] MEDS: Metoprolol 25 MG TAB PO ×2 (08:26→16:06)
[2019-08-17] MEDS: Lactobacillus Acidophilus CAP 1 CAP PO ×2 (08:26→20:06)
[2019-08-17] MEDS: Pantoprazole 40 MG TABCR PO ×2 (08:26→20:06)
[2019-08-17] MEDS: Magnesium Oxide 400 MG TAB PO ×2 (08:26→20:06)
[2019-08-17] MEDS: Sertraline 25 MG TAB 12.5 MG PO (08:27)
--- NOTE | 2019-08-17 10:30 | W.PM.PROGNOT ---
Date of Service Date of service: 08/17/19 Time of Service: 10:30 Assessment and Plan Assessment and plan (1) S/P right hemicolectomy: Status: Acute Assessment and plan: Stable OPAL dressing change planned for tomorrow Subjective Subjective Interval history since last seen: Patient notes some low back and hip discomfort. May be related to sitting in the chair as she is now more comfortable in bed. Nurse reports patient had brown stool last night that was heme positive. Exam Narrative Exam Narrative: No distress Abdomen soft, nondistended. Tender along incision but no other areas. Dressing intact with stable small spotting. Objective Objective Clinical Data: Abnormal lab results 08/17/19 08/17/19 08/17/19 Range/Units 06:08 06:08 06:08 RBC 3.12 L (4.00-5.20) m/cumm Hgb 10.3 L (12.0-15.5) g/dL Hct 31.2 L (36.0-46.0) % MCV 100.0 H (80-95) fL RDW 16.9 H (11.7-14.6) % Absolute Lymphocytes 0.90 L (1.2-3.4) k/cumm BUN (7-18) mg/dL Calcium (8.5-10.1) mg/dL TIBC 158 L (250-450) ug/dL Transferrin % Sat 97 H (15-50) % Ferritin 859 H (8-252) ng/mL 08/17/19 Range/Units 06:08 RBC (4.00-5.20) m/cumm Hgb (12.0-15.5) g/dL Hct (36.0-46.0) % MCV (80-95) fL RDW (11.7-14.6) % Absolute Lymphocytes (1.2-3.4) k/cumm BUN 6 L (7-18) mg/dL Calcium 8.0 L (8.5-10.1) mg/dL TIBC (250-450) ug/dL Transferrin % Sat (15-50) % Ferritin (8-252) ng/mL Vital Signs Temperature 97.9 F 08/17/19 08:07 Temperature Source Temporal Artery Scan 08/17/19 08:07 Pulse 61 08/17/19 08:07 Pulse Rhythm Irregular 08/16/19 23:40 Pulse 104 H 08/11/19 12:00 Respiratory Rate 16 08/17/19 08:07 Respiratory Effort Non-Labored 08/16/19 23:40 Respiratory Depth Normal 08/16/19 23:40 Respiratory Pattern Normal 08/16/19 23:40 Blood Pressure 121/69 08/17/19 08:07 Blood Pressure Mean 82 08/11/19 09:41 Blood Pressure Position Sitting 08/09/19 15:56 Pulse Oximetry 97 08/17/19 08:07 Respiratory End-tidal CO2 35 08/05/19 14:45 Oxygen Delivery Method Room Air 08/17/19 08:07 Oxygen Flow Rate 0 08/17/19 08:07 Pain Level 0 08/16/19 19:49 Comment 08/15/19 10:22 Intake & Output 08/16/19 08/16/19 08/17/19 11:59 23:59 11:59 Intake Total 320 / 1430 1110 / 1430 90 / 90 Output Total 1250 / 3550 2300 / 3550 1050 / 1050 Balance -930 / -2120 -1190 / -2120 -960 / -960 Weight 113 lb 15.664 oz 110 lb 3.698 oz Intake: IV 120 / 130 10 / 130 Oral 200 / 1300 1100 / 1300 90 / 90 Output: Urine 1250 / 3550 2300 / 3550 1050 / 1050 Other: Urine Color Yellow Yellow Yellow Urine Appearance Clear Clear Clear Urine Odor None Normal Normal Comment patient had mxture of urine and stool mixed with smear bm Stool Size Small Stool Characteristics Soft Brown Voiding Methods Toilet Toilet Toilet Laboratory Results WBC 7.05 k/cumm (4.4-10.8) 08/17/19 06:08 RBC 3.12 m/cumm (4.00-5.20) L 08/17/19 06:08 Hgb 10.3 g/dL (12.0-15.5) L 08/17/19 06:08 Hct 31.2 % (36.0-46.0) L 08/17/19 06:08 MCV 100.0 fL (80-95) H 08/17/19 06:08 MCH 33.0 pg (27.0-33.0) 08/17/19 06:08 MCHC 33.0 g/dL (32.0-36.0) 08/17/19 06:08 RDW 16.9 % (11.7-14.6) H 08/17/19 06:08 Plt Count 290 x1000/uL (130-400) 08/17/19 06:08 MPV 8.5 fL (8.0-11.0) 08/17/19 06:08 Immature Gran % 0.4 % 08/17/19 06:08 Neutrophils % 79.7 08/17/19 06:08 Band Neutrophils % 1.0 % 08/06/19 06:06 Lymphocytes % 12.8 08/17/19 06:08 Atypical Lymphs % 4 08/06/19 06:06 Monocytes % 5.4 08/17/19 06:08 Eosinophils % 1.6 08/17/19 06:08 Basophils % 0.1 08/17/19 06:08 Absolute Neutrophils 5.62 k/cumm (1.2-6.7) 08/17/19 06:08 Absolute Lymphocytes 0.90 k/cumm (1.2-3.4) L 08/17/19 06:08 Absolute Monocytes 0.38 k/cumm (0.11-0.7) 08/17/19 06:08 Absolute Eosinophils 0.11 k/cumm (0.0-0.7) 08/17/19 06:08 Absolute Basophils 0.01 k/cumm (0.0-0.2) 08/17/19 06:08 Differential Comment Manual differential 08/06/19 06:06 RBC Morphology Normal 08/06/19 06:06 PT Cancelled 08/05/19 07:21 INR Cancelled 08/05/19 07:21 APTT Cancelled 08/05/19 07:21 Sodium 136 mmol/L (136-145) 08/17/19 06:08 Potassium 4.0 mmol/L (3.5-5.1) 08/17/19 06:08 Chloride 102 mmol/L (98-107) 08/17/19 06:08 Carbon Dioxide 27.8 mmol/L (21.0-32.0) 08/17/19 06:08 Anion Gap 6.2 mmol/L (3-11) 08/17/19 06:08 BUN 6 mg/dL (7-18) L 08/17/19 06:08 Creatinine 0.73 mg/dL (0.55-1.02) 08/17/19 06:08 Estimated GFR/1.73 m2 >= 60.00 (mL/min/1.73m2) 08/17/19 06:08 Glucose 89 mg/dL (74-106) 08/17/19 06:08 Lactate 1.5 mmol/L (0.6-1.4) H 08/05/19 06:09 Calcium 8.0 mg/dL (8.5-10.1) L 08/17/19 06:08 Magnesium 1.9 mg/dL (1.8-2.4) 08/17/19 06:08 Iron 154 ug/dL (50-170) 08/17/19 06:08 TIBC 158 ug/dL (250-450) L 08/17/19 06:08 Transferrin % Sat 97 % (15-50) H 08/17/19 06:08 Ferritin 859 ng/mL (8-252) H 08/17/19 06:08 Total Bilirubin 1.1 mg/dL (0.2-1.0) H 08/06/19 06:06 AST 23 U/L (15-37) 08/06/19 06:06 ALT 10 U/L (14-59) L 08/06/19 06:06 Alkaline Phosphatase 30 U/L (46-116) L 08/06/19 06:06 Troponin I 0.06 ng/Ml (<0.06) 08/04/19 16:35 C-Reactive Protein 7.66 mg/dL (0.0-0.3) H 08/06/19 06:06 Total Protein 4.1 g/dL (6.4-8.2) L 08/06/19 06:06 Albumin 2.0 g/dL (3.4-5.0) L 08/06/19 06:06 Urine Color Yellow (Yellow) 08/05/19 20:50 Urine Clarity Clear (Clear) 08/05/19 20:50 Urine pH 6.5 (5-8) 08/05/19 20:50 Ur Specific [place] >= 1.030 (1.005-1.025) H 08/05/19 20:50 Urine Protein 100 mg/dL (Negative) H 08/05/19 20:50 Urine Ketones 15 mg/dL (Negative) H 08/05/19 20:50 Urine Blood Large (Negative) H 08/05/19 20:50 Urine Nitrite Negative (Negative) 08/05/19 20:50 Urine Bilirubin Small (Negative) H 08/05/19 20:50 Urine Urobilinogen 0.2 EU/dL (Up TO 0.2) 08/05/19 20:50 Ur Leukocyte Esterase Negative (Negative) 08/05/19 20:50 Urine RBC >50 HPF (0-2) H 08/05/19 20:50 Urine WBC 0-2 HPF (0-5) 08/05/19 20:50 Ur Epithelial Cells Negative HPF (Negative) 08/05/19 20:50 Urine Crystals Negative HPF (Negative) 08/05/19 20:50 Urine Bacteria Negative HPF (Negative) 08/05/19 20:50 Urine Casts Negative LPF (Negative) 08/05/19 20:50 Urine Mucus Negative (Negative) 08/05/19 20:50 Urine Other Negative (Negative) 08/05/19 20:50 Ur Culture Indicated? No 08/05/19 20:50 Ur Random Creatinine 63.22 mg/dL 08/11/19 11:20 Ur Random Sodium 68 mmol/L 08/11/19 11:20 Ur Random Potassium 29 mmol/L 08/11/19 11:20 Urine Glucose Negative mg/dL (Negative) 08/05/19 20:50 Patient ABO/Rh A Positive 08/04/19 20:21 Antibody Screen Negative 08/04/19 20:21
--- NOTE | 2019-08-17 12:02 | PGE_ITS ---
Date of Service Date of service: 08/17/19 Time of Service: 12:02 Assessment and Plan Assessment and plan (1) Atrial fibrillation and flutter: Status: Acute Assessment and plan: Clinically the patient is slightly dehydrated - will reinitiate IVF x 500 cc @ 75 cc/hr. WIll not touch metoprolol at this time. Apixaban d/c'ed in setting of bleeding. Continue to monitor on tele. (2) Bright red blood per rectum: Status: Resolved Assessment and plan: likely bled from anasthamotic site in setting of anticoagulation, but now tolerating a diet and bleeding resolved. Will not resume anticoagulation. Palliative care consulted. 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 As above (4) Dementia: Status: Chronic Assessment and plan: Continue trazodone 50 mg, melatonin at bedtime. Avoid benzodiazepines. Qualifiers: Dementia behavioral disturbance: with behavioral disturbance Dementia type: unspecified type Qualified Code(s): F03.91 - Unspecified dementia with behavioral disturbance (5) Leg pain, right: Status: Resolved Assessment and plan: Denies pain today. (6) Oliguria: Status: Resolved Assessment and plan: Resolved with hydration (7) DVT prophylaxis: Status: Acute Assessment and plan: TEDs/SCDS. Cannot tolerate chemical anticoagulation due to GI bleeding (8) Discharge planning issues: Status: Acute Assessment and plan: Palliative care consulted Will require SNF placement Subjective Subjective Interval history since last seen: The patient states that her mouth feels bone dry. HR up to 150 with exercising with PT. States she did feel a little dizzy and maybe had palpitations. Denies chest pain, shortness of breath, nausea. Exam Narrative Exam Narrative: General: Very pleasant elderly female, sitting in a chair, eating lunch, looks well HEENT: EOMI, MMM Heart: irregularly irregular rhythm Lungs: CTAB Abdomen: soft, nondistended; midline abdominal incision is dressed Extremities: 1+ BLE edema, symmetric, wearing TEDs Objective Objective Clinical Data: Abnormal lab results 08/17/19 08/17/19 08/17/19 Range/Units 06:08 06:08 06:08 RBC 3.12 L (4.00-5.20) m/cumm Hgb 10.3 L (12.0-15.5) g/dL Hct 31.2 L (36.0-46.0) % MCV 100.0 H (80-95) fL RDW 16.9 H (11.7-14.6) % Absolute Lymphocytes 0.90 L (1.2-3.4) k/cumm BUN (7-18) mg/dL Calcium (8.5-10.1) mg/dL TIBC 158 L (250-450) ug/dL Transferrin % Sat 97 H (15-50) % Ferritin 859 H (8-252) ng/mL 08/17/19 Range/Units 06:08 RBC (4.00-5.20) m/cumm Hgb (12.0-15.5) g/dL Hct (36.0-46.0) % MCV (80-95) fL RDW (11.7-14.6) % Absolute Lymphocytes (1.2-3.4) k/cumm BUN 6 L (7-18) mg/dL Calcium 8.0 L (8.5-10.1) mg/dL TIBC (250-450) ug/dL Transferrin % Sat (15-50) % Ferritin (8-252) ng/mL Vital Signs Temperature 36.6 C 08/17/19 08:07 Temperature Source Temporal Artery Scan 08/17/19 08:07 Pulse 61 08/17/19 08:07 Pulse Rhythm Irregular 08/17/19 10:55 Pulse 104 H 08/11/19 12:00 Respiratory Rate 16 08/17/19 08:07 Respiratory Effort Non-Labored 08/17/19 10:55 Respiratory Depth Normal 08/17/19 10:55 Respiratory Pattern Normal 08/17/19 10:55 Blood Pressure 121/69 08/17/19 08:07 Blood Pressure Mean 82 08/11/19 09:41 Blood Pressure Position Sitting 08/09/19 15:56 Pulse Oximetry 97 08/17/19 08:07 Respiratory End-tidal CO2 35 08/05/19 14:45 Oxygen Delivery Method Room Air 08/17/19 08:07 Oxygen Flow Rate 0 08/17/19 08:07 Pain Level 0 08/16/19 19:49 Comment 08/15/19 10:22 Intake & Output 08/16/19 08/17/19 08/17/19 23:59 11:59 23:59 Intake Total 1110 / 1430 90 / 90 Output Total 2300 / 3550 1050 / 1050 Balance -1190 / -2120 -960 / -960 Weight 50 kg Intake: IV 10 / 130 Oral 1100 / 1300 90 / 90 Output: Urine 2300 / 3550 1050 / 1050 Other: Urine Color Yellow Yellow Urine Appearance Clear Clear Urine Odor Normal Normal Comment mixed with smear bm Voiding Methods Toilet Toilet Laboratory Results WBC 7.05 k/cumm (4.4-10.8) 08/17/19 06:08 RBC 3.12 m/cumm (4.00-5.20) L 08/17/19 06:08 Hgb 10.3 g/dL (12.0-15.5) L 08/17/19 06:08 Hct 31.2 % (36.0-46.0) L 08/17/19 06:08 MCV 100.0 fL (80-95) H 08/17/19 06:08 MCH 33.0 pg (27.0-33.0) 08/17/19 06:08 MCHC 33.0 g/dL (32.0-36.0) 08/17/19 06:08 RDW 16.9 % (11.7-14.6) H 08/17/19 06:08 Plt Count 290 x1000/uL (130-400) 08/17/19 06:08 MPV 8.5 fL (8.0-11.0) 08/17/19 06:08 Immature Gran % 0.4 % 08/17/19 06:08 Neutrophils % 79.7 08/17/19 06:08 Band Neutrophils % 1.0 % 08/06/19 06:06 Lymphocytes % 12.8 08/17/19 06:08 Atypical Lymphs % 4 08/06/19 06:06 Monocytes % 5.4 08/17/19 06:08 Eosinophils % 1.6 08/17/19 06:08 Basophils % 0.1 08/17/19 06:08 Absolute Neutrophils 5.62 k/cumm (1.2-6.7) 08/17/19 06:08 Absolute Lymphocytes 0.90 k/cumm (1.2-3.4) L 08/17/19 06:08 Absolute Monocytes 0.38 k/cumm (0.11-0.7) 08/17/19 06:08 Absolute Eosinophils 0.11 k/cumm (0.0-0.7) 08/17/19 06:08 Absolute Basophils 0.01 k/cumm (0.0-0.2) 08/17/19 06:08 Differential Comment Manual differential 08/06/19 06:06 RBC Morphology Normal 08/06/19 06:06 PT Cancelled 08/05/19 07:21 INR Cancelled 08/05/19 07:21 APTT Cancelled 08/05/19 07:21 Sodium 136 mmol/L (136-145) 08/17/19 06:08 Potassium 4.0 mmol/L (3.5-5.1) 08/17/19 06:08 Chloride 102 mmol/L (98-107) 08/17/19 06:08 Carbon Dioxide 27.8 mmol/L (21.0-32.0) 08/17/19 06:08 Anion Gap 6.2 mmol/L (3-11) 08/17/19 06:08 BUN 6 mg/dL (7-18) L 08/17/19 06:08 Creatinine 0.73 mg/dL (0.55-1.02) 08/17/19 06:08 Estimated GFR/1.73 m2 >= 60.00 (mL/min/1.73m2) 08/17/19 06:08 Glucose 89 mg/dL (74-106) 08/17/19 06:08 Lactate 1.5 mmol/L (0.6-1.4) H 08/05/19 06:09 Calcium 8.0 mg/dL (8.5-10.1) L 08/17/19 06:08 Magnesium 1.9 mg/dL (1.8-2.4) 08/17/19 06:08 Iron 154 ug/dL (50-170) 08/17/19 06:08 TIBC 158 ug/dL (250-450) L 08/17/19 06:08 Transferrin % Sat 97 % (15-50) H 08/17/19 06:08 Ferritin 859 ng/mL (8-252) H 08/17/19 06:08 Total Bilirubin 1.1 mg/dL (0.2-1.0) H 08/06/19 06:06 AST 23 U/L (15-37) 08/06/19 06:06 ALT 10 U/L (14-59) L 08/06/19 06:06 Alkaline Phosphatase 30 U/L (46-116) L 08/06/19 06:06 Troponin I 0.06 ng/Ml (<0.06) 08/04/19 16:35 C-Reactive Protein 7.66 mg/dL (0.0-0.3) H 08/06/19 06:06 Total Protein 4.1 g/dL (6.4-8.2) L 08/06/19 06:06 Albumin 2.0 g/dL (3.4-5.0) L 08/06/19 06:06 Urine Color Yellow (Yellow) 08/05/19 20:50 Urine Clarity Clear (Clear) 08/05/19 20:50 Urine pH 6.5 (5-8) 08/05/19 20:50 Ur Specific [place] >= 1.030 (1.005-1.025) H 08/05/19 20:50 Urine Protein 100 mg/dL (Negative) H 08/05/19 20:50 Urine Ketones 15 mg/dL (Negative) H 08/05/19 20:50 Urine Blood Large (Negative) H 08/05/19 20:50 Urine Nitrite Negative (Negative) 08/05/19 20:50 Urine Bilirubin Small (Negative) H 08/05/19 20:50 Urine Urobilinogen 0.2 EU/dL (Up TO 0.2) 08/05/19 20:50 Ur Leukocyte Esterase Negative (Negative) 08/05/19 20:50 Urine RBC >50 HPF (0-2) H 08/05/19 20:50 Urine WBC 0-2 HPF (0-5) 08/05/19 20:50 Ur Epithelial Cells Negative HPF (Negative) 08/05/19 20:50 Urine Crystals Negative HPF (Negative) 08/05/19 20:50 Urine Bacteria Negative HPF (Negative) 08/05/19 20:50 Urine Casts Negative LPF (Negative) 08/05/19 20:50 Urine Mucus Negative (Negative) 08/05/19 20:50 Urine Other Negative (Negative) 08/05/19 20:50 Ur Culture Indicated? No 08/05/19 20:50 Ur Random Creatinine 63.22 mg/dL 08/11/19 11:20 Ur Random Sodium 68 mmol/L 08/11/19 11:20 Ur Random Potassium 29 mmol/L 08/11/19 11:20 Urine Glucose Negative mg/dL (Negative) 08/05/19 20:50 Patient ABO/Rh A Positive 08/04/19 20:21 Antibody Screen Negative 08/04/19 20:21
--- NOTE | 2019-08-17 12:59 | PT.INTREAT ---
Date of service: 08/17/19 Time of Service: 08:30 PT Notes Visit Reasons: CECAL VOLVULUS/s/p cecal resection Date: 08/17/2019 Precautions: Fall. Standard. Activity as tolerated. Abdominal incision from recent surgery with DEBRA drain, place gait belt high up. SUBJECTIVE: Daina notes that she is feeling better. She notes that she gets dizzy upon any exertion. She complains of some pain into her right leg lateral thigh. OBJECTIVE: General Observation: Telemetry monitoring back on as of 08/14/2019. IV access to L UE still open. [place] seen on abdominal surgical incision. DEBRA drain remains in place. B LE TEDS on. PAIN: Mild pain in the right thigh. Unable to rate on scale BED MOBILITY/TRANSFERS: Sit to stand S with minimal cueing for hand placement Stand to sit S with minimal cueing for hand placement Bed to chair S with minimal cueing for hand placement Chair to Bed S with minimal cueing for hand placement GAIT: Patient tolerated level surface ambulation 100 feet with S using front wheeled walker with minimal verbal cueing given to stay close to the walker. No wheelchair follow needed. Akila significantly improved. Trunk more erect. Heart rate remains up and down throughout session. Unable to ambulate in morning session due to elevated HR s/p therex. THEREX: Ankle dorsiflexion plantarflexion x 20, long arc quads x 20, seated hip flexion x 20, and seated hip abduction x 20. She also performed shoulder horizontal abduction/adduction as well as shoulder flexion/extension x 10 coordinated with chest expansion and deep breathing exercises. See flow sheet for specifics. Mild decrease in reps in PM session due to ambulation and elevation in HR. Tolerates all therex well with up and down HR monitoring throughout session. THERA ACT: Continued supervision, cueing, and training during transfers, and ambulation. ASSESSMENT: Decreased distance with ambulation due to elevated HR. Will plan on gradually increasing activity tolerance tomorrow as tolerated. Patient will continue to require supervision level for all mobility ADL performance due to cognitive level. DISCHARGE RECOMMENDATIONS: SNF versus 24/7 care. Will need front wheeled walker to maximize mobility ADL performance. TREATMENT CODE/TIME: Session 1-- [id number] x 20 minutes beginning at 8:30 AM. Session 2-- [id number] x1 10 minutes , [id number] x1 15 minutes beginning at 12:30 PM.
[2019-08-17] MEDS: Normal Saline 500 ML 75 ML IV (13:22)
--- NOTE | 2019-08-17 15:54 | CMPROGNOTE_ITS ---
- If Service Date Differs Date of service: 08/17/19 Time of Service: 15:54 Care Management Progress Note S/O: Daina was sleeping when CM attempted to meet with her. CM contacted [facility] regarding her admission. CM faxed & R updated clinicals at the request of the regional education coordinator. The regional education coordinator at [facility] also informed CM that a negative covid 19 test is now required for admission. CM informed the provider of this new requirement. CM also discussed the implications of this new policy with infectious control. CM will continue to follow. A: Daina is a 84 year old female admitted to the hospital on 08/04/2019 for cecal volvulus, status post right hemicolectomy. P: Anticipate Daina will discharge to a SNF when medically cleared by provider. [facility] is considering her for admission. CM will continue to support patient, family and discharge planning needs.
[2019-08-17] MEDS: traZODone 50 MG TAB PO (20:07)
[2019-08-17] MEDS: Melatonin 3 MG TAB 6 MG PO (20:07)
[2019-08-18 03:43] VITALS: BP 121/72; PULSE 96; RESP 19; TEMP 37.3; O2SAT 97
[2019-08-18 07:19] LABS: Abs Immature Grans 0.03 k/cumm (0.0-0.09); Absolute Eosinophil Count 0.12 k/cumm (0.0-0.7); Absolute Lymphocyte Count 1.03 k/cumm (1.2-3.4); Absolute Monocyte Count 0.43 k/cumm (0.11-0.7); Absolute Neutrophil Count 5.03 k/cumm (1.2-6.7); Eosinophils % 1.8; HCT 30.2 % (36.0-46.0); Immature Grans % 0.5 %; Lymphocytes % 15.5; Mean Corp. HGB Concentration 33.1 g/dL (32.0-36.0); Mean Corpuscular Hemoglobin 33.2 pg (27.0-33.0); Mean Corpuscular Volume 100.3 fL (80-95); Mean Platelet Volume 8.3 fL (8.0-11.0); Monocytes % 6.5; Neutrophils % 75.7; Platelet Count 291 x1000/uL (130-400); RBC 3.01 m/cumm (4.00-5.20); RBC Distribution Width 16.9 % (11.7-14.6); White Blood Cell Count 6.64 k/cumm (4.4-10.8)
[2019-08-18 07:22] LABS: Anion Gap 6.7 mmol/L (3-11); BUN 6 mg/dL (7-18); CO2 27.3 mmol/L (21.0-32.0); CREATININE 0.73 mg/dL (0.55-1.02); Calcium 7.9 mg/dL (8.5-10.1); Chloride 102 mmol/L (98-107); Glucose 90 mg/dL (74-106); Magnesium 1.8 mg/dL (1.8-2.4); Potassium 3.8 mmol/L (3.5-5.1); Sodium 136 mmol/L (136-145)
[2019-08-18 07:25] VITALS: BP 132/80; PULSE 112; RESP 16; TEMP 36; O2SAT 98
[2019-08-18] MEDS: Sertraline 25 MG TAB 12.5 MG PO (08:43)
[2019-08-18] MEDS: Metoprolol 25 MG TAB PO ×4 (08:43→23:48)
[2019-08-18] MEDS: Lactobacillus Acidophilus CAP 1 CAP PO ×2 (08:43→20:10)
[2019-08-18] MEDS: Magnesium Oxide 400 MG TAB PO ×2 (08:43→20:10)
[2019-08-18] MEDS: Pantoprazole 40 MG TABCR PO ×2 (08:44→20:10)
--- NOTE | 2019-08-18 10:44 | PGE_ITS ---
Date of Service Date of service: 08/18/19 Time of Service: 10:44 Assessment and Plan Assessment and plan (1) Advanced care planning/counseling discussion: Status: Acute (2) Anemia due to blood loss, acute: Status: Acute Assessment and plan: discontinued blood thinners (3) Dementia: Status: Chronic Assessment and plan: cont PT nutritional support cont Picos until wound closed. transfer to [facility] when medically stable. Qualifiers: Dementia type: unspecified type Dementia behavioral disturbance: with behavioral disturbance Qualified Code(s): F03.91 - Unspecified dementia with behavioral disturbance Subjective Subjective Interval history since last seen: yesterady's notes appreciated. labs are nl today pt does not eat or drink per RN's. no fevers. Had BM yesterday- no blood. no BM today changed the Picos today- wound is looking better Exam Resp Effort & Inspection: normal respiratory effort, able to speak in complete sentences and no cough Auscultation: clear to auscultation bilaterally Cardio Rate: other Rhythm: regular rhythm Other: chronic a fib. GI Inspection: normal to inspection and incision (no redness. minimal serous drainage. the open area is granulating w/out) Palpation: soft Auscultation: normal bowel sounds Other: about 2x1cm open area in the central portion of the incision. serous drainage. good granulation tissue present. continue picos until granulated in. cade are still in place. Skin Other: no breakdown per nursings Extrem Other: mild +1 edema Objective Objective Clinical Data: Abnormal lab results 08/18/19 08/18/19 Range/Units 06:35 06:35 RBC 3.01 L (4.00-5.20) m/cumm Hgb 10.0 L (12.0-15.5) g/dL Hct 30.2 L (36.0-46.0) % MCV 100.3 H (80-95) fL MCH 33.2 H (27.0-33.0) pg RDW 16.9 H (11.7-14.6) % Absolute Lymphocytes 1.03 L (1.2-3.4) k/cumm BUN 6 L (7-18) mg/dL Calcium 7.9 L (8.5-10.1) mg/dL Vital Signs Temperature 36.0 C L 08/18/19 07:25 Temperature Source Tympanic 08/18/19 07:25 Pulse 112 H 08/18/19 07:25 Pulse Rhythm Irregular 08/18/19 05:21 Pulse 104 H 08/11/19 12:00 Respiratory Rate 16 08/18/19 07:25 Respiratory Effort Non-Labored 08/18/19 05:21 Respiratory Depth Normal 08/18/19 05:21 Respiratory Pattern Normal 08/18/19 05:21 Blood Pressure 132/80 08/18/19 07:25 Blood Pressure Mean 82 08/11/19 09:41 Blood Pressure Position Sitting 08/09/19 15:56 Pulse Oximetry 98 08/18/19 07:25 Respiratory End-tidal CO2 35 08/05/19 14:45 Oxygen Delivery Method Room Air 08/18/19 07:25 Oxygen Flow Rate 0 08/18/19 07:25 Pain Level 0 08/18/19 03:43 Comment 08/15/19 10:22 Intake & Output 08/17/19 08/17/19 08/18/19 11:59 23:59 11:59 Intake Total 90 / 830 740 / 830 Output Total 1800 / 3100 1300 / 3100 1225 / 1225 Balance -1710 / -2270 -560 / -2270 -1225 / -1225 Weight 50 kg 48.9 kg Intake: IV 500 / 500 Oral 90 / 330 240 / 330 Output: Urine 1800 / 3100 1300 / 3100 1225 / 1225 Other: Urine Color Yellow Yellow Yellow Urine Appearance Clear Clear Clear Urine Odor Normal Normal Normal Comment mixed with smear bm Stool Size Moderate Smear Stool Characteristics Soft Soft Brown Brown Voiding Methods Toilet Toilet Toilet Laboratory Results WBC 6.64 k/cumm (4.4-10.8) 08/18/19 06:35 RBC 3.01 m/cumm (4.00-5.20) L 08/18/19 06:35 Hgb 10.0 g/dL (12.0-15.5) L 08/18/19 06:35 Hct 30.2 % (36.0-46.0) L 08/18/19 06:35 MCV 100.3 fL (80-95) H 08/18/19 06:35 MCH 33.2 pg (27.0-33.0) H 08/18/19 06:35 MCHC 33.1 g/dL (32.0-36.0) 08/18/19 06:35 RDW 16.9 % (11.7-14.6) H 08/18/19 06:35 Plt Count 291 x1000/uL (130-400) 08/18/19 06:35 MPV 8.3 fL (8.0-11.0) 08/18/19 06:35 Immature Gran % 0.5 % 08/18/19 06:35 Neutrophils % 75.7 08/18/19 06:35 Band Neutrophils % 1.0 % 08/06/19 06:06 Lymphocytes % 15.5 08/18/19 06:35 Atypical Lymphs % 4 08/06/19 06:06 Monocytes % 6.5 08/18/19 06:35 Eosinophils % 1.8 08/18/19 06:35 Basophils % 0.0 08/18/19 06:35 Absolute Neutrophils 5.03 k/cumm (1.2-6.7) 08/18/19 06:35 Absolute Lymphocytes 1.03 k/cumm (1.2-3.4) L 08/18/19 06:35 Absolute Monocytes 0.43 k/cumm (0.11-0.7) 08/18/19 06:35 Absolute Eosinophils 0.12 k/cumm (0.0-0.7) 08/18/19 06:35 Absolute Basophils 0.00 k/cumm (0.0-0.2) 08/18/19 06:35 Differential Comment Manual differential 08/06/19 06:06 RBC Morphology Normal 08/06/19 06:06 PT Cancelled 08/05/19 07:21 INR Cancelled 08/05/19 07:21 APTT Cancelled 08/05/19 07:21 Sodium 136 mmol/L (136-145) 08/18/19 06:35 Potassium 3.8 mmol/L (3.5-5.1) 08/18/19 06:35 Chloride 102 mmol/L (98-107) 08/18/19 06:35 Carbon Dioxide 27.3 mmol/L (21.0-32.0) 08/18/19 06:35 Anion Gap 6.7 mmol/L (3-11) 08/18/19 06:35 BUN 6 mg/dL (7-18) L 08/18/19 06:35 Creatinine 0.73 mg/dL (0.55-1.02) 08/18/19 06:35 Estimated GFR/1.73 m2 >= 60.00 (mL/min/1.73m2) 08/18/19 06:35 Glucose 90 mg/dL (74-106) 08/18/19 06:35 Lactate 1.5 mmol/L (0.6-1.4) H 08/05/19 06:09 Calcium 7.9 mg/dL (8.5-10.1) L 08/18/19 06:35 Magnesium 1.8 mg/dL (1.8-2.4) 08/18/19 06:35 Iron 154 ug/dL (50-170) 08/17/19 06:08 TIBC 158 ug/dL (250-450) L 08/17/19 06:08 Transferrin % Sat 97 % (15-50) H 08/17/19 06:08 Ferritin 859 ng/mL (8-252) H 08/17/19 06:08 Total Bilirubin 1.1 mg/dL (0.2-1.0) H 08/06/19 06:06 AST 23 U/L (15-37) 08/06/19 06:06 ALT 10 U/L (14-59) L 08/06/19 06:06 Alkaline Phosphatase 30 U/L (46-116) L 08/06/19 06:06 Troponin I 0.06 ng/Ml (<0.06) 08/04/19 16:35 C-Reactive Protein 7.66 mg/dL (0.0-0.3) H 08/06/19 06:06 Total Protein 4.1 g/dL (6.4-8.2) L 08/06/19 06:06 Albumin 2.0 g/dL (3.4-5.0) L 08/06/19 06:06 Urine Color Yellow (Yellow) 08/05/19 20:50 Urine Clarity Clear (Clear) 08/05/19 20:50 Urine pH 6.5 (5-8) 08/05/19 20:50 Ur Specific [place] >= 1.030 (1.005-1.025) H 08/05/19 20:50 Urine Protein 100 mg/dL (Negative) H 08/05/19 20:50 Urine Ketones 15 mg/dL (Negative) H 08/05/19 20:50 Urine Blood Large (Negative) H 08/05/19 20:50 Urine Nitrite Negative (Negative) 08/05/19 20:50 Urine Bilirubin Small (Negative) H 08/05/19 20:50 Urine Urobilinogen 0.2 EU/dL (Up TO 0.2) 08/05/19 20:50 Ur Leukocyte Esterase Negative (Negative) 08/05/19 20:50 Urine RBC >50 HPF (0-2) H 08/05/19 20:50 Urine WBC 0-2 HPF (0-5) 08/05/19 20:50 Ur Epithelial Cells Negative HPF (Negative) 08/05/19 20:50 Urine Crystals Negative HPF (Negative) 08/05/19 20:50 Urine Bacteria Negative HPF (Negative) 08/05/19 20:50 Urine Casts Negative LPF (Negative) 08/05/19 20:50 Urine Mucus Negative (Negative) 08/05/19 20:50 Urine Other Negative (Negative) 08/05/19 20:50 Ur Culture Indicated? No 08/05/19 20:50 Ur Random Creatinine 63.22 mg/dL 08/11/19 11:20 Ur Random Sodium 68 mmol/L 08/11/19 11:20 Ur Random Potassium 29 mmol/L 08/11/19 11:20 Urine Glucose Negative mg/dL (Negative) 08/05/19 20:50 Patient ABO/Rh A Positive 08/04/19 20:21 Antibody Screen Negative 08/04/19 20:21
[2019-08-18 11:41] VITALS: BP 106/69; PULSE 87; RESP 16; TEMP 36.7; O2SAT 99
--- NOTE | 2019-08-18 13:20 | W.NUTRFU ---
Date of service: 08/18/19 Time of Service: 13:20 Nutritional Follow up NOTE: Daina continues to have poor po intake, will take ensure some days but overall continues to meet less than 50% nutrient needs. Weight fluctuations noted since admission, may be scale error. BMI<19 indicating underweight status. Daina is fed by staff but is unwilling to complete meals once she has decided she is done. At high nutritional risk, with malnutrition in context of acute illness and at high risk for skin breakdown. will continue to encourage po intake. Nutrition support not desired per [facility]. Time Spent in Nutritional Counseling and Treatment: 10 min spent face to face
--- NOTE | 2019-08-18 14:29 | PTTR_ITS ---
Date of service: 08/18/19 Time of Service: 14:30 PT Notes Visit Reasons: CECAL VOLVULUS/s/p cecal resection Physical Therapy Inpatient Treatment Note Date: 08/18/2019 Precautions: Fall. Standard. Activity as tolerated. Abdominal incision from recent surgery with DEBRA drain, place gait belt high up. SUBJECTIVE: Daina complained of being a bit dizzy after sitting up from lying down in bed. No abdominal pain complaint during and after ambulation activity or with exercises. Declines any pain in her legs. Questions if she is going to be able to see her family soon. Remains confused for also asks if her parents can come and visit. OBJECTIVE: General Observation: Telemetry monitoring. IV access to L UE still open. [place] seen on abdominal surgical incision. DEBRA drain remains in place. B LE TEDS on. PAIN: None BED MOBILITY/TRANSFERS: Supine to sit I Sit to supine I Sit to stand S with minimal cueing for hand placement Stand to sit S with minimal cueing for hand placement Bed to chair S with FWW minimal cueing for hand placement Chair to bed S with FWW minimal cueing for hand placement GAIT: Patient tolerated level surface ambulation 100 feet in AM session with S using front wheeled walker with minimal verbal cueing given to stay close to the walker with improved marc and upright trunk. Patient assisted to toilet in PM session however refused further ambulation distance due to fatigue. Assisted back to bed post exercises. THEREX: Ankle dorsiflexion plantarflexion x 20, long arc quads x 20, seated hip flexion x 20, and seated hip abduction x 20. She also performed shoulder flexion/extension x 20 coordinated with chest expansion and deep breathing exercises along with elbow flexion/extension x20. Patient also completed standing hip flexion x10, hip abduction x10, and knee flexion x10. In PM session completed heel raises x10 THERA ACT: Continued supervision, cueing, and training during toileting tasks, transfers, and ambulation. ASSESSMENT: Tolerated sessions well today with improved HR. Will plan on gradually increasing activity tolerance tomorrow as tolerated. Patient will continue to require supervision level for all mobility ADL performance due to cognitive level. DISCHARGE RECOMMENDATIONS: SNF versus 24/7 care. Will need front wheeled walker to maximize mobility ADL performance. TREATMENT CODE/TIME: Session 1-- [id number], [id number] 30 minutes beginning at 9:50 AM. Session 2-- [id number] 25 minutes beginning at 14:00 PM. Ashly Cisneros, MPT
--- NOTE | 2019-08-18 15:53 | W.PM.PROGNOT ---
Date of Service Date of service: 08/18/19 Time of Service: 15:54 Assessment and Plan Assessment and plan (1) Atrial fibrillation and flutter: Status: Acute Assessment and plan: Increase metoprolol. Apixaban d/c'ed in setting of bleeding. Continue to monitor on tele. (2) Bright red blood per rectum: Status: Resolved Assessment and plan: likely bled from anasthamotic site in setting of anticoagulation, but now tolerating a diet and bleeding resolved. Will not resume anticoagulation. Seen by palliative care. 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 As above (4) Dementia: Status: Chronic Assessment and plan: Continue trazodone 50 mg, melatonin at bedtime. Avoid benzodiazepines. Qualifiers: Dementia type: unspecified type Dementia behavioral disturbance: with behavioral disturbance Qualified Code(s): F03.91 - Unspecified dementia with behavioral disturbance (5) Leg pain, right: Status: Resolved Assessment and plan: Denies pain currently (6) Oliguria: Status: Resolved Assessment and plan: Resolved with hydration (7) DVT prophylaxis: Status: Acute Assessment and plan: TEDs/SCDS. Cannot tolerate chemical anticoagulation due to GI bleeding (8) Discharge planning issues: Status: Acute Assessment and plan: Palliative care consulted COVID 19 ordered for SNF placement Subjective Subjective Interval history since last seen: Denies dizziness, chest pain, shortness of breath, nausea, vomiting. HR up to 180's on occasion, but mostly 90-100 prior to metoprolol dose being increased. Exam Narrative Exam Narrative: General: Very pleasant elderly female, sitting in a chair, eating lunch, looks well HEENT: EOMI, MMM Heart: irregularly irregular rhythm Lungs: CTAB Abdomen: soft, nondistended; midline abdominal incision is dressed Extremities: trace BLE edema, symmetric, wearing TEDs Objective Objective Clinical Data: Abnormal lab results 08/18/19 08/18/19 Range/Units 06:35 06:35 RBC 3.01 L (4.00-5.20) m/cumm Hgb 10.0 L (12.0-15.5) g/dL Hct 30.2 L (36.0-46.0) % MCV 100.3 H (80-95) fL MCH 33.2 H (27.0-33.0) pg RDW 16.9 H (11.7-14.6) % Absolute Lymphocytes 1.03 L (1.2-3.4) k/cumm BUN 6 L (7-18) mg/dL Calcium 7.9 L (8.5-10.1) mg/dL Vital Signs Temperature 36.7 C 08/18/19 11:41 Temperature Source Temporal Artery Scan 08/18/19 11:41 Pulse 87 08/18/19 11:41 Pulse Rhythm Irregular 08/18/19 10:51 Pulse 104 H 08/11/19 12:00 Respiratory Rate 16 08/18/19 11:41 Respiratory Effort Non-Labored 08/18/19 10:51 Respiratory Depth Normal 08/18/19 10:51 Respiratory Pattern Normal 08/18/19 10:51 Blood Pressure 106/69 08/18/19 11:41 Blood Pressure Mean 82 08/11/19 09:41 Blood Pressure Position Sitting 08/09/19 15:56 Pulse Oximetry 99 08/18/19 11:41 Respiratory End-tidal CO2 35 08/05/19 14:45 Oxygen Delivery Method Room Air 08/18/19 11:41 Oxygen Flow Rate 0 08/18/19 11:41 Pain Level 0 08/18/19 03:43 Comment 08/15/19 10:22 Intake & Output 08/17/19 08/18/19 08/18/19 23:59 11:59 23:59 Intake Total 740 / 830 450 / 450 Output Total 1300 / 3100 1225 / 1225 Balance -560 / -2270 -1225 / -775 450 / -775 Weight 48.9 kg Intake: IV 500 / 500 Oral 240 / 330 450 / 450 Output: Urine 1300 / 3100 1225 / 1225 Other: Urine Color Yellow Yellow Urine Appearance Clear Clear Urine Odor Normal Normal Comment mixed with smear bm Stool Size Moderate Smear Stool Characteristics Soft Soft Brown Brown Voiding Methods Toilet Toilet Laboratory Results WBC 6.64 k/cumm (4.4-10.8) 08/18/19 06:35 RBC 3.01 m/cumm (4.00-5.20) L 08/18/19 06:35 Hgb 10.0 g/dL (12.0-15.5) L 08/18/19 06:35 Hct 30.2 % (36.0-46.0) L 08/18/19 06:35 MCV 100.3 fL (80-95) H 08/18/19 06:35 MCH 33.2 pg (27.0-33.0) H 08/18/19 06:35 MCHC 33.1 g/dL (32.0-36.0) 08/18/19 06:35 RDW 16.9 % (11.7-14.6) H 08/18/19 06:35 Plt Count 291 x1000/uL (130-400) 08/18/19 06:35 MPV 8.3 fL (8.0-11.0) 08/18/19 06:35 Immature Gran % 0.5 % 08/18/19 06:35 Neutrophils % 75.7 08/18/19 06:35 Band Neutrophils % 1.0 % 08/06/19 06:06 Lymphocytes % 15.5 08/18/19 06:35 Atypical Lymphs % 4 08/06/19 06:06 Monocytes % 6.5 08/18/19 06:35 Eosinophils % 1.8 08/18/19 06:35 Basophils % 0.0 08/18/19 06:35 Absolute Neutrophils 5.03 k/cumm (1.2-6.7) 08/18/19 06:35 Absolute Lymphocytes 1.03 k/cumm (1.2-3.4) L 08/18/19 06:35 Absolute Monocytes 0.43 k/cumm (0.11-0.7) 08/18/19 06:35 Absolute Eosinophils 0.12 k/cumm (0.0-0.7) 08/18/19 06:35 Absolute Basophils 0.00 k/cumm (0.0-0.2) 08/18/19 06:35 Differential Comment Manual differential 08/06/19 06:06 RBC Morphology Normal 08/06/19 06:06 PT Cancelled 08/05/19 07:21 INR Cancelled 08/05/19 07:21 APTT Cancelled 08/05/19 07:21 Sodium 136 mmol/L (136-145) 08/18/19 06:35 Potassium 3.8 mmol/L (3.5-5.1) 08/18/19 06:35 Chloride 102 mmol/L (98-107) 08/18/19 06:35 Carbon Dioxide 27.3 mmol/L (21.0-32.0) 08/18/19 06:35 Anion Gap 6.7 mmol/L (3-11) 08/18/19 06:35 BUN 6 mg/dL (7-18) L 08/18/19 06:35 Creatinine 0.73 mg/dL (0.55-1.02) 08/18/19 06:35 Estimated GFR/1.73 m2 >= 60.00 (mL/min/1.73m2) 08/18/19 06:35 Glucose 90 mg/dL (74-106) 08/18/19 06:35 Lactate 1.5 mmol/L (0.6-1.4) H 08/05/19 06:09 Calcium 7.9 mg/dL (8.5-10.1) L 08/18/19 06:35 Magnesium 1.8 mg/dL (1.8-2.4) 08/18/19 06:35 Iron 154 ug/dL (50-170) 08/17/19 06:08 TIBC 158 ug/dL (250-450) L 08/17/19 06:08 Transferrin % Sat 97 % (15-50) H 08/17/19 06:08 Ferritin 859 ng/mL (8-252) H 08/17/19 06:08 Total Bilirubin 1.1 mg/dL (0.2-1.0) H 08/06/19 06:06 AST 23 U/L (15-37) 08/06/19 06:06 ALT 10 U/L (14-59) L 08/06/19 06:06 Alkaline Phosphatase 30 U/L (46-116) L 08/06/19 06:06 Troponin I 0.06 ng/Ml (<0.06) 08/04/19 16:35 C-Reactive Protein 7.66 mg/dL (0.0-0.3) H 08/06/19 06:06 Total Protein 4.1 g/dL (6.4-8.2) L 08/06/19 06:06 Albumin 2.0 g/dL (3.4-5.0) L 08/06/19 06:06 Urine Color Yellow (Yellow) 08/05/19 20:50 Urine Clarity Clear (Clear) 08/05/19 20:50 Urine pH 6.5 (5-8) 08/05/19 20:50 Ur Specific [place] >= 1.030 (1.005-1.025) H 08/05/19 20:50 Urine Protein 100 mg/dL (Negative) H 08/05/19 20:50 Urine Ketones 15 mg/dL (Negative) H 08/05/19 20:50 Urine Blood Large (Negative) H 08/05/19 20:50 Urine Nitrite Negative (Negative) 08/05/19 20:50 Urine Bilirubin Small (Negative) H 08/05/19 20:50 Urine Urobilinogen 0.2 EU/dL (Up TO 0.2) 08/05/19 20:50 Ur Leukocyte Esterase Negative (Negative) 08/05/19 20:50 Urine RBC >50 HPF (0-2) H 08/05/19 20:50 Urine WBC 0-2 HPF (0-5) 08/05/19 20:50 Ur Epithelial Cells Negative HPF (Negative) 08/05/19 20:50 Urine Crystals Negative HPF (Negative) 08/05/19 20:50 Urine Bacteria Negative HPF (Negative) 08/05/19 20:50 Urine Casts Negative LPF (Negative) 08/05/19 20:50 Urine Mucus Negative (Negative) 08/05/19 20:50 Urine Other Negative (Negative) 08/05/19 20:50 Ur Culture Indicated? No 08/05/19 20:50 Ur Random Creatinine 63.22 mg/dL 08/11/19 11:20 Ur Random Sodium 68 mmol/L 08/11/19 11:20 Ur Random Potassium 29 mmol/L 08/11/19 11:20 Urine Glucose Negative mg/dL (Negative) 08/05/19 20:50 Patient ABO/Rh A Positive 08/04/19 20:21 Antibody Screen Negative 08/04/19 20:21
[2019-08-18 16:09] VITALS: BP 150/84; PULSE 110; RESP 18; TEMP 35.3; O2SAT 98
--- NOTE | 2019-08-18 17:45 | PDOC.CMPRO ---
- If Service Date Differs Date of service: 08/18/19 Time of Service: 17:45 Care Management Progress Note S/O: Daina was sitting up in her bed when CM met with her. She reported that she was feeling much better and would like to return home soon. CM stated that her discharge plan is in process, and we are awaiting test results needed prior to discharge. Daina has been accepted at [facility], pending a negative Covid 19 test, which was conducted today. Once a negative test has been recorded, she will transition to [facility]. CM will continue to follow. A: Daina is a 84 year old female admitted to the hospital on 08/04/2019 for cecal volvulus, status post right hemicolectomy. P: Anticipate Daina will discharge to a SNF when medically cleared by provider. [facility] is has made a bed offer, pending a negative Covid 19 test. CM will continue to support patient, family and discharge planning needs.
[2019-08-18 19:09] VITALS: BP 115/77; PULSE 107; RESP 18; TEMP 36.4; O2SAT 96
[2019-08-18] MEDS: traZODone 50 MG TAB PO (20:10)
[2019-08-18] MEDS: Melatonin 3 MG TAB 6 MG PO (21:33)
[2019-08-18 23:50] VITALS: BP 137/94; PULSE 102; RESP 17; TEMP 36.5; O2SAT 96
[2019-08-19 05:26] VITALS: BP 120/78; PULSE 92; RESP 18; TEMP 36.5; O2SAT 97
[2019-08-19] MEDS: Metoprolol 25 MG TAB PO (05:32)
[2019-08-19 06:58] LABS: BUN 7 mg/dL (7-18); CREATININE 0.73 mg/dL (0.55-1.02); Calcium 8.1 mg/dL (8.5-10.1); Chloride 104 mmol/L (98-107); Glucose 88 mg/dL (74-106); Magnesium 1.9 mg/dL (1.8-2.4); Potassium 3.8 mmol/L (3.5-5.1); Sodium 138 mmol/L (136-145)
[2019-08-19 07:20] VITALS: BP 116/75; PULSE 88; RESP 18; TEMP 36.2; O2SAT 96
[2019-08-19 08:48] LABS: COVID-19 RT-PCR Result Negative (Negative)
[2019-08-19] MEDS: Lactobacillus Acidophilus CAP 1 CAP PO (09:26)
[2019-08-19] MEDS: Magnesium Oxide 400 MG TAB PO (09:26)
[2019-08-19] MEDS: Pantoprazole 40 MG TABCR PO (09:26)
[2019-08-19] MEDS: Sertraline 25 MG TAB 12.5 MG PO (09:27)
--- NOTE | 2019-08-19 10:33 | W.PM.PROGNOT ---
Date of Service Date of service: 08/19/19 Time of Service: 10:33 Assessment and Plan Assessment and plan (1) S/P right hemicolectomy: Status: Acute Assessment and plan: Stable COVID testing negative, plan for discharge to SNF today. Subjective Subjective Interval history since last seen: Patient has no complaints. Back discomfort is improved with positioning. Nursing reports no evidence of bleeding/no other concerns. Exam Narrative Exam Narrative: Alert, no distress Abdomen soft, nondistended. No significant tenderness. Dressing dry. Objective Objective Clinical Data: Abnormal lab results 08/19/19 Range/Units 06:19 Calcium 8.1 L (8.5-10.1) mg/dL Vital Signs Temperature 97.2 F L 08/19/19 07:20 Temperature Source Tympanic 08/19/19 07:20 Pulse 88 08/19/19 07:20 Pulse Rhythm Irregular 08/19/19 09:20 Pulse 104 H 08/11/19 12:00 Respiratory Rate 18 08/19/19 07:20 Respiratory Effort Non-Labored 08/19/19 09:20 Respiratory Depth Normal 08/19/19 09:20 Respiratory Pattern Normal 08/19/19 09:20 Blood Pressure 116/75 08/19/19 07:20 Blood Pressure Mean 82 08/11/19 09:41 Blood Pressure Position Sitting 08/09/19 15:56 Pulse Oximetry 96 08/19/19 07:20 Respiratory End-tidal CO2 35 08/05/19 14:45 Oxygen Delivery Method Room Air 08/19/19 07:20 Oxygen Flow Rate 0 08/19/19 07:20 Pain Level 0 08/19/19 07:20 Comment 08/15/19 10:22 Intake & Output 08/18/19 08/18/19 08/19/19 11:59 23:59 11:59 Intake Total 570 / 570 Output Total 1225 / 1825 600 / 1825 Balance -1225 / -1255 -30 / -1255 Weight 107 lb 12.897 oz 107 lb 12.897 oz Intake: Oral 570 / 570 Output: Urine 1225 / 1825 600 / 1825 Other: Urine Color Yellow Yellow Yellow Urine Appearance Clear Clear Clear Urine Odor Normal None Comment mixed with smear bm Stool Size Smear Moderate Stool Characteristics Soft Soft Brown Formed Brown Voiding Methods Toilet Toilet Toilet Laboratory Results WBC 6.64 k/cumm (4.4-10.8) 08/18/19 06:35 RBC 3.01 m/cumm (4.00-5.20) L 08/18/19 06:35 Hgb 10.0 g/dL (12.0-15.5) L 08/18/19 06:35 Hct 30.2 % (36.0-46.0) L 08/18/19 06:35 MCV 100.3 fL (80-95) H 08/18/19 06:35 MCH 33.2 pg (27.0-33.0) H 08/18/19 06:35 MCHC 33.1 g/dL (32.0-36.0) 08/18/19 06:35 RDW 16.9 % (11.7-14.6) H 08/18/19 06:35 Plt Count 291 x1000/uL (130-400) 08/18/19 06:35 MPV 8.3 fL (8.0-11.0) 08/18/19 06:35 Immature Gran % 0.5 % 08/18/19 06:35 Neutrophils % 75.7 08/18/19 06:35 Band Neutrophils % 1.0 % 08/06/19 06:06 Lymphocytes % 15.5 08/18/19 06:35 Atypical Lymphs % 4 08/06/19 06:06 Monocytes % 6.5 08/18/19 06:35 Eosinophils % 1.8 08/18/19 06:35 Basophils % 0.0 08/18/19 06:35 Absolute Neutrophils 5.03 k/cumm (1.2-6.7) 08/18/19 06:35 Absolute Lymphocytes 1.03 k/cumm (1.2-3.4) L 08/18/19 06:35 Absolute Monocytes 0.43 k/cumm (0.11-0.7) 08/18/19 06:35 Absolute Eosinophils 0.12 k/cumm (0.0-0.7) 08/18/19 06:35 Absolute Basophils 0.00 k/cumm (0.0-0.2) 08/18/19 06:35 Differential Comment Manual differential 08/06/19 06:06 RBC Morphology Normal 08/06/19 06:06 PT Cancelled 04/02/20 07:21 INR Cancelled 08/05/19 07:21 APTT Cancelled 08/05/19 07:21 Sodium 138 mmol/L (136-145) 08/19/19 06:19 Potassium 3.8 mmol/L (3.5-5.1) 08/19/19 06:19 Chloride 104 mmol/L (98-107) 08/19/19 06:19 Carbon Dioxide 29.0 mmol/L (21.0-32.0) 08/19/19 06:19 Anion Gap 5.0 mmol/L (3-11) 08/19/19 06:19 BUN 7 mg/dL (7-18) 08/19/19 06:19 Creatinine 0.73 mg/dL (0.55-1.02) 08/19/19 06:19 Estimated GFR/1.73 m2 >= 60.00 (mL/min/1.73m2) 08/19/19 06:19 Glucose 88 mg/dL (74-106) 08/19/19 06:19 Lactate 1.5 mmol/L (0.6-1.4) H 08/05/19 06:09 Calcium 8.1 mg/dL (8.5-10.1) L 08/19/19 06:19 Magnesium 1.9 mg/dL (1.8-2.4) 08/19/19 06:19 Iron 154 ug/dL (50-170) 08/17/19 06:08 TIBC 158 ug/dL (250-450) L 08/17/19 06:08 Transferrin % Sat 97 % (15-50) H 08/17/19 06:08 Ferritin 859 ng/mL (8-252) H 08/17/19 06:08 Total Bilirubin 1.1 mg/dL (0.2-1.0) H 08/06/19 06:06 AST 23 U/L (15-37) 08/06/19 06:06 ALT 10 U/L (14-59) L 08/06/19 06:06 Alkaline Phosphatase 30 U/L (46-116) L 08/06/19 06:06 Troponin I 0.06 ng/Ml (<0.06) 08/04/19 16:35 C-Reactive Protein 7.66 mg/dL (0.0-0.3) H 08/06/19 06:06 Total Protein 4.1 g/dL (6.4-8.2) L 08/06/19 06:06 Albumin 2.0 g/dL (3.4-5.0) L 08/06/19 06:06 Urine Color Yellow (Yellow) 08/05/19 20:50 Urine Clarity Clear (Clear) 08/05/19 20:50 Urine pH 6.5 (5-8) 08/05/19 20:50 Ur Specific [place] >= 1.030 (1.005-1.025) H 08/05/19 20:50 Urine Protein 100 mg/dL (Negative) H 08/05/19 20:50 Urine Ketones 15 mg/dL (Negative) H 08/05/19 20:50 Urine Blood Large (Negative) H 08/05/19 20:50 Urine Nitrite Negative (Negative) 08/05/19 20:50 Urine Bilirubin Small (Negative) H 08/05/19 20:50 Urine Urobilinogen 0.2 EU/dL (Up TO 0.2) 08/05/19 20:50 Ur Leukocyte Esterase Negative (Negative) 08/05/19 20:50 Urine RBC >50 HPF (0-2) H 08/05/19 20:50 Urine WBC 0-2 HPF (0-5) 08/05/19 20:50 Ur Epithelial Cells Negative HPF (Negative) 08/05/19 20:50 Urine Crystals Negative HPF (Negative) 08/05/19 20:50 Urine Bacteria Negative HPF (Negative) 08/05/19 20:50 Urine Casts Negative LPF (Negative) 08/05/19 20:50 Urine Mucus Negative (Negative) 08/05/19 20:50 Urine Other Negative (Negative) 08/05/19 20:50 Ur Culture Indicated? No 08/05/19 20:50 Ur Random Creatinine 63.22 mg/dL 08/11/19 11:20 Ur Random Sodium 68 mmol/L 08/11/19 11:20 Ur Random Potassium 29 mmol/L 08/11/19 11:20 Urine Glucose Negative mg/dL (Negative) 08/05/19 20:50 Coronavirus (PCR) Negative (Negative) 08/18/19 12:15 Patient ABO/Rh A Positive 08/04/19 20:21 Antibody Screen Negative 08/04/19 20:21
--- NOTE | 2019-08-19 10:36 | DSE_ITS ---
Date of service: 08/19/19 Time of Service: 10:37 DS: Diagnosis Discharge Diagnosis (1) S/P right hemicolectomy: Status: Acute (2) Anemia due to blood loss, acute: Status: Acute (3) Dementia: Status: Chronic (4) Low body mass index: Status: Acute Discharge Plan Disposition Patient Disposition: SKILLED NSG. FAC.(LEVEL 1) Condition: Serious Discharge Details Chief Complaint: Abd Prob Clinical Impression: Cecal volvulus Reason For Visit: CECAL VOLVULUS/s/p cecal resection Admit Date/Time: 08/04/19 18:59 Admit Provider: Sharyn Valles Attending Provider: Sharyn Valles Primary Care Provider: Gulshan Howe ED Provider: Keisha Clarke [facility] Course Hospital Course: Surgical course per Dr. Valles Patient has chronic atrial fibrillation and postoperatively had elevated heart rates and medicine was consulted. Metoprolol was converted to tartrate form to allow for faster titration, and IV metoprolol was also used. She ended up on a dose of 37.5 mg Toprol tartrate twice daily, which is 50% higher than her outpatient dose of 25 mg metoprolol succinate daily. Patient had bilateral lower extremity swelling postoperatively, which was worse on the right side. She had some pain in that right leg and a lower extremity venous ultrasound was done 08/11/2019, which showed no DVT. Transthoracic echocardiogram performed 08/11/2019 which showed globally normal left ventricular systolic function with ejection fraction of 65%. There was moderate 2/4 mitral vegetation and moderate to severe 3/4 tricuspid regurgitation. Pulmonary artery systolic pressure was 32 mmHg. Small left pleural effusion was also noted. Patient became oliguric several days postoperatively. This appears to have corresponded with the use of furosemide for her lower extremity edema and concern for CHF, along with her poor oral intake. A FENa of 0.5% did confirm prerenal azotemia, and the patient did respond to a second 500 mL bolus of lactated Ringer's. Her renal function was stable and her fluid intake and urine output had improved by the end of her stay. Patient's nutritional status was suspected to be chronically poor, though her albumin was normal on admission. Potassium and magnesium was low and was supplemented. Nutrition was consulted, who recommended liquid supplements, but was concerned of the patient's total caloric intake was adequate. Feeding tube was not considered given her baseline dementia. Pt was admitted on 08/03 w/ acute abdominal pain and vomiting. She was found to have a cecal volulus. She was admitted for fluid, hydration, and pain control. She was on elequis, and we did reverse this. The vovlus did not resolve spontaneously. It was attempted to decompress w/ endoscopy- but this was not successful. I did d/w Daina's condition with her daughter Coretta, she did wish to proceed with surgical intervention, given the risks and benefits. Daina underwent uneventful laparotomy and cecal resection and primary anatomosis. She was kept in the ICU for close observation. She did well after surgery; she had no problems with pneumonia, blood clots or any infections. She had some issues with rate control from her A. fib, this was addressed by bethanie estrada as above. When we attempted to put her back on her blood thinners, she did develop some bleeding from her anatomosis. She resolved once the blood thinners were dicontinued. I do not feel she is a good candidate for watermelon inspector anticoagulants secondary to her fall risk. Daina has advanced dementia and 'm not sure if she is orientated to herself. She will not eat or drink unless cued. She has made good strides with physical therapy. But she has very poor exercise tolerant and still fatigues easily. She was in an independent living situation prior to hospitalization, and I do not think it would be safe for her to return to this environment. She has been very pleasant and cooperative throughout her stay. She does not have any aggressive or violent tendency's. She does not do well with changes in her environment, and becomes increasingly confused and suspicious. She also becomes more confused towards the end of the day and when she is tired, but generally responds to orientation and staff. She is not verbally or physically abusive. She is a DNR/DNI, and did have a palliative care consult while in the hospital. Her wound is healing nicely- and will maintain a PICOs wound system. last change was08/17. I will see her at clinic on 08/25. Activity so to tolerance. Cover the PICOs to shower. Diet is to tolerance with protein supplements. Home Meds and New Rx's Prescriptions: New melatonin 3 mg Tablet Extended Release 6 mg PO HS PRN (Reason: insom) 30 Days Qty: 60 RF: 12 acidophilus-pectin, citrus 25 million cell -100 mg Tablet 1 cap PO BID 30 Days Qty: 60 RF: 0 tramadol 50 mg tablet 50 mg PO Q6H PRNQty: 14 RF: 0 metoprolol tartrate 37.5 mg tablet 37.5 mg PO BID Qty: 60 RF: 12 trazodone 50 mg tablet 50 mg PO QHS PRNQty: 30 RF: 12 magnesium oxide 400 mg (241.3 mg magnesium) tablet 400 mg PO BID Qty: 60 RF: 12 Continued sertraline 25 mg tablet 12.5 mg PO DAILY Qty: 45 RF: 3 acetaminophen [Acetaminophen Extra Strength] 500 MG tablet 1,000 mg PO TID PRNRF: 0 Discontinued metoprolol succinate 25 mg tablet extended release 24 hr 25 mg PO DAILY Qty: 90 RF: 3 calcium carbonate [Tums] 300 MG tablet,chewable 300 mg PO BID RF: 0 Eliquis 2.5 mg tablet 2.5 mg PO BID Qty: 180 RF: 3 Discharge Instructions Additional Instructions: -incentive spirometry 10x/ hr while awake -up walking to tolerance -PT as tolerated -encourage eating -OK to shower -has PICOs wound system on incision. This can be just left in place. If falls off or stops working- meplix dressing daily. -cover PICOs to bath -regular soft diet -protein/nutritional supplments BID between meals -calorie counts daily -encourage fluids -F/u w/ stoiber in clinic on 08/19 -F/u PCP in 2 wks Activity:: physical therapy Equipment/Supplies:: Walker Diet:: protein shakes BID. no restrictions. DS: Summary Status at Discharge Functional status at discharge: uses cane/walker Overall status at discharge: patient is back to baseline Mental Status: other (severe dementia) Speech and Movement: speech and movement normal Mood: other (severe dementia) Affect: blunted Exam Psych Mental Status: other (severe dementia) Speech and Movement: speech and movement normal Mood: other (severe dementia) Affect: blunted DS: Data Vitals/I&O Vitals and I&O: Vital Signs Temperature 36.2 C L 08/19/19 07:20 Temperature Source Tympanic 08/19/19 07:20 Pulse 88 08/19/19 07:20 Pulse Rhythm Irregular 08/19/19 09:20 Pulse 104 H 08/11/19 12:00 Respiratory Rate 18 08/19/19 07:20 Respiratory Effort Non-Labored 08/19/19 09:20 Respiratory Depth Normal 08/19/19 09:20 Respiratory Pattern Normal 08/19/19 09:20 Blood Pressure 116/75 08/19/19 07:20 Blood Pressure Mean 82 08/11/19 09:41 Blood Pressure Position Sitting 08/09/19 15:56 Pulse Oximetry 96 08/19/19 07:20 Respiratory End-tidal CO2 35 08/05/19 14:45 Oxygen Delivery Method Room Air 08/19/19 07:20 Oxygen Flow Rate 0 08/19/19 07:20 Pain Level 0 08/19/19 07:20 Comment 08/15/19 10:22 Intake & Output 08/18/19 08/18/19 08/19/19 11:59 23:59 11:59 Intake Total 570 / 570 Output Total 1225 / 1825 600 / 1825 Balance -1225 / -1255 -30 / -1255 Weight 48.9 kg 48.9 kg Intake: Oral 570 / 570 Output: Urine 1225 / 1825 600 / 1825 Other: Urine Color Yellow Yellow Yellow Urine Appearance Clear Clear Clear Urine Odor Normal None Comment mixed with smear bm Stool Size Smear Moderate Stool Characteristics Soft Soft Brown Formed Brown Voiding Methods Toilet Toilet Toilet Data Completed and Pending Labs on day of discharge: Labs from last 24 hours 08/19/19 08/18/19 06:19 12:15 Sodium 138 Potassium 3.8 Chloride 104 Carbon Dioxide 29.0 Anion Gap 5.0 BUN 7 Creatinine 0.73 Estimated GFR/1.73 m2 >= 60.00 Glucose 88 Calcium 8.1 L Magnesium 1.9 Coronavirus (PCR) Negative [facility] Medical History (Updated 08/17/19 @ 16:38 by Melissa Laird MD, [place]) Anemia due to blood loss, acute (Acute) Cecal volvulus (Acute) Dementia (Chronic) Low body mass index (Acute) Seasonal affective disorder (Acute) Surgical History (Updated 08/05/19 @ 16:25 by Sharyn Valles DO) Incarcerated Obdurator Hernia (01/31/16) Dr Nicholas, [facility] S/P right hemicolectomy (Acute) Family History Mother , vascular at age 95. No problems noted. Social History Smoking/Tobacco Use Status: Former Tobacco Use Alcohol Intake: never Drug use: Never Substance use type: does not use Adopted: No Caregiver/Support person: No Foster care: No Household members: none Number of Children: 2 Current gender identity: female What type of physical activity do you participate in: walking Frequency: 5-6 times per week Seatbelt use: always Drive intox or ride w/intox motor pool driver: No Working smoke detector in home: Yes Carbon monox detector in home: Yes Do you feel safe at home: Yes Do you feel safe in your relationship?: Yes Additional Social history: lives alone daughter checks on her
--- NOTE | 2019-08-19 12:50 | CMDISCH_ITS ---
- If Service Date Differs Date of service: 08/19/19 Time of Service: 12:50 LACE Index Scoring Tool - Questions: Length of Stay (in days): 14 or more Acuity (Admit via E.D.?): Yes Comorbidities: Dementia E.D. Visits: 1 - Answers: Total Score: 14 Risk of Readmission: High Risk Care Management Discharge Reason for Hospitalization: Cecal volvulus. Discharge Plan: Daina will go to [facility] for a short rehab stay. Her family will work with the director social service at [facility] to plan for her next steps, which may be correction care. [facility] provided a correction TED application for the family to fill out and send in. Daina will be transported via [facility] w/c van, coordinated between [facility] and the admission coordinator at [facility]. [facility] communicated with her daughter, Coretta regarding her discharge plan. Daina is agreeable to go to rehab. Patient/Family Education Needs: Review discharge instructions regarding activity levels and medications, discussion of self care needs including goals of care. Services Needed at Discharge: [facility] Transportation ([facility] w[facility] van)
--- NOTE | 2019-08-20 11:56 | INDS_ITS ---
Date of service: 08/20/19 Time of Service: 11:56 PT Notes Visit Reasons: CECAL VOLVULUS/s/p cecal resection Inpatient Physical Therapy Discharge Summary Dates: 08/20/2019 Dates of Service: 08/06/2019 through 08/19/2019 Referring Doctor: Sharyn Valles MD PT Orders: PT CONSULT: In a.m.. Patient has dementia. S/P laparotomy Precautions: Fall. Standard. Activity as tolerated. Patient Profile/Admitting Diagnosis: Patient is an [age]-old female on long-term anticoagulation who presented to the ED on 08/04/2019 with chief complaint of feeling unwell that started 3 days prior to admission. Per chart review patient reported fatigue as well as nausea with an episode of vomiting. 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 Valles on 08/05/2019. PMHX: Medical History Cecal volvulus (Acute) Low body mass index (Acute) Seasonal affective disorder (Acute) Surgical History Incarcerated Obdurator Hernia (01/31/16) Dr Nicholas, [facility] Social History/Home Situation: Patient is an unreliable historian. Per case management initial report on 08/05/2019, CM contacts Daina's daughter, Coretta, by telephone to obtain information. Coretta reports that Daina lives alone in an apartment in [place]. 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 Daina no longer drives but still cooks her own meals and remains active in her [employer], the first [employer] located in [place]. Daina enjoys reading, watching television, corresponding in writing with friends, and going for walks. Daina is independent with her ADLs at baseline. Daina keeps in touch with several good friends in the community and has a supportive family. Equipment Owned/DME: None Subjective: Denies dizziness, leg pain, and abdominal pain. Complained about her eyes having sand in them. Objective: General Observation: Telemetry monitoring in place. IV access to left UE. Anti-thromboembolic pumps on bilateral legs. Surgical dressing over abdominal incision. Wound vac in place. Mental Status: Alert and oriented as to person Pain: Nonce reported ROM: Right Upper Extremity: Shoulder Flexion WFL. Shoulder abduction WFL. Elbow flexion WFL. Wrist flexion WFL. Opening and closing of hand WFL. Left Upper Extremity: Shoulder Flexion WFL. Shoulder abduction WFL. Elbow flexion WFL. Wrist flexion WFL. Opening and closing of hand WFL. Right Lower Extremity: Hip flexion WFL. Hip abduction WFL. Knee flexion WFL. Ankle dorsiflexion WFL. Ankle plantarflexion WFL. Left Lower Extremity: Hip flexion WFL. Hip abduction WFL. Knee flexion WFL. Ankl e dorsiflexion WFL. Ankle plantarflexion WFL. Strength: Right Upper Extremity: Shoulder flexors 4/5. Shoulder abductors 4/5. Elbow flexors 4/5. Elbow extensors 4/5. Contracts Intern strong. Left Upper Extremity: Shoulder flexors 4/5. Shoulder abductors 4/5. Elbow flexors 4/5. Elbow extensors 4/5. Contracts Intern strong. Right Lower Extremity: Hip flexors 4/5. Hip abductors 4/5. Knee flexors 5/5. Knee extensors 4/5. Ankle dorsiflexors 4/5. Ankle plantarflexors 5/5. Left Lower Extremity:Hip flexors 4/5. Hip abductors 4/5. Knee flexors 5/5. Knee extensors 4/5. Ankle dorsiflexors 4/5. Ankle plantarflexors 5/5. Sensation: Intact as to pain and pressure on bilateral lower extremities. Bed Mobility/Transfers: Rolling independent Supine to supine independent Sit to supine independent Sit to stand supervision using front wheeled walker and minimal verbal cues for hand placement Stand to sit supervision using front wheeled walker and minimal verbal cues for hand placement Bed to chair supervision using front wheeled walker and minimal verbal cues for hand placement Chair to bed supervision using front wheeled walker and minimal verbal cues for hand placement Gait: Patient is now able to tolerate 100 to 260 feet of level surface ambulation using front wheeled walker with full weightbearing on bilateral legs requiring only supervision assist with minimal verbal cueing needed to stay close to walker. Patient has reported mild right knee pain that subsides with rest. Denies dizziness, headache, chest pain, during the session today. Balance: Static Sitting: Good Dynamic Sitting: Good Static Standing: Fair Dynamic Standing: Fair Special Tests: Mobility Limitations Standardized Measure [facility] AM-PAC 6 clicks Basic Mobility Inpatient Short Form: Raw Score: 22 CMS Score: 21 % deficit Assessment: Patient demonstrated significant functional improvements during this episode of care. She remains in need of an assistive device for all mobility ADL performance and continues to demonstrate unsteadiness on feet, impaired safety awareness, decreased activity tolerance, and generalized muscle weakness and will continue to require skilled physical therapy services at the SNF. Patient is an 84-year-old female on long-term anticoagulation who presented to the ED on 08/04/2019 with chief complaint of feeling unwell that started 3 days prior to admission. Per chart review patient reported fatigue as well as nausea with an episode of vomiting. 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 Valles on 08/05/2019. Patient presented with clinical signs and symptoms consistent with current/admitting diagnoses that have resulted to mobility limitations, gait instability, generalized weakness, and impairment of motor control as demonstrated by the following impairment level findings: 1. Decreased strength to B UE/LE major muscle groups 2. Impaired standing balance 3. Impaired activity tolerance 4. Impaired safety awareness due to dementia Impairments continue to contribute to the following functional limitations: 1. Inability to safely ambulate without assistive device and physical assistance 2. Increase completion time for mobility ADL performance 3. Increased fall risk 4. Inability to negotiate steps alone safely Goals: Goals X1 week 1. Supine-Sit independent MET 2. Sit-Supine independent MET 3. Sit-Stand supervision with FWW MET 4. Stand-Sit supervision with FWW MET 5. Bed-Chair supervision with FWW MET 6. Chair-Bed supervision with FWW MET 7. Supervision gait on level surface with use of least restrictive device for at least 100 feet without report of pain nor dyspnea with FWW MET 8. Supervision with home exercise program MET 9. Good static and dynamic standing balance/tolerance NOT MET DISCHARGE RECOMMENDATIONS: Patient will benefit from the use of a front-wheeled walker in order to increase independence and reduce fall risk. Patient will benefit from assisted facility placement for continued skilled physical therapy services in order to progress mobility level, strength, and balance in preparation for a safe discharge to home. TREATMENT CODE/TIME: 50473 x 39 minutes beginning at 9:02 AM. Thank you very much for this referral. Venessa Wong PT, DPT, CLT [facility] [place], [place] SUBJECTIVE: []
== END 2019-08-19 12:14 | disposition skilled nursing facility (03) | DRG 329 ==
LOC: ER 21:24 → ICU 08-05 07:11 → MS 08-11 14:55
PROVIDERS: Family Medicine; General Practice; Internal Medicine; Admitting Provider Surgery; Emergency Provider Physician Assistant; PCP Family Medicine; Visit Provider Surgery
PROC: 0DTH0ZZ Resection of Cecum, Open Approach (ICD-10-PCS; CPT 49000; 2019-08-05 08:15)
PROC: 0DJD8ZZ Inspection of Lower Intestinal Tract, Via Natural or Artificial Opening Endoscopic (ICD-10-PCS; CPT 45378; 2019-08-05 08:15)
DX: K56.2 Volvulus (principal); K55.041 Focal (segmental) acute infarction of large intestine; Z68.1 Body mass index [BMI] 19.9 or less, adult; I48.92 Unspecified atrial flutter; D62 Acute posthemorrhagic anemia; F03.91 Unspecified dementia, unspecified severity, with behavioral disturbance; K92.1 Melena; D68.32 Hemorrhagic disorder due to extrinsic circulating anticoagulants; R63.4 Abnormal weight loss; I48.0 Paroxysmal atrial fibrillation; Z79.01 Long term (current) use of anticoagulants; E83.42 Hypomagnesemia; E87.6 Hypokalemia; Z90.49 Acquired absence of other specified parts of digestive tract; I95.89 Other hypotension; E86.1 Hypovolemia; D72.828 Other elevated white blood cell count; N99.0 Postprocedural (acute) (chronic) kidney failure; R39.2 Extrarenal uremia; G89.18 Other acute postprocedural pain; M79.604 Pain in right leg; R60.0 Localized edema; T45.515A Adverse effect of anticoagulants, initial encounter; Z51.5 Encounter for palliative care; Z66 Do not resuscitate; Z11.59 Encounter for screening for other viral diseases
CPT/HCPCS: 44140; 45378; 36415; 80048; 80053; 85027; 86850; 86900; 86901; 93005; 96360; 96361; 97110; 97162; 97530; 99223; 99232; 99233; 99239; 99254; 99285; NC; U0003; 74018; 74176; 81003; 81015; 82565; 82728; 83540; 83550; 83605; 83735; 84133; 84300; 84484; 85014; 85018; 85025; 85610; 85730; 86140; 88307; 93010; 93306; 93971; 99221; 99284; J0131; J0696; J1650; J1756; J1941; J2060; J2270; J3475; J3490

== ENCOUNTER → 2019-08-25 12:56 | Outpatient (BNVA) | payer MEDICARE, BC, SELFPAY | PROVIDERS: PCP Family Medicine; Referring Provider Family Medicine; Visit Provider Surgery | DX: K45.0 Other specified abdominal hernia with obstruction, without gangrene (principal); D62 Acute posthemorrhagic anemia; D72.828 Other elevated white blood cell count; I95.9 Hypotension, unspecified; Z90.49 Acquired absence of other specified parts of digestive tract; Z48.815 Encounter for surgical aftercare following surgery on the digestive system; F03.91 Unspecified dementia, unspecified severity, with behavioral disturbance; K56.2 Volvulus ==

== ENCOUNTER 2019-09-03 16:49 | Outpatient (REF) | payer SELFPAY ==
[2019-09-04 07:41] LABS: COVID-19 RT-PCR UVMMC Result Negative (Negative)
== END 2019-09-03 17:09 ==
LOC: LBN 16:49
PROVIDERS: PCP Family Medicine; Visit Provider Nurse Practitioner Adult Health
DX: Z20.828 Contact with and (suspected) exposure to other viral communicable diseases (principal)
CPT/HCPCS: U0003

== ENCOUNTER → 2019-09-08 11:28 | Outpatient (BNVA) | payer MEDICARE, BC, SELFPAY | PROVIDERS: PCP Family Medicine; Referring Provider Family Medicine; Visit Provider Surgery | DX: Z48.815 Encounter for surgical aftercare following surgery on the digestive system (principal); Z90.49 Acquired absence of other specified parts of digestive tract ==

== ENCOUNTER 2019-11-04 21:10 | Observation (INO) | payer MEDICARE, BC, SELFPAY ==
[2019-11-04] VITALS (30 sets, daily range): BP systolic 125–146; BP diastolic 85–99; PULSE 79–117; RESP 13–24; TEMP 36.8; O2SAT 95–98
--- NOTE | 2019-11-04 21:00 | DI.CT_ITS ---
EXAM: CT BRAIN NECK CTA CLINICAL HISTORY: right weakness/speech problem/neglect. TECHNIQUE: Imaging Protocol: Axial CT angiography was performed with multi-slice acquisition and mu lti-planar and/or 3D reconstructions. CONTRAST MATERIAL: Intravenous: Omnipaque 350 Contrast volume:85 mL COMPARISON: CT HEAD WITHOUT CONTRAST from 07/19/2016 FINDINGS: CT Head W/O: Ventricles and Extra axial spaces: Normal in size and morphology for the patient's age. Hemorrhage: None. Cerebral parenchyma: There is an area of decreased attenuation measuring 1.2 x 0.7 cm in the right br ainstem (series 2, image 11). This may represent an acute or subacute infarct. There are large area s of decreased attenuation in the white matter bilaterally most consistent with small vessel ischemic disease. Midline shift: None. Brainstem/Cerebellum: Normal. Calvarium: Normal. Visualized Paranasal sinuses/Mastoids: Clear. Soft Tissues: Unremarkable. CTA Brain W: Internal Carotid Arteries: Petrous: Normal. Cavernous: Normal. Cerebral: Normal. Middle Cerebral Arteries: Right: No aneurysm, occlusion or significant stenosis. Left: No aneurysm, occlusion or significant stenosis. Anterior Cerebral Arteries: Right: No aneurysm, occlusion or significant stenosis. Left: No aneurysm, occlusion or significant stenosis. Posterior cerebral Arteries: Right: No aneurysm, occlusion or significant stenosis. Left: No aneurysm, occlusion or significant stenosis. Vertebral Arteries: Right: No aneurysm, occlusion or significant stenosis. Left: No aneurysm, occlusion or significant stenosis. Basilar Artery: No aneurysm, occlusion or significant stenosis. CTA Neck W: Common Carotid: Right: No aneurysm, occlusion or significant stenosis. Left: No aneurysm, occlusion or significant stenosis. External Carotid: Right: No aneurysm, occlusion or significant stenosis. Left: No aneurysm, occlusion or significant stenosis. Internal Carotid: Right: No aneurysm, occlusion or significant stenosis. Mild atherosclerotic calcifications seen in t he proximal internal carotid artery. Left: No aneurysm, occlusion or significant stenosis. Mild atherosclerotic calcifications seen in th e proximal internal carotid artery. Vertebral Artery: Right: No aneurysm, occlusion or significant stenosis. Left: No aneurysm, occlusion or significant stenosis. Lung Apices: Normal. Bones: Mild degenerative changes are present. No acute abnormality. Soft Tissues: Normal. IMPRESSION: 1. Normal CTA examination of the [place]. 2. 1.2 x 0.7 cm area of decreased attenuation in the right brain stem suspicious for a subacute infar ct. 3. Normal CTA examination of the neck. RADIATION DOSE DELIVERED: Total DLP DATA REPOSITORY: All CT scans at this facility are submitted to the National Radiology Data Registry (NRDR) Dose Index Registry (DIR) with the [employer] (ACR). RADIATION OPTIMIZATION: All CT scans at this facility use at least one of these dose optimization te chniques: automated exposure control; mA and/or kV adjustment per patient size (includes targeted exa ms where dose is matched to clinical indication); or iterative reconstruction.
[2019-11-04 21:29] LABS: Abs Immature Grans 0.01 k/cumm (0.0-0.09); Absolute Basophil Count 0.03 k/cumm (0.0-0.2); Absolute Eosinophil Count 0.09 k/cumm (0.0-0.7); Absolute Lymphocyte Count 1.99 k/cumm (1.2-3.4); Absolute Monocyte Count 0.67 k/cumm (0.11-0.7); Absolute Neutrophil Count 3.04 k/cumm (1.2-6.7); Basophils % 0.5; Eosinophils % 1.5; HGB 12.5 g/dL (12.0-15.5); Immature Grans % 0.2 %; Lymphocytes % 34.1; Mean Corp. HGB Concentration 32.9 g/dL (32.0-36.0); Mean Corpuscular Hemoglobin 31.1 pg (27.0-33.0); Mean Corpuscular Volume 94.5 fL (80-95); Mean Platelet Volume 9.6 fL (8.0-11.0); Monocytes % 11.5; Neutrophils % 52.2; Platelet Count 171 x1000/uL (130-400); RBC 4.02 m/cumm (4.00-5.20); RBC Distribution Width 14.9 % (11.7-14.6); White Blood Cell Count 5.83 k/cumm (4.4-10.8)
--- NOTE | 2019-11-04 21:29 | DI.VRAD_ITS ---
Addendum created by Liseth Frederick MD on 11/04/2019 9:31:47 PM EDT ADDENDUM: Critical findings within the report were discussed with JOHNNA Clarke at 11/04/2019 9:31 PM EDT Initial report created on 11/04/2019 9:29:17 PM EDT PROCEDURE INFORMATION: Exam: CT Head Without Contrast Exam date and time: 11/04/2019 9:15 PM Age: 84 years old Clinical indication: Speech disturbance and weakness, extremity; Right TECHNIQUE: Imaging protocol: Computed tomography of the head without contrast. Other technique: STROKE PROTOCOL was implemented. COMPARISON: CT HEAD WITHOUT CONTRAST 07/19/2016 6:46 PM FINDINGS: Brain: 12 x 7 mm area of subacute infarct is seen in right brainstem on series 2, image 11. There are areas of diminished density in the white matter bilaterally consistent with chronic small vessel ischemic changes. Chavez-white matter differentiation is intact and unremarkable. No mass lesion. No acute intracranial hemorrhage. Chavez/white matter differentiation is unremarkable. Cisterns are unremarkable. Brainstem is unremarkable. No suprasellar mass. No mass lesion. No mass effect. Thalamus and hypothalamus are unremarkable. Cerebellum is unremarkable. Ventricles: Normal. No ventriculomegaly. Bones/joints: Unremarkable. No acute fracture. Sinuses: Visualized sinuses are unremarkable. No fluid levels. Mastoid air cells: Visualized mastoid air cells are well aerated. Soft tissues: Unremarkable. IMPRESSION: 1. 12 x 7 mm area of subacute infarct is seen in right brainstem on series 2, image 11. No recent prior images are available. This finding is new compared to prior study of 2017. Exact age of this infarct is not clear. 2. Chronic ischemic changes bilaterally. ASSESSMENT: ASPECTS ([place] Stroke Program Early CT Score) is 10. Dictated and Authenticated by: Liseth Frederick MD. Ordering:P.AHSAN Provider Tony READ
[2019-11-04] MEDS: Lactated Ringers 1,000 ML 125 ML IV (21:30)
[2019-11-04] MEDS: Normal Saline Flush 10 ML SYR IVP (21:31)
--- NOTE | 2019-11-04 21:42 | W.ED.GENAD ---
Discharge Plan Disposition Patient Disposition: [facility] INPATIENT Condition: Fair Discharge Details Chief Complaint: CVA/TIA Clinical Impression: CVA (cerebral vascular accident) Primary Care Provider: Gulshan Howe ED Provider: Andriy Hess Odell Meds and New Rx's Prescriptions: No Action sertraline 25 mg tablet 12.5 mg PO DAILY Qty: 45 RF: 3 bisacodyl [Dulcolax (bisacodyl)] 10 mg suppository 10 mg CO DAILY PRNRF: 0 acetaminophen [Acetaminophen Extra Strength] 500 MG tablet 1,000 mg PO TID PRNRF: 0 melatonin 3 mg Tablet Extended Release 6 mg PO HS PRN (Reason: insom) 30 Days Qty: 60 RF: 12 metoprolol tartrate 37.5 mg tablet 37.5 mg PO BID Qty: 60 RF: 12 trazodone 50 mg tablet 50 mg PO QHS PRNQty: 30 RF: 12 magnesium oxide 400 mg (241.3 mg magnesium) tablet 400 mg PO BID Qty: 60 RF: 12 tramadol [Ultram] 50 mg tablet 50 mg PO Q6H PRN (Reason: pain) Qty: 20 RF: 0 Medical Decision Making Medical Records Medical records reviewed: Yes I reviewed the patient's medical records. Medical records narrative: 84-year-old female with history of atrial fibrillation off anticoagulation for 3 months now. Onset of neurologic symptoms at 8:30 PM tonight. Arrives here with evidence of right hemianopia, right neglect, slight right sensory deficits with stroke scale score of 7. Noncontrast head CT shows a 12 x 7 mm subacute infarct in the right brainstem. This precludes IV thrombolysis as she has had a recent stroke in addition to presumed new stroke tonight. I had placed a call to neurology. Consult will now be delayed until CTA of head and neck complete to evaluate for possible large vessel blockage requiring transfer for interventional procedure. There are no significant lab abnormalities at this time. EKG is A. fib otherwise unremarkable. 22:40 - Patient's CTA is negative for occlusion or stenosis. On reevaluation she actually seems better now. No longer exhibiting neglect. Sensation seems to be equal bilaterally. Still questionable for mild visual field cut. Would give her a of 3 at this point. She is actually been up and ambulated to the bathroom and back without difficulty. Because there is no indication for interventional procedure and she is not a candidate for IV thrombolytics we will keep her here. She will get aspirin and Plavix tonight. There will need to be discussion regarding restarting her Eliquis. Case discussed with hospitalist who accepts patient to their service. I am going to contact the daughter and let her know of her mother's status. Lab Data Lab results reviewed: Yes I reviewed the patient's lab results. ECG Data Attestation: I personally reviewed and interpreted this ECG (s) as follows: Prior ECG tracings: not available for review Interpretation: Atrial fibrillation at a rate of 81. Normal axis and intervals. Normal ST segments. HPI General Mode of arrival: EMS. Date/Time Provider Initiated Documentation: 11/04/19 21:12. Limitations to Documentation: no limitations. Information obtained by: patient, family, EMS and RN notes reviewed. HPI Narrative: Patient presents to ED by EMS after daughter called 911 for speech difficulty and right upper extremity weakness. EMS reports that her speech seems to be coming back to normal. She does not appear to have right-sided weakness currently. On arrival patient is briefly examined by me and sent directly to head CT. I did speak to the daughter who is her emergency medicine physician assistant. Patient just came out of rehab about a week now after a prolonged stay status post abdominal surgery for bowel obstruction. She was taken off Eliquis the first week of August due to persistent oozing from the anastomosis of intestines. It is now 3 months exactly post surgery. Per daughter patient is DNR/DNI. On return from CT patient reexamined. She has no complaint of pain. She has no chest pain or shortness of breath. She has no headache. Related Data Home Medications Medication Instructions Recorded Confirmed acetaminophen [Acetaminophen Extra 1,000 mg PO TID PRN 10/06/15 09/08/19 Strength] sertraline 25 mg tablet 12.5 mg PO DAILY #45 tab 03/09/19 09/08/19 melatonin 6 mg PO HS PRN 30 Days #60 tab 08/11/19 09/08/19 magnesium oxide 400 mg PO BID #60 tab 08/19/19 09/08/19 metoprolol tartrate 37.5 mg PO BID #60 tab 08/19/19 09/08/19 tramadol [Ultram] 50 mg PO Q6H PRN #20 tab 08/19/19 09/08/19 trazodone 50 mg PO QHS PRN #30 tab 08/19/19 09/08/19 bisacodyl 10 mg rectal suppository 10 mg CO DAILY PRN 08/25/19 09/08/19 Previous Rx's Medication Instructions Recorded sertraline 25 mg tablet 12.5 mg PO DAILY #45 tab 03/09/19 melatonin 6 mg PO HS PRN 30 Days #60 tab 08/11/19 magnesium oxide 400 mg PO BID #60 tab 08/19/19 metoprolol tartrate 37.5 mg PO BID #60 tab 08/19/19 tramadol [Ultram] 50 mg PO Q6H PRN #20 tab 08/19/19 trazodone 50 mg PO QHS PRN #30 tab 08/19/19 Allergies Allergy/AdvReac Type Severity Reaction Status Date / Time cimetidine AdvReac Intermediate BREAST Verified 11/04/19 21:35 TENDERNESS diltiazem AdvReac Intermediate bowel Verified 11/04/19 21:35 problem Penicillins AdvReac Unknown unknown Verified 11/04/19 21:35 General Stated Complaint: CVA/TIA JODY: 2 Review of Systems Narrative: Not obtained due to acuity of situation. 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 S/P right hemicolectomy (Chronic) Social History Smoking/Tobacco Use Status: Former Tobacco Use Alcohol Intake: never Drug use: Never Substance use type: does not use Adopted: No Caregiver/Support person: No Foster care: No Household members: none Number of Children: 2 Current gender identity: female What type of physical activity do you participate in: walking Frequency: 5-6 times per week Seatbelt use: always Drive intox or ride w/intox otr flatbed driver: No Working smoke detector in home: Yes Carbon monox detector in home: Yes Do you feel safe at home: Yes Do you feel safe in your relationship?: Yes Additional Social history: lives alone daughter checks on her Exam Narrative Exam Narrative: Vitals: Afebrile. Blood pressure and heart rate minimally elevated. Room air saturations normal. Const: Thin elderly in NAD. HEENT: NC/AT. Mild left facial droop. Eyes: Normal conjunctiva and sclera. PERRL and EOMI. Neck: Supple. Trachea midline. Lungs: Normal respiratory effort. Cor: Good radial pulses. GI: Soft. NT/ND. Neuro: A+O x 2. Mentation seems normal. Speech is normal though seems to have word finding difficulty. Cranial nerves II through XII intact except for mild left facial droop. Appears to have right visual field defect. Also appears to have mild right neglect. Strength is 5 out of 5. Sensation possibly diminished on right. No evidence of ataxia. NIH score of 7. Ext: No C/C/E. Skin: Warm and dry without rash. Course Vital Signs Vital signs: Vital Signs Temperature 98.2 F 11/04/19 21:18 Pulse 95 H 11/04/19 21:18 Respiratory Rate 15 11/04/19 21:18 Pulse Oximetry 97 11/04/19 21:18 Temperature 98.2 F 11/04/19 21:18 Temperature Source Skin 11/04/19 21:18 Pulse 95 H 11/04/19 21:18 Respiratory Rate 15 11/04/19 21:18 Blood Pressure Position Supine 11/04/19 21:18 Pulse Oximetry 97 11/04/19 21:18 Oxygen Delivery Method Room Air 11/04/19 21:18 Oxygen Flow Rate 0 11/04/19 21:18 Lab/Test Results Lab/Test Results: Laboratory Tests Range/Units 11/04/19 21:20 WBC (4.4-10.8) k/cumm 5.83 RBC (4.00-5.20) m/cumm 4.02 Hgb (12.0-15.5) g/dL 12.5 Hct (36.0-46.0) % 38.0 MCV (80-95) fL 94.5 MCH (27.0-33.0) pg 31.1 MCHC (32.0-36.0) g/dL 32.9 RDW (11.7-14.6) % 14.9 H Plt Count (130-400) x1000/uL 171 MPV (8.0-11.0) fL 9.6 Immature Gran % % 0.2 Neutrophils % 52.2 Lymphocytes % 34.1 Monocytes % 11.5 Eosinophils % 1.5 Basophils % 0.5 Absolute Neutrophils (1.2-6.7) k/cumm 3.04 Absolute Lymphocytes (1.2-3.4) k/cumm 1.99 Absolute Monocytes (0.11-0.7) k/cumm 0.67 Absolute Eosinophils (0.0-0.7) k/cumm 0.09 Absolute Basophils (0.0-0.2) k/cumm 0.03 Critical Care Time Critical Care Time Critical Care Time: Yes Total Critical Care Time: 60 Attestation: Upon my evaluation, this patient had a high probability of imminent or life-threatening deterioration, which required my direct attention, intervention, and personal management. I have personally provided minutes of critical care time exclusive of time spent on separately billable procedures. Time includes review of laboratory data, radiology results, discussion with consultants, and monitoring for potential decompensation.
[2019-11-04 21:44] LABS: ALT 17 U/L (14-59); AST 17 U/L (15-37); Albumin 3.3 g/dL (3.4-5.0); Alkaline Phosphatase 83 U/L (46-116); Anion Gap 4.9 mmol/L (3-11); BUN 22 mg/dL (7-18); Bilirubin, Total 0.8 mg/dL (0.2-1.0); CO2 29.1 mmol/L (21.0-32.0); CREATININE 0.89 mg/dL (0.55-1.02); Calcium 8.6 mg/dL (8.5-10.1); Chloride 97 mmol/L (98-107); Glucose 95 mg/dL (74-106); Potassium 4.2 mmol/L (3.5-5.1); Sodium 131 mmol/L (136-145); Total Protein 6.4 g/dL (6.4-8.2)
[2019-11-04 21:46] LABS: INR 1.1 (0.9-1.1); Prothrombin Time 10.6 sec (9.3-11.0)
[2019-11-04 21:47] LABS: Troponin I < 0.05 ng/mL (<0.06)
[2019-11-04] MEDS: Omnipaque 350 MG/ML 100 ML BTL IJ (21:58)
[2019-11-04] MEDS: Normal Saline - Diluent 50 ML VIAL IV (22:00)
--- NOTE | 2019-11-04 22:18 | DI.VRAD_ITS ---
PROCEDURE INFORMATION: Exam: CT Angiography Head With Contrast Exam date and time: 11/04/2019 9:47 PM Age: 84 years old Clinical indication: Other: RT weakness/ speech problem/ neglect TECHNIQUE: Imaging protocol: Computed tomography angiography of the head with intravenous contrast. 3D rendering: MIP and/or 3D reconstructed images were created by the technologist. Contrast material: OMNIPAQUE 350; Contrast volume: 85 ml; Contrast route: INTRAVENOUS (IV); COMPARISON: CT HEAD - STROKE PROTOCOL 11/04/2019 9:14 PM FINDINGS: Anterior cerebral arteries: No occlusion or significant stenosis. No aneurysm. Right internal carotid artery: Intracranial segment is patent with no significant stenosis or occlusion. No aneurysm. Right middle cerebral artery: No occlusion or significant stenosis. No aneurysm. Right posterior cerebral artery: No occlusion or significant stenosis. No aneurysm. Right vertebral artery: No occlusion or significant stenosis. No aneurysm. Left internal carotid artery: Intracranial segment is patent with no significant stenosis or occlusion. No aneurysm. Left middle cerebral artery: No occlusion or significant stenosis. No aneurysm. Left posterior cerebral artery: No occlusion or significant stenosis. No aneurysm. Left vertebral artery: No occlusion or significant stenosis. No aneurysm. Basilar artery: No occlusion or significant stenosis. No aneurysm. Other vasculature: Chronic ischemic changes bilaterally. HEAD: Other findings: No areas of abnormal enhancement after contrast administration. IMPRESSION: No evidence of large vessel occlusion or significant stenosis. PROCEDURE INFORMATION: Exam: CT Angiography Neck With Contrast Exam date and time: 11/04/2019 9:47 PM Age: 84 years old Clinical indication: Other: RT weakness/ speech problem/ neglect TECHNIQUE: Imaging protocol: Computed tomography angiography of the neck with intravenous contrast. 3D rendering: MIP and/or 3D reconstructed images were created by the technologist. Radiation optimization: All CT scans at this facility use at least one of these dose optimization techniques: automated exposure control; mA and/or kV adjustment per patient size (includes targeted exams where dose is matched to clinical indication); or iterative reconstruction. Contrast material: OMNIPAQUE 350; Contrast volume: 85 ml; Contrast route: INTRAVENOUS (IV); COMPARISON: CT HEAD - STROKE PROTOCOL 11/04/2019 9:14 PM FINDINGS: Right common carotid artery: No stenosis. No dissection or occlusion. Right internal carotid artery: Atherosclerotic calcifications are seen in right proximal ICA. No evidence of stenosis. Right external carotid artery: No occlusion or stenosis of the origin. Right vertebral artery: No stenosis. No dissection or occlusion. Left common carotid artery: No stenosis. No dissection or occlusion. Left internal carotid artery: No stenosis of the extracranial segment. No dissection or occlusion. Left external carotid artery: No occlusion or stenosis of the origin. Left vertebral artery: No stenosis. No dissection or occlusion. Bones/joints: No acute fracture. Soft tissues: Normal. No significant soft tissue swelling. IMPRESSION: No evidence of vascular stenosis by NASCET criteria. REFERENCES: NASCET CRITERIA. The degree of internal carotid artery stenosis is based on NASCET criteria. Normal is no stenosis. Mild is less than 50% stenosis. Moderate is 50-69% stenosis. Severe is 70% to 99% stenosis. Total occlusion is no detectable patent lumen. Dictated and Authenticated by: Liseth Frederick MD. Ordering:HARLEY Ashraf MD
[2019-11-04 22:58] LABS: Bilirubin Negative (Negative); Blood Trace-lysed (Negative); Clarity Clear (Clear); Glucose Negative (Negative); Ketones Negative (Negative); Leukocyte Esterase Trace (Negative); Nitrite Negative (Negative); Specific Gravity 1.015 (1.005-1.025); Urobilinogen 0.2 EU/dL (Up TO 0.2); pH 6.5 (5-8)
[2019-11-04] MEDS: Clopidogrel 75 MG TAB PO (23:09)
[2019-11-04] MEDS: Aspirin 81 MG CHEW 324 MG CH (23:10)
[2019-11-04 23:15] LABS: Bacteria Negative HPF (Negative); C & S Indicated? Yes; Casts Negative LPF (Negative); Crystals Negative HPF (Negative); Epithelial Cells Few HPF (Negative); Mucus Negative (Negative)
--- NOTE | 2019-11-04 23:54 | W.PM.HP.N ---
Date of service: 11/04/19 Time of Service: 23:55 Assessment and Plan Assessment and plan (1) CVA (cerebral vascular accident): Status: Chronic Assessment and plan: She has evidence of subacute CVA of her right brainstem per CT scan; but no evidence of significant cerebral or cervical vascular stenosis or thrombosis. She presumably had an embolic event d/t her chronic atrial fibrillation from being off her Eliquis. She was given ASA and Plavix in the ER. I have kept her on this regimen; however, neurology and cardiology should be consulted to discuss timing of resumption of her Eliquis. I have put in consult for P.T. and S.T. to see her in the a.m. although I feel that she is already improving greatly from her initial symptoms and I do not anticipate she will need much if any rehab. I will check echo in the a.m. to look for atrial thrombus however this may not be seen on TTE but I would not pursue a MARCELA in her particularly if she is going back on Eliquis. If she is no longer a candidate for Eliquis then I would consider a Watchman or other procedure to reduce risk for atrial thrombi. Qualifiers: CVA mechanism: embolism Precerebral and cerebral artery: unspecified cerebral artery Qualified Code(s): I63.40 - Cerebral infarction due to embolism of unspecified cerebral artery (2) Atrial fibrillation and flutter: Status: Chronic Assessment and plan: continue her metoprolol dose. She may need a higher dose or more frequent dosing of Lopressor or switch to longer acting Toprol XL in order to maintain her HR. 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 Patient presented to the emergency department with acute symptoms of difficulty with her speech along with right upper extremity weakness. Prior to arrival EMS reported that her speech was already returning back to normal. Per Dr. Andriy Hess, emergency room physician, patient had no noticeable weakness upon arrival to the emergency department. However she did have evidence of a right hemianopsia and right-sided neglect as well as slight right sensory deficit giving her an NIH stroke scale of 7. He ordered an immediate noncontrast CT scan of the head which demonstrated a 12 x 7 mm subacute infarct in the right brainstem. Her symptom onset was around 830 this evening and even though she arrived within a 4-hour window for thrombolysis because of the evidence of a organized subacute right brainstem CVA this precluded any thrombolytic therapy. CTA of the head neck was performed and was negative for any occlusion or stenosis. Upon reevaluation Dr. Hess found that she was improving no longer exhibiting neglect sensation was equal bilaterally no focal motor deficits but there is still some some questionable mild visual field cut. He gave her an NIH stroke scale of 3 at this point. Patient ambulated to the bathroom and back without difficulty. As the patient was not a candidate for IV thrombolytics or interventional procedure it was felt that she could be managed here at [facility]. He proceeded to give her aspirin and Plavix. According to Dr. Hess's conversation with the patient's daughter the patient has been taken off of her Eliquis in early August after her surgery for her cecal volvulus and this was discontinued because of some oozing from the anastamosis. 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 No problems noted. Social History Smoking/Tobacco Use Status: Former Tobacco Use Alcohol Intake: never Drug use: Never Substance use type: does not use Adopted: No Caregiver/Support person: No Foster care: No Household members: none Number of Children: 2 Current gender identity: female What type of physical activity do you participate in: walking Frequency: 5-6 times per week Seatbelt use: always Drive intox or ride w/intox recycling collections driver: No Working smoke detector in home: Yes Carbon monox detector in home: Yes Do you feel safe at home: Yes Do you feel safe in your relationship?: Yes Additional Social history: lives alone daughter checks on her Meds Home Medications and Allergies Home Medications Medication Instructions Recorded Confirmed Type metoprolol tartrate 37.5 mg PO BID #60 tab 08/19/19 11/04/19 Rx sertraline 25 mg PO DAILY 11/04/19 11/04/19 History Allergies Allergy/AdvReac Type Severity Reaction Status Date / Time cimetidine AdvReac Intermediate BREAST Verified 11/04/19 21:35 TENDERNESS diltiazem AdvReac Intermediate bowel Verified 11/04/19 21:35 problem Penicillins AdvReac Unknown unknown Verified 11/04/19 21:35 Exam Narrative Exam Narrative: Elderly female who is alert and she is oriented to place and that she knows she is in the hospital but cannot give me the correct city nor could she give me the date. According to her chart, she has some dementia. HEENT unremarkable. Speech is clear and coherent, not dysarthric. No facial asymmetry. Normal facial mimetic muscle movement and normal tongue and palate movement. Neck: supple, nontender, normal ROM, carotid pulses are brisk, irregular but w/out bruits. No JVD Lungs: clear Cor: irregularly irregular and slightly tachycardic; no thrill or heave or rub Abdomen: midline scar intact; no erythema. Nontender Extremities: no edema, normal pulses (other than irregular); no cyanosis or clubbing. Neuro: No focal CN deficits. I could not detect any gross VF deficits although she states that she has always had decr. vision in her right eye, nevertheless she has no gross VF deficit. Normal EOMI; normal facial and glossal movement; normal sensation over face; extremities w/ normal muscle strength in both upper and lower extremities in proximal and distal muscle groups; normal sensation to light touch over her face, arms and legs Unable to determine Babinski reflexes in either feet d/t very ticklish and withdrawal of her feet Results Labs Result diagrams: 11/04/19 21:20 11/05/19 00:00 Labs: Laboratory Results - last 24 hr 11/04/19 11/04/19 11/04/19 21:20 21:20 21:20 WBC 5.83 RBC 4.02 Hgb 12.5 Hct 38.0 MCV 94.5 MCH 31.1 MCHC 32.9 RDW 14.9 H Plt Count 171 MPV 9.6 Immature Gran % 0.2 Neutrophils % 52.2 Lymphocytes % 34.1 Monocytes % 11.5 Eosinophils % 1.5 Basophils % 0.5 Absolute Neutrophils 3.04 Absolute Lymphocytes 1.99 Absolute Monocytes 0.67 Absolute Eosinophils 0.09 Absolute Basophils 0.03 PT 10.6 INR 1.1 Sodium 131 L Potassium 4.2 Chloride 97 L Carbon Dioxide 29.1 Anion Gap 4.9 BUN 22 H Creatinine 0.89 Estimated GFR/1.73 m2 >= 60.00 Glucose 95 Calcium 8.6 Magnesium 2.0 Total Bilirubin 0.8 AST 17 ALT 17 Alkaline Phosphatase 83 Troponin I < 0.05 Total Protein 6.4 Albumin 3.3 L Urine Color Urine Clarity Urine pH Ur Specific [place] Urine Protein Urine Ketones Urine Blood Urine Nitrite Urine Bilirubin Urine Urobilinogen Ur Leukocyte Esterase Urine RBC Urine WBC Ur Epithelial Cells Urine Crystals Urine Bacteria Urine Casts Urine Mucus Ur Culture Indicated? Urine Glucose 11/04/19 22:30 WBC RBC Hgb Hct MCV MCH MCHC RDW Plt Count MPV Immature Gran % Neutrophils % Lymphocytes % Monocytes % Eosinophils % Basophils % Absolute Neutrophils Absolute Lymphocytes Absolute Monocytes Absolute Eosinophils Absolute Basophils PT INR Sodium Potassium Chloride Carbon Dioxide Anion Gap BUN Creatinine Estimated GFR/1.73 m2 Glucose Calcium Magnesium Total Bilirubin AST ALT Alkaline Phosphatase Troponin I Total Protein Albumin Urine Color Yellow Urine Clarity Clear Urine pH 6.5 Ur Specific [place] 1.015 Urine Protein Negative Urine Ketones Negative Urine Blood Trace-lysed H Urine Nitrite Negative Urine Bilirubin Negative Urine Urobilinogen 0.2 Ur Leukocyte Esterase Trace H Urine RBC 3-5 H Urine WBC 3-5 Ur Epithelial Cells Few Urine Crystals Negative Urine Bacteria Negative Urine Casts Negative Urine Mucus Negative Ur Culture Indicated? Yes Urine Glucose Negative Last Vital Signs Temp 36.8 C 11/04/19 21:18 Pulse 101 H 11/04/19 23:31 Resp 19 11/04/19 23:31 BP 138/91 H 11/04/19 23:31 Pulse Ox 97 11/04/19 23:31 COVID-19 Screening Have you, or has anyone in your household, traveled outside of [place] in the last 14 days?: NO Had IN PERSON contact w/suspected or confirmed C-19 person: No
[2019-11-05] VITALS (22 sets, daily range): BP systolic 130–168; BP diastolic 76–115; PULSE 53–104; RESP 14–22; TEMP 35.5–36.9; O2SAT 96–99
--- NOTE | 2019-11-05 | DI.MRI_ITS ---
EXAM: MR BRAIN WO CLINICAL HISTORY: CVA. TECHNIQUE: Multiplanar multisequence MRI of the brain was performed. CONTRAST MATERIAL: Noncontrast COMPARISON: No exams were available for comparison FINDINGS: VENTRICLES AND EXTRA AXIAL SPACES: Normal in size and morphology for the patient's age. HEMORRHAGE: None. CEREBRAL PARENCHYMA: There is moderate atrophy. There are severe white matter changes, likely reflec ting chronic microvascular changes. No focus of restricted diffusion to suggest acute infarct. No sp bhavana-occupying lesion identified. MIDLINE SHIFT: None. BRAINSTEM/CEREBELLUM: Chronic white matter changes. VISUALIZED PARANASAL SINUSES/MASTOIDS: Clear. IMPRESSION: Atrophy and white matter changes small vessel disease. No acute abnormality.. DATA REPOSITORY:
[2019-11-05 00:52] LABS: Anion Gap 8.9 mmol/L (3-11); BUN 23 mg/dL (7-18); CO2 26.1 mmol/L (21.0-32.0); CREATININE 0.89 mg/dL (0.55-1.02); Calcium 8.8 mg/dL (8.5-10.1); Chloride 97 mmol/L (98-107); Glucose 92 mg/dL (74-106); Potassium 4.2 mmol/L (3.5-5.1); Sodium 132 mmol/L (136-145)
[2019-11-05] MEDS: Fosfomycin Tromethamine 3 GM PACKET PO (01:57)
[2019-11-05] MEDS: Normal Saline Flush 10 ML SYR IVP ×2 (01:58→20:19)
[2019-11-05] MEDS: Lactated Ringers 1,000 ML 65 ML IV (01:58)
[2019-11-05] MEDS: Aspirin E.C. 81 MG TABEC PO (08:54)
[2019-11-05] MEDS: Metoprolol 25 MG TAB 37.5 MG PO ×2 (08:55→20:16)
[2019-11-05] MEDS: Enoxaparin 40 MG/0.4 ML SYR SC (08:57)
[2019-11-05] MEDS: Sertraline 25 MG TAB PO (08:57)
[2019-11-05] MEDS: Clopidogrel 75 MG TAB PO (08:57)
[2019-11-05 09:21] LABS: Hemoglobin A1C 4.8 % (3.8-5.6)
[2019-11-05 09:30] LABS: Calculated LDL 93 mg/dL (<100); Cholesterol 165 mg/dL (<200); HDL Cholesterol 58 mg/dL (40-60); Triglyceride 74 mg/dL (<150)
--- NOTE | 2019-11-05 09:30 | INITIAL_ITS ---
- If Service Date Differs Date of service: 11/05/19 Time of Service: 09:31 Care Management Initial Assess REASON FOR HOSPITALIZATION:: CVA PAST MEDICAL HISTORY/PAST SURGICAL HISTORY:: Medical History . Anemia due to blood loss, acute (Resolved). Atrial fibrillation and flutter (Chronic). 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 Dementia (Chronic). Low body mass index (Acute). Seasonal affective disorder (Acute). Surgical History . Incarcerated Obdurator Hernia (01/31/16). Dr Nicholas, [facility]. S/P right hemicolectomy (Chronic) PREVIOUS FUNCTIONAL STATUS/SOCIAL/FAMILY SUPPORTS:: Daina lives alone in an apartment in [place]. 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. 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 Daina enjoys reading, watching television, corresponding in writing with friends, and going for walks. Daina is independent with her ADLs at baseline. CURRENT FUNCTIONAL STATUS:: Daina was sitting up in bed when CM met with her. She was very pleasant and engaged easily with CM. Daina answered questions openly but hesitated with many of her responses. She was unable to state with certainty where she currently lives, although she settled on [place], which is correct. She also seemed to have trouble recalling the names of all of her children and alternately stated that she was visiting first her sister, then her daughter, in [place] when she developed symptoms of a stroke. Daina also asserted that she continues to drive although documentation from her last admission indcates that is not the case. ADVANCE DIRECTIVES:: On file. German GRAY Has patient been provided with info about the portal/API?: Yes Did the patient sign up for the portal?: No CODE STATUS:: DNR/DNI INSURANCE COVERAGE / FINANCIAL ISSUES:: Medicare. [facility] CURRENT HOME/COMMUNITY SERVICES/EQUIPMENT:: None currently PRIMARY CARE PHYSICIAN:: Gulshan Myrter DO POTENTIAL DISCHARGE NEEDS:: Follow up with PCP and discharge plan of care PATIENT/FAMILY EDUCATION NEEDS:: Discharge plan, limitations, follow up plan, Ask Me Three TRANSPORTATION:: via private vehicle with family PLAN:: Daina will be discharged home with no new services. She will follow up with her PCP and discharge plan of care. Daina will transport via private vehicle with family. CM will continue to support Daina and her family and will assess for any discharge planning neeeds.
--- NOTE | 2019-11-05 10:34 | IN_ITS ---
Date of service: 11/05/19 Time of Service: 09:50 PT Notes Visit Reasons: Cerebrovascular accident Inpatient Physical Therapy Evaluation Date: November 05, 2019 Referring Doctor: López Copeland PT Orders: PT CONSULT: Fall Safety Assessment Precautions: Fall, Standard Patient Profile/Admitting Diagnosis: Daina is a 84 year old female whom presented to the emergency department with acute symptoms of difficulty with her speech along with right upper extremity weakness. PMHX: Medical History . Anemia due to blood loss, acute (Resolved). Atrial fibrillation and flutter (Chronic). 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 Dementia (Chronic). Low body mass index (Acute). Seasonal affective disorder (Acute). Surgical History . Incarcerated Obdurator Hernia (01/31/16). Dr Nicholas, [facility]. S/P right hemicolectomy (Chronic) Social History/Home Situation: Daina lives alone in an apartment in [place]. 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 Daina enjoys reading, watching television, corresponding in writing with friends, and going for walks. Daina is independent with her ADLs at baseline. Current Functional Limitations: No assistive device at baseline. Equipment Owned/DME: None Subjective: Patient is agreeable to a PT consult. Patient reports no discomfort. Objective: General Observation: Telemetry monitoring in place. IV to left UE. Anti- thromboembolic pumps on bilateral legs. Mental Status: Alert and oriented as to person and place Pain: declined pain at time of PT consult ROM: Right Upper Extremity: Shoulder Flexion WFL. Shoulder abduction WFL. Elbow flexion WFL. Wrist flexion WFL. Opening and closing of hand WFL. Left Upper Extremity: Shoulder Flexion WFL. Shoulder abduction WFL. Elbow flexion WFL. Wrist flexion WFL. Opening and closing of hand WFL. Right Lower Extremity: Hip flexion WFL. Hip abduction WFL. Knee flexion WFL. Ankle dorsiflexion WFL. Ankle plantarflexion WFL. Left Lower Extremity: Hip flexion WFL. Hip abduction WFL. Knee flexion WFL. Ankle dorsiflexion WFL. Ankle plantarflexion WFL. Strength: Right Upper Extremity: Shoulder flexors 4/5. Shoulder abductors 4/5. Elbow flexors 4/5. Elbow extensors 4/5. Aws Architect strong. Left Upper Extremity: Shoulder flexors 4/5. Shoulder abductors 4/5. Elbow flexors 4/5. Elbow extensors 4/5. Aws Architect strong. Right Lower Extremity: Hip flexors 4/5. Hip abductors 4/5. Knee flexors 5/5. Knee extensors 5/5. Ankle dorsiflexors 5/5. Ankle plantarflexors 5/5. Left Lower Extremity:Hip flexors 4/5. Hip abductors 4/5. Knee flexors 5/5. Knee extensors 5/5. Ankle dorsiflexors 5/5. Ankle plantarflexors 5/5. Sensation: Intact as to pain and pressure on bilateral lower extremities. Bed Mobility/Transfers: Rolling independent Supine to sit independent Sit to supine independent Sit to stand supervision Stand to sit supervision Gait: Patient was able to tolerate level surface ambulation of 200 feet with full weight bearing requiring supervision and IV pole management from PT without assistive device Balance: Static Sitting: Normal Dynamic Sitting: Normal Static Standing: Good Dynamic Standing: Good Special Tests: Mobility Limitations Standardized Measure [facility] 6 clicks Basic Mobility Inpatient Short Form: Raw Score: 23 CMS Score: 11% deficit Informed Consent/Education: Patient instructed in purpose of PT consult and plan of care. Assessment: Patient is an 84-year-old female s/p CVA. Presents with mild limitation to activity tolerance. Patient presents with clinical signs and symptoms consistent with current/admitting diagnoses that have resulted to mobility limitations, as demonstrated by the following impairment level findings: 1. Impaired activity tolerance Impairments are contributing to the following functional limitations: 1. Increase completion time for mobility ADL performance Patient is assessed as a 17502 moderate complexity based on the following: History: 84-year-old female with impairment level findings, functional limitations, and medical history as listed above Examination: Demonstrable impairment in strength, balance, and activity tolerance with underlying impairments and functional limitations as documented above Presentation: Evolving Decision Makin moderate complexity Goals: Goals X1 week 1. Supine-Sit independent 2. Sit-Supine independent 3. Sit-Stand independent 4. Stand-Sit independent 5. Bed-Chair independent 6. Chair-Bed independent 7. Independent gait on level surface Plan of Care/Treatment Plan: 1-2x/day, 7 days/week x 1 week. Plan of care has been reviewed with the STORM DOOR MAKER providing the service under Physical Therapy direction. Initiate Physical Therapy intervention for strengthening, bed mobility, transfers, gait, stairs, balance training, use of assistive device. DISCHARGE RECOMMENDATIONS: Patient to be discharged home upon medical clearance TREATMENT CODE/TIME: 10673 x 20 minutes, beginning at 9:50 AM. Thank you very much for this referral! Ashly Cisneros, MPT [facility]
--- NOTE | 2019-11-05 11:11 | CHAPLAIN ---
Daina was sitting up in bed when I visited. She said she may be discharged home today, but thought her two aides had abandoned her and that's why she's here. I wasn't sure if she was talking about her nurses here or if she had aides at home. Daina was very pleasant and easily engaged in a conversation. She said she was in [place] visiting her sister when she became ill and rode in the ambulance here. It was her first ride in an ambulance she said. Daina talked about her 's , which she said was quite a while ago and the allowances she has to make after that. She first told me that she lives in [place], where she grew up, then said later that she lives in [facility]. She said she was impatient to get home, but also seemed to be comfortable here and said she slept well last night.
--- NOTE | 2019-11-05 11:25 | PHA.REVIEW ---
Pharmacy Admission Review - Admission Clinical Review CVA cimetidine Adverse Reaction (Intermediate, Verified 11/04/19 21:35) BREAST TENDERNESS diltiazem Adverse Reaction (Intermediate, Verified 11/04/19 21:35) bowel problem Penicillins Adverse Reaction (Unknown, Verified 11/04/19 21:35) unknown Height 5 ft 4 in Weight 44 kg - Renal Dosing Renal Dosing: BUN 23 mg/dL (7-18) H 11/05/19 00:00 Creatinine 0.89 mg/dL (0.55-1.02) 11/05/19 00:00 Medications needing adjustments: Reviewed (Crcl ~33 mL/min current meds okay) - Anticoagulation Anticoagulation: Hgb 12.5 g/dL (12.0-15.5) 11/04/19 21: Hct 38.0 % (36.0-46.0) 11/04/19 21:20 Plt Count 171 x1000/uL (130-400) 11/04/19 21: INR 1.1 (0.9-1.1) 11/04/19 21: Creatinine 0.89 mg/dL (0.55-1.02) 11/05/19 00:00 DVT Prohphylaxis: Reviewed Medications: Enoxaparin Therapeutic Anticoagulation: N/A - Opiate Usage Evaluate Pain Scale/Pains Meds: N/A - Relevant Labs Sodium 132 mmol/L (136-145) L 11/05/19 00:00 Potassium 4.2 mmol/L (3.5-5.1) 11/05/19 00:00 Chloride 97 mmol/L (98-107) L 11/05/19 00:00 Magnesium 2.0 mg/dL (1.8-2.4) 11/05/19 00:00 Electrolytes, C-Reactive P, ESR: Reviewed (watch sodium) - DM Control DM Control: Glucose 92 mg/dL (74-106) 11/05/19 00:00 Hemoglobin A1c 4.8 % (3.8-5.6) 11/04/19 21:20 Finger Stick Blood Glucose 98 Insulin Dosing: N/A - Heart Failure/UT Heart Failure/UT: Troponin I < 0.05 ng/mL (<0.06) 11/04/19 21: EF%, BELKIS's, B-Blockers, Diuretics: Reviewed (metoprolol) - BP Control BP Control: Blood Pressure 146/79 Blood Pressure 149/93 Blood Pressure 153/94 Blood Pressure 130/76 Blood Pressure 147/92 Blood Pressure 159/102 If elevated: Reviewed - Qtc Review If Elevated: N/A (QTc 453) - IV to PO Switch IV Medications: N/A - Home Meds Relevent Home Meds Not ordered & why?: both home meds ordered - Current meds Current Medication Order Review: Intervened (discontinued duplicate med orders and DI meds (already had been given)) - Comments Comments/Follow Ups: Watch SCr and sodium. May need to adjust enoxaprin dosing if renal function worsens.
--- NOTE | 2019-11-05 12:45 | DI.VRAD_ITS ---
PROCEDURE INFORMATION: Exam: MR Head Without Contrast Exam date and time: 11/05/2019 12:32 PM Age: 84 years old Clinical indication: Weakness, extremity; Right; Additional info: Accelerated protocol due to dementia TECHNIQUE: Imaging protocol: MR of the head without contrast. 3D rendering: MIP and/or 3D reconstructed images were created by the technologist. COMPARISON: CT HEAD - STROKE PROTOCOL 11/04/2019 9:14 PM FINDINGS: Brain: Moderate chronic microvascular ischemic changes. No hemorrhage. No acute infarct. Ventricles: Normal. No ventriculomegaly. Bones/joints: Unremarkable. Sinuses: Normal as visualized. No acute sinusitis. Mastoid air cells: Normal as visualized. No mastoid effusion. Orbits: Unremarkable. Soft tissues: Unremarkable. Other vasculature: The flow voids are maintained. IMPRESSION: No acute intracranial abnormality. Chronic microvascular ischemic changes. Dictated and Authenticated by: Robert Gregorio MD. Ordering:[facility] Min Dawn MD
[2019-11-05 13:24] LABS: COVID-19 RT-PCR UVMMC Result Negative (Negative)
[2019-11-05] MEDS: Apixaban 2.5 MG TAB PO (20:16)
[2019-11-06 03:23] VITALS: O2SAT 97
[2019-11-06 03:58] VITALS: BP 137/90; PULSE 86; RESP 17; TEMP 37; O2SAT 96
--- NOTE | 2019-11-06 07:10 | PDOC.CMDIS ---
LACE Index Scoring Tool - Questions: Length of Stay (in days): 2 Acuity (Admit via E.D.?): Yes Comorbidities: Dementia E.D. Visits: 2 - Answers: Total Score: 10 Risk of Readmission: High Risk Care Management Discharge Reason for Hospitalization: CVA Discharge Plan: Daina will discharge back to her daughter's home when ready per MD. She will resume current service supports including [facility] RN/PT. She will follow up with her PCP and plan of care as prescribed. She will transport via private vehicle with family. Patient/Family Education Needs: Review discharge instructions, discuss Ask Me Three. Services Needed at Discharge: Home Health Care Services (Resumption)
[2019-11-06 08:15] VITALS: BP 155/93; PULSE 70; RESP 17; TEMP 36.4; O2SAT 98
[2019-11-06] MEDS: Sertraline 25 MG TAB PO (08:58)
[2019-11-06] MEDS: Apixaban 2.5 MG TAB PO (08:58)
[2019-11-06] MEDS: Metoprolol 25 MG TAB 37.5 MG PO (08:58)
[2019-11-06] MEDS: Aspirin E.C. 81 MG TABEC PO (08:58)
[2019-11-06 09:00] VITALS: O2SAT 98
[2019-11-06 09:05] VITALS: O2SAT 98
--- NOTE | 2019-11-06 10:33 | PTTR_ITS ---
Date of service: 11/06/19 Time of Service: 10:33 PT Notes Visit Reasons: Cerebrovascular accident 11/06/2019 SUBJECTIVE: Daina has no complaints. She does appear to be a little confused as she references going down to the basement during the night. OBJECTIVE: Pt seated in her recliner. Very pleasant and alert. Agreeable to PT treatment. TRANSFERS Sit to stand: I Stand to sit: I GAIT Device: N/A Weight bearing: Full Assist: S Distance: 200' Deviation: no LOB or path deviations noted. THEREX: Static and dynamic gait activities including small PATTI and side stepping. See flow sheet for specifics. ASSESSMENT: Tolerates straight plane ambulation well without LOB or gait deviation. She requires CGA for dynamic balance tasks. She does not require assistive device at this point in time. PLAN: Continue per POC. Treatment time: 12' [id number] Roxane Sampson PTA Clinic location: [facility] [place], [place]
--- NOTE | 2019-11-06 12:43 | DSE_ITS ---
Date of service: 11/06/19 Time of Service: 12:45 DS: Diagnosis Discharge Diagnosis (1) TIA (transient ischemic attack): Status: Acute (2) Atrial fibrillation and flutter: Status: Chronic (3) Essential hypertension: Status: Acute (4) Dementia: Status: Chronic (5) Low body mass index: Status: Acute (6) Chronic malnutrition: Status: Acute (7) Bacteriuria, asymptomatic: Status: Acute (8) COVID-19 ruled out by laboratory testing: Status: Acute Discharge Plan Disposition Patient Disposition: HOME W/HOME HEALTH SERVICE Condition: Good Discharge Details Chief Complaint: CVA/TIA Clinical Impression: CVA (cerebral vascular accident) Reason For Visit: CVA Admit Date/Time: 11/04/19 23:55 Admit Provider: López Copeland Attending Provider: López Copeland Primary Care Provider: Gulshan Howe ED [facility] Course: Ms Reddy is an 84 year old female with PMHx of Afib, not on anticoagulation at the time of presentation (taken off for cecal volvulus surgery in 08/2019 due to anastomotic oozing), as well as h/o hypertension, dementia, chronic protein- calorie malnutrition with BMI of 16.5, who was observed on [facility] hospitalist service from 11/05/2019 until 11/06/2019 for what appears to have been a TIA. The patient had presented with difficulties with her speech as well as RUE weakness 20:30 on 11/04/2019, which had resolved by the time of arrival to ED. She was, however, found to have R-sided hemineglect, R hemianopsia, and a right sensory deficit, with an NIH stroke scale score of 7, improving to 3 while still in the ED. Her CT of the head showed a questionable subacute R brain stem CVA, thus excluding her from thrombolytic therapy. She received aspirin and plavix in the ED, but as the etiology of the event was felt to likely be cardioembolic, given her h/o Afib, her eliquis was resumed at 2.5 mg BID in addition to baby asa. Plavix was not continued. She had a negative CTA of the head/neck as well as a negative MRI of the brain. Echo was not available during the hospital stay and will need to be done as outpatient. She does have Atrial fibrillation, but it is difficult to imaging analyst whether or not her rates were controlled as she frequently took off her telemetry during her stay. We will discharge the patient home with a cardiac event recorder, though there is a very high chance the patient will take it off. Her symptoms have now completely resolved. The patient received 1 dose of fosfamycin for what was feared to be a UTI, but ended up being asymptomatic bacteriuria. She is being discharged home with resumption of home health nursing, follow up with her PCP in 1-2 weeks as well as an order for outpatient echo, cardiac event recorder, and a referral to neurology. She will need bloodwork in 1 week to ensure H/H is staying stable on aspirin/eliquis (CBC in 1 week by home health - results to Dr Howe). She is medically stable for discharge home today. Home Meds and New Rx's Prescriptions: New aspirin 81 mg Tablet,Delayed Release (Dr/Ec) 81 mg PO DAILY Qty: 30 RF: 0 Eliquis 2.5 mg Tablet 2.5 mg PO BID Qty: 60 RF: 0 Continued sertraline 25 mg tablet 25 mg PO DAILY RF: 0 metoprolol tartrate 37.5 mg tablet 37.5 mg PO BID Qty: 60 RF: 12 Discharge Instructions Instructions: Aspirin (By mouth), Apixaban (By mouth), Transient Ischemic Attack (DC) Additional Instructions: Return to the hospital with any new neurologic symptoms, fever, bleeding, chest pain, or shortness of breath. Resume home health nursing. Home health RN: CBC in 1 week, results to Dr Howe. Care Plan Goals: Resumption of home health nursing. CBC in 1 week by home health - results to Dr Howe. Referrals: Gulshan Howe DO [Primary Care Provider] - Regi Hale MD [ [facility] STAFF PHYSICIAN] - Activity:: Activity as Tolerated Equipment/Supplies:: No Equipment Needed Diet:: As Tolerated Discharge Orders Discharge Orders: Discharge Order (Routine); Ordered 11/06/19 Ordered By: Samantha Bocanegra Other Ambulatory Orders: US echocardiogram (Routine) Timeframe: 1 Week Facility: [facility] - Location: DIAGNOSTIC IMAGING Ordered By: Samantha Bocnaegra Cardiac Event Recorder (Outpt) (ONCE) Timeframe: [id number] Facility: [facility] - Location: Respiratory Therapy Ordered By: Samantha Bocanegra DS: Summary Status at Discharge Functional status at discharge: independent ambulation Overall status at discharge: patient is back to baseline Mental Status: mental status grossly normal Speech and Movement: speech and movement normal Mood: congruent mood Affect: normal affect Exam Narrative Exam Narrative: General: Pleasantly confused elderly female, A&Ox3, but does not think she is the patient here and is surprised to find that out, no focal deficits HEENT: EOMI, MMM Heart: irregularly irregular rhythm, no m/r/g Lungs: CTAB Abdomen: soft, nontender, nondistended Extremities: trace edema at B ankles, no c/c. Psych Mental Status: mental status grossly normal Speech and Movement: speech and movement normal Mood: congruent mood Affect: normal affect DS: Data Vitals/I&O Vitals and I&O: Vital Signs Temperature 36.4 C L 11/06/19 08:15 Temperature Source Tympanic 11/06/19 08:15 Pulse 70 11/06/19 08:15 Pulse Rhythm Irregular 11/06/19 09:05 Pulse 98 H 11/05/19 00:17 Respiratory Rate 17 11/06/19 08:15 Respiratory Effort Non-Labored 11/06/19 09:05 Respiratory Depth Normal 11/06/19 09:05 Respiratory Pattern Normal 11/06/19 09:05 Blood Pressure 155/93 H 11/06/19 08:15 Blood Pressure Mean 101 11/05/19 00:16 Blood Pressure Position Supine 11/04/19 21:18 Pulse Oximetry 98 11/06/19 09:05 Oxygen Delivery Method Room Air 11/06/19 09:05 Oxygen Flow Rate 0 11/06/19 09:05 Pain Level 0 11/06/19 08:15 Comment 11/05/19 20:16 Intake & Output 11/05/19 11/06/19 11/06/19 23:59 11:59 23:59 Intake Total 1600 / 2697.5 470 / 920 450 / 920 Output Total 1400 / 2400 875 / 875 Balance 200 / 297.5 -405 / 45 450 / 45 Weight 43.7 kg Intake: IV 1020 / 1457.5 Oral 580 / 1240 450 / 900 450 / 900 Output: Urine 1400 / 2400 875 / 875 Other: Urine Color Yellow Yellow Urine Appearance Clear Clear Urine Odor Normal Normal Stool Size Small Stool Characteristics Soft Voiding Methods Toilet Toilet Data Completed and Pending Completed studies during hospitalization [Text1]: CT head/CTA head/neck 11/05/2019: 1. Normal CTA examination of the [place]. 2. 1.2 x 0.7 cm area of decreased attenuation in the right brain stem suspicious for a subacute infarct. 3. Normal CTA examination of the neck. MRI brain: No acute intracranial abnormality. Chronic microvascular ischemic changes. 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 No problems noted. 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
--- NOTE | 2019-11-08 08:18 | INDS_ITS ---
Date of service: 11/08/19 Time of Service: 08:18 PT Notes Visit Reasons: Cerebrovascular accident Date: November 08, 2019 Referring Doctor: López Copeland PT Orders: PT CONSULT: Fall Safety Assessment Precautions: Fall, Standard Treatment Dates: 11/05/19 - 11/06/19 THIS DOCUMENT SERVES A SUMMARY OF CARE. NO PHYSICAL THERAPY SERVICES WERE PROVIDED ON THIS DATE. Patient Profile/Admitting Diagnosis: Daina is a 84 year old female whom presented to the emergency department with acute symptoms of difficulty with her speech along with right upper extremity weakness. PMHX: Medical History . Anemia due to blood loss, acute (Resolved). Atrial fibrillation and flutter (Chronic). 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 Dementia (Chronic). Low body mass index (Acute). Seasonal affe ctive disorder (Acute). Surgical History . Incarcerated Obdurator Hernia (01/31/16). Dr Nicholas, [facility]. S/P right hemicolectomy (Chronic) Social History/Home Situation: Daina lives alone in an apartment in [place]. 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 Daina no longer drives but still cooks her own meals and remains active in her mandaen, the first [employer] located in [place]. Daina enjoys reading, watching television, corresponding in writing with friends, and going for walks. Daina is independent with her ADLs at baseline. Current Functional Limitations: No assistive device at baseline. Equipment Owned/DME: None Subjective: None obtained, as patient was able to discharge home 11/06/2019. Objective: ROM: Right Upper Extremity: Shoulder Flexion WFL. Shoulder abduction WFL. Elbow flexion WFL. Wrist flexion WFL. Opening and closing of hand WFL. Left Upper Extremity: Shoulder Flexion WFL. Shoulder abduction WFL. Elbow flexion WFL. Wrist flexion WFL. Opening and closing of hand WFL. Right Lower Extremity: Hip flexion WFL. Hip abduction WFL. Knee flexion WFL. Ankle dorsiflexion WFL. Ankle plantarflexion WFL. Left Lower Extremity: Hip flexion WFL. Hip abduction WFL. Knee flexion WFL. Ankle dorsiflexion WFL. Ankle plantarflexion WFL. Strength: Right Upper Extremity: Shoulder flexors 4/5. Shoulder abductors 4/5. Elbow flexors 4/5. Elbow extensors 4/5. Human Resources Trainee strong. Left Upper Extremity: Shoulder flexors 4/5. Shoulder abductors 4/5. Elbow flexors 4/5. Elbow extensors 4/5. Human Resources Trainee strong. Right Lower Extremity: Hip flexors 4/5. Hip abductors 4/5. Knee flexors 5/5. Knee extensors 5/5. Ankle dorsiflexors 5/5. Ankle plantarflexors 5/5. Left Lower Extremity:Hip flexors 4/5. Hip abductors 4/5. Knee flexors 5/5. Knee extensors 5/5. Ankle dorsiflexors 5/5. Ankle plantarflexors 5/5. Sensation: Intact as to pain and pressure on bilateral lower extremities. Bed Mobility/Transfers: Rolling independent Supine to sit independent Sit to supine independent Sit to stand independent Stand to sit independent Gait: Patient was able to tolerate level surface ambulation of 200 feet with full weight bearing requiring supervision, without assistive device. Balance: Static Sitting: Normal Dynamic Sitting: Normal Static Standing: Good Dynamic Standing: Good Informed Consent/Education: Patient instructed in purpose of PT consult and plan of care. Assessment: Patient is an 84-year-old female s/p CVA. She was seen for 2 PT ses sions over the course of 2 days, with improvements in mobility and independence. She was medically stabilized and able to transition back home on 11/06/19. She will be discharged from PT in acute care setting, with recommendation for continuation of PT services via Home Health. Goals: Goals X1 week 1. Supine-Sit independent (MET) 2. Sit-Supine independent(MET) 3. Sit-Stand independent(MET) 4. Stand-Sit independent(MET) 5. Bed-Chair independent(MET) 6. Chair-Bed independent(MET) 7. Independent gait on level surface(progressing toward, with need for supervision only) Plan of Care/Treatment Plan: D/C from PT in acute care setting DISCHARGE RECOMMENDATIONS: Home Health PT TREATMENT CODE/TIME: No charges on this date Janice Garcia, PT, DPT [facility]
== END 2019-11-06 15:04 | disposition home health service (06) ==
LOC: ER 11-05 00:03 → MS 11-05 00:42
PROVIDERS: Admitting Provider Internal Medicine; Emergency Provider Emergency Medicine; PCP Family Medicine; Visit Provider Internal Medicine
DX: G45.9 Transient cerebral ischemic attack, unspecified (principal); R29.707 NIHSS score 7; H53.47 Heteronymous bilateral field defects; R41.4 Neurologic neglect syndrome; F03.90 Unspecified dementia, unspecified severity, without behavioral disturbance, psychotic disturbance, mood disturbance, and anxiety; Z11.59 Encounter for screening for other viral diseases; Z87.891 Personal history of nicotine dependence; I48.20 Chronic atrial fibrillation, unspecified; Z98.0 Intestinal bypass and anastomosis status; Z86.73 Personal history of transient ischemic attack (TIA), and cerebral infarction without residual deficits; Z79.899 Other long term (current) drug therapy; Z66 Do not resuscitate; I10 Essential (primary) hypertension; E46 Unspecified protein-calorie malnutrition; Z68.1 Body mass index [BMI] 19.9 or less, adult; R82.71 Bacteriuria
CPT/HCPCS: 36415; 36416; 70496; 70498; 80048; 80053; 80061; 82962; 93005; 96360; 96361; 97162; 97530; 99217; 99220; 99291; J1650; U0003; 70551; 81003; 81015; 83036; 83735; 84484; 85025; 85610; 87086; 93010; J3490

== ENCOUNTER 2019-11-12 10:58 | Emergency (ER) | payer MEDICARE, BC, SELFPAY ==
[2019-11-12] VITALS (30 sets, daily range): BP systolic 114–147; BP diastolic 74–107; PULSE 93–134; RESP 17–43; TEMP 36.7; O2SAT 95–99
--- NOTE | 2019-11-12 11:00 | RT.EKG_ITS ---
APPROVED REPORT Exam: Resting ECG Patient Location: E HR:98 bpm ECG Measurements Heart Rate 98 AXIS MN [id number] P [id number] QRSd 74 QRS -26 QT 368 T 33 QTc 470 <Conclusion> Atrial fibrillation...? atrial activity Anterior infarct, old...Q >40mS, abnormal ST-T, V2-V5. No acute ST ischemic findings. I have reviewed and interpreted ECG and agree with software generated interpretation.
--- NOTE | 2019-11-12 11:15 | DI.CT_ITS ---
EXAM: CT HEAD WO CLINICAL HISTORY: fall, anticoagulated. TECHNIQUE: Imaging Protocol: Axial computed tomography images with coronal and sagittal reformatted images were created and reviewed COMPARISON: No exams were available for comparison FINDINGS: Ventricles and Extra axial spaces: Normal in size and morphology for the patient's age. Hemorrhage: None. Cerebral parenchyma: Atrophy. White matter changes consistent with small vessel disease. Midline shift: None. Brainstem/Cerebellum: Normal. Calvarium: Normal. Visualized Paranasal sinuses/Mastoids: Clear. IMPRESSION: No acute abnormality. RADIATION DOSE DELIVERED: 701.55mGy.cm Total DLP 701.55mGy.cm Total DLP DATA REPOSITORY: All CT scans at this facility are submitted to the National Radiology Data Registry (NRDR) Dose Index Registry (DIR) with the [employer] (ACR). RADIATION OPTIMIZATION: All CT scans at this facility use at least one of these dose optimization te chniques: automated exposure control; mA and/or kV adjustment per patient size (includes targeted exa ms where dose is matched to clinical indication); or iterative reconstruction.
--- NOTE | 2019-11-12 11:15 | DI.RAD_ITS ---
EXAM: XR CHEST 2V PA LATERAL CLINICAL HISTORY: fall/pain/afib TECHNIQUE: 2D digital imaging was performed. COMPARISON: No exams were available for comparison FINDINGS: The heart is enlarged. There is calcification at the aortic arch. The lung bases are partially obsc ured by overlying material. The lungs appear clear. There is no pneumothorax. No thoracic compress ion fractures or rib fractures are seen. IMPRESSION: Cardiomegaly. No acute pulmonary findings. DATA REPOSITORY: RADIATION DOSE DELIVERED:
--- NOTE | 2019-11-12 11:15 | DI.RAD_ITS ---
EXAM: XR LUMBAR SPINE COMPLETE CLINICAL HISTORY: fall/pain. TECHNIQUE: 2D digital imaging was performed. COMPARISON: CT CT ABDOMEN PELVIS WO from 08/04/2019 FINDINGS: There is now a mild L3 compression fracture of the superior endplate. There is sclerosis of the supe rior endplate and the findings may not be acute. This was not present on the previous CT. The remai giselle vertebral bodies are well maintained. The disc spaces are well maintained. The alignment appea rs normal. There is mild dilatation of the distal abdominal aorta which is heavily calcified, unchan ged from previous CT. IMPRESSION: Subacute or old mild L3 compression fracture. DATA REPOSITORY: RADIATION DOSE DELIVERED:
[2019-11-12 11:41] LABS: Abs Immature Grans 0.02 k/cumm (0.0-0.09); Absolute Basophil Count 0.01 k/cumm (0.0-0.2); Absolute Eosinophil Count 0.01 k/cumm (0.0-0.7); Absolute Lymphocyte Count 1.01 k/cumm (1.2-3.4); Absolute Monocyte Count 0.48 k/cumm (0.11-0.7); Absolute Neutrophil Count 6.91 k/cumm (1.2-6.7); Basophils % 0.1; Eosinophils % 0.1; HCT 40.3 % (36.0-46.0); HGB 13.7 g/dL (12.0-15.5); Immature Grans % 0.2 %; Mean Corpuscular Hemoglobin 31.2 pg (27.0-33.0); Mean Corpuscular Volume 91.8 fL (80-95); Mean Platelet Volume 10.2 fL (8.0-11.0); Monocytes % 5.7; Neutrophils % 81.9; Platelet Count 185 x1000/uL (130-400); RBC 4.39 m/cumm (4.00-5.20); RBC Distribution Width 14.8 % (11.7-14.6); White Blood Cell Count 8.44 k/cumm (4.4-10.8)
[2019-11-12] MEDS: Normal Saline 1,000 ML 1000 ML IV (11:45)
[2019-11-12 11:58] LABS: ALT 26 U/L (14-59); AST 25 U/L (15-37); Albumin 3.7 g/dL (3.4-5.0); Alkaline Phosphatase 82 U/L (46-116); Anion Gap 5.8 mmol/L (3-11); BUN 16 mg/dL (7-18); Bilirubin, Total 1.2 mg/dL (0.2-1.0); CO2 29.2 mmol/L (21.0-32.0); CREATININE 0.79 mg/dL (0.55-1.02); Calcium 8.8 mg/dL (8.5-10.1); Chloride 93 mmol/L (98-107); Glucose 135 mg/dL (74-106); Magnesium 1.8 mg/dL (1.8-2.4); Potassium 4.2 mmol/L (3.5-5.1); Sodium 128 mmol/L (136-145)
[2019-11-12 11:59] LABS: Troponin I < 0.05 ng/mL (<0.06)
[2019-11-12] MEDS: Labetalol 100 MG/20 ML VIAL 10 MG IVP (12:50)
[2019-11-12 13:07] LABS: Bilirubin Negative (Negative); Blood Small (Negative); Clarity Clear (Clear); Glucose Negative (Negative); Ketones Trace mg/dL (Negative); Leukocyte Esterase Negative (Negative); Nitrite Negative (Negative); Specific Gravity 1.025 (1.005-1.025); Urobilinogen 0.2 EU/dL (Up TO 0.2)
--- NOTE | 2019-11-12 13:21 | ED.GENADUL_ITS ---
Discharge Plan Disposition Patient Disposition: HOME Condition: Stable Discharge Details Chief Complaint: GenMedical Clinical Impression: Hyponatremia, Fall, Back pain Primary Care Provider: Gulshan Howe ED Provider: López Torrez Home Meds and New Rx's Prescriptions: Continued sertraline 25 mg tablet 25 mg PO DAILY RF: 0 aspirin 81 mg Tablet,Delayed Release (Dr/Ec) 81 mg PO DAILY Qty: 30 RF: 0 Eliquis 2.5 mg Tablet 2.5 mg PO BID Qty: 60 RF: 0 metoprolol tartrate 37.5 mg tablet 37.5 mg PO BID Qty: 60 RF: 12 Discharge Instructions Instructions: Hyponatremia (ED), Back Pain (ED) Additional Instructions: At this time your work-up in the ER does not reveal any obvious emergent process and you are requesting discharge. As we discussed your chronically low sodium level was slightly lower than baseline, I do recommend increasing your sodium intake over the next few days. [id number] Tylenol as directed for discomfort. Please watch for new or worsening symptoms and return to the ER for any concerns. I do strongly recommend reaching out to your primary care provider later today or tomorrow for prompt outpatient reevaluation. Medical Decision Making 84-year-old female with history of hypertension, dementia, A. fib, anticoagulation, presents with 2 separate complaints. First, she had a mechanical fall last night-early this morning getting out of bed. Reports back pain but denies striking her head. I spoke with Coretta her daughter and she had no obvious head injury and is acting at baseline. Her larger concern was that at home this morning, home health noticed her heart rate in the 120s and sent in for A. fib and RVR. Patient with known A. fib and is anticoagulated. Patient denies any chest pain or shortness of breath whatsoever. Heart rate in the 90s right now, irregular regular. Given the fall, will obtain x-ray of her L-spine, and CT of her head given she is anticoagulated. Given her age, comorbidities, A. fib with RVR will obtain cardiac work-up including chest x-ray. Laboratory values reveal a white blood cell count of 8.44 hemoglobin 13.7 hematocrit 40.3 platelet count 185. Sodium 128, this is slightly worse than her chronic baseline hyponatremia of 131. Potassium 4.2 creatinine 0.79 with a GFR greater than 60. Urinalysis without evidence of infection. Patient is receiving 1 L IV fluid. Upon reevaluation patient reports that she feels fine and would like to be discharged. I did see her heart rate occasionally spike into the low 100s and even up to 115. 10 mg IV labetalol given, patient already takes oral beta- josefina. Subsequently her heart rate remained in the 90s. Head CT read by radiology as no acute abnormality. Lumbar spine x-ray read as subacute or old mild L3 compression fracture. Clinically in my judgment she does not have point tenderness here, my guess is this is likely old. Chest x- ray read by radiology as cardiomegaly, no acute pulmonary findings Discussed findings with patient. She has no additional questions or concerns would like to be discharged. I once again discussed the case and work-up with her daughter Coretta. She is aware of her baseline hyponatremia and will have her increase her sodium intake over the next couple of days. As an outpatient she may need to increase her oral beta-josefina at the request of her primary care provider if she does continue to have mild RVR. We discussed chest x-ray, L- spine x-ray and head CT. As I stated above, L3 compression fracture likely old given she has no point tenderness in the area. Daughter has no additional questions or concerns and is comfortable taking her home in her current condition. I have encouraged her to return to the ER for new or worsening symptoms and to reach out to her primary care provider later today or tomorrow for prompt outpatient reevaluation. Reevaluation and adjustment of medications may be indicated. Upon discharge patient is awake, alert to self and location. She is ambulatory without difficulty. ECG Data Attestation: I personally reviewed and interpreted this ECG (s) as follows: Prior ECG tracings: available for review Interpretation: EKG performed at 1109 reveals atrial fibrillation, rate of 98, no STEMI. EKG reviewed and read with Dr. Michael, please see her official read HPI General Date/Time Provider Initiated Documentation: 11/12/19 11:01 . Limitations to Documentation: altered mental status (Dementia) . Information obtained by: patient and family . HPI Narrative: This is a 84-year-old female with history of dementia, hypertension, TIA, CVA, A. fib, chronic anticoagulation, presenting to the ER for a fall that occurred either yesterday or today while getting out of bed. She reports that she injured her back. She denies striking her head or any loss of consciousness. She has no additional questions or concerns at this time. Given her dementia she is a rather vague and poor historian. I was able to speak with her daughter who she lives with. Coretta was able to tell me that she heard her mother fall in the bedroom around 230 this morning, she went directly into the bedroom and she was lying on the floor. She complained of back pain at that time. There is no obvious head injury, no obvious injury elsewhere to the body. Subsequently she was complaining of pain in the area that she struck on the ground however today a home health nurse came and upon assessing her realized that her A. fib was in RVR, rate in the 120s. They contacted their primary care provider and was d irected to come to the ER for further evaluation. Patient has known A. fib, is anticoagulated. Denies any chest pain or shortness of breath whatsoever. Does not believe that any doses of medication have been missed. Related Data Home Medications Medication Instructions Recorded Confirmed metoprolol tartrate 37.5 mg PO BID #60 tab 08/19/19 11/12/19 sertraline 25 mg PO DAILY 11/04/19 11/12/19 Eliquis 2.5 mg PO BID #60 tab 11/06/19 11/12/19 aspirin 81 mg PO DAILY #30 tab 11/06/19 11/12/19 Previous Rx's Medication Instructions Recorded metoprolol tartrate 37.5 mg PO BID #60 tab 08/19/19 Eliquis 2.5 mg PO BID #60 tab 11/06/19 aspirin 81 mg PO DAILY #30 tab 11/06/19 Allergies Allergy/AdvReac Type Severity Reaction Status Date / Time cimetidine AdvReac Intermediate BREAST Verified 11/12/19 11:09 TENDERNESS diltiazem AdvReac Intermediate bowel Verified 11/12/19 11:09 problem Penicillins AdvReac Unknown unknown Verified 11/12/19 11:09 General Stated Complaint: GenMedical JODY: 3 Review of Systems Constitutional Constitutional: Denies fatigue, Denies fever(s) and Denies headache(s) Eyes Eyes: Denies change in vision ENT Ears, Nose, Mouth, and Throat: Denies dizziness, Denies headache(s) and Denies neck pain Cardiovascular Cardiovascular: Denies chest pain and Denies dyspnea Respiratory Respiratory: Denies cough and Denies dyspnea Gastrointestinal Gastrointestinal: Denies abdominal pain, Denies nausea and Denies vomiting Genitourinary Genitourinary: Denies dysuria Musculoskeletal Musculoskeletal: Reports back pain, Denies neck pain, Denies numbness and Denies tingling Integumentary/Breasts Skin/Breast: Denies rash Neurologic Neurologic: Denies dizziness, Denies headache(s), Denies numbness and Denies tingling Endocrine Endocrine: Denies fatigue Hematologic/Lymphatic Hematologic/Lymphatic: Reports easy bleeding and Reports easy bruising [facility] Medical History Anemia due to blood loss, acute (Resolved) Atrial fibrillation and flutter (Chronic) 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 No problems noted. Social History Smoking/Tobacco Use Status: Former Tobacco Use Alcohol Intake: never Drug use: Never Substance use type: does not use Adopted: No Caregiver/Support person: No Foster care: No Household members: none Number of Children: 2 Current gender identity: female What type of physical activity do you participate in: walking Frequency: 5-6 times per week Seatbelt use: always Drive intox or ride w/intox driver sales: No Working smoke detector in home: Yes Carbon monox detector in home: Yes Do you feel safe at home: Yes Do you feel safe in your relationship?: Yes Additional Social history: lives alone daughter checks on her Exam Const General: cooperative, healthy appearing, comfortable and no acute distress Orientation: alert, awake, oriented to person, oriented to place and confused (Unsure of the exact date.) [facility] Head: normal to inspection, normocephalic and atraumatic Mouth: moist mucous membranes Throat: posterior oropharynx normal Eyes General: appearance normal, both eyes and all related structures Alignment and Position: alignment normal Periorbital: periorbital findings normal Eyelids: eyelids normal Conjunctivae: conjunctivae normal Sclera: sclerae normal Cornea: corneas normal Pupils: PERRL EOM: EOM intact bilaterally Direct ophthalmoscopy: normal light reflex Neck Neck: normal visual inspection, full ROM, trachea midline, supple and nontender Chest Chest: normal inspection of the chest and normal palpation of entire chest wall Resp Effort & Inspection: normal respiratory effort and able to speak in complete sentences Auscultation: clear to auscultation bilaterally Cardio Rhythm: abnormal rhythm irregularly irregular (Right in the 90s) GI Inspection: normal to inspection Palpation: soft and nontender Auscultation: normal bowel sounds Back/Spine/Pelvis Back: no CVA tenderness and back tenderness (Diffuse mild lumbar and thoracic, no midline point tenderness) Pelvis: no pain with anterior-posterior compression and no pain with lateral compression Sacrum: no tenderness Coccyx: no tenderness Skin General skin exam: no rashes or lesions noted Neuro General: patient alert, patient awake, moves all extremities and no focal motor deficits Cranial Nerves: CN's II-XI intact bilaterally Speech: speech normal Gait: normal gait Motor: muscle tone normal throughout and strength 5/5 throughout Sensory Exam: no sensory deficits noted Extrem General: normal to inspection, full ROM, capillary refill normal, no pedal edema and no calf tenderness Psych Appearance: grossly normal Mental Status: mental status grossly normal Course Vital Signs Vital signs: Vital Signs Pulse 113 H 11/12/19 11:04 Respiratory Rate 20 11/12/19 11:04 Pulse Oximetry 98 11/12/19 11:04 Pulse 120 H 11/12/19 13:01 Pulse 111 H 11/12/19 13:01 Respiratory Rate 17 11/12/19 13:01 Respiratory Effort 11/12/19 11:08 Blood Pressure 132/107 H 11/12/19 13:01 Blood Pressure Mean 113 11/12/19 13:01 Pulse Oximetry 97 11/12/19 13:01 Oxygen Delivery Method Room Air 11/12/19 11:04 Oxygen Flow Rate 0 11/12/19 11:04 Pain Level 6 11/12/19 11:04 Comment 11/12/19 11:04 Lab/Test Results Lab/Test Results: Laboratory Tests Range/Units 11/12/19 11/12/19 11/12/19 11:08 11:08 12:45 WBC (4.4-10.8) k/cumm 8.44 RBC (4.00-5.20) m/cumm 4.39 Hgb (12.0-15.5) g/dL 13.7 Hct (36.0-46.0) % 40.3 MCV (80-95) fL 91.8 MCH (27.0-33.0) pg 31.2 MCHC (32.0-36.0) g/dL 34.0 RDW (11.7-14.6) % 14.8 H Plt Count (130-400) x1000/uL 185 MPV (8.0-11.0) fL 10.2 Immature Gran % % 0.2 Neutrophils % 81.9 Lymphocytes % 12.0 Monocytes % 5.7 Eosinophils % 0.1 Basophils % 0.1 Absolute Neutrophils (1.2-6.7) k/cumm 6.91 H Absolute Lymphocytes (1.2-3.4) k/cumm 1.01 L Absolute Monocytes (0.11-0.7) k/cumm 0.48 Absolute Eosinophils (0.0-0.7) k/cumm 0.01 Absolute Basophils (0.0-0.2) k/cumm 0.01 Sodium (136-145) mmol/L 128 L Potassium (3.5-5.1) mmol/L 4.2 Chloride (98-107) mmol/L 93 L Carbon Dioxide (21.0-32.0) mmol/L 29.2 Anion Gap (3-11) mmol/L 5.8 BUN (7-18) mg/dL 16 Creatinine (0.55-1.02) mg/dL 0.79 Estimated GFR/1.73 m2 (mL/min/1.73m2) >= 60.00 Glucose (74-106) mg/dL 135 H Calcium (8.5-10.1) mg/dL 8.8 Magnesium (1.8-2.4) mg/dL 1.8 Total Bilirubin (0.2-1.0) mg/dL 1.2 H AST (15-37) U/L 25 ALT (14-59) U/L 26 Alkaline Phosphatase (46-116) U/L 82 Troponin I (<0.06) ng/mL < 0.05 Total Protein (6.4-8.2) g/dL 7.0 Albumin (3.4-5.0) g/dL 3.7 Urine Color (Yellow) Yellow Urine Clarity (Clear) Clear Urine pH (5-8) 7.0 Ur Specific [place] (1.005-1.025) 1.025 Urine Protein (Negative) mg/dL Negative Urine Ketones (Negative) mg/dL Trace H Urine Blood (Negative) Small H Urine Nitrite (Negative) Negative Urine Bilirubin (Negative) Negative Urine Urobilinogen (Up TO 0.2) EU/dL 0.2 Ur Leukocyte Esterase (Negative) Negative Urine Glucose (Negative) mg/dL Negative
[2019-11-12 13:27] LABS: Bacteria Few HPF (Negative); C & S Indicated? No; Casts Negative LPF (Negative); Crystals Few Amorphous HPF (Negative); Epithelial Cells Few HPF (Negative); Mucus Trace (Negative); WBC 0-2 HPF (0-5)
== END 2019-11-12 15:18 | disposition home or self-care (01) ==
PROVIDERS: Emergency Provider Physician Assistant; PCP Family Medicine
DX: M54.5 Low back pain (principal); W06.XXXA Fall from bed, initial encounter; E87.1 Hypo-osmolality and hyponatremia; I48.91 Unspecified atrial fibrillation; I47.2 Ventricular tachycardia; F03.90 Unspecified dementia, unspecified severity, without behavioral disturbance, psychotic disturbance, mood disturbance, and anxiety; Z79.01 Long term (current) use of anticoagulants; I10 Essential (primary) hypertension
CPT/HCPCS: 36415; 80053; 93005; 96361; 96374; 99285; 70450; 71046; 72110; 81003; 81015; 83735; 84484; 85025; 93010

== ENCOUNTER 2019-11-17 00:46 | Outpatient (CLI) | payer MEDICARE, BC, SELFPAY ==
--- NOTE | 2019-11-17 14:34 | DI.US_ITS ---
APPROVED REPORT EXAM: Comprehensive 2D, Doppler, and color-flow Echocardiogram Patient Location: Out-Patient Pepper Cutter: Nazia Chance RDCS (AE) Indications: TIA Other Information Study Quality: Adequate Conclusion Left Ventricle : The left ventricle is normal size. The left ventricular systolic function is normal. The left ventricular ejection fraction is within the normal range. There is normal left ventricular wall thickness. LVEF is 50-55%. Right Ventricle : Right ventricle is mildly dilated. The right ventricular systolic function is [place] l. The RVSP is 34.8mmHg. Atria : Left atrium is severely dilated. Right atrium is severely dilated. Mitral Valve : Mild mitral annular calcification. No evidence of mitral valve stenosis. Moderate to s evere mitral regurgitation Tricuspid Valve : The tricuspid valve is normal in structure. There is no tricuspid valve stenosis. S evere tricuspid regurgitation. Great Vessels : IVC is normal in size and collapses >50% with inspiration. Compared to study from 08/11/19, there is no significant change. Wall motion Left Ventricle The left ventricle is normal size. The left ventricular systolic function is normal. The left ventric ular ejection fraction is within the normal range. There is normal left ventricular wall thickness. T here is normal LV segmental wall motion. There is no ventricular septal defect visualized. LVEF is 50 -55%. Right Ventricle Right ventricle is mildly dilated. The right ventricular systolic function is normal. The RVSP is 34. 8mmHg. Atria Left atrium is severely dilated. Right atrium is severely dilated. The interatrial septum is intact w ith no evidence for an atrial septal defect. Aortic Valve Aortic valve is trileaflet. There is no aortic valvular stenosis. No aortic regurgitation is present. Mitral Valve Mild mitral annular calcification. No evidence of mitral valve stenosis. Moderate to severe mitral re gurgitation Mild mitral valve prolapse. Tricuspid Valve The tricuspid valve is normal in structure. There is no tricuspid valve stenosis. Severe tricuspid re gurgitation. Pulmonic Valve The pulmonary valve is normal in structure. There is no pulmonic valvular stenosis. Trace pulmonic re gurgitation. Great Vessels The aortic root is normal in size. The ascending aorta is normal in size. Aortic arch is not well vis ualized. IVC is normal in size and collapses >50% with inspiration. Pericardium Trace pericardial effusion. 2D Dimensions IVSD d PLAX 0.81 cm F: 0.6-1.0 LV Vol A2C d MOD 72.0 mL LVPW d PLAX 0.83 cm F: 0.6 - 1.0 LV Vol A4C d MOD 61.7 mL LVID d PLAX 3.97 cm F: 3.8 - 5.2 LA vol/ BSA A2C s A-L 53.8 mL/m2 LVDs 2.50 cm F: 2.2 - 3.5 LA vol/ BSA A4C s A-L 68.0 mL/m2 Ao Root d 2.62 cm F: 2.7 - 3.3 LA Vol/ BSA Biplane s A-L 64.2 mL/m2 RA Area A4C 20.40 cm2 LA Area A4C s MOD 28.35 cm2 RA Vol/ BSA A4C s A-L 40.0 mL/m2 LA Area A2C s MOD 23.76 cm2 Ao Asc Diam d 2.86 cm F: 2.3 - 3.1 LV EF A4C MOD 56.4 % LV EF Teichholz 66.6 % LV EF A2C MOD 51.3 % LVEF (Lara's) 52.83 % F: 54 - 74 LV EF Biplane MOD 52.8 % LV Volume 57.74 mL F: 46 - 106 SV 36.18 mL LV Volume Index 39.82 mL/m2 F: 29 - 61 SV Index 24.83 mL/m2 LV Vol Biplane MOD 68.5 mL FS 36.30 % LV Diastology MV E' lateral 0.109 (>0.1 m/s) MV E Vmax 0.99 (0.4-1.3 m/s) LV E/e LAT 9.05 (<14) MV E/E' lateral 9.07 Aortic Valve LVOT Area 2.74 cm2 AoV Area Vmax 2.12 cm2 LVOT Vmax 0.70 m/s AoV Area/ BSA (Vmax) 1.46 cm2/m2 LVOT Mean Issac. 0.53 m/s CECILE Mean Issac. 2.10 cm2 LVOT Peak Grad 1.9 mmHg CECILE Mean Issac. Index 1.44 cm2/m2 LVOT Mean Grad 1.2 mmHg LVOT VTI 0.155 m LVOT Diam s 1.85 cm AoV Vmax 0.90 m/s Velocity Ratio 0.77 AoV Mean Issac. 0.70 m/s AoV Peak Grad 3.2 mmHg LVOT SV 42.44 mL AoV Mean Grad 2.0 mmHg AoV VTI 0.167 m AoV Area VTI 2.54 cm2 AoV Area/ BSA (VTI) 1.74 cm/m2 Mitral Valve MV DT 185 (160-240 msec) MR Vmax 5.11 m/s MV PHT 54 msec MR VTI 1.556 m MV Area PHT 4.11 cm2 MR Peak Grad 104.4 mmHg MV VTI 0.217 m MR Mean Grad 75.4 mmHg MV Area VTI 1.95 (4.0-6.0 cm2) MR PISA Radius 0.45 cm MR EROA 0.09 cm2 MR Aliasing Velocity 0.35 m/s MR PISA 1.26 cm2 Pulmonary Valve PV Vmax 0.94 (0.5-1.5 m/s) RVOT Peak Gr. 1.10 mmHg PV Peak Grad 3.5 mmHg RVOT Mean Gr. 0.45 mmHg PV Mean Grad 1.7 mmHg RVOT VTI 0.076 m PV VTI 0.155 m RVOT Vmax 0.53 m/s Tricuspid Valve TR Peak Grad 31.7 mmHg TR Vmax 2.82 m/s RA Pressure 3.00 mmHg RVSP (TR) 34.8 mmHg
== END 2019-11-17 01:06 ==
PROVIDERS: PCP Family Medicine; Visit Provider Family Medicine
DX: G45.9 Transient cerebral ischemic attack, unspecified (principal); I08.1 Rheumatic disorders of both mitral and tricuspid valves; I51.7 Cardiomegaly
CPT/HCPCS: 93306

== ENCOUNTER → 2019-11-18 13:40 | Outpatient (BNVA) | payer MEDICARE, BC, SELFPAY | PROVIDERS: PCP Family Medicine; Referring Provider Internal Medicine; Visit Provider Psychiatry & Neurology Neurology | DX: F01.50 Vascular dementia, unspecified severity, without behavioral disturbance, psychotic disturbance, mood disturbance, and anxiety (principal); G45.9 Transient cerebral ischemic attack, unspecified; I10 Essential (primary) hypertension | CPT/HCPCS: 99204; 99215 ==

== ENCOUNTER 2019-11-19 07:50 | Outpatient (CLI) | payer MEDICARE, BC, SELFPAY ==
[2019-11-20 20:00] LABS: COVID-19 RT-PCR Result Not Detected ((See Note))
== END 2019-11-19 08:10 ==
PROVIDERS: PCP Family Medicine; Visit Provider Family Medicine
DX: Z02.2 Encounter for examination for admission to residential institution (principal); Z03.818 Encounter for observation for suspected exposure to other biological agents ruled out
CPT/HCPCS: U0003

== ENCOUNTER 2019-11-26 21:54 | Outpatient (REF) | payer MEDICARE, BC, SELFPAY ==
[2019-11-29 18:29] LABS: COVID-19 RT-PCR Result Not Detected ((See Note))
== END 2019-11-26 22:14 ==
LOC: LBN 21:54
PROVIDERS: PCP Family Medicine; Visit Provider Family Medicine
DX: Z03.818 Encounter for observation for suspected exposure to other biological agents ruled out (principal)
CPT/HCPCS: U0003

== ENCOUNTER 2019-12-03 16:34 | Outpatient (REF) | payer MEDICARE, BC, SELFPAY ==
[2019-12-04 14:18] LABS: COVID-19 RT-PCR Result Not Detected ((See Note))
== END 2019-12-03 16:54 ==
LOC: LBN 16:34
PROVIDERS: PCP Family Medicine; Visit Provider Nurse Practitioner Adult Health
DX: Z11.59 Encounter for screening for other viral diseases (principal)
CPT/HCPCS: U0003

== ENCOUNTER 2019-12-06 16:07 | Outpatient (REF) | payer MEDICARE, BC, SELFPAY ==
[2019-12-06 16:35] LABS: Abs Immature Grans 0.02 10^3/uL (0.0-0.06); Absolute Basophil Count 0.04 10^3/uL (0.0-0.2); Absolute Eosinophil Count 0.06 10^3/uL (0.0-0.7); Absolute Lymphocyte Count 1.17 10^3/uL (1.2-3.4); Absolute Monocyte Count 0.39 10^3/uL (0.1-0.8); Absolute Neutrophil Count 4.24 10^3/uL (1.2-6.7); Basophils % 0.7; HCT 42.2 % (36.0-46.0); HGB 13.6 g/dL (11.2-15.7); Immature Grans % 0.3; Lymphocytes % 19.8; MCH 31.3 pg (27.0-33.0); MCHC 32.2 % (32.0-36.0); MCV 97.2 fL (80-95); MPV 9.7 fL (8.0-11.0); Monocytes % 6.6; Neutrophils % 71.6; Platelet Count 253 10^3/uL (130-400); RBC 4.34 10^6/uL (3.93-5.22); RDW 15.7 % (11.7-14.6); RDW-SD 56.3 fL; WBC 5.92 10^3/uL (4.4-10.8)
[2019-12-06 16:59] LABS: Iron 67 ug/dL (50-170); Total Iron Binding Capacity 296 ug/dL (250-450); Transferrin Sat 23 % (15-50)
[2019-12-06 17:29] LABS: Anion Gap 8.2 mmol/L (3-11); BUN 14 mg/dL (7-18); CO2 25.8 mmol/L (21.0-32.0); CREATININE 0.91 mg/dL (0.55-1.02); Calcium 9.2 mg/dL (8.5-10.1); Chloride 95 mmol/L (98-107); Estimated GFR 59.04 (mL/min/1.73m2); Ferritin 256 ng/mL (8-252); Glucose 115 mg/dL (74-106); Potassium 4.3 mmol/L (3.5-5.1); Sodium 129 mmol/L (136-145); TSH (W/Ref FT4) 1.72 uIU/mL (0.36-3.74); Vitamin B12 375 pg/mL (193-986)
[2019-12-06 17:39] LABS: C-Reactive Protein 0.26 mg/dL (0.0-0.3)
== END 2019-12-06 16:27 ==
LOC: LBN 16:07
PROVIDERS: PCP Family Medicine; Visit Provider Family Medicine
DX: I10 Essential (primary) hypertension (principal); D64.9 Anemia, unspecified; I48.91 Unspecified atrial fibrillation; E87.8 Other disorders of electrolyte and fluid balance, not elsewhere classified; F03.90 Unspecified dementia, unspecified severity, without behavioral disturbance, psychotic disturbance, mood disturbance, and anxiety
CPT/HCPCS: 80048; 82607; 82728; 82746; 83540; 83550; 84443; 85025; 86140

== ENCOUNTER 2019-12-27 16:32 | Outpatient (REF) | payer MEDICARE, BC, SELFPAY ==
[2019-12-27 11:54] LABS: Anion Gap 6.3 mmol/L (3-11); BUN 13 mg/dL (7-18); CO2 30.7 mmol/L (21.0-32.0); Chloride 98 mmol/L (98-107); Glucose 120 mg/dL (74-106); Potassium 4.1 mmol/L (3.5-5.1); Sodium 135 mmol/L (136-145)
== END 2019-12-27 16:52 ==
LOC: LBN 16:32
PROVIDERS: PCP Family Medicine; Visit Provider Family Medicine
DX: I49.9 Cardiac arrhythmia, unspecified (principal); F03.90 Unspecified dementia, unspecified severity, without behavioral disturbance, psychotic disturbance, mood disturbance, and anxiety; E87.8 Other disorders of electrolyte and fluid balance, not elsewhere classified
CPT/HCPCS: 80048

== ENCOUNTER 2020-03-03 15:09 | Outpatient (REF) | payer MEDICARE, BC, SELFPAY ==
[2020-03-03 15:16] LABS: Abs Immature Grans 0.01 10^3/uL (0.0-0.06); Absolute Basophil Count 0.05 10^3/uL (0.0-0.2); Absolute Eosinophil Count 0.05 10^3/uL (0.0-0.7); Absolute Lymphocyte Count 1.34 10^3/uL (1.2-3.4); Absolute Monocyte Count 0.45 10^3/uL (0.1-0.8); Absolute Neutrophil Count 3.46 10^3/uL (1.2-6.7); Basophils % 0.9; Eosinophils % 0.9; HCT 40.1 % (36.0-46.0); HGB 12.8 g/dL (11.2-15.7); Immature Grans % 0.2; MCH 32.9 pg (27.0-33.0); MCHC 31.9 % (32.0-36.0); MCV 103.1 fL (80-95); MPV 10.1 fL (8.0-11.0); Monocytes % 8.4; Neutrophils % 64.6; Nucleated RBC 0 %; Platelet Count 176 10^3/uL (130-400); RBC 3.89 10^6/uL (3.93-5.22); RDW 14.7 % (11.7-14.6); RDW-SD 55.8 fL; WBC 5.36 10^3/uL (4.4-10.8)
[2020-03-03 15:49] LABS: Anion Gap 5.1 mmol/L (3-11); BUN 15 mg/dL (7-18); CO2 29.9 mmol/L (21.0-32.0); CREATININE 0.99 mg/dL (0.55-1.02); Calcium 8.9 mg/dL (8.5-10.1); Chloride 98 mmol/L (98-107); Estimated GFR 53.57 (mL/min/1.73m2); Glucose 86 mg/dL (74-106); Potassium 4.5 mmol/L (3.5-5.1); Sodium 133 mmol/L (136-145)
== END 2020-03-03 15:29 ==
LOC: NCHCN 15:09
PROVIDERS: PCP Family Medicine; Visit Provider Family Medicine
DX: F03.90 Unspecified dementia, unspecified severity, without behavioral disturbance, psychotic disturbance, mood disturbance, and anxiety (principal); I48.91 Unspecified atrial fibrillation; E46 Unspecified protein-calorie malnutrition
CPT/HCPCS: 80048; 85025

== ENCOUNTER 2020-03-17 03:40 | Outpatient (CLI) | payer MEDICARE, BC, SELFPAY ==
--- NOTE | 2020-03-17 10:55 | DI.RAD_ITS ---
EXAM: XR THORACOLUMB JUNCT 2V INDICATION: NEW/WORSENING BACK PAIN T-L REGION,S/P FALL,H/O COMP FX. COMPARISON: CR XR CHEST 2V PA LATERAL from 11/12/2019 TECHNIQUE: 2D digital imaging was performed. FINDINGS: There is a compression deformity of the T9 vertebral body. There is loss of 60 percent of the height of the vertebral body anteriorly. This was not present on the chest x-ray from 11/12/2019. The elías ining visualized lower thoracic and upper lumbar vertebral bodies are intact. The bones are osteopen ic. Degenerative changes are seen in the visualized thoracolumbar spine. Atherosclerosis. IMPRESSION: Anterior wedging compression fracture of the T9 vertebral body with loss of approximately 60 percent of the height of the vertebral body anteriorly. This fracture was not present on the most recent x-r ay of the thoracic spine from 11/12/2019. DATA REPOSITORY: RADIATION DOSE DELIVERED:
== END 2020-03-17 04:00 ==
PROVIDERS: PCP Family Medicine; Visit Provider Family Medicine
DX: S22.070A Wedge compression fracture of T9-T10 vertebra, initial encounter for closed fracture (principal)
CPT/HCPCS: 72080

== ENCOUNTER 2020-07-03 19:21 | Outpatient (REF) | payer MEDICARE, BC, SELFPAY ==
[2020-07-03 14:27] LABS: Abs Immature Grans 0.02 10^3/uL (0.0-0.06); Absolute Basophil Count 0.07 10^3/uL (0.0-0.2); Absolute Lymphocyte Count 1.88 10^3/uL (1.2-3.4); Absolute Monocyte Count 0.57 10^3/uL (0.1-0.8); Absolute Neutrophil Count 2.91 10^3/uL (1.2-6.7); Basophils % 1.3; Eosinophils % 1.8; HCT 41.2 % (36.0-46.0); HGB 13.6 g/dL (11.2-15.7); Immature Grans % 0.4; Lymphocytes % 33.9; MCH 33.6 pg (27.0-33.0); MCV 101.7 fL (80-95); MPV 10.6 fL (8.0-11.0); Monocytes % 10.3; Neutrophils % 52.3; Nucleated RBC 0 %; Platelet Count 201 10^3/uL (130-400); RBC 4.05 10^6/uL (3.93-5.22); RDW 13.8 % (11.7-14.6); RDW-SD 52.1 fL; WBC 5.55 10^3/uL (4.4-10.8)
[2020-07-03 14:39] LABS: BUN 19 mg/dL (7-18); CREATININE 0.9 mg/dL (0.55-1.02); Calcium 9.4 mg/dL (8.5-10.1); Chloride 98 mmol/L (98-107); Estimated GFR 59.65 (mL/min/1.73m2); Glucose 100 mg/dL (74-106); Potassium 4.8 mmol/L (3.5-5.1); Sodium 131 mmol/L (136-145)
== END 2020-07-03 19:22 | disposition home or self-care (01) ==
LOC: LBN 19:21
PROVIDERS: PCP Family Medicine; Visit Provider Family Medicine
DX: E44.0 Moderate protein-calorie malnutrition (principal); F33.0 Major depressive disorder, recurrent, mild; I61.3 Nontraumatic intracerebral hemorrhage in brain stem; E87.1 Hypo-osmolality and hyponatremia; I10 Essential (primary) hypertension; I48.0 Paroxysmal atrial fibrillation
CPT/HCPCS: 80048; 85025

== ENCOUNTER 2020-10-16 18:04 | Outpatient (REF) | payer MEDICARE, BC, MEDICAID, SELFPAY ==
[2020-10-16 20:02] LABS: Abs Immature Grans 0.02 10^3/uL (0.0-0.06); Absolute Basophil Count 0.07 10^3/uL (0.0-0.2); Absolute Eosinophil Count 0.11 10^3/uL (0.0-0.7); Absolute Lymphocyte Count 1.17 10^3/uL (1.2-3.4); Absolute Monocyte Count 0.43 10^3/uL (0.1-0.8); Absolute Neutrophil Count 3.52 10^3/uL (1.2-6.7); Basophils % 1.3; Eosinophils % 2.1; HCT 27.8 % (36.0-46.0); HGB 8.5 g/dL (11.2-15.7); Immature Grans % 0.4; MCH 31.5 pg (27.0-33.0); MCHC 30.6 % (32.0-36.0); MPV 10.3 fL (8.0-11.0); Monocytes % 8.1; Neutrophils % 66.1; Nucleated RBC 0 %; Platelet Count 218 10^3/uL (130-400); RDW 15.8 % (11.7-14.6); RDW-SD 59.9 fL; WBC 5.32 10^3/uL (4.4-10.8)
[2020-10-16 20:48] LABS: Vitamin B12 954 pg/mL (193-986)
== END 2020-10-16 18:05 | disposition home or self-care (01) ==
LOC: LBN 18:04
PROVIDERS: Visit Provider Family Medicine
DX: D51.9 Vitamin B12 deficiency anemia, unspecified (principal); E55.9 Vitamin D deficiency, unspecified; E44.0 Moderate protein-calorie malnutrition; F33.0 Major depressive disorder, recurrent, mild; I61.3 Nontraumatic intracerebral hemorrhage in brain stem; I10 Essential (primary) hypertension
CPT/HCPCS: 82607; 85025

== ENCOUNTER 2020-10-17 18:40 | Outpatient (REF) | payer MEDICARE, BC, SELFPAY ==
[2020-10-17 15:53] LABS: Abs Immature Grans 0.03 10^3/uL (0.0-0.06); Absolute Basophil Count 0.06 10^3/uL (0.0-0.2); Absolute Eosinophil Count 0.08 10^3/uL (0.0-0.7); Absolute Lymphocyte Count 1.25 10^3/uL (1.2-3.4); Absolute Monocyte Count 0.52 10^3/uL (0.1-0.8); Absolute Neutrophil Count 4.27 10^3/uL (1.2-6.7); Eosinophils % 1.3; HCT 27.1 % (36.0-46.0); HGB 8.2 g/dL (11.2-15.7); Immature Grans % 0.5; Lymphocytes % 20.1; MCH 31.2 pg (27.0-33.0); MCHC 30.3 % (32.0-36.0); Monocytes % 8.4; Neutrophils % 68.7; Nucleated RBC 0 %; Platelet Count 225 10^3/uL (130-400); RBC 2.63 10^6/uL (3.93-5.22); RDW 15.8 % (11.7-14.6); RDW-SD 59.3 fL; WBC 6.21 10^3/uL (4.4-10.8)
[2020-10-17 16:11] LABS: Iron 36 ug/dL (50-170); Total Iron Binding Capacity 340 ug/dL (250-450); Transferrin Sat 11 % (15-50)
[2020-10-17 16:16] LABS: ALT 17 U/L (14-59); AST 20 U/L (15-37); Albumin 3.3 g/dL (3.4-5.0); Alkaline Phosphatase 89 U/L (46-116); Anion Gap 7.8 mmol/L (3-11); BUN 33 mg/dL (7-18); Bilirubin, Total 0.6 mg/dL (0.2-1.0); CO2 26.2 mmol/L (21.0-32.0); CREATININE 1.1 mg/dL (0.55-1.02); Calcium 8.5 mg/dL (8.5-10.1); Chloride 102 mmol/L (98-107); Estimated GFR 47.32 (mL/min/1.73m2); Ferritin 26 ng/mL (8-252); Folate 7.1 ng/mL (8.6-20.0); Glucose 89 mg/dL (74-106); Potassium 5.1 mmol/L (3.5-5.1); Sodium 136 mmol/L (136-145); Total Protein 6.2 g/dL (6.4-8.2)
== END 2020-10-17 18:41 | disposition home or self-care (01) ==
LOC: LBN 18:40
PROVIDERS: PCP Family Medicine; Visit Provider Family Medicine
DX: I10 Essential (primary) hypertension (principal); E44.0 Moderate protein-calorie malnutrition; E55.9 Vitamin D deficiency, unspecified; F33.0 Major depressive disorder, recurrent, mild; D64.9 Anemia, unspecified; I61.3 Nontraumatic intracerebral hemorrhage in brain stem
CPT/HCPCS: 80053; 82728; 82746; 83540; 83550; 85025

== ENCOUNTER 2020-10-18 12:35 | Outpatient (REF) | payer MEDICARE, BC, SELFPAY ==
[2020-10-18 14:10] LABS: Abs Immature Grans 0.02 10^3/uL (0.0-0.06); Absolute Basophil Count 0.06 10^3/uL (0.0-0.2); Absolute Eosinophil Count 0.14 10^3/uL (0.0-0.7); Absolute Monocyte Count 0.45 10^3/uL (0.1-0.8); Absolute Neutrophil Count 3.48 10^3/uL (1.2-6.7); Basophils % 1.1; Eosinophils % 2.7; HCT 27.1 % (36.0-46.0); HGB 8.4 g/dL (11.2-15.7); Immature Grans % 0.4; MCH 31.9 pg (27.0-33.0); MPV 9.9 fL (8.0-11.0); Monocytes % 8.6; Neutrophils % 66.2; Nucleated RBC 0 %; Platelet Count 218 10^3/uL (130-400); RBC 2.63 10^6/uL (3.93-5.22); RDW 15.8 % (11.7-14.6); RDW-SD 60.4 fL; WBC 5.25 10^3/uL (4.4-10.8)
== END 2020-10-18 12:36 | disposition home or self-care (01) ==
LOC: LBN 12:35
PROVIDERS: PCP Family Medicine; Visit Provider Family Medicine
DX: I48.0 Paroxysmal atrial fibrillation (principal); F01.50 Vascular dementia, unspecified severity, without behavioral disturbance, psychotic disturbance, mood disturbance, and anxiety
CPT/HCPCS: 85025

== ENCOUNTER 2020-10-19 13:32 | Outpatient (REF) | payer MEDICARE, BC, SELFPAY ==
[2020-10-19 13:46] LABS: Abs Immature Grans 0.01 10^3/uL (0.0-0.06); Absolute Basophil Count 0.05 10^3/uL (0.0-0.2); Absolute Eosinophil Count 0.12 10^3/uL (0.0-0.7); Absolute Lymphocyte Count 0.96 10^3/uL (1.2-3.4); Absolute Neutrophil Count 2.77 10^3/uL (1.2-6.7); Basophils % 1.2; Eosinophils % 2.9; HCT 27.4 % (36.0-46.0); HGB 8.4 g/dL (11.2-15.7); Immature Grans % 0.2; Lymphocytes % 23.4; MCH 31.5 pg (27.0-33.0); MCHC 30.7 % (32.0-36.0); MCV 102.6 fL (80-95); MPV 10.3 fL (8.0-11.0); Monocytes % 4.9; Neutrophils % 67.4; Nucleated RBC 0 %; Platelet Count 222 10^3/uL (130-400); RBC 2.67 10^6/uL (3.93-5.22); RDW 15.9 % (11.7-14.6); RDW-SD 60.1 fL; WBC 4.11 10^3/uL (4.4-10.8)
[2020-10-19 16:24] LABS: Reticulocyte 3.2 % (0.5-2.4)
== END 2020-10-19 13:33 | disposition home or self-care (01) ==
LOC: LBN 13:32
PROVIDERS: PCP Family Medicine; Visit Provider Family Medicine
DX: K92.2 Gastrointestinal hemorrhage, unspecified
CPT/HCPCS: 85025; 85045

== ENCOUNTER 2020-10-24 12:28 | Outpatient (REF) | payer MEDICARE, BC, SELFPAY ==
[2020-10-24 13:49] LABS: Abs Immature Grans 0.03 10^3/uL (0.0-0.06); Absolute Basophil Count 0.04 10^3/uL (0.0-0.2); Absolute Eosinophil Count 0.05 10^3/uL (0.0-0.7); Absolute Monocyte Count 0.39 10^3/uL (0.1-0.8); Absolute Neutrophil Count 3.53 10^3/uL (1.2-6.7); Basophils % 0.8; HCT 26.9 % (36.0-46.0); HGB 8.2 g/dL (11.2-15.7); Immature Grans % 0.6; Lymphocytes % 22.9; MCH 29.8 pg (27.0-33.0); MCHC 30.5 % (32.0-36.0); MCV 97.8 fL (80-95); MPV 10.3 fL (8.0-11.0); Monocytes % 7.4; Neutrophils % 67.3; Nucleated RBC 0 %; Platelet Count 232 10^3/uL (130-400); RBC 2.75 10^6/uL (3.93-5.22); RDW 16.9 % (11.7-14.6); RDW-SD 60.1 fL; WBC 5.24 10^3/uL (4.4-10.8)
[2020-10-24 14:06] LABS: ALT 16 U/L (14-59); AST 33 U/L (15-37); Albumin 3.5 g/dL (3.4-5.0); Alkaline Phosphatase 86 U/L (46-116); Anion Gap 10.2 mmol/L (3-11); BUN 18 mg/dL (7-18); Bilirubin, Total 0.6 mg/dL (0.2-1.0); CO2 23.8 mmol/L (21.0-32.0); CREATININE 0.9 mg/dL (0.55-1.02); Calcium 8.6 mg/dL (8.5-10.1); Chloride 103 mmol/L (98-107); Estimated GFR 59.65 (mL/min/1.73m2); Glucose 135 mg/dL (74-106); Potassium 4.5 mmol/L (3.5-5.1); Sodium 137 mmol/L (136-145); Total Protein 6.5 g/dL (6.4-8.2)
== END 2020-10-24 12:29 | disposition home or self-care (01) ==
LOC: NCHCN 12:28
PROVIDERS: PCP Family Medicine; Visit Provider Family Medicine
DX: D64.9 Anemia, unspecified (principal)
CPT/HCPCS: 80053; 85025

== ENCOUNTER 2020-10-26 12:30 | Outpatient (REF) | payer MEDICARE, BC, SELFPAY ==
[2020-10-26 13:13] LABS: HCT 27.7 % (36.0-46.0); HGB 8.3 g/dL (11.2-15.7)
== END 2020-10-26 12:31 | disposition home or self-care (01) ==
LOC: LBN 12:30
PROVIDERS: PCP Family Medicine; Visit Provider Family Medicine
DX: I48.0 Paroxysmal atrial fibrillation (principal); K92.2 Gastrointestinal hemorrhage, unspecified; F01.50 Vascular dementia, unspecified severity, without behavioral disturbance, psychotic disturbance, mood disturbance, and anxiety
CPT/HCPCS: 85014; 85018

== ENCOUNTER 2020-10-31 18:17 | Outpatient (REF) | payer MEDICARE, BC, SELFPAY ==
[2020-10-31 17:50] LABS: Abs Immature Grans 0.01 10^3/uL (0.0-0.06); Absolute Basophil Count 0.04 10^3/uL (0.0-0.2); Absolute Eosinophil Count 0.06 10^3/uL (0.0-0.7); Absolute Lymphocyte Count 1.18 10^3/uL (1.2-3.4); Absolute Monocyte Count 0.57 10^3/uL (0.1-0.8); Absolute Neutrophil Count 4.13 10^3/uL (1.2-6.7); Basophils % 0.7; HCT 30.4 % (36.0-46.0); Immature Grans % 0.2; Lymphocytes % 19.7; MCH 29.6 pg (27.0-33.0); MCHC 29.6 % (32.0-36.0); MPV 10.5 fL (8.0-11.0); Monocytes % 9.5; Neutrophils % 68.9; Nucleated RBC 0 %; Platelet Count 238 10^3/uL (130-400); RBC 3.04 10^6/uL (3.93-5.22); RDW 16.8 % (11.7-14.6); RDW-SD 61.4 fL; WBC 5.99 10^3/uL (4.4-10.8)
== END 2020-10-31 18:18 | disposition home or self-care (01) ==
LOC: NCHCN 18:17
PROVIDERS: PCP Family Medicine; Visit Provider Family Medicine
DX: D64.9 Anemia, unspecified (principal)
CPT/HCPCS: 85025

== ENCOUNTER 2020-11-08 12:00 | Outpatient (REF) | payer MEDICARE, BC, SELFPAY ==
[2020-11-09 12:17] LABS: Abs Immature Grans 0.01 10^3/uL (0.0-0.06); Absolute Basophil Count 0.05 10^3/uL (0.0-0.2); Absolute Eosinophil Count 0.04 10^3/uL (0.0-0.7); Absolute Lymphocyte Count 1.01 10^3/uL (1.2-3.4); Absolute Monocyte Count 0.43 10^3/uL (0.1-0.8); Absolute Neutrophil Count 2.86 10^3/uL (1.2-6.7); Basophils % 1.1; Eosinophils % 0.9; HCT 31.8 % (36.0-46.0); HGB 9.3 g/dL (11.2-15.7); Immature Grans % 0.2; MCH 28.7 pg (27.0-33.0); MCHC 29.2 % (32.0-36.0); MCV 98.1 fL (80-95); MPV 10.1 fL (8.0-11.0); Monocytes % 9.8; Nucleated RBC 0 %; Platelet Count 230 10^3/uL (130-400); RBC 3.24 10^6/uL (3.93-5.22); RDW 16.8 % (11.7-14.6); RDW-SD 61.1 fL
== END 2020-11-08 12:01 | disposition home or self-care (01) ==
LOC: LBN 12:00
PROVIDERS: PCP Family Medicine; Visit Provider Nurse Practitioner Gerontology
DX: K92.2 Gastrointestinal hemorrhage, unspecified (principal)
CPT/HCPCS: 85025

== ENCOUNTER 2020-11-14 16:53 | Outpatient (REF) | payer MEDICARE, BC, SELFPAY ==
[2020-11-14 17:31] LABS: Abs Immature Grans 0.02 10^3/uL (0.0-0.06); Absolute Basophil Count 0.05 10^3/uL (0.0-0.2); Absolute Eosinophil Count 0.05 10^3/uL (0.0-0.7); Absolute Lymphocyte Count 0.99 10^3/uL (1.2-3.4); Absolute Monocyte Count 0.48 10^3/uL (0.1-0.8); Absolute Neutrophil Count 2.68 10^3/uL (1.2-6.7); Basophils % 1.2; Eosinophils % 1.2; HCT 32.3 % (36.0-46.0); HGB 9.4 g/dL (11.2-15.7); Immature Grans % 0.5; Lymphocytes % 23.2; MCH 28.3 pg (27.0-33.0); MCHC 29.1 % (32.0-36.0); MCV 97.3 fL (80-95); MPV 10.3 fL (8.0-11.0); Monocytes % 11.2; Neutrophils % 62.7; Nucleated RBC 0 %; Platelet Count 221 10^3/uL (130-400); RBC 3.32 10^6/uL (3.93-5.22); RDW-SD 60.8 fL; WBC 4.27 10^3/uL (4.4-10.8)
== END 2020-11-14 16:54 | disposition home or self-care (01) ==
LOC: LBN 16:53
PROVIDERS: Nurse Practitioner Gerontology; PCP Family Medicine; Visit Provider Internal Medicine
DX: D64.9 Anemia, unspecified (principal)
CPT/HCPCS: 85025

== ENCOUNTER 2020-11-21 13:06 | Outpatient (REF) | payer MEDICARE, BC, SELFPAY ==
[2020-11-21 14:27] LABS: Abs Immature Grans 0.01 10^3/uL (0.0-0.06); Absolute Basophil Count 0.04 10^3/uL (0.0-0.2); Absolute Eosinophil Count 0.05 10^3/uL (0.0-0.7); Absolute Monocyte Count 0.49 10^3/uL (0.1-0.8); Absolute Neutrophil Count 2.81 10^3/uL (1.2-6.7); Basophils % 0.9; Eosinophils % 1.1; HCT 35.4 % (36.0-46.0); HGB 10.3 g/dL (11.2-15.7); Immature Grans % 0.2; Lymphocytes % 26.1; MCH 27.6 pg (27.0-33.0); MCHC 29.1 % (32.0-36.0); MCV 94.9 fL (80-95); MPV 10.3 fL (8.0-11.0); Monocytes % 10.7; Nucleated RBC 0 %; Platelet Count 211 10^3/uL (130-400); RBC 3.73 10^6/uL (3.93-5.22); RDW-SD 59.9 fL
== END 2020-11-21 13:07 | disposition home or self-care (01) ==
LOC: LBN 13:06
PROVIDERS: PCP Family Medicine; Visit Provider Internal Medicine
DX: K92.2 Gastrointestinal hemorrhage, unspecified (principal)
CPT/HCPCS: 85025

== ENCOUNTER 2020-11-27 11:57 | Outpatient (REF) | payer MEDICARE, BC, SELFPAY ==
[2020-11-27 12:27] LABS: Bilirubin Negative (Negative); Blood Trace-intact (Negative); Clarity Clear (Clear); Glucose Negative (Negative); Ketones Negative (Negative); Leukocyte Esterase Negative (Negative); Nitrite Negative (Negative); Specific Gravity 1.025 (1.005-1.025); Urobilinogen 0.2 EU/dL (Up TO 0.2); pH 7.5 (5-8)
[2020-11-27 12:36] LABS: Bacteria Rare HPF (Negative); C & S Indicated? C&S Done As Ordered; Casts Negative LPF (Negative); Crystals Negative HPF (Negative); Epithelial Cells Few HPF (Negative); Mucus Negative (Negative); RBC 0-2 HPF (0-2); WBC 0-2 HPF (0-5)
[2020-11-27 15:44] LABS: Abs Immature Grans 0.07 10^3/uL (0.0-0.06); Absolute Basophil Count 0.04 10^3/uL (0.0-0.2); Absolute Eosinophil Count 0.03 10^3/uL (0.0-0.7); Absolute Lymphocyte Count 1.27 10^3/uL (1.2-3.4); Absolute Monocyte Count 0.57 10^3/uL (0.1-0.8); Absolute Neutrophil Count 5.91 10^3/uL (1.2-6.7); Basophils % 0.5; Eosinophils % 0.4; HCT 34.1 % (36.0-46.0); HGB 10.3 g/dL (11.2-15.7); Immature Grans % 0.9; Lymphocytes % 16.1; MCH 28.1 pg (27.0-33.0); MCHC 30.2 % (32.0-36.0); MCV 92.9 fL (80-95); MPV 10.7 fL (8.0-11.0); Monocytes % 7.2; Neutrophils % 74.9; Nucleated RBC 0 %; Platelet Count 208 10^3/uL (130-400); RBC 3.67 10^6/uL (3.93-5.22); RDW 17.2 % (11.7-14.6); RDW-SD 58.9 fL; WBC 7.89 10^3/uL (4.4-10.8)
[2020-11-27 15:51] LABS: Anion Gap 8.7 mmol/L (3-11); BUN 17 mg/dL (7-18); CO2 25.3 mmol/L (21.0-32.0); CREATININE 0.9 mg/dL (0.55-1.02); Calcium 8.4 mg/dL (8.5-10.1); Chloride 100 mmol/L (98-107); Estimated GFR 59.65 (mL/min/1.73m2); Glucose 101 mg/dL (74-106); Potassium 4.6 mmol/L (3.5-5.1); Sodium 134 mmol/L (136-145)
[2020-11-27 15:54] LABS: Iron 31 ug/dL (50-170); Total Iron Binding Capacity 383 ug/dL (250-450); Transferrin Sat 8 % (15-50)
== END 2020-11-27 11:58 | disposition home or self-care (01) ==
LOC: LBN 11:57
PROVIDERS: PCP Family Medicine; Visit Provider Internal Medicine
DX: D64.9 Anemia, unspecified (principal); K92.2 Gastrointestinal hemorrhage, unspecified; R68.89 Other general symptoms and signs; F03.90 Unspecified dementia, unspecified severity, without behavioral disturbance, psychotic disturbance, mood disturbance, and anxiety; M54.9 Dorsalgia, unspecified; N39.0 Urinary tract infection, site not specified
CPT/HCPCS: 80048; 81003; 81015; 83540; 83550; 85025; 87086

== ENCOUNTER 2020-12-13 18:08 | Outpatient (REF) | payer MEDICARE, BC, SELFPAY ==
[2020-12-13 13:50] LABS: Abs Immature Grans 0.01 10^3/uL (0.0-0.06); Absolute Basophil Count 0.06 10^3/uL (0.0-0.2); Absolute Eosinophil Count 0.05 10^3/uL (0.0-0.7); Absolute Lymphocyte Count 1.04 10^3/uL (1.2-3.4); Absolute Monocyte Count 0.43 10^3/uL (0.1-0.8); Absolute Neutrophil Count 2.87 10^3/uL (1.2-6.7); Basophils % 1.3; Eosinophils % 1.1; HCT 37.3 % (36.0-46.0); HGB 10.9 g/dL (11.2-15.7); Immature Grans % 0.2; Lymphocytes % 23.3; MCH 27.3 pg (27.0-33.0); MCHC 29.2 % (32.0-36.0); MCV 93.3 fL (80-95); MPV 10.5 fL (8.0-11.0); Monocytes % 9.6; Neutrophils % 64.5; Nucleated RBC 0 %; Platelet Count 229 10^3/uL (130-400); RDW 17.3 % (11.7-14.6); RDW-SD 59.8 fL; WBC 4.46 10^3/uL (4.4-10.8)
[2020-12-13 14:02] LABS: ALT 14 U/L (14-59); AST 19 U/L (15-37); Bilirubin, Direct 0.2 mg/dL (0.0-0.2); Bilirubin, Total 0.6 mg/dL (0.2-1.0)
[2020-12-14 01:19] LABS: Vitamin D 25 Total 15.9 ng/mL (30-100)
== END 2020-12-13 18:09 | disposition home or self-care (01) ==
LOC: LBN 18:08
PROVIDERS: PCP Family Medicine; Visit Provider Nurse Practitioner Gerontology
DX: I10 Essential (primary) hypertension (principal); E44.0 Moderate protein-calorie malnutrition; D64.9 Anemia, unspecified; E55.9 Vitamin D deficiency, unspecified; R17 Unspecified jaundice; F33.0 Major depressive disorder, recurrent, mild; I48.0 Paroxysmal atrial fibrillation
CPT/HCPCS: 82306; 82247; 82248; 84450; 84460; 85025

== ENCOUNTER 2021-01-04 16:23 | Outpatient (REF) | payer MEDICARE, BC, SELFPAY ==
[2021-01-04 19:24] LABS: Abs Immature Grans 0.01 10^3/uL (0.0-0.06); Absolute Basophil Count 0.04 10^3/uL (0.0-0.2); Absolute Eosinophil Count 0.05 10^3/uL (0.0-0.7); Absolute Lymphocyte Count 1.25 10^3/uL (1.2-3.4); Absolute Monocyte Count 0.24 10^3/uL (0.1-0.8); Absolute Neutrophil Count 2.82 10^3/uL (1.2-6.7); Basophils % 0.9; Eosinophils % 1.1; HCT 41.2 % (36.0-46.0); HGB 12.3 g/dL (11.2-15.7); Immature Grans % 0.2; Lymphocytes % 28.3; MCH 28.4 pg (27.0-33.0); MCHC 29.9 % (32.0-36.0); MCV 95.2 fL (80-95); Monocytes % 5.4; Neutrophils % 64.1; Nucleated RBC 0 %; Platelet Count 155 10^3/uL (130-400); RBC 4.33 10^6/uL (3.93-5.22); RDW 19.6 % (11.7-14.6); RDW-SD 68.8 fL; WBC 4.41 10^3/uL (4.4-10.8)
[2021-01-04 19:52] LABS: Vitamin D 25 Total 17.7 ng/mL (30-100)
== END 2021-01-04 16:24 | disposition home or self-care (01) ==
LOC: LBN 16:23
PROVIDERS: PCP Family Medicine; Visit Provider Nurse Practitioner Gerontology
DX: D64.9 Anemia, unspecified (principal); E55.9 Vitamin D deficiency, unspecified
CPT/HCPCS: 82306; 85025

== ENCOUNTER 2021-01-31 18:35 | Outpatient (REF) | payer MEDICARE, BC, SELFPAY ==
[2021-01-31 19:06] LABS: Abs Immature Grans 0.01 10^3/uL (0.0-0.06); Absolute Basophil Count 0.05 10^3/uL (0.0-0.2); Absolute Eosinophil Count 0.03 10^3/uL (0.0-0.7); Absolute Lymphocyte Count 0.75 10^3/uL (1.2-3.4); Absolute Monocyte Count 0.33 10^3/uL (0.1-0.8); Basophils % 1.1; Eosinophils % 0.7; HCT 40.3 % (36.0-46.0); HGB 12.1 g/dL (11.2-15.7); Immature Grans % 0.2; Lymphocytes % 17.2; MCH 29.9 pg (27.0-33.0); MCV 99.5 fL (80-95); MPV 10.8 fL (8.0-11.0); Monocytes % 7.6; Neutrophils % 73.2; Nucleated RBC 0 %; Platelet Count 159 10^3/uL (130-400); RBC 4.05 10^6/uL (3.93-5.22); RDW 20.7 % (11.7-14.6); WBC 4.37 10^3/uL (4.4-10.8)
[2021-01-31 20:04] LABS: Anion Gap 4.3 mmol/L (3-11); BUN 18 mg/dL (7-18); CO2 30.7 mmol/L (21.0-32.0); Chloride 102 mmol/L (98-107); Estimated GFR 52.82 (mL/min/1.73m2); Glucose 85 mg/dL (74-106); Potassium 4.7 mmol/L (3.5-5.1); Sodium 137 mmol/L (136-145)
== END 2021-01-31 18:36 | disposition home or self-care (01) ==
LOC: LBN 18:35
PROVIDERS: PCP Family Medicine; Visit Provider Internal Medicine
DX: E55.9 Vitamin D deficiency, unspecified (principal)
CPT/HCPCS: 80048; 85025

== ENCOUNTER 2021-02-27 14:56 | Outpatient (REF) | payer MEDICARE, BC, SELFPAY ==
[2021-03-01 00:31] LABS: Vitamin D 25 Total 30.4 ng/mL (30-100)
== END 2021-02-27 14:57 | disposition home or self-care (01) ==
LOC: LBN 14:56
PROVIDERS: PCP Family Medicine; Visit Provider Nurse Practitioner Gerontology
DX: E55.9 Vitamin D deficiency, unspecified (principal); E44.0 Moderate protein-calorie malnutrition; E87.6 Hypokalemia
CPT/HCPCS: 82306

== ENCOUNTER 2021-03-01 16:14 | Outpatient (REF) | payer MEDICARE, BC, SELFPAY ==
[2021-03-01 16:36] LABS: Abs Immature Grans 0.01 10^3/uL (0.0-0.06); Absolute Basophil Count 0.04 10^3/uL (0.0-0.2); Absolute Eosinophil Count 0.09 10^3/uL (0.0-0.7); Absolute Lymphocyte Count 1.33 10^3/uL (1.2-3.4); Absolute Monocyte Count 0.39 10^3/uL (0.1-0.8); Absolute Neutrophil Count 1.99 10^3/uL (1.2-6.7); Eosinophils % 2.3; HCT 37.7 % (36.0-46.0); Immature Grans % 0.3; Lymphocytes % 34.5; MCH 31.7 pg (27.0-33.0); MCHC 31.8 % (32.0-36.0); MCV 99.7 fL (80-95); Monocytes % 10.1; Neutrophils % 51.8; Nucleated RBC 0 %; Platelet Count 134 10^3/uL (130-400); RBC 3.78 10^6/uL (3.93-5.22); RDW 17.8 % (11.7-14.6); WBC 3.85 10^3/uL (4.4-10.8)
[2021-03-01 17:06] LABS: Hemoglobin A1C 5.4 % (<5.7)
== END 2021-03-01 16:15 | disposition home or self-care (01) ==
LOC: LBN 16:14
PROVIDERS: PCP Family Medicine; Visit Provider Nurse Practitioner Gerontology
DX: E44.0 Moderate protein-calorie malnutrition (principal); E87.1 Hypo-osmolality and hyponatremia
CPT/HCPCS: 83036; 85025

== ENCOUNTER 2021-07-03 14:49 | Outpatient (REF) | payer MEDICARE, BC, SELFPAY ==
[2021-07-03 15:52] LABS: Abs Immature Grans 0.01 10^3/uL (0.0-0.06); Absolute Basophil Count 0.04 10^3/uL (0.0-0.2); Absolute Eosinophil Count 0.12 10^3/uL (0.0-0.7); Absolute Lymphocyte Count 1.81 10^3/uL (1.2-3.4); Absolute Monocyte Count 0.49 10^3/uL (0.1-0.8); Absolute Neutrophil Count 2.59 10^3/uL (1.2-6.7); Basophils % 0.8; Eosinophils % 2.4; HCT 42.5 % (36.0-46.0); HGB 13.6 g/dL (11.2-15.7); Immature Grans % 0.2; Lymphocytes % 35.8; MCH 34.1 pg (27.0-33.0); MCV 106.5 fL (80-95); MPV 10.4 fL (8.0-11.0); Monocytes % 9.7; Neutrophils % 51.1; Nucleated RBC 0 %; Platelet Count 161 10^3/uL (130-400); RBC 3.99 10^6/uL (3.93-5.22); RDW 14.6 % (11.7-14.6); RDW-SD 57.3 fL; WBC 5.06 10^3/uL (4.4-10.8)
[2021-07-03 15:55] LABS: Iron 88 ug/dL (50-170)
[2021-07-03 16:03] LABS: Magnesium 2.1 mg/dL (1.8-2.4); TSH (W/Ref FT4) 1.81 uIU/mL (0.36-3.74)
[2021-07-03 16:27] LABS: Hemoglobin A1C 5.3 % (<5.7)
[2021-07-05 05:49] LABS: Vitamin D 25 Total 51.8 ng/mL (30-100)
== END 2021-07-03 14:50 | disposition home or self-care (01) ==
LOC: LBN 14:49
PROVIDERS: PCP Family Medicine; Visit Provider Nurse Practitioner Gerontology
DX: E11.65 Type 2 diabetes mellitus with hyperglycemia (principal); E55.9 Vitamin D deficiency, unspecified
CPT/HCPCS: 82306; 83036; 83540; 83735; 84443; 85025

== ENCOUNTER 2021-10-09 20:45 | Outpatient (REF) | payer MEDICARE, BC, MEDICAID, SELFPAY ==
[2021-10-09 17:40] LABS: Vitamin B12 976 pg/mL (193-986)
[2021-10-11 05:37] LABS: Vitamin D 25 Total 34.3 ng/mL (30-100)
== END 2021-10-09 20:46 | disposition home or self-care (01) ==
LOC: LBN 20:45
PROVIDERS: PCP Family Medicine; Visit Provider Nurse Practitioner Gerontology
DX: E55.9 Vitamin D deficiency, unspecified (principal); E44.0 Moderate protein-calorie malnutrition; F33.0 Major depressive disorder, recurrent, mild
CPT/HCPCS: 82306; 82607

== ENCOUNTER 2021-11-11 10:32 | Inpatient (IN) | payer MEDICARE, BC, MEDICAID, SELFPAY ==
[2021-11-11] VITALS (20 sets, daily range): BP systolic 120–167; BP diastolic 67–101; PULSE 79–127; RESP 8–23; TEMP 36.6–37; O2SAT 96–98
--- NOTE | 2021-11-11 10:34 | W.ED.GENAD ---
Discharge Plan Disposition Patient Disposition: [facility] INPATIENT Condition: Stable Discharge Details Clinical Impression: Intertrochanteric fracture of right hip, Unwitnessed fall, Compression fracture of thoracic vertebra Admit Date/Time: 11/11/21 12:46 Admit Provider: Sundar Phillips Attending Provider: Sundar Phillips Primary Care Provider: Gulshan Howe ED Provider: Ashlee Michael Discharge Data Discharge Date/Time-TO BE ENTERED AT DEPARTURE: 11/11/21 14:15 Medical Decision Making 86-year-old female DNR/DNI with a history of paroxysmal atrial fibrillation, hypertension and dementia presents from the [facility] for reported unwitnessed fall with concern for hip fracture. Daughter states patient ambulates without the use of an assistive device normally. Patient is oriented to person which daughter states is her baseline. Her right lower extremity is shortened and externally rotated but otherwise neurovascularly intact. There are no open wounds noted. There is no evidence of other extremity injury. No obvious evidence of head injury. Considering her age and history, will obtain screening labs, EKG, CT head and cervical spine, chest x-ray, right hip and pelvis xrays and give dilaudid for pain. X-rays confirm right intertrochanteric hip fracture. CT head and cervical spine negative. CT cervical spine does note an acute versus subacute fracture of T3 and T4. Will refer for formal CT thoracic and lumbar spine imaging although she has no midline spinal tenderness. Case discussed with Dr. Barney and no recommendations regarding thoracic spine findings. Chest x-ray negative. Labs reviewed and unremarkable. Tavares catheter placed. COVID-negative. Case discussed with Dr. Phillips who accepts patient for admission. Medical Records Medical records reviewed: Yes I reviewed the patient's medical records. Imaging Data Radiologic Study: Radiologist's impression: CT Head Without Contrast Exam date and time: 11/11/2021 11:30 AM Age: 86 years old Clinical indication: Other: R/O acute intracranial injury, cervical FX TECHNIQUE: Imaging protocol: Computed tomography of the head without contrast. COMPARISON: CT HEAD WO 11/12/2019 1:25 PM FINDINGS: Brain: Chavez-white matter differentiation is within normal limits. No mass effect or midline shift. There are stable nonspecific confluent and patchy foci of periventricular white matter hypodensit alveolus hypodensity within the mary ann , probably due to chronic microvascular ischemic changes in a patient of advanced age. Sulci and basilar cisterns are prominent due to parenchymal volume loss. No extra-axial fluid collection. Cerebral ventricles: No ventriculomegaly. Paranasal sinuses: Visualized sinuses are unremarkable. No fluid levels. Mastoid air cells: Visualized mastoid air cells are well aerated. Bones/joints: Unremarkable. No acute fracture. Soft tissues: Unremarkable. IMPRESSION: 1. No acute intracranial abnormality. No acute infarction mass acute intracranial hemorrhage. 2. Stable moderate to marked small vessel ischemic changes. CT Cervical Spine Without Contrast Exam date and time: 11/11/2021 11:30 AM Age: 86 years old Clinical indication: Other: R/O acute intracranial injury, cervical FX TECHNIQUE: Imaging protocol: Computed tomography of the cervical spine without contrast. COMPARISON: CT BRAIN NECK CTA 11/04/2019 9:47 PM FINDINGS: Bones/joints: Visualized bones are demineralized. Compression fracture T4 with moderate loss height superior inferior endplate and mild buckling of posterior cortex. Additionally, mild loss height of superior endplate of T3. These fractures are new since previous exam dated 11/2019. There is no acute fracture subluxation within the cervical spine. . Facets and lateral masses are aligned. The posterior elements are intact. Mild dextroscoliosis of the cervical spine. Discs/Spinal canal/Neural foramina: Stable moderate loss of disc height at C4-C5 and mild loss of disc height at C5-C6 Lungs: Lung apices are normal. Vasculature:? Atherosclerotic calcifications of bilateral carotid bifurcation. Soft tissues: Unremarkable. IMPRESSION: Age indeterminate osteoporotic compression fracture T4 with moderate loss height and mild buckling of posterior cortex, new since previous exam dated 11/04/2019 and probably acute to subacute setting of trauma. Additionally, mild osteoporotic loss of height of superior endplate of T3, new since previous exam also suspicious to be acute to subacute in the setting of trauma. No definite fracture in the cervical spine. XR Chest Exam date and time: 11/11/2021 11:46 AM Age: 86 years old Clinical indication: Other: Fall unwitnessed TECHNIQUE: Imaging protocol: Radiologic exam of the chest. Views: 1 view. COMPARISON: CR XR CHEST 2V PA LATERAL 02/09/2020 13:55 FINDINGS: Lungs: Right apical markings left base consistent with atelectasis or scar. Pleural spaces: Apical pleural thickening. Heart/Mediastinum: Cardiomegaly. Vasculature: Atherosclerotic disease. Bones/joints: Unremarkable for patient's age.? IMPRESSION: No acute cardiopulmonary findings. XR Right Femur Exam date and time: 11/11/2021 11:50 AM Age: 86 years old Clinical indication: Other: Fall, R leg shortened, rotated, R/O FX TECHNIQUE: Imaging protocol: Radiologic exam of the Right femur. Views: 2 views. COMPARISON: No relevant comparison study. FINDINGS: Limitations: The AP view of the distal femur and proximal tibia and fibula is not marked right or left and is miss position and if it is the right lower extremity. The bony detail obscured by overlying clothing or blanket. Bones/joints: Intratrochanteric fracture with displacement. Decreased bone mineralization. Soft tissues: Unremarkable. Vasculature: Atherosclerotic disease. IMPRESSION: Intratrochanteric fracture. XR Right Hip Exam date and time: 11/11/2021 11:48 AM Age: 86 years old Clinical indication: Other: Fall, R leg shortened, rotated, R/O FX TECHNIQUE: Imaging protocol: Radiologic exam of the Right hip. Views: 2 or 3 views hip with pelvis when performed. COMPARISON: CT ABDOMEN PELVIS WO 05/08/2019 17:33 FINDINGS: Bones/joints: Right intratrochanteric fracture with displacement. Decreased bone mineralization. Soft tissues: Unremarkable. IMPRESSION: Intratrochanteric fracture. CT Thoracic Spine Without Contrast Exam date and time: 11/11/2021 12:38 PM Age: 86 years old Clinical indication: Other: S/P fall, R/O acute compression F TECHNIQUE: Imaging protocol: Computed tomography of the thoracic spine without contrast. COMPARISON: No relevant comparison study. FINDINGS: Bones/joints: Multilevel degenerative scoliotic changes of the spine. Decreased bone mineralization. Marked kyphosis. Age indeterminate compression deformity of T4, T6, T9, and T10. Discs/Spinal canal/Neural foramina: Narrowing of the neural foramina bilaterally at T7-8, T9-10, and T10-11. Soft tissues: Unremarkable. Vasculature: Atherosclerotic disease. Lungs: Bibasilar atelectasis versus scar or developing infiltrate. Pleural spaces: Small right pleural effusion. Trace left pleural effusion versus pleural thickening. Heart: Cardiomegaly. Calcified coronary arteries. IMPRESSION: 1. Multiple indeterminate compression deformities as discussed above. Multilevel degenerative changes of the spine. Kyphosis. 2. Small right pleural effusion. Trace left pleural effusion. Bibasilar atelectasis versus scar or developing infiltrate. 3. Additional findings as discussed above. CT Lumbar Spine Without Contrast Exam date and time: 11/11/2021 12:38 PM Age: 86 years old Clinical indication: Other: S/P fall, R/O acute compression F TECHNIQUE: Imaging protocol: Computed tomography of the lumbar spine without contrast. COMPARISON: No relevant comparison study. FINDINGS: Tubes, catheters and devices: Tavares catheter in a decompressed urinary bladder. Bones/joints: Age indeterminate compression deformity of L4 and L5 vertebral bodies. Decreased bone mineralization. Discs/Spinal canal/Neural foramina: Multilevel degenerative changes of the lumbar spine. Multilevel facet arthropathy. Broad-based posterior disc bulge at L3-L4 and L4-L5 with narrowing of the spinal canal. Left lateral disc bulge at L4-L5 with asymmetric narrowing of the left L4-L5 neural foramen. Asymmetric narrowing of the left L5-S1 neural foramen. Lungs: Bibasilar atelectasis versus scar or developing infiltrate. Pleural spaces: Bilateral pleural effusions. Stomach and bowel: Diverticulosis without CT evidence of diverticulitis. Urinary bladder: Air within the urinary bladder. Vasculature: Atherosclerotic disease. Distal abdominal aorta measures 3.0 cm in diameter. Soft tissues: Unremarkable. IMPRESSION: 1. Multilevel degenerative changes of the spine. Age indeterminate compression deformity of L4 and L5 vertebral bodies. 2. Additional findings as discussed above. Lab Data Lab results reviewed: Yes I reviewed the patient's lab results. Labs: Laboratory Tests Range/Units 11/11/21 11/11/21 11/11/21 10:40 10:40 11:15 WBC (4.4-10.8) 10^3/uL 7.23 RBC (3.93-5.22) 10^6/uL 3.59 L Hgb (11.2-15.7) g/dL 12.7 Hct (36.0-46.0) % 38.4 MCV (80-95) fL 107 H MCH (27.0-33.0) pg 35.4 H MCHC (32.0-36.0) % 33.1 RDW (11.7-14.6) % 14.6 Plt Count (130-400) 10^3/uL 150 MPV (8.0-11.0) fL 10.3 Immature Gran % 0.3 Neutrophils % 57.1 Lymphocytes % 33.5 Monocytes % 7.3 Eosinophils % 1.2 Basophils % 0.6 Nucleated RBC % (0.0-0.3) % 0.0 Absolute Neutrophils (1.2-6.7) 10^3/uL 4.13 Absolute Lymphocytes (1.2-3.4) 10^3/uL 2.42 Absolute Monocytes (0.1-0.8) 10^3/uL 0.53 Absolute Eosinophils (0.0-0.7) 10^3/uL 0.09 Absolute Basophils (0.0-0.2) 10^3/uL 0.04 Sodium (136-145) mmol/L 136 Potassium (3.5-5.1) mmol/L 4.0 Chloride (98-107) mmol/L 102 Carbon Dioxide (21.0-32.0) mmol/L 26.7 Anion Gap (3-11) mmol/L 7.3 BUN (7-18) mg/dL 19 H Creatinine (0.55-1.02) mg/dL 1.0 Estimated GFR/1.73 m2 (mL/min/1.73m2) 52.69 Glucose (74-106) mg/dL 130 H Calcium (8.5-10.1) mg/dL 8.7 Magnesium (1.8-2.4) mg/dL 2.0 Total Bilirubin (0.2-1.0) mg/dL 1.1 H AST (15-37) U/L 26 ALT (14-59) U/L 17 Alkaline Phosphatase (46-116) U/L 77 Troponin I (<or=60) ng/L < 50 Total Protein (6.4-8.2) g/dL 6.4 Albumin (3.4-5.0) g/dL 3.5 Urine Color (Yellow) Urine Clarity (Clear) Urine pH (5-8) Ur Specific [place] (1.005-1.025) Urine Protein (Negative) mg/dL Urine Ketones (Negative) mg/dL Urine Blood (Negative) Urine Nitrite (Negative) Urine Bilirubin (Negative) Urine Urobilinogen (Up TO 0.2) EU/dL Ur Leukocyte Esterase (Negative) Urine RBC (0-2) HPF Urine WBC (0-5) HPF Ur Epithelial Cells (Negative) HPF Urine Crystals (Negative) HPF Urine Bacteria (Negative) HPF Urine Casts (Negative) LPF Urine Mucus (Negative) Ur Culture Indicated? Urine Glucose (Negative) mg/dL COVID-19 Source Nasal/Nares SARS-CoV-2 (PCR) (Negative) Negative Range/Units 11/11/21 12:30 WBC (4.4-10.8) 10^3/uL RBC (3.93-5.22) 10^6/uL Hgb (11.2-15.7) g/dL Hct (36.0-46.0) % MCV (80-95) fL MCH (27.0-33.0) pg MCHC (32.0-36.0) % RDW (11.7-14.6) % Plt Count (130-400) 10^3/uL MPV (8.0-11.0) fL Immature Gran % Neutrophils % Lymphocytes % Monocytes % Eosinophils % Basophils % Nucleated RBC % (0.0-0.3) % Absolute Neutrophils (1.2-6.7) 10^3/uL Absolute Lymphocytes (1.2-3.4) 10^3/uL Absolute Monocytes (0.1-0.8) 10^3/uL Absolute Eosinophils (0.0-0.7) 10^3/uL Absolute Basophils (0.0-0.2) 10^3/uL Sodium (136-145) mmol/L Potassium (3.5-5.1) mmol/L Chloride (98-107) mmol/L Carbon Dioxide (21.0-32.0) mmol/L Anion Gap (3-11) mmol/L BUN (7-18) mg/dL Creatinine (0.55-1.02) mg/dL Estimated GFR/1.73 m2 (mL/min/1.73m2) Glucose (74-106) mg/dL Calcium (8.5-10.1) mg/dL Magnesium (1.8-2.4) mg/dL Total Bilirubin (0.2-1.0) mg/dL AST (15-37) U/L ALT (14-59) U/L Alkaline Phosphatase (46-116) U/L Troponin I (<or=60) ng/L Total Protein (6.4-8.2) g/dL Albumin (3.4-5.0) g/dL Urine Color (Yellow) Yellow Urine Clarity (Clear) Sl Cloudy Urine pH (5-8) 7.0 Ur Specific [place] (1.005-1.025) >= 1.030 H Urine Protein (Negative) mg/dL Negative Urine Ketones (Negative) mg/dL Trace H Urine Blood (Negative) Trace-intact H Urine Nitrite (Negative) Negative Urine Bilirubin (Negative) Negative Urine Urobilinogen (Up TO 0.2) EU/dL 0.2 Ur Leukocyte Esterase (Negative) Negative Urine RBC (0-2) HPF 3-5 H Urine WBC (0-5) HPF 0-2 Ur Epithelial Cells (Negative) HPF Rare Urine Crystals (Negative) HPF Negative Urine Bacteria (Negative) HPF Rare Urine Casts (Negative) LPF Negative Urine Mucus (Negative) Negative Ur Culture Indicated? No Urine Glucose (Negative) mg/dL Negative COVID-19 Source SARS-CoV-2 (PCR) (Negative) ECG Data Attestation: I personally reviewed and interpreted this ECG (s) as follows: Interpretation: rate of 99, afib, pvcs, no stemi. HPI General Mode of arrival: ambulatory. Date/Time Provider Initiated Documentation: 11/11/21 10:33. Limitations to Documentation: no limitations. Information obtained by: patient. HPI Narrative: Pt is an 86yo F who is DNR/DNI with a history of dementia, paroxysmal atrial fibrillation, hypertension who presents to the ED from the [facility] for concern for unwitnessed fall with concern for hip fracture. Staff at the [facility] reported that patient complained of right hip and arm pain and was found to have a shortened and externally rotated right lower extremity. Patient states she is unsure of what happened today. She states she is not sure if she fell and is unsure of a head injury. Daughter reports and patient's medication list confirms that she is not taking Eliquis. Patient is complaining of right hip and thigh pain but denies any arm pain, headache, chest pain, abdominal pain, neck pain, back pain or other extremity injury. Patient was given fentanyl en route per EMS. Related Data Home Medications Medication Instructions Recorded Confirmed acetaminophen 500 mg tablet 100 mg PO 3XD 11/11/21 11/11/21 calcitonin (salmon) 200 spray 11/11/21 unit/actuation nasal spray ferrous sulfate 325 mg (65 mg See Rx Instructions .Route .COMPLEX 11/11/21 11/11/21 iron) tablet omeprazole 20 mg capsule,delayed 1 cap PO DAILY 11/11/21 11/11/21 release vitamin B complex-folic acid ER 1 tab PO 11/11/21 400 mcg tablet,extended release Allergies Allergy/AdvReac Type Severity Reaction Status Date / Time cimetidine AdvReac Intermediate BREAST Verified 11/11/21 10:39 TENDERNESS diltiazem AdvReac Intermediate bowel Verified 11/11/21 10:39 problem Penicillins AdvReac Unknown unknown Verified 11/11/21 10:39 General Stated Complaint: Orthopedic JODY: 3 Review of Systems All systems reviewed & are unremarkable except as noted in HPI and below Constitutional Constitutional: Denies chills, Denies excessive sweating, Denies fatigue, Denies fever(s), Denies weakness and Denies weight loss Eyes Eyes: Reports system reviewed and no additional complaints, except as documented and Denies blurry vision ENT Ears, Nose, Mouth, and Throat: Denies vertigo, Denies dizziness, Denies otalgia, Denies nasal congestion, Denies sore throat and Denies throat swelling Cardiovascular Cardiovascular: Denies chest pain, Denies syncope, Denies rapid heart rate and Denies dyspnea Respiratory Respiratory: Denies chest congestion, Denies cough, Denies pain on inspiration and Denies dyspnea Gastrointestinal Gastrointestinal: Denies abdominal pain, Denies diarrhea and Denies vomiting Genitourinary Genitourinary: Denies hematuria, Denies dysuria and Denies flank pain Musculoskeletal Musculoskeletal: Denies back pain and Denies joint swelling Comments: R hip and thigh pain Integumentary/Breasts Skin/Breast: Denies lesions and Denies rash Neurologic Neurologic: Denies behavioral changes, Denies confusion, Denies vertigo, Denies dizziness, Denies syncope, Denies localized weakness and Denies weakness Psychiatric Psychiatric: Denies behavioral changes, Denies confusion and Denies depression Endocrine Endocrine: Denies excessive sweating and Denies fatigue Hematologic/Lymphatic Hematologic/Lymphatic: Denies easy bruising and Denies lymphadenopathy Allergic/Immunologic Allergic/Immunologic: Denies throat swelling PFSH All Active Problems Compression fracture of vertebrae (Acute) Intertrochanteric fracture of right hip (Acute) Unwitnessed fall (Acute) Compression fracture of thoracic vertebra (Acute) Anticoagulation management encounter (Chronic 08/09/16) Switched to Apixaban 08/05/16 due to TIA on Warfarin Paroxysmal atrial fibrillation (Chronic 09/12/15) noted 09/12/15; converted spontaneously on Metoprolol, paroxysmal SVT on 2 wk Z-patch 12/2015; but in and out of A Fib/flutter when hospitalized -02/2016; ECHO mod M 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) RX LIGHT AND EXERCISE, FEELS MOOD CHANGE IN JUNE, 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) Atrial fibrillation and flutter (Chronic) Dementia (Chronic) 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 Low body mass index (Acute) Seasonal affective disorder (Acute) Atrial flutter by electrocardiography (Acute 02/01/16) Encounter for routine gynecological examination (Acute 08/17/14) Hernia of ovary (Acute 02/09/16) Obturator hernia with obstruction (Acute 01/31/16) Unintentional weight loss (Chronic) Memory disturbance (Chronic 04/19/16) 04/2016 MOCA: 22 Advanced directive placed in chart this admission (Chronic 12/03/04) SEE ARCHIVES UNDER LEGAL, FOR DPOA, FULL CODE FOR NOW Abnormal MRI, pelvis (Chronic 04/03/16) thickened endometrial stripe; expectant management Medical History Anemia due to blood loss, acute Cecal volvulus Hyponatremia Surgical History Incarcerated Obdurator Hernia (01/31/16) Dr Nicholas, [facility] Family History Mother , vascular at age 95. No problems noted. 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 Working smoke detector in home: Yes Carbon monox detector in home: Yes Do you feel safe at home: Yes Do you feel safe in your relationship?: Yes Additional Social history: pt lives at the [facility] Exam Const General: cooperative and no acute distress Orientation: alert, awake, oriented to person, not oriented to place and not oriented to time HENNE Head: normal to inspection Ears: hearing grossly normal bilaterally, external ears normal and TM's normal bilaterally General nose exam: external nose normal Face and sinus: normal facial exam Mouth: oral mucosae normal Throat: posterior oropharynx normal Eyes General: appearance normal, both eyes and all related structures Eyelids: eyelids normal Pupils: PERRL EOM: EOM intact bilaterally Neck Neck: normal visual inspection Lymphatic: no lymphadenopathy noted Chest Chest: normal inspection of the chest, normal palpation of entire chest wall and no tenderness Resp Effort & Inspection: normal respiratory effort and able to speak in complete sentences Auscultation: clear to auscultation bilaterally Cardio Rate: regular rate Rhythm: regular rhythm GI Inspection: normal to inspection and no abdominal wall ecchymosis Palpation: soft, not firm, no guarding, no hepatosplenomegaly, no masses and nontender Auscultation: normal bowel sounds Back/Spine/Pelvis Cervical Spine: No cervical spinal tenderness Thoracic/Lumbar Spine: thoracic and lumbar spine normal to inspection, No thoracic spinal tenderness and No lumbar spinal tenderness Skin General skin exam: no rashes or lesions noted Neuro General: patient alert, patient awake and oriented Patient Orientation: Person Cognition: normal cognition Speech: speech normal Extrem Other: Right lower extremity shortened and externally rotated. Bilateral DP/PT pulses intact. There are no obvious open wounds noted to the right lower extremity. Full range of motion of bilateral upper and left lower extremity without pain. With range of motion or evidence of trauma. Psych Appearance: grossly normal Mental Status: mental status grossly normal Speech and Movement: speech and movement normal Affect: normal affect Thought Process: normal
--- NOTE | 2021-11-11 11:00 | DI.RAD_ITS ---
Exam(s) XR FEMUR RT XR HIP RT COMPLETE AP PELVIS EXAM: XR HIP RT COMPLETE AP PELVIS CLINICAL HISTORY: fall, R leg shortened, rotated, r/o fx. TECHNIQUE: 2D digital imaging was performed of the right hip. Six images were obtained. AP pelvis a nd lateral right hip views were obtained. COMPARISON: CR,XR XR FEMUR RT from 11/11/2021 FINDINGS: BONES: There is an acute displaced intertrochanteric fracture of the right femur. No bony destructiv e lesion is seen. Osteopenia. JOINTS: No dislocation present. SOFT TISSUE: Atherosclerosis is present. IMPRESSION: Acute displaced intertrochanteric fracture of the right femur. DATA REPOSITORY: RADIATION DOSE DELIVERED:
--- NOTE | 2021-11-11 11:00 | DI.CT_ITS ---
Exam(s) CT HEAD CERVICAL SPINE WO EXAM: CT HEAD CERVICAL SPINE WO CLINICAL HISTORY: fall, possible head injury. TECHNIQUE: Imaging Protocol: Axial computed tomography images with coronal and sagittal reformatted images were created and reviewed COMPARISON: CT CT BRAIN NECK CTA from 11/04/[address] HEAD WO from 11/12/2019 CR XR CHEST 2V PA LATERAL from 11/12/2019 FINDINGS: CT Head: Ventricles and Extra axial spaces: Normal in size and morphology for the patient's age. Hemorrhage: None. Cerebral parenchyma: There is no acute territorial infarct present. There are areas of decreased att enuation distributed throughout the white matter most consistent with small vessel ischemic disease. Midline shift: None. Brainstem/Cerebellum: Normal. Calvarium: Normal. Visualized Paranasal sinuses/Mastoids: Clear. Soft Tissues: Unremarkable. CT Cervical Spine: Bones: No acute fracture or subluxation. Degenerative changes are seen in the cervical spine. There is a T4 compression fracture deformity. It does not appear to be acute. This was not present on the CT scan of the head and neck on 11/12/2019. There also appears to be mild compression of the T3 vert ebral body. This likewise is new since 11/12/2019. The bones are osteopenic. Soft Tissues: Unremarkable. Lung Apices: Clear. IMPRESSION: 1. No acute intracranial process. 2. No acute fracture or subluxation in the cervical spine. 3. Compression deformities of T3 and T4 as described above. These are new since the examination from 11/12/2019. These are age indeterminate. Acute to subacute fractures cannot be entirely excluded. RADIATION DOSE DELIVERED: 1,035.46mGy.cm Total DLP DATA REPOSITORY: All CT scans at this facility are submitted to the National Radiology Data Registry (NRDR) Dose Index Registry (DIR) with the [employer] ([employer]). RADIATION OPTIMIZATION: All CT scans at this facility use at least one of these dose optimization te chniques: automated exposure control; mA and/or kV adjustment per patient size (includes targeted exa ms where dose is matched to clinical indication); or iterative reconstruction.
--- NOTE | 2021-11-11 11:00 | RT.EKG_ITS ---
APPROVED REPORT Exam: Resting ECG Reason for Exam: unwitnessed fall, dementia, pre-op Patient Location: E HR:99 bpm ECG Measurements Heart Rate 99 AXIS SC [id number] P [id number] QRSd 78 QRS -39 QT 377 T 8 QTc 485 Conclusion Atrial fibrillation...? atrial activity Left axis deviation...QRS axis (-30,-90) Anteroseptal infarct, old...Q >40mS, V1-V2. Afib. PVCs. No STEMI. I have reviewed and interpreted ECG and agree with software generated interpretation.
--- NOTE | 2021-11-11 11:01 | DI.RAD_ITS ---
Exam(s) XR CHEST 1V IN DI DEPT EXAM: XR CHEST 1V IN DI DEPT CLINICAL HISTORY: unwitnessed fall, r/o fx TECHNIQUE: 2D digital imaging was performed of the chest. One image was obtained. An AP view was ob tained. COMPARISON: No exams were available for comparison FINDINGS: MEDIASTINUM: Normal. HEART: Cardiomegaly. PULMONARY VASCULATURE: Normal. LUNGS: No focal consolidating infiltrate. Linear scarring in the left mid lung. PLEURAL SPACE: No pleural effusion or pneumothorax. BONE:Within normal limits for the patient's age. OTHER FINDINGS:Normal. IMPRESSION: No acute pulmonary findings. DATA REPOSITORY: RADIATION DOSE DELIVERED:
[2021-11-11 11:17] LABS: Abs Immature Grans 0.02 10^3/uL (0.0-0.06); Absolute Basophil Count 0.04 10^3/uL (0.0-0.2); Absolute Eosinophil Count 0.09 10^3/uL (0.0-0.7); Absolute Lymphocyte Count 2.42 10^3/uL (1.2-3.4); Absolute Monocyte Count 0.53 10^3/uL (0.1-0.8); Absolute Neutrophil Count 4.13 10^3/uL (1.2-6.7); Basophils % 0.6; Eosinophils % 1.2; HCT 38.4 % (36.0-46.0); HGB 12.7 g/dL (11.2-15.7); Immature Grans % 0.3; Lymphocytes % 33.5; MCH 35.4 pg (27.0-33.0); MCHC 33.1 % (32.0-36.0); MCV 107 fL (80-95); MPV 10.3 fL (8.0-11.0); Monocytes % 7.3; Neutrophils % 57.1; Platelet Count 150 10^3/uL (130-400); RBC 3.59 10^6/uL (3.93-5.22); RDW 14.6 % (11.7-14.6); RDW-SD 57.3 fL; WBC 7.23 10^3/uL (4.4-10.8)
[2021-11-11] MEDS: Normal Saline 250 ML IV (11:19)
[2021-11-11] MEDS: HYDROmorphone 2 MG/ML VIAL 0.5 MG IVP (11:19)
[2021-11-11 11:20] LABS: Source Nasal/Nares
[2021-11-11] MEDS: Ondansetron 4 MG/2 ML VIAL IVP (11:20)
[2021-11-11 11:35] LABS: ALT 17 U/L (14-59); AST 26 U/L (15-37); Albumin 3.5 g/dL (3.4-5.0); Alkaline Phosphatase 77 U/L (46-116); Anion Gap 7.3 mmol/L (3-11); BUN 19 mg/dL (7-18); Bilirubin, Total 1.1 mg/dL (0.2-1.0); CO2 26.7 mmol/L (21.0-32.0); Calcium 8.7 mg/dL (8.5-10.1); Chloride 102 mmol/L (98-107); Estimated GFR 52.69 (mL/min/1.73m2); Glucose 130 mg/dL (74-106); Sodium 136 mmol/L (136-145); Total Protein 6.4 g/dL (6.4-8.2); Troponin I < 50 ng/L (<or=60)
[2021-11-11 12:12] LABS: COVID-19 PCR Negative (Negative)
--- NOTE | 2021-11-11 12:15 | DI.CT_ITS ---
Exam(s) CT THORACIC LUMBAR SPINE WO EXAM: CT THORACIC LUMBAR SPINE WO CLINICAL HISTORY: s/p fall, r/o acute compression fx. TECHNIQUE: Imaging Protocol: Axial computed tomography images with coronal and sagittal reformatted images were created and reviewed. COMPARISON: CT LUMBAR SPINE RECONSTRUCTIONS from 10/12/2015 CR XR CHEST 2V PA LATERAL from 11/12/2019 CR XR THORACOLUMB JUNCT 2V from 03/17/2020 FINDINGS: Bones: There are compression fracture deformities of T4, T7, T9 and T10. They were not present on th e CT scan of the chest from 11/12/2019. There is a right convex curvature of the thoracic spine. The re are compression deformities of the superior endplates of L4 and L5. Degenerative changes are seen throughout the spine. The bones are osteopenic. Soft tissues: Cardiomegaly is present. Coronary artery calcifications are seen. Dependent atelectat ic changes are seen in the lung bases. There may be trace pleural effusions versus pleural thickenin g. There is diverticulosis seen in the sigmoid colon but no evidence of acute diverticulitis. There is a Tavares catheter within the urinary bladder. IMPRESSION: 1. Indeterminate compression fracture deformities in the thoracic and lumbar spine. 2. Bilateral basilar infiltrates versus scarring. Trace pleural effusions versus pleural thickening. 3. Additional findings in the abdomen and pelvis as described above. RADIATION DOSE DELIVERED: 498.42mGy.cm Total DLP DATA REPOSITORY: All CT scans at this facility are submitted to the National Radiology Data Registry (NRDR) Dose Index Registry (DIR) with the [employer] (A[employer]). RADIATION OPTIMIZATION: All CT scans at this facility use at least one of these dose optimization te chniques: automated exposure control; mA and/or kV adjustment per patient size (includes targeted exa ms where dose is matched to clinical indication); or iterative reconstruction.
--- NOTE | 2021-11-11 12:18 | DI.VRAD_ITS ---
PROCEDURE INFORMATION: Exam: CT Head Without Contrast Exam date and time: 11/11/2021 11:30 AM Age: 86 years old Clinical indication: Other: R/O acute intracranial injury, cervical FX TECHNIQUE: Imaging protocol: Computed tomography of the head without contrast. COMPARISON: CT HEAD WO 11/12/2019 1:25 PM FINDINGS: Brain: Chavez-white matter differentiation is within normal limits. No mass effect or midline shift. There are stable nonspecific confluent and patchy foci of periventricular white matter hypodensit alveolus hypodensity within the mary ann , probably due to chronic microvascular ischemic changes in a patient of advanced age. Sulci and basilar cisterns are prominent due to parenchymal volume loss. No extra-axial fluid collection. Cerebral ventricles: No ventriculomegaly. Paranasal sinuses: Visualized sinuses are unremarkable. No fluid levels. Mastoid air cells: Visualized mastoid air cells are well aerated. Bones/joints: Unremarkable. No acute fracture. Soft tissues: Unremarkable. IMPRESSION: 1. No acute intracranial abnormality. No acute infarction mass acute intracranial hemorrhage. 2. Stable moderate to marked small vessel ischemic changes. PROCEDURE INFORMATION: Exam: CT Cervical Spine Without Contrast Exam date and time: 11/11/2021 11:30 AM Age: 86 years old Clinical indication: Other: R/O acute intracranial injury, cervical FX TECHNIQUE: Imaging protocol: Computed tomography of the cervical spine without contrast. COMPARISON: CT BRAIN NECK CTA 11/04/2019 9:47 PM FINDINGS: Bones/joints: Visualized bones are demineralized. Compression fracture T4 with moderate loss height superior inferior endplate and mild buckling of posterior cortex. Additionally, mild loss height of superior endplate of T3. These fractures are new since previous exam dated 11/2019. There is no acute fracture subluxation within the cervical spine. . Facets and lateral masses are aligned. The posterior elements are intact. Mild dextroscoliosis of the cervical spine. Discs/Spinal canal/Neural foramina: Stable moderate loss of disc height at C4-C5 and mild loss of disc height at C5-C6 Lungs: Lung apices are normal. Vasculature: Atherosclerotic calcifications of bilateral carotid bifurcation. Soft tissues: Unremarkable. IMPRESSION: Age indeterminate osteoporotic compression fracture T4 with moderate loss height and mild buckling of posterior cortex, new since previous exam dated 11/04/2019 and probably acute to subacute setting of trauma. Additionally, mild osteoporotic loss of height of superior endplate of T3, new since previous exam also suspicious to be acute to subacute in the setting of trauma. No definite fracture in the cervical spine. Dictated and Authenticated by: Elliott Anguiano MD. Ordering:VINCENT Rosado MD
--- NOTE | 2021-11-11 12:24 | DI.VRAD_ITS ---
PROCEDURE INFORMATION: Exam: XR Chest Exam date and time: 11/11/2021 11:46 AM Age: 86 years old Clinical indication: Other: Fall unwitnessed TECHNIQUE: Imaging protocol: Radiologic exam of the chest. Views: 1 view. COMPARISON: CR XR CHEST 2V PA LATERAL 02/09/2020 13:55 FINDINGS: Lungs: Right apical markings left base consistent with atelectasis or scar. Pleural spaces: Apical pleural thickening. Heart/Mediastinum: Cardiomegaly. Vasculature: Atherosclerotic disease. Bones/joints: Unremarkable for patient's age. IMPRESSION: No acute cardiopulmonary findings. Dictated and Authenticated by: Amanda Tran MD. Ordering:VINCENT Rosado MD
--- NOTE | 2021-11-11 12:33 | DI.VRAD_ITS ---
PROCEDURE INFORMATION: Exam: XR Right Femur Exam date and time: 11/11/2021 11:50 AM Age: 86 years old Clinical indication: Other: Fall, R leg shortened, rotated, R/O FX TECHNIQUE: Imaging protocol: Radiologic exam of the Right femur. Views: 2 views. COMPARISON: No relevant comparison study. FINDINGS: Limitations: The AP view of the distal femur and proximal tibia and fibula is not marked right or left and is miss position and if it is the right lower extremity. The bony detail obscured by overlying clothing or blanket. Bones/joints: Intratrochanteric fracture with displacement. Decreased bone mineralization. Soft tissues: Unremarkable. Vasculature: Atherosclerotic disease. IMPRESSION: Intratrochanteric fracture. Dictated and Authenticated by: Amanda Tran MD. Ordering:VINCENT Rosado MD
--- NOTE | 2021-11-11 12:34 | DI.VRAD_ITS ---
PROCEDURE INFORMATION: Exam: XR Right Hip Exam date and time: 11/11/2021 11:48 AM Age: 86 years old Clinical indication: Other: Fall, R leg shortened, rotated, R/O FX TECHNIQUE: Imaging protocol: Radiologic exam of the Right hip. Views: 2 or 3 views hip with pelvis when performed. COMPARISON: CT ABDOMEN PELVIS WO 05/08/2019 17:33 FINDINGS: Bones/joints: Right intratrochanteric fracture with displacement. Decreased bone mineralization. Soft tissues: Unremarkable. IMPRESSION: Intratrochanteric fracture. Dictated and Authenticated by: Amanda Tran MD. Ordering:VINCENT Rosado MD
[2021-11-11] MEDS: Acetaminophen 325 MG TAB PO (13:32)
[2021-11-11 13:46] LABS: Bilirubin Negative (Negative); Blood Trace-intact (Negative); Clarity Sl Cloudy (Clear); Glucose Negative (Negative); Ketones Trace mg/dL (Negative); Leukocyte Esterase Negative (Negative); Nitrite Negative (Negative); Specific Gravity >= 1.030 (1.005-1.025); Urobilinogen 0.2 EU/dL (Up TO 0.2)
[2021-11-11 14:07] LABS: Bacteria Rare HPF (Negative); C & S Indicated? No; Casts Negative LPF (Negative); Crystals Negative HPF (Negative); Epithelial Cells Rare HPF (Negative); Mucus Negative (Negative); WBC 0-2 HPF (0-5)
--- NOTE | 2021-11-11 14:17 | DI.VRAD_ITS ---
PROCEDURE INFORMATION: Exam: CT Thoracic Spine Without Contrast Exam date and time: 11/11/2021 12:38 PM Age: 86 years old Clinical indication: Other: S/P fall, R/O acute compression F TECHNIQUE: Imaging protocol: Computed tomography of the thoracic spine without contrast. COMPARISON: No relevant comparison study. FINDINGS: Bones/joints: Multilevel degenerative scoliotic changes of the spine. Decreased bone mineralization. Marked kyphosis. Age indeterminate compression deformity of T4, T6, T9, and T10. Discs/Spinal canal/Neural foramina: Narrowing of the neural foramina bilaterally at T7-8, T9-10, and T10-11. Soft tissues: Unremarkable. Vasculature: Atherosclerotic disease. Lungs: Bibasilar atelectasis versus scar or developing infiltrate. Pleural spaces: Small right pleural effusion. Trace left pleural effusion versus pleural thickening. Heart: Cardiomegaly. Calcified coronary arteries. IMPRESSION: 1. Multiple indeterminate compression deformities as discussed above. Multilevel degenerative changes of the spine. Kyphosis. 2. Small right pleural effusion. Trace left pleural effusion. Bibasilar atelectasis versus scar or developing infiltrate. 3. Additional findings as discussed above. PROCEDURE INFORMATION: Exam: CT Lumbar Spine Without Contrast Exam date and time: 11/11/2021 12:38 PM Age: 86 years old Clinical indication: Other: S/P fall, R/O acute compression F TECHNIQUE: Imaging protocol: Computed tomography of the lumbar spine without contrast. COMPARISON: No relevant comparison study. FINDINGS: Tubes, catheters and devices: Tavares catheter in a decompressed urinary bladder. Bones/joints: Age indeterminate compression deformity of L4 and L5 vertebral bodies. Decreased bone mineralization. Discs/Spinal canal/Neural foramina: Multilevel degenerative changes of the lumbar spine. Multilevel facet arthropathy. Broad-based posterior disc bulge at L3-L4 and L4-L5 with narrowing of the spinal canal. Left lateral disc bulge at L4-L5 with asymmetric narrowing of the left L4-L5 neural foramen. Asymmetric narrowing of the left L5-S1 neural foramen. Lungs: Bibasilar atelectasis versus scar or developing infiltrate. Pleural spaces: Bilateral pleural effusions. Stomach and bowel: Diverticulosis without CT evidence of diverticulitis. Urinary bladder: Air within the urinary bladder. Vasculature: Atherosclerotic disease. Distal abdominal aorta measures 3.0 cm in diameter. Soft tissues: Unremarkable. IMPRESSION: 1. Multilevel degenerative changes of the spine. Age indeterminate compression deformity of L4 and L5 vertebral bodies. 2. Additional findings as discussed above. Dictated and Authenticated by: Amanda Tran MD. Ordering:VINCENT Rosado MD
--- NOTE | 2021-11-11 15:42 | W.PM.HP.N ---
Date of service: 11/11/21 Time of Service: 15:45 Assessment and Plan Assessment and plan (1) Intertrochanteric fracture of right hip: Status: Acute Assessment and plan: Secondary to an unwitnessed fall. Orthopedist planning repair. Pain control. NPO after MN. SCDs. (2) Unwitnessed fall: Status: Acute Assessment and plan: Resultant right intertrochanteric hip fx. Questionable an acute T4 vertebral compression fx. Has multiple other compression fxs age indeterminate. (3) Compression fracture of vertebrae: Status: Acute Assessment and plan: Multiple levels of thoracic and lumbar vertebral column. Currently has no c/o back pain. (4) Paroxysmal atrial fibrillation: Status: Chronic Assessment and plan: Cont metoprolol for rate control. No longer on anticoagulation tx. Telemetry. (5) Vascular dementia: Status: Acute Assessment and plan: Confused but cooperative. (6) Essential hypertension: Status: Acute Assessment and plan: On metoprolol SBP initially in the 160's. Likely related to pain. Improved with pain meds to 120's to 140's. (7) Discharge planning issues: Status: Inactive Assessment and plan: Continue her DNR/DNI status until time of surgery. History of Present Illness History of Present Illness Chief Complaint: Right hip pain Narrative: This is an 86 yo female with a h/o paroxysmal afib, HTN, vascular dementia, major depression, TIA, HTN. She presented from the [facility] facility after incurring an unwitessed fall. The patient does not recall the fall and was not sure whether or not she hit her head. She complained of R hip and arm pain. She denied DAUGHERTY, chest/abd pain. No back pain. She normally ambulates on her own accord w/o an assist device. Her right lower extremity was noted to be shortened and externally rotated. Xray confirmed a right intertrochanteric fx. CT head and C-spine negative for acute fx. CT of T and L-spine showed age indeterminate compression deformities of T4-6-9-10. CT lumbar spine with multilevel degenerative changes of the spine and age indeterminate compression deformities of L4 and L5 vertebral bodies. Orthopedic surgery discussed the patient with the ED physician and hospitalist will admit for planned fracture repair. Review of Systems All systems reviewed & are unremarkable except as noted in HPI and below (ED phys obtained from daughter) PFSH All Active Problems (Updated 11/11/21 @ 16:03 by Sundar Phillips MD) Compression fracture of vertebrae (Acute) Intertrochanteric fracture of right hip (Acute) Unwitnessed fall (Acute) Compression fracture of thoracic vertebra (Acute) Anticoagulation management encounter (Chronic 08/09/16) Switched to Apixaban 08/05/16 due to TIA on Warfarin Paroxysmal atrial fibrillation (Chronic 09/12/15) noted 09/12/15; converted spontaneously on Metoprolol, paroxysmal SVT on 2 wk Z-patch 12/2015; but in and out of A Fib/flutter when hospitalized ; ECHO mod M 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) RX LIGHT AND EXERCISE, FEELS MOOD CHANGE IN JUNE, 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) Atrial fibrillation and flutter (Chronic) Dementia (Chronic) 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 Low body mass index (Acute) Seasonal affective disorder (Acute) Atrial flutter by electrocardiography (Acute 02/01/16) Encounter for routine gynecological examination (Acute 08/17/14) Hernia of ovary (Acute 02/09/16) Obturator hernia with obstruction (Acute 01/31/16) Unintentional weight loss (Chronic) Memory disturbance (Chronic 04/19/16) 04/2016 MOCA: 22 Advanced directive placed in chart this admission (Chronic 12/03/04) SEE ARCHIVES UNDER LEGAL, FOR DPOA, FULL CODE FOR NOW Abnormal MRI, pelvis (Chronic 04/03/16) thickened endometrial stripe; expectant management Medical History (Updated 11/11/21 @ 16:03 by Sundar Phillips MD) Anemia due to blood loss, acute Cecal volvulus Hyponatremia Surgical History Incarcerated Obdurator Hernia (01/31/16) Dr Nicholas, [facility] Family History Mother , vascular at age 95. No problems noted. Social History Smoking/Tobacco Use Status: Former Tobacco Use Smoking risk assessment performed?: Yes Alcohol Intake: never Drug use: Never Substance use type: does not use Adopted: No Caregiver/Support person: No Foster care: No Household members: none Number of Children: 2 Current gender identity: female What type of physical activity do you participate in: walking Frequency: 5-6 times per week Seatbelt use: always Drive intox or ride w/intox customer service driver: No Working smoke detector in home: Yes Carbon monox detector in home: Yes Do you feel safe at home: Yes Do you feel safe in your relationship?: Yes Additional Social history: pt lives at the [facility] Allergies and Home Medications Allergies Allergy/AdvReac Type Severity Reaction Status Date / Time cimetidine AdvReac Intermediate BREAST Verified 11/11/21 10:39 TENDERNESS diltiazem AdvReac Intermediate bowel Verified 11/11/21 10:39 problem Penicillins AdvReac Unknown unknown Verified 11/11/21 10:39 Home Medications Medication Instructions Recorded Confirmed Type acetaminophen 500 mg tablet 100 mg PO 3XD 11/11/21 11/11/21 History calcitonin (salmon) 200 spray 11/11/21 History unit/actuation nasal spray ferrous sulfate 325 mg (65 mg See Rx Instructions .Route .COMPLEX 11/11/21 11/11/21 History iron) tablet omeprazole 20 mg capsule,delayed 1 cap PO DAILY 11/11/21 11/11/21 History release vitamin B complex-folic acid ER 1 tab PO 11/11/21 History 400 mcg tablet,extended release Exam Narrative Exam Narrative: Pt is sitting partially reclined in bed. She is trying to turn off the e-tablet playing music. Const General: cooperative and no acute distress Nutritional Appearance: thin and underweight Orientation: alert and oriented to person HENIA Head: normocephalic and atraumatic Ears: hearing grossly normal bilaterally Eyes General: appearance normal, both eyes and all related structures Sclera: sclerae normal Resp Effort & Inspection: normal respiratory effort Auscultation: clear to auscultation bilaterally Cardio Rate: tachycardic Rhythm: abnormal rhythm irregularly irregular GI Palpation: soft and nontender Skin General skin exam: no rashes or lesions noted Neuro General: moves all extremities (right leg movement limited by pain. ) Extrem General: no pedal edema and no calf tenderness Right lower extremity: hip/thigh (shortened and externally rotated. ) Details: tenderness Psych Appearance: grossly normal Speech and Movement: speech clear Affect: irritable affect Results Labs Result diagrams: 11/11/21 10:40 11/11/21 10:40 Labs: Laboratory Results - last 24 hr 11/11/21 11/11/21 11/11/21 10:40 10:40 11:15 WBC 7.23 RBC 3.59 L Hgb 12.7 Hct 38.4 MCV 107 H MCH 35.4 H MCHC 33.1 RDW 14.6 Plt Count 150 MPV 10.3 Immature Gran % 0.3 Neutrophils % 57.1 Lymphocytes % 33.5 Monocytes % 7.3 Eosinophils % 1.2 Basophils % 0.6 Nucleated RBC % 0.0 Absolute Neutrophils 4.13 Absolute Lymphocytes 2.42 Absolute Monocytes 0.53 Absolute Eosinophils 0.09 Absolute Basophils 0.04 Sodium 136 Potassium 4.0 Chloride 102 Carbon Dioxide 26.7 Anion Gap 7.3 BUN 19 H Creatinine 1.0 Estimated GFR/1.73 m2 52.69 Glucose 130 H Calcium 8.7 Magnesium 2.0 Total Bilirubin 1.1 H AST 26 ALT 17 Alkaline Phosphatase 77 Troponin I < 50 Total Protein 6.4 Albumin 3.5 Urine Color Urine Clarity Urine pH Ur Specific [place] Urine Protein Urine Ketones Urine Blood Urine Nitrite Urine Bilirubin Urine Urobilinogen Ur Leukocyte Esterase Urine RBC Urine WBC Ur Epithelial Cells Urine Crystals Urine Bacteria Urine Casts Urine Mucus Ur Culture Indicated? Urine Glucose COVID-19 Source Nasal/Nares SARS-CoV-2 (PCR) Negative 11/11/21 12:30 WBC RBC Hgb Hct MCV MCH MCHC RDW Plt Count MPV Immature Gran % Neutrophils % Lymphocytes % Monocytes % Eosinophils % Basophils % Nucleated RBC % Absolute Neutrophils Absolute Lymphocytes Absolute Monocytes Absolute Eosinophils Absolute Basophils Sodium Potassium Chloride Carbon Dioxide Anion Gap BUN Creatinine Estimated GFR/1.73 m2 Glucose Calcium Magnesium Total Bilirubin AST ALT Alkaline Phosphatase Troponin I Total Protein Albumin Urine Color Yellow Urine Clarity Sl Cloudy Urine pH 7.0 Ur Specific [place] >= 1.030 H Urine Protein Negative Urine Ketones Trace H Urine Blood Trace-intact H Urine Nitrite Negative Urine Bilirubin Negative Urine Urobilinogen 0.2 Ur Leukocyte Esterase Negative Urine RBC 3-5 H Urine WBC 0-2 Ur Epithelial Cells Rare Urine Crystals Negative Urine Bacteria Rare Urine Casts Negative Urine Mucus Negative Ur Culture Indicated? No Urine Glucose Negative COVID-19 Source SARS-CoV-2 (PCR) Last Vital Signs Temp 37.0 C 11/11/21 14:26 Pulse 102 H 11/11/21 14:26 Resp 16 11/11/21 14:26 BP 148/90 H 11/11/21 14:26 Pulse Ox 97 11/11/21 14:26
[2021-11-11] MEDS: Normal Saline Flush 10 ML SYR (17:08)
[2021-11-11] MEDS: HYDROmorphone 2 MG/ML SYR 0.5 MG IVP ×2 (17:09→20:40)
[2021-11-11] MEDS: Metoprolol CR 25 MG TABCR 37.5 MG PO (23:50)
[2021-11-12] VITALS (20 sets, daily range): BP systolic 95–151; BP diastolic 64–90; PULSE 72–139; RESP 14–22; TEMP 36.4–37.2; O2SAT 96–98; BMI 17.6
[2021-11-12] MEDS: Lactated Ringers 1,000 ML 75 ML IV ×2 (00:03→12:07)
[2021-11-12] MEDS: ACETAMINOPHEN 1,000 MG/100 ML BTL 400 MG IVPB (00:06)
[2021-11-12] MEDS: HYDROmorphone 2 MG/ML SYR 0.5 MG IVP ×4 (00:29→15:21)
--- NOTE | 2021-11-12 06:48 | OCONE_ITS ---
History of Present Illness History of Present Illness Chief Complaint: Left Hip Pain and Deformity Narrative: Daina is an 86-year-old resident of the [facility] with severe dementia. She is a normal independent ambulator and had an unwitnessed fall yesterday, November 11, at the facility. She was unable to stand back up nor ambulate and there is noted deformity to the right leg and therefore she was brought to the emergency department. She was diagnosed with a displaced intertrochanteric hip fracture. She does have a history of atrial fibrillation, dementia, GERD, osteoporosis. She denies any head, neck, or back pain. Incidental findings of compression fractures of thoracic spine were identified on CT scan imaging. Prior to the fall, there is no reported complaints of pain nor ambulatory disability. She is no longer on Eliquis. Consults Consult date: 11/11/21 Requesting physician: Sundar Phillips Consult Reason Right Hip Fracture Assessment and Plan Assessment and plan (1) Intertrochanteric fracture of right hip: Status: Acute Assessment and plan: Daina is an 86-year-old who fell and suffered a fracture about her right hip. She has severe dementia but was quite ambulatory beforehand. Given the fracture pattern I recommended fixation. This would allow her to have better pain control as well as mobilize. I would fix this with an intramedullary device. I did discuss the case with her daughters, Coretta and Aleena. Given her age and dementia, there is a high 1 year mortality rate associated this fracture which is mostly an indication of her overall body demise. However, and there is good indication to proceed with surgery regardless to help reduce pain and increase function. I reviewed the risk of the procedure with Coretta to include bleeding, infection, pain, stiffness, damage to nerves and vessels, hardware failure or prominence, malunion, nonunion, blood clot. Despite these risk, she elects to proceed. Daina also agrees to proceed to fix her hip although she quickly asked questions about why she is here. 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) RX LIGHT AND EXERCISE, FEELS MOOD CHANGE IN JUNE, 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) Atrial fibrillation and flutter (Chronic) Dementia (Chronic) 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 Low body mass index (Acute) Seasonal affective disorder (Acute) Atrial flutter by electrocardiography (Acute 02/01/16) Encounter for routine gynecological examination (Acute 08/17/14) Hernia of ovary (Acute 02/09/16) Obturator hernia with obstruction (Acute 01/31/16) Unintentional weight loss (Chronic) Memory disturbance (Chronic 04/19/16) 04/2016 MOCA: 22 Advanced directive placed in chart this admission (Chronic 12/03/04) SEE ARCHIVES UNDER LEGAL, FOR DPOA, FULL CODE FOR NOW Abnormal MRI, pelvis (Chronic 04/03/16) thickened endometrial stripe; expectant management Medical History Anemia due to blood loss, acute Cecal volvulus Hyponatremia Surgical History Incarcerated Obdurator Hernia (01/31/16) Dr Nicholas, [facility] Family History Mother , vascular at age 95. No problems noted. 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 No acute distress. Disoriented but alert. Evaluation of the right lower extremity shows shortened externally rotated extremity. No significant skin changes. No notable swelling. No ecchymosis. Pain to palpation about the right hip. No pain about the right knee. Intact ankle dorsiflexion, plantarflexion, great toe extension and great toe flexion. Sensation is grossly intact although limited in participation ability for the exam. Palpable DP PT pulse. Results Last Vital Signs Temp 36.7 C 11/11/21 23:52 Pulse 79 11/11/21 23:52 Resp 14 11/11/21 23:52 BP 144/67 H 11/11/21 23:52 Pulse Ox 97 11/11/21 23:52 Labs Result diagrams: 11/11/21 10:40 11/12/21 06:42 Labs: Laboratory Results - last 24 hr 11/11/21 11/11/21 11/11/21 10:40 10:40 11:15 WBC 7.23 RBC 3.59 L Hgb 12.7 Hct 38.4 MCV 107 H MCH 35.4 H MCHC 33.1 RDW 14.6 Plt Count 150 MPV 10.3 Immature Gran % 0.3 Neutrophils % 57.1 Lymphocytes % 33.5 Monocytes % 7.3 Eosinophils % 1.2 Basophils % 0.6 Nucleated RBC % 0.0 Absolute Neutrophils 4.13 Absolute Lymphocytes 2.42 Absolute Monocytes 0.53 Absolute Eosinophils 0.09 Absolute Basophils 0.04 Sodium 136 Potassium 4.0 Chloride 102 Carbon Dioxide 26.7 Anion Gap 7.3 BUN 19 H Creatinine 1.0 Estimated GFR/1.73 m2 52.69 Glucose 130 H Calcium 8.7 Magnesium 2.0 Total Bilirubin 1.1 H AST 26 ALT 17 Alkaline Phosphatase 77 Troponin I < 50 Total Protein 6.4 Albumin 3.5 Urine Color Urine Clarity Urine pH Ur Specific [place] Urine Protein Urine Ketones Urine Blood Urine Nitrite Urine Bilirubin Urine Urobilinogen Ur Leukocyte Esterase Urine RBC Urine WBC Ur Epithelial Cells Urine Crystals Urine Bacteria Urine Casts Urine Mucus Ur Culture Indicated? Urine Glucose COVID-19 Source Nasal/Nares SARS-CoV-2 (PCR) Negative 11/11/21 12:30 WBC RBC Hgb Hct MCV MCH MCHC RDW Plt Count MPV Immature Gran % Neutrophils % Lymphocytes % Monocytes % Eosinophils % Basophils % Nucleated RBC % Absolute Neutrophils Absolute Lymphocytes Absolute Monocytes Absolute Eosinophils Absolute Basophils Sodium Potassium Chloride Carbon Dioxide Anion Gap BUN Creatinine Estimated GFR/1.73 m2 Glucose Calcium Magnesium Total Bilirubin AST ALT Alkaline Phosphatase Troponin I Total Protein Albumin Urine Color Yellow Urine Clarity Sl Cloudy Urine pH 7.0 Ur Specific [place] >= 1.030 H Urine Protein Negative Urine Ketones Trace H Urine Blood Trace-intact H Urine Nitrite Negative Urine Bilirubin Negative Urine Urobilinogen 0.2 Ur Leukocyte Esterase Negative Urine RBC 3-5 H Urine WBC 0-2 Ur Epithelial Cells Rare Urine Crystals Negative Urine Bacteria Rare Urine Casts Negative Urine Mucus Negative Ur Culture Indicated? No Urine Glucose Negative COVID-19 Source SARS-CoV-2 (PCR) Imaging Imaging Studies: X-ray of the left hip and pelvis including the right femur demonstrates a displaced intertrochanteric fracture. There is gross demineralization of the bone about the right femur. No apparent pelvic fracture. CT scan of the thoracic and lumbar spine shows multiple compression fractures. These are anterior column fractures primarily with some loss of height. Unclear on exact age but they appear somewhat subacute or chronic in nature.
[2021-11-12 07:08] LABS: BUN 23 mg/dL (7-18); CREATININE 1.1 mg/dL (0.55-1.02); Calcium 8.5 mg/dL (8.5-10.1); Chloride 101 mmol/L (98-107); Estimated GFR 47.21 (mL/min/1.73m2); Glucose 111 mg/dL (74-106); Potassium 4.6 mmol/L (3.5-5.1); Sodium 137 mmol/L (136-145)
[2021-11-12] MEDS: Metoprolol CR 25 MG TABCR 37.5 MG PO (08:33)
[2021-11-12] MEDS: Normal Saline Flush 10 ML SYR (08:34)
--- NOTE | 2021-11-12 09:18 | INITIAL_ITS ---
- If Service Date Differs Date of service: 11/12/21 Time of Service: 09:18 Care Management Initial Assess REASON FOR HOSPITALIZATION:: left hip fracture PAST MEDICAL HISTORY/PAST SURGICAL HISTORY:: All Active Problems . Compression fracture of vertebrae (Acute). Intertrochanteric fracture of right hip (Acute). Unwitnessed fall (Acute). Compression fracture of thoracic vertebra (Acute). Anticoagulation management encounter (Chronic 08/09/16). Switched to Apixaban 08/05/16 due to TIA on Warfarin. Paroxysmal atrial fibrillation (Chronic 09/12/15). noted 09/12/15; converted spontaneously on Metoprolol, paroxysmal SVT on 2 wk Z-patch 12/2015; but in and out of A Fib/flutter when hospitalized -02/2016; ECHO mod M. 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 RX LIGHT AND EXERCISE, FEELS MOOD CHANGE IN JUNE, h/o fluoxetine in remote past 1983. 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). MYXOMATOUS MV; ECHO 2007 & 12/2009 & 01/2016: MOD MR; EF 65-70%. Vitamin D deficiency (Chronic 04/26/16). quite low 13 (04/2016); rx 50,000/wk 04/28-06/30/16. TIA (transient ischemic attack) (Acute). Vascular dementia (Acute). MOCA 22 in 2016. Chronic malnutrition (Acute). Essential hypertension (Acute). Bacteriuria, asymptomatic (Acute). COVID-19 ruled out by laboratory testing (Acute). CVA (cerebral vascular accident) (Chronic). 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 Atrial fibrillation and flutter (Chronic). Dementia (Chronic). S/P right hemicolectomy (Chronic). 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 Low body mass index (Acute). Seasonal affective disorder (Acute). Atrial flutter by electrocardiography (Acute 02/01/16). Encounter for routine gynecological examination (Acute 08/17/14). Hernia of ovary (Acute 02/09/16). Obturator hernia with obstruction (Acute 01/31/16). Unintentional weight loss (Chronic). Memory disturbance (Chronic 04/19/16). 04/2016 MOCA: 22. Advanced directive placed in chart this admission (Chronic 12/03/04). SEE ARCHIVES UNDER LEGAL, FOR DPOA, FULL CODE FOR NOW. Abnormal MRI, pelvis (Chronic 04/03/16). thickened endometrial stripe; expectant management. Medical History . Anemia due to blood loss, acute. Cecal volvulus. Hyponatremia. Surgical History . Incarcerated Obdurator Hernia (01/31/16). Dr Jason moreno, [facility] PREVIOUS FUNCTIONAL STATUS/SOCIAL/FAMILY SUPPORTS:: Daina is currently a resident at the 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 Daina enjoys reading, watching television, and corresponding in writing with friends. She has 3 daughtersm Aleena, Abby and Coretta who are supportive. CURRENT FUNCTIONAL STATUS:: was unable to meet with Daina today as she went to surgery and was sleepy upon her return.Post-operatively Daina was tachycardic with HR between 120 and 140 but her blood pressure and oxygen saturation levels were WNL. ADVANCE DIRECTIVES:: On file. German GRAY Has patient been provided with info about the portal/API?: Yes Did the patient sign up for the portal?: No CODE STATUS:: DNR/DNI INSURANCE COVERAGE / FINANCIAL ISSUES:: Medicare. BS. Medicaid PRIMARY CARE PHYSICIAN:: Gulshan Howe POTENTIAL DISCHARGE NEEDS:: will return to the [facility] PATIENT/FAMILY EDUCATION NEEDS:: Review of discharge instructions, follow up plan, limitations; discuss Ask Me Three. TRANSPORTATION:: via RCT coordinated by CM PLAN:: Daina will return to the [facility] when medically cleared by provider. She will folllow up with the facility provider and plan of care and transport with RCT or family. CM will continue to support Daina and assess for discharge planning needs.
--- NOTE | 2021-11-12 10:45 | DI.RAD_ITS ---
Exam(s) XR HIP RT IN OR EXAM: XR HIP RT IN OR CLINICAL HISTORY: displaced intertrochanteric hip fracture right. TECHNIQUE: 2D digital imaging was performed. COMPARISON: No exams were available for comparison FINDINGS: Intraoperatively provided during open reduction internal fixation intertrochanteric fracture right hi p. See procedure report for details Total cumulative dose 3.2581mGy IMPRESSION: DATA REPOSITORY: RADIATION DOSE DELIVERED:
--- NOTE | 2021-11-12 12:09 | W.PM.PROGNOT ---
Date of Service Date of service: 11/12/21 Time of Service: 12:09 Assessment and Plan Assessment and plan (1) Intertrochanteric fracture of right hip: Status: Acute Assessment and plan: Secondary to an unwitnessed fall. Orthopedist planning repair. Even given her advanced age and advanced dementia, surgery will help reduce pain and improve mobility. Her daughters, who Dr Barney has spoken with, have agreed to proceed with surgery. Pain control. SCDs. (2) Unwitnessed fall: Status: Acute Assessment and plan: Resultant right intertrochanteric hip fx. Questionable an acute T4 vertebral compression fx. Has multiple other compression fxs age indeterminate. (3) Compression fracture of vertebrae: Status: Acute Assessment and plan: Multiple levels of thoracic and lumbar vertebral column. Currently has no c/o back pain. (4) Paroxysmal atrial fibrillation: Status: Chronic Assessment and plan: Cont metoprolol for rate control. No longer on anticoagulation tx. Telemetry. (5) Vascular dementia: Status: Acute Assessment and plan: Confused. Agitated overnight. She has pulled an IV out. Currently cooperative. (6) Essential hypertension: Status: Acute Assessment and plan: On metoprolol Controlled.. (7) Discharge planning issues: Status: Inactive Assessment and plan: Continue her DNR/DNI status until time of surgery. Subjective Subjective Patient reports: afebrile; denies nausea, vomiting or shortness of breath Interval history since last seen: Ms Reddy is confused and states that they are trying to kill me. She was agitated intermittently overnight. She pull her IV out. Exam Narrative Exam Narrative: Lying in bed. R knee flexed. Const General: cooperative and no acute distress Nutritional Appearance: thin and underweight Orientation: alert [facility] Head: normocephalic and atraumatic Ears: hearing grossly normal bilaterally Eyes General: appearance normal, both eyes and all related structures Sclera: sclerae normal Resp Effort & Inspection: normal respiratory effort Auscultation: clear to auscultation bilaterally Cardio Rate: tachycardic Rhythm: abnormal rhythm irregularly irregular GI Palpation: soft and nontender Skin General skin exam: no rashes or lesions noted Neuro General: moves all extremities (right leg movement limited by pain. ) Extrem General: no pedal edema and no calf tenderness Right lower extremity: hip/thigh (shortened and externally rotated. ) Details: tenderness Psych Appearance: grossly normal Speech and Movement: speech clear Affect: anxious affect Objective Last Vital Signs Temp 37 C 11/12/21 09:53 Pulse 100 H 11/12/21 09:53 Resp 18 11/12/21 09:53 BP 112/68 11/12/21 09:53 Pulse Ox 97 11/12/21 09:53 Laboratory Results - last 24 hr 11/11/21 11/11/21 11/12/21 11:15 12:30 06:42 Sodium 137 Potassium 4.6 Chloride 101 Carbon Dioxide 30.0 Anion Gap 6.0 BUN 23 H Creatinine 1.1 H Estimated GFR/1.73 m2 47.21 Glucose 111 H Calcium 8.5 Urine Color Yellow Urine Clarity Sl Cloudy Urine pH 7.0 Ur Specific [place] >= 1.030 H Urine Protein Negative Urine Ketones Trace H Urine Blood Trace-intact H Urine Nitrite Negative Urine Bilirubin Negative Urine Urobilinogen 0.2 Ur Leukocyte Esterase Negative Urine RBC 3-5 H Urine WBC 0-2 Ur Epithelial Cells Rare Urine Crystals Negative Urine Bacteria Rare Urine Casts Negative Urine Mucus Negative Ur Culture Indicated? No Urine Glucose Negative SARS-CoV-2 (PCR) Negative
--- NOTE | 2021-11-12 12:45 | ANES.PREOP_ITS ---
General Info Date of Service Date Performed: 11/12/21 Height: 5 ft Weight: 41.1 kg Body Mass Index (BMI): 17.6 Surgical Procedure: Operation Date: 11/12/21 12:30 Proposed Procedure Side Surgeon p Hip TFNA Short Right Yusuf Barney MD Actual Procedure Side Surgeon p Hip TFNA Short Right Yusuf Barney MD Pre-Op Diagnosis Post-Op Diagnosis displaced intertrochanteric hip fracture RIGHT SIDE Meds Allergies and Home Medications Allergies Allergy/AdvReac Type Severity Reaction Status Date / Time cimetidine AdvReac Intermediate BREAST Verified 11/11/21 10:39 TENDERNESS diltiazem AdvReac Intermediate bowel Verified 11/11/21 10:39 problem Penicillins AdvReac Unknown unknown Verified 11/11/21 10:39 Home Medication Medication Instructions Recorded acetaminophen 500 mg tablet 100 mg PO 3XD 11/11/21 calcitonin (salmon) 200 spray 11/11/21 unit/actuation nasal spray ferrous sulfate 325 mg (65 mg See Rx Instructions .Route .COMPLEX 11/11/21 iron) tablet omeprazole 20 mg capsule,delayed 1 cap PO DAILY 11/11/21 release vitamin B complex-folic acid ER 1 tab PO 11/11/21 400 mcg tablet,extended release Current Visit Medications: Current Medications Generic Name Dose Route Start Last Admin Trade Name Ramezq PRN Reason Stop Dose Admin Acetaminophen 0 mg 11/11/21 12:45 11/11/21 13:32 Acetaminophen 325 Mg Tab PO 650 mg Q4H PRN PRN Administration Dimethicone/Zinc Oxide 0 gm 11/11/21 12:45 Brain Protect Cream 142 Gm Tube TP PRN PRN Hydromorphone HCl 0.5 mg 11/11/21 17:06 11/12/21 08:34 Hydromorphone 2 Mg/Ml Syr IVP 0.5 mg Q4H PRN PRN Administration Acetaminophen 1,000 mg in 100 mls @ 400 mls/hr 11/11/21 23:46 11/12/21 00:42 Ofirmev IVPB Infused Q8H PRN PRN Infusion Ringer's Solution 1,000 mls @ 75 mls/hr 11/11/21 23:45 11/12/21 12:07 IV 75 mls/hr INFUSION JAYSHREE Administration Magnesium Hydroxide 30 ml 11/11/21 12:45 Milk Of Magnesia 30 Ml Cup PO DAILY PRN PRN Metoprolol Succinate 37.5 mg 11/11/21 20:00 11/12/21 08:33 Metoprolol Cr 25 Mg Tabcr PO 37.5 mg BID JAYSHREE Administration Metoprolol Tartrate 5 mg 11/12/21 09:55 Metoprolol 5 Mg/5 Ml Vial IVP Q6H PRN PRN Ondansetron HCl 4 mg 11/11/21 12:57 Ondansetron 4 Mg/2 Ml Vial IVP Q4H PRN PRN Polyethylene Glycol 17 gm 11/11/21 12:45 Polyethylene Glycol 3350 17 Gm Packet PO DAILY PRN PRN Constipation Sertraline HCl 25 mg 11/12/21 08:30 11/12/21 08:34 Sertraline 25 Mg Tab PO Not Given DAILY JAYSHREE Sodium Chloride 0 ml 11/12/21 08:43 Normal Saline Flush 10 Ml Syr IVP PRN PRN PFSH Active Problems Active Problems: Problem Status Onset Code Compression fracture of vertebrae M48.50XA Intertrochanteric fracture of right hip S72.141A Unwitnessed fall R29.6 Compression fracture of thoracic vertebra S22.000A Anticoagulation management encounter 08/09/16 Z51.81, Z79.01 Paroxysmal atrial fibrillation 09/12/15 I48.0 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 F33.0 Mitral valve disorder 05/05/07 I05.9 Vitamin D deficiency 04/26/16 E55.9 TIA (transient ischemic attack) G45.9 Vascular dementia F01.50 Chronic malnutrition E46 Essential hypertension I10 Bacteriuria, asymptomatic R82.71 COVID-19 ruled out by laboratory testing Z03.818 CVA (cerebral vascular accident) I63.9 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 Atrial fibrillation and flutter Dementia F03.90 S/P right hemicolectomy Z90.49 Low body mass index Seasonal affective disorder Atrial flutter by electrocardiography 02/01/16 I48.92 Encounter for routine gynecological examination 08/17/14 Z01.419 Hernia of ovary 02/09/16 N83.40 Obturator hernia with obstruction 01/31/16 K45.0 Unintentional weight loss R63.4 Memory disturbance 04/19/16 R41.3 Advanced directive placed in chart this admission 12/03/04 Z78.9 Abnormal MRI, pelvis 04/03/16 R93.5 Incarcerated hernia of abdominal cavity K45.0 Medical History Medical History Anemia due to blood loss, acute Cecal volvulus Hyponatremia Surgical History Surgical History Incarcerated Obdurator Hernia (01/31/16) Dr Nicholas, [facility] Tobacco Smoking/Tobacco Use Status: Former Tobacco Use Alcohol Alcohol Intake: never Substance Use Substance use: Never Substance use type: does not use Vital Signs and Lab Results Vital Signs Most Recent Vital Signs in EMR: Most Recent Vital Signs Temp Pulse Resp BP Pulse Ox 37 C 100 H 18 112/68 97 11/12/21 09:53 11/12/21 09:53 11/12/21 09:53 11/12/21 09:53 11/12/21 09:53 Lab Results Result Diagrams: 11/11/21 10:40 11/12/21 06:42 Blood Type / Crossmatch: No Data to Display Complete Blood Count: White Blood Count 7.23 10^3/uL (4.4-10.8) 11/11/21 10:40 Red Blood Count 3.59 10^6/uL (3.93-5.22) L 11/11/21 10:40 Hemoglobin 12.7 g/dL (11.2-15.7) 11/11/21 10:40 Hematocrit 38.4 % (36.0-46.0) 11/11/21 10:40 Platelet Count 150 10^3/uL (130-400) 11/11/21 10:40 Complete Metabolic Panel: Sodium Level 137 mmol/L (136-145) 11/12/21 06:42 Potassium Level 4.6 mmol/L (3.5-5.1) 11/12/21 06:42 Chloride Level 101 mmol/L (98-107) 11/12/21 06:42 Carbon Dioxide Level 30.0 mmol/L (21.0-32.0) 11/12/21 06:42 Blood Urea Nitrogen 23 mg/dL (7-18) H 11/12/21 06:42 Creatinine 1.1 mg/dL (0.55-1.02) H 11/12/21 06:42 Estimated GFR/1.73 m2 47.21 (mL/min/1.73m2) 11/12/21 06:42 Magnesium Level 2.0 mg/dL (1.8-2.4) 11/11/21 10:40 Calcium Level 8.5 mg/dL (8.5-10.1) 11/12/21 06:42 Albumin 3.5 g/dL (3.4-5.0) 11/11/21 10:40 Glucose Level 111 mg/dL (74-106) H 11/12/21 06:42 Liver Function Panel: Alanine Aminotransferase (ALT/SGPT) 17 U/L (14-59) 11/11/21 10: 40 Aspartate Amino Transf (AST/SGOT) 26 U/L (15-37) 11/11/21 10:40 Coagulation Panel: No Data to Display Cardiac Panel: Troponin I < 50 ng/L (<or=60) 11/11/21 Arterial Blood Gas: No Data to Display Venous Blood Gas: No Data to Display Pancreas Panel: No Data to Display Thyroid Panel: No Data to Display Infectious Disease: Coronavirus (COVID-19)(PCR) Negative (Negative) 11/11/21 11:15 Coronavirus 2019 Source Nasal/Nares 11/11/21 11:15 Blood Cultures: No Data to Display Toxicology Panel: No Data to Display Imaging and Studies Imaging and Studies Study information below may be from another EMR and interpreted by another provider. Please see original notes in EMR for more complete details. EKG Summary: Conclusion Atrial fibrillation...? atrial activity Left axis deviation...QRS axis (-30,-90) Anteroseptal infarct, old...Q >40mS, V1-V2. Echocardiogram Summary: Conclusion Left Ventricle : The left ventricle is normal size. The left ventricular systolic function is normal. The left ventricular ejection fraction is within the normal range. There is normal left ventricular wall thickness. LVEF is 50- 55%. Right Ventricle : Right ventricle is mildly dilated. The right ventricular systolic function is normal. The RVSP is 34.8mmHg. Atria : Left atrium is severely dilated. Right atrium is severely dilated. Mitral Valve : Mild mitral annular calcification. No evidence of mitral valve stenosis. Moderate to severe mitral regurgitation Tricuspid Valve : The tricuspid valve is normal in structure. There is no tricuspid valve stenosis. Severe tricuspid regurgitation. Great Vessels : IVC is normal in size and collapses >50% with inspiration. Compared to study from 08/11/19, there is no significant change. Carotid Artery Summary:: CAROTID ULTRASOUND: There is a small amount of calcified plaque in the left common carotid bulb and proximal left internal carotid artery and a mild to moderate amount of plaque seen in the right common carotid bulb and proximal right internal carotid artery. The velocity measurements obtained are within the normal range. The findings are consistent with a less than 50% stenosis bilaterally. The vertebral arteries show antegrade flow. Anesthesia Assessment and Plan Anesthesia History Personal History: No History of Anesthesia Complications Family History: No Family History of Anesthesia Complications Exercise Tolerance Exercise Tolerance: Metabolic Equivalents<4 Pertinent Negatives Pertinent Negatives: No Symptoms of GERD and No Major Pulmonary Symptoms or Complaints Cardiac & Pulmonary Exam Cardiac Exam: Normal S1/S2 Heart Sounds Pulmonary Exam: Clear Bilateral Breath Sounds Implantable Cardiac Device Does patient have a Pacemaker or an ICD?: No Airway Exam Known Difficult Airway: No Mallampati Class: Unable to Assess (Patient severly demented) Mouth Opening: Unable to Assess Thyromental Distance: Greater than 3 cm Neck Range of Motion: Unable to Assess Neck Circumference: Normal Teeth Condition: Normal Dentition, Removable Dentures/Plates Upper, Removable Dentures/Plates Lower and Edentulous ASA Classification ASA Score: ASA 3 Emergency Case?: Yes NPO Status NPO Status: NPO Clears >2 hours, Solids >8 hours Anesthesia Plan Resuscitation Status: DNR Fully Suspended During Perioperative Period Anesthesia Technique: General Anesthesia Airway Planned: Endotracheal Tube Monitors Used: Standard Monitors Preoperative Comments:: Severe TR. Discussed risks with DPOA, patient's daughter, family wants to proceed.
--- NOTE | 2021-11-12 14:20 | W.ANESPOSTOP ---
Postoperative Evaluation Date, Time and Location Date Performed: 11/12/21 Time Performed: 14:21 Patient Location: Day Surgery Unit Vital Signs Most Recent Imported Vital Signs: Most Recent Vital Signs Temp Pulse Resp BP Pulse Ox 36.6 C 120 H 14 112/79 97 11/12/21 14:00 11/12/21 14:14 11/12/21 14:14 11/12/21 14:14 11/12/21 14:14 Pain Score Most Recent Pain Score: Most Recent Pain Score Pain Level 0 11/12/21 14:14 Assessment Mental Status: Awake (Alert & Oriented to Patient Baseline) Airway and Respiratory Function: Patent airway with normal (patient baseline) respiratory exam Cardiovascular Function: Hemodynamically Stable Hydration Status: Adequately Hydrated Nausea & Vomiting: No Nausea or Vomiting Pain: Pt. Denies Any Pain Peripheral Nerve Block: Patient did not receive a nerve block
[2021-11-12] MEDS: Normal Saline Flush 10 ML SYR IVP ×3 (16:05→19:20)
[2021-11-12] MEDS: Metoprolol 5 MG/5 ML VIAL IVP (16:05)
--- NOTE | 2021-11-12 16:48 | W.PM.OP ---
Date of service: 11/12/21 Time of Service: 13:05 Operative Note Operative Note DATE OF PROCEDURE: 11/12/21 PRE-OP DIAGNOSIS: Right Intertrochanteric Femur Fracture POST-OP DIAGNOSIS: same PROCEDURE: Right Intramedullary Fixation of Proximal Femur Fracture SURGEON: Yusuf Barney Refer to Anesthesia Record ESTIMATED BLOOD LOSS: 100 PATHOLOGY: none sent COMPLICATIONS: None Patient was transported to: PACU Patient's condition: stable Implants: Depuy-Synthes TFNA 12mm x 170mm Indications: Daina is a 86 year old female who presented to the Emergency Department after a fall. X-rays confirmed the diagnosis of a intertrochanteric fracture of the proximal femur. I reviewed the possible treatment options and given the fracture of the femur, I recommened operative fixation. I discussed the technical details of the surgery. I reviewed the risks such as bleeding, infection, pain, stiffness, malunion, nonunion, hardware prominence, hardware faiilure, malrotation, avascular necrosis, blood clot. Despite these risks, Daina's DPOA and family agreed to proceed. Findings: There was a fracture of the proximal femur which was able to be reduced with traction and internal rotation and external manipulation. Procedure Description: Daina was greeted in the preoperative area. Consent was previously reviewed and signed. Once in the operating room, general was administered. Both feet were wrapped with Webril and placed into the specialized boots for the Mary Alice table. She was transferred to the HANA table in the supine position. Daina was positioned onto the perineal post. All bony prominences were well padded. The arm of the operative side was then placed across the chest and secured. The nonoperative leg was scissored and secured. A gentle reduction was then performed with traction and internal rotation and gentle external manipulation. Prophylactic antibiotics, Cefazolin 1 grams, was given for prophylactic antibiotics. A timeout was performed for safe surgery. The right leg was prepped with Chloraprep. A shower curtain drape was placed. Using fluoroscopy, the starting point was marked over the lateral hip, proximal to the tip of the greater trochanter. A 3cm incision was made through skin and the fascia of the gluteus musculature until the tip of the trochanter was palpable. The starting wire was placed onto the tip, just slightly on the media aspect, and centered in the AP plane. Using a rylee, the starting guide wire was buried into the bone. A lateral x-ray confirmed appropriate position and the guidewire was advanced to the level of the lesser trochanter. With a tissue protector, the proximal femur was opened with the opening reamer. The short TFNA was chosen for this case and a Synthes TFNA [id number] nail was selected and opened on the back table. The nail was assembled to the aiming arm on the back table and confirmed to be aligned with the triple sleeve for blade insertion. Using manual force the nail was advanced into the femur. A few light mallet blows advanced the nail to its appropriate position. The triple sleeve was inserted through the targeting arm and the skin, soft tissue, and IT band was then incised. The triple sleeve was advanced down to the lateral femur. A guidewire was advanced into the femoral head where it was noted to be centered. A lateral x-ray was used to confirm centered positioning on the lateral. Happy with the length of the guidewire, this was measured. A 90mm helical blade was opened. The lateral cortex was opened and the path of the blade was reamed with a tapered reamer to appropriate depth. The helical blade was malletted into position and confirmed to be appropriately located on fluoroscopy. The set screw was advanced to a half turn shy of fully tightened, allowing for the helical blade to slide. The targeting device was removed. AP and lateral x-rays of the hip confirmed appropriate positioning within the femur and with good alignment of the fracture. Using the targeting arm, the skin was incised for placement of the distal locking screw. The trochar was inserted through the skin and IT band down onto the lateral cortex of the femur. The 4.2mm drill was advanced across the femur and through the nail. This was measured and an appropriately sized 5.0mm screw was placed. The targeting arm was removed. Final x-rays were obtained. The wounds were thoroughly irrigated. A cocktail consisting of 50cc of a mixture of [place], Ketorolac, Epinephrine, and Clonidine was injected throughout the wounds both deep and superficially. The deep fascia of the proximal two wounds was reapproximated with a 0 Vicryl. The deep tisses were closed with a 2-0 Vicryl and the skin was closed with a running subcuticular Monocryl. The wounds were dressed with a Mepilex silver dressing. At the end of the case, all counts were correct. Daina tolerated the procedure well without known complication and was taken to the PACU for recovery. Physical therapy will start post-operatively, weigh-bearing as tolerated with assistive devices. Anticoagulation will start within 12-24 hours. 3 doses of post-operative antibitiocis for prophylaxis will be administered.
[2021-11-12] MEDS: Normal Saline 500 ML 1000 ML IV (17:05)
[2021-11-12] MEDS: ceFAZolin 1 GM/50 ML BAG IVPB (18:17)
[2021-11-12] MEDS: dilTIAZem 25 MG/5 ML VIAL 10 MG IVP (18:51)
[2021-11-12] MEDS: LORazepam 20 MG/10 ML VIAL IVP (19:20)
[2021-11-12] MEDS: Lactated Ringers 1,000 ML 125 ML IV (20:40)
[2021-11-13] VITALS (8 sets, daily range): BP systolic 100–140; BP diastolic 59–84; PULSE 67–112; RESP 12–18; TEMP 36.2–37.1; O2SAT 95–99
[2021-11-13] MEDS: ceFAZolin 1 GM/50 ML BAG IVPB ×2 (02:34→10:11)
[2021-11-13] MEDS: HYDROmorphone 2 MG/ML SYR 0.5 MG IVP ×3 (02:47→19:25)
[2021-11-13] MEDS: Normal Saline Flush 10 ML SYR IVP ×5 (02:47→19:26)
[2021-11-13] MEDS: LORazepam 20 MG/10 ML VIAL IVP ×2 (03:07→20:54)
[2021-11-13] MEDS: Lactated Ringers 1,000 ML 125 ML IV ×3 (04:30→22:00)
--- NOTE | 2021-11-13 09:44 | NS.NUTBLAN_ITS ---
Date of service: 11/13/21 Time of Service: 09:45 Nutritional Consult ASSESSMENT: 86 year old female, resident of [facility] admitted with right hip fracture, s/p repair 11/12/21. BMI indicates underweight status, per medical chart review, is 20 lbs below baseline weight. Moderate malnutrition may hinder healing process. Will need vitamin and protein supplementation for optimal healing. Estimated needs: 1230 kcal (kg x 30), 57 g protein (kg x 1.4 g pro), 1230 ml fluid (kg x 30 ml) Will change Heart Healthy Diet to Regular for increased meal and snack options. NUTRITIONAL DIAGNOSIS: Moderate malnutrition in view of low BMI, increased nutrient needs s/p surgery INTERVENTION: Diet changed to Regular with regular texture MD to place order for 1 oz proheal BID for additional protein (provides 120 kcal, 30 g protein) MVI 500 mg Vit C BID 220 mg Zinc Sulfate x 14 days MONITORING AND EVALUATION: weight, po intake, labs Time Spent in Nutritional Counseling and Treatment: 0
--- NOTE | 2021-11-13 10:28 | PT.INNT ---
Date of service: 11/13/21 Time of Service: 10:06 PT Notes Visit Reasons: Intertrochanteric Fracture Patient has had 2 doses of Valium after midnight and remains sedated. Nurse Ciera will update PT once patient awakens for ordered PT evaluation. Thank you for the opportunity to participate in the care of this patient. Venessa Wong PT, DPT, CLT [facility] [place], [place]
--- NOTE | 2021-11-13 10:37 | W.PM.PROGNOT ---
Date of Service Date of service: 11/13/21 Time of Service: 10:37 Assessment and Plan Assessment and plan (1) Intertrochanteric fracture of right hip: Status: Acute Assessment and plan: POD #1 routine post operative care. Pain control. SCDs. (2) Unwitnessed fall: Status: Acute Assessment and plan: maintain fall precautions Questionable an acute T4 vertebral compression fx. Has multiple other compression fxs age indeterminate. (3) Compression fracture of vertebrae: Status: Acute Assessment and plan: Multiple levels of thoracic and lumbar vertebral column. Currently has no c/o back pain. (4) Paroxysmal atrial fibrillation: Status: Chronic Assessment and plan: Cont metoprolol for rate control. No longer on anticoagulation tx. Telemetry. (5) Vascular dementia: Status: Acute Assessment and plan: anticipate delirium while hospitalized. (6) Essential hypertension: Status: Acute Assessment and plan: On metoprolol Controlled.. (7) Discharge planning issues: Status: Inactive Assessment and plan: case management following. discussed with DR Phillips. Subjective Subjective Patient reports: no new complaints Interval history since last seen: working with PT Exam Const General: cooperative and no acute distress Nutritional Appearance: thin and underweight Orientation: alert [facility] Head: normocephalic and atraumatic Ears: hearing grossly normal bilaterally Eyes General: appearance normal, both eyes and all related structures Sclera: sclerae normal Resp Effort & Inspection: normal respiratory effort Auscultation: clear to auscultation bilaterally Cardio Rate: tachycardic Rhythm: abnormal rhythm irregularly irregular GI Palpation: soft and nontender Skin General skin exam: no rashes or lesions noted Neuro General: moves all extremities (right leg movement limited by pain. ) Extrem General: no pedal edema and no calf tenderness Right lower extremity: hip/thigh Details: tenderness Psych Appearance: grossly normal Speech and Movement: speech clear Affect: anxious affect Objective Last Vital Signs Temp 36.2 C L 11/13/21 08:30 Pulse 92 H 11/13/21 08:30 Resp 14 11/13/21 08:30 BP 100/63 11/13/21 08:30 Pulse Ox 96 11/13/21 08:30
--- NOTE | 2021-11-13 10:51 | CMPROGNOTE_ITS ---
- If Service Date Differs Date of service: 11/13/21 Time of Service: 10:51 Care Management Progress Note S/O:Daina was very sleepy this morning as she had received 2 doses of Ativan last night and PT was unable to work with her. CM met with her this afternoon. She was awake but very confused. Daina is afebrile and her blood pressure is within normal limits, however she remains somewhat tachycardic. Her heart rate was in the 130-140 range yesterday but is down to 90-104 today. Daina was m edicated once for pain today and has been calmer than during the night. A:Daina is an 86 year old woman admitted on 11/11/21 with a fractured femur P: Daina will return to the [facility] when medically cleared by provider. She will follow up with the facility provider and plan of care and transport with RCT or family. CM will continue to support Daina and assess for discharge planning needs.
--- NOTE | 2021-11-13 14:06 | PHA.REVIEW ---
Pharmacy Admission Review - Admission Clinical Review (Last Reviewed 11/12/21 @ 06:51 by Yusuf Barney MD) Compression fracture of vertebrae (Acute) Intertrochanteric fracture of right hip (Acute) Unwitnessed fall (Acute) Compression fracture of thoracic vertebra (Acute) Vascular dementia (Acute) Essential hypertension (Acute) cimetidine Adverse Reaction (Intermediate, Verified 11/11/21 10:39) BREAST TENDERNESS diltiazem Adverse Reaction (Intermediate, Verified 11/11/21 10:39) bowel problem Penicillins Adverse Reaction (Unknown, Verified 11/11/21 10:39) unknown Resuscitation Status DNR/DNI Height 5 ft Weight 41.1 kg - Renal Dosing Renal Dosing: BUN 23 mg/dL (7-18) H 11/12/21 06:42 Creatinine 1.1 mg/dL (0.55-1.02) H 11/12/21 06:42 Medications needing adjustments: Reviewed (Crcl ~24.3 mL/min current meds okay) - Anticoagulation Anticoagulation: Hgb 12.7 g/dL (11.2-15.7) 11/11/21 10:40 Hct 38.4 % (36.0-46.0) 11/11/21 10:40 Plt Count 150 10^3/uL (130-400) 11/11/21 10:40 Creatinine 1.1 mg/dL (0.55-1.02) H 11/12/21 06:42 DVT Prophylaxis: Reviewed (watch for anticoagulation to start 12-24 hours postop per operative report. Pt does have SCDs ordered currently.) Therapeutic Anticoagulation: N/A - Opiate Usage Evaluate Pain Scale/Pains Meds: Reviewed Scheduled Bowel Reg ordered if on Opiates?: No (has PRN med ordered) - Relevant Labs Sodium 137 mmol/L (136-145) 11/12/21 06:42 Potassium 4.6 mmol/L (3.5-5.1) 11/12/21 06:42 Chloride 101 mmol/L (98-107) 11/12/21 06:42 Magnesium 2.0 mg/dL (1.8-2.4) 11/11/21 10:40 Electrolytes, C-Reactive P, ESR: Reviewed - DM Control DM Control: Glucose 111 mg/dL (74-106) H 11/12/21 06:42 Insulin Dosing: N/A (BG mildly elevated on admission, no DM noted in pt's medical history, previous A1c 5.3 on 07/03/21) - Heart Failure/NC Heart Failure/NC: Troponin I < 50 ng/L (<or=60) 11/11/21 10:40 EF%, BELKIS's, B-Blockers, Diuretics: Reviewed - BP Control BP Control: Blood Pressure 128/77 Blood Pressure 100/63 If elevated: Reviewed (BP was high for part of yesterday but has been within normal limits so far today.) - Qtc Review If Elevated: Reviewed (QTc 485 on admission, maxim has ondansetron ordered PRN) - IV to PO Switch IV Medications: Intervened (has both IV and PO acetaminophen, will ask provider if the IV if needed as pt is taking PO) - Home Meds Home Med List reviewed: Intervened (med on the external med history that was not on the list in [facility], and there were some meds on the home med list that were not confirmed. I talked to nursing who had an active med list from the assisted. The med list in [facility] was updated, provider made aware.) Relevent Home Meds Not ordered & why?: calcitonin, ferrous sulfate, omeprazole, vitamin B complex - Current meds Current Medication Order Review: Intervened (Talked to the provider about the home meds that had been ordered before the home med list had been updated. Sertraline was discontinued, metoprolol was left at the higher dose for now due to the pt's hear rate.) - Comments Comments/Follow Ups: Watch BP, HR, SCr, labs and for med changes (possible renal dose adjustments, home med orders, possible need for additional BM meds). Antibiotic Activity - Pharmacy Antibiotic Review Pharmacy Antibiotic Activity: D/C antibiotic (post-operative cefazolin dosing finished this morning.)
--- NOTE | 2021-11-13 15:20 | IN_ITS ---
Date of service: 11/13/21 Time of Service: 15:20 PT Notes Visit Reasons: Intertrochanteric Fracture Physical Therapy Inpatient Initial Evaluation Date: 11/13/2021 Referring Doctor: Yusuf Barney MD PT Orders: PT CONSULT: S/p Ortho surgery. S/p IM and of right hip fracture Precautions: Fall. Standard. WBAT ON R LE with AD. back to DNR/DNI. Patient Profile/Admitting Diagnosis: Daina is an 86-year-old female admitted on 11/11/2021 from a custodial facility due to a displaced intertrochanteric fracture of the right hip sustained from an unwitnessed fall. Patient is status post right intramedullary fixation of IT fracture on postoperative day 1. Secondary diagnoses include compression fracture of the vertebral, paroxysmal atrial fibrillation, and essential hypertension. 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) Atrial fibrillation and flutter (Chronic) Dementia (Chronic) 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Low body mass index (Acute) Seasonal affective disorder (Acute) Atrial flutter by electrocardiography (Acute 02/01/16) Encounter for routine gynecological examination (Acute 08/17/14) Hernia of ovary (Acute 02/09/16) Obturator hernia with obstruction (Acute 01/31/16) Unintentional weight loss (Chronic) Memory disturbance (Chronic 04/19/16) 04/2016 MOCA: 22 Advanced directive placed in chart this admission (Chronic 12/03/04) SEE ARCHIVES UNDER LEGAL, FOR DPOA, FULL CODE FOR NOW Abnormal MRI, pelvis (Chronic 04/03/16) thickened endometrial stripe; expectant management Medical History?(Updated 11/11/21 @ 16:03 by Sundar Phillips MD) 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 Incarcerated Obdurator Hernia (01/31/16) Dr Nicholas, [facility] Social History/Home Situation: SNF resident. Equipment Owned/DME: None Subjective: Agreable to getting out of bed and transferrring onto bedside chair. Objective: General Observation: Telemetry monitoring in place.? IV access to left UE.? Mepilex Ag over surgical incision. Mental Status: Alert and oriented to slef only Pain: pain in R hip surgical incision with movement Vital Signs: WNL as monitored by nursing staff before PT evaluation ROM: Right Upper Extremity: ?Grossly WFL Left Upper Extremity:? Grossly WFL Right Lower Extremity: Hip flexion only able to perform the first 25% of AROM due to pain. Hip abduction only able to perform the first 25% of AROM due to pain. Knee flexion WFL. Ankle dorsiflexion WFL. Ankle plantarflexion WFL. Left Lower Extremity: Hip flexion only able to perform the first 25% of AROM due to pain. Hip abduction only able to perform the first 25% of AROM due to pain. Knee flexion WFL. Ankle dorsiflexion WFL. Ankle plantarflexion WFL. Strength: Right Upper Extremity: Grossly 4/5 Left Upper Extremity: Grossly 4/5: Pending home Right Lower Extremity: Hip flexors 2-/5. Hip abductors 2-/5. Knee flexors 3-/5. Knee extensors 3-/5. Ankle dorsiflexors 4-/5. Ankle plantarflexors 4-/5. Left Lower Extremity:Hip flexors 4/5. Hip abductors 4/5. Knee flexors 4/5. Knee extensors 4/5. Ankle dorsiflexors 4/5. Ankle plantarflexors 4/5. Sensation: Intact as to pain and pressure on bilateral lower extremities. Bed Mobility/Transfers: Rolling minimal assist with minimal to moderate verbal cues needed for correct technique Supine to sit minimal assist with minimal to moderate verbal cues needed for correct technique Sit to supine minimal assist with minimal to moderate verbal cues needed for correct technique Sit to stand minimal assist of 2 with minimal to moderate verbal cues needed for correct technique Stand to sit? minimal assist of 2 with minimal to moderate verbal cues needed for correct technique Bed to chair minimal assist of 2 with minimal to moderate verbal cues needed for correct technique Chair to bed minimal assist of 2 with minimal to moderate verbal cues needed for correct technique Gait: Patient was able to tolerate level surface ambulation of 5 small cautios steps using front wheeled walker with full weight bearing requiring minimal assist of 2 and moderate verbal cueing for walker management, overall safety, and directional changes.? Gait antalgic. Did not complain of headache, dizziness, chest pain. Balance: Static Sitting: Good Dynamic Sitting: Fair Static Standing: Poor Dynamic Standing: Poor Special Tests: Mobility Limitations Standardized Measure [facility]-PAC 6 clicks Basic Mobility Inpatient Short Form: Raw Score: 12? CMS Score: 69% deficit? ? ? Informed Consent/Education:? Patient instructed in purpose of PT consult and plan of care. Assessment: Pain in R hip. Need for assistive device for all mobility ADL performance, unsteadiness on feet, impaired safety awareness, decreased activity tolerance, and generalized muscle weakness. Patient presents with clinical signs and symptoms consistent with current/admitting diagnoses that have resulted to mobility limitations, gait instability, generalized weakness, and impairment of motor control as demonstrated by the following impairment level findings: 1.? Decreased strength to B UE/LE major muscle groups 2.? Impaired standing balance 3.? Impaired activity tolerance 4.? Impaired safety awareness due to dementia Impairments are contributing to the following functional limitations: 1.? Dependent bed mobility skills 2.? Increased dependence with transfers 3.? Inability to safely ambulate without assistive device and physical assistance 4.? Increase completion time for mobility ADL performance 5.? Increased fall risk 6.? Inability to negotiate steps alone safely Patient is assessed as a 29282 moderate complexity based on the following: History: 84-year-old female with impairment level findings, functional limitations, and medical history as listed above Examination: Demonstrable impairment in strength, balance, and activity tolerance with underlying impairments and functional limitations as documented above Presentation: Evolving Decision Makin moderate complexity Goals: Goals X1 week 1. Supine-Sit independent 2. Sit-Supine independent 3. Sit-Stand supervision with FWW 4. Stand-Sit supervision with FWW 5. Bed-Chair supervision with FWW 6. Chair-Bed supervision with FWW 7. Supervision gait on level surface with use of least restrictive device for at least 100 feet without report of pain nor dyspnea with FWW 8. Supervision with home exercise program 9. Good static and dynamic standing balance/tolerance Plan of Care/Treatment Plan: 1-2x/day, 7 days/week x 1 week. Plan of care has been reviewed with the CHIEF INNOVATION OFFICER providing the service under Physical Therapy direction. Initiate Physical Therapy intervention for strengthening, bed mobility, transfers, gait, stairs, balance training, use of assistive device. PT Intervention: Session today consisted of physical therapy initial evaluation followed by initiating bed mobility, transfer and ambulation, patient and caregiver retraining along with mobilization to minimize postoperative complications. DISCHARGE RECOMMENDATIONS: [] Home with no services [] [] Home with services [specify] [] Home with outpatient PT [] [X] SNF for continued rehabilitation. Return to SNF in order to progress mobility level using least restrictive assistive ambulatory device, assess home safety, identify additional equipment needs, and establish a functional maintenance program that will increase ability of patient to remain at home. [] [facility] [] [] SNF versus LTC based on ability to participate and progress [] TREATMENT CODE/TIME: 54947 x 20 minutes beginning at 15:20 PM. Thank you very much for this referral. Venessa Wong PT, DPT, CLT [facility] [place], [place]
--- NOTE | 2021-11-13 18:10 | W.PM.PROGNOT ---
Date of Service Date of service: 11/13/21 Time of Service: 15:00 Assessment and Plan Assessment and plan (1) Intertrochanteric fracture of right hip: Status: Acute Assessment and plan: Daina is an 86-year-old status post right internal trochanteric hip fracture nailing. She has been quite sedate today but she is much more alert now and I would encourage her to get to a chair with nursing. Sometimes a little mobility and sitting upright can help clear the brain as well. She is weightbearing as tolerated with assistive devices. Physical therapy consult has been placed. Given her dementia would also recommend removing the Tavares catheter. Her vital signs been stable. No acute complications at this time. Likely return to rehabilitation center. Subjective Subjective Interval history since last seen: Diana was somewhat combative and disoriented last night requiring ministration of some Xanax. Unfortunately, this kept her quite sedated through the majority of the morning. When I saw her this afternoon she was much more alert and conversant. She reports some pain about the right hip. She denies any numbness or tingling of the right leg. She denies any chest pain or shortness of breath. Exam Narrative Exam Narrative: Resting in the hospital bed. Right leg is no longer externally rotated or shortened. Dressings about the right hip are clean dry and intact. Mild ecchymosis is seen. She is able to tolerate some internal and external rotation of the right leg without significant increase in pain. She has active dorsiflexion and plantarflexion of the right ankle as well as the great toe. She does report intact sensation over the deep and superficial peroneal nerve and tibial nerve. Palpable DP and PT pulse.
[2021-11-13] MEDS: Metoprolol CR 25 MG TABCR 37.5 MG PO (19:25)
[2021-11-14] VITALS: PULSE 115
[2021-11-14] MEDS: Normal Saline Flush 10 ML SYR IVP ×2 (01:57→12:18)
[2021-11-14] MEDS: HYDROmorphone 2 MG/ML SYR 0.5 MG IVP ×3 (01:57→12:18)
[2021-11-14] MEDS: Lactated Ringers 1,000 ML 125 ML IV (05:29)
[2021-11-14 06:05] VITALS: BP 136/73; PULSE 78; RESP 16; TEMP 36.8; O2SAT 98
[2021-11-14 07:00] VITALS: PULSE 95
[2021-11-14 07:02] LABS: Platelet Count 118 10^3/uL (130-400)
[2021-11-14] MEDS: Metoprolol CR 25 MG TABCR 37.5 MG PO (08:03)
[2021-11-14 08:07] VITALS: BP 147/73; PULSE 73; RESP 17; TEMP 37; O2SAT 96
--- NOTE | 2021-11-14 11:04 | DSE_ITS ---
Date of service: 11/14/21 Time of Service: 11:04 DS: Diagnosis Discharge Diagnosis (1) Intertrochanteric fracture of right hip: Status: Acute Discharge Plan Disposition Patient Disposition: SNF (LEVEL 1) [facility] Condition: Stable Discharge Details Reason For Visit: Intertrochanteric Fracture Admit Date/Time: 11/11/21 12:46 Admit Provider: Sundar Phillips Attending Provider: Sundar Phillips Primary Care Provider: Gulshan Howe [facility] Course Hospital Course: This is an 86 year old female with a history of paroxysmal afib, HTN, vascular dementia, major depression, TIA, HTN.? She presented from the [facility] after an unwitessed fall.? The patient does not recall the fall and was not sure whether or not she hit her head.? She was found to have a right intertrochanteric fracture.? CT head and C-spine negative for acute fx. CT of T and L-spine showed age indeterminate compression deformities of T4-6-9-10. CT lumbar spine with mul tilevel degenerative changes of the spine and age indeterminate compression deformities of L4 and L5 vertebral bodies. Orthopedic surgery was consulted and she underwent a right internal trochanteric hip fracture nailing on November 12, [address] Barney. Post operative course was uncomplicated. she was reambulated with physical therapy. she had ongoing c/o right arm pain and imaging was negative for elbow or shoulder fracture but did reveal right 6th rib fracture. There is no new recommendations other than pain management and lidocaine patch. she will be given aspirin 81 mg bid for 30 days for post operative dvt prophylaxis. she is weight bearing as tolerated. continue routine care. she is safe for discharge to the [facility] for ongoing post operative recovery. discharge discussed with DR Phillips. Home Meds and New Rx's Prescriptions: New polyethylene glycol 3350 17 gram Powder In Packet 17 g PO DAILY PRN PRN (Reason: Constipation) Qty: 0 0RF aspirin 81 mg capsule 81 mg PO DAILY Qty: 60 0RF lidocaine 5 % adhesive patch,medicated 1 patch topical DAILY Qty: 15 0RF Rx Instructions: leave on most painful area for up to 12 hrs, right rib Continued acetaminophen 500 mg Tablet 1,000 mg PO TID Rx Instructions: question as to whether this was actually scheduled or PRN calcitonin (salmon) 200 unit/actuation spray,non-aerosol 1 spray intranasal (ALT) DAILY Rx Instructions: 1 spray daily alternating nostrils. getins in right nostril Friday, Friday, Friday and Friday, and in the left nostril Friday, , and ferrous sulfate 325 mg (65 mg iron) Tablet 325 mg PO Q OTHER DAY Rx Instructions: takes every other day omeprazole 20 mg capsule,delayed release(DR/EC) 20 mg PO DAILY vitamin B complex-folic acid 400 mcg Tablet Extended Release 1 tab PO DAILY Changed metoprolol tartrate 25 mg tablet 37.5 mg PO BID Qty: 0 0RF Rx Instructions: hold for a pulse less than 60 Discharge Instructions Instructions: Rib Fracture (DC), ORIF of Hip Fracture (DC) Additional Instructions: weightbearing as tolerated with assistive devices Physical therapy consult Stand Alone Forms: Nursing Discharge Form Referrals: Yusuf Barney MD [ [facility]] - 11/26/21 12:45 pm Activity:: weightbearing as tolerate Equipment/Supplies:: No Equipment Needed Diet:: As Tolerated Discharge Orders Discharge Orders: Discharge Order (Routine); Ordered 11/14/21 Ordered By: Yoselin Eubanks DS: Summary Time Spent with Patient providing and/or coordinating discharge services: Greater than 30 minutes Status at Discharge Functional status at discharge: uses cane/walker Overall status at discharge: patient is progressing back to baseline Mental Status: mental status grossly normal and other (demented and likely at baseline) Speech and Movement: speech clear Mood: labile mood and other (demented and likely at baseline) Affect: anxious affect Exam Const General: cooperative and no acute distress Nutritional Appearance: thin and underweight Orientation: alert [facility] Head: normocephalic and atraumatic Ears: hearing grossly normal bilaterally Eyes General: appearance normal, both eyes and all related structures Sclera: sclerae normal Resp Effort & Inspection: normal respiratory effort Auscultation: clear to auscultation bilaterally Cardio Rate: tachycardic Rhythm: abnormal rhythm irregularly irregular GI Palpation: soft and nontender Skin General skin exam: no rashes or lesions noted Neuro General: moves all extremities (right leg movement limited by pain. ) Extrem General: no pedal edema and no calf tenderness Psych Appearance: grossly normal Mental Status: mental status grossly normal and other (demented and likely at baseline) Speech and Movement: speech clear Mood: labile mood and other (demented and likely at baseline) Affect: anxious affect DS: Data Vitals/I&O Vitals and I&O: Vital Signs Temperature 37.0 C 11/14/21 08:07 Temperature Source Tympanic 11/14/21 08:07 Pulse 73 11/14/21 08:07 Pulse Rhythm Irregular 11/14/21 08:15 Pulse 108 H 11/11/21 12:20 Respiratory Rate 17 11/14/21 08:07 Respiratory Effort Non-Labored 11/14/21 08:15 Respiratory Depth Normal 11/14/21 08:15 Respiratory Pattern Normal 11/14/21 08:15 Blood Pressure 147/73 H 11/14/21 08:07 Blood Pressure Mean 84 11/11/21 12:16 Blood Pressure Position Supine 11/11/21 10:31 Pulse Oximetry 96 11/14/21 08:07 Respiratory End-tidal CO2 34 11/12/21 14:15 Oxygen Delivery Method Room Air 11/14/21 08:07 Oxygen Flow Rate 0 11/14/21 08:07 Pain Level 0 11/13/21 19:28 Comment 11/12/21 16:55 Intake & Output 11/13/21 11/13/21 11/14/21 11:59 23:59 11:59 Intake Total 1029.167 / 3214.584 2185.417 / 3214.584 1572.917 / 1572.917 Output Total 275 / 600 325 / 600 700 / 700 Balance 754.167 / 2614.584 1860.417 / 2614.584 872.917 / 872.917 Intake: IV 1029.167 / 2964.584 1935.417 / 2964.584 1572.917 / 1572.917 Oral 250 / 250 Output: Urine 275 / 600 325 / 600 700 / 700 Other: Urine Color Light Natalia Straw Yellow Urine Appearance Clear Clear Clear Urine Odor Strong Comment Strong. pT did not want to get up to use toilet, pT was incontinent in breif. Stool Size Moderate Stool Characteristics Liquid Brown Voiding Methods Bedside Commode Toilet Data Completed and Pending Labs on day of discharge: Labs from last 24 hours 11/14/21 11/14/21 10:52 06:05 Plt Count 118 L COVID-19 Source Pending SARS-CoV-2 (PCR) Pending Imaging Chest x-ray: Radiologist's impression: Exam(s) XR SHOULDER RT COMPLETE 2+V EXAM:? XR SHOULDER RT COMPLETE 2+V CLINICAL HISTORY: ? injury. ? TECHNIQUE:? 2D digital imaging was performed. COMPARISON:? No exams were available for comparison FINDINGS: 3 views No evidence of fracture or dislocation or abnormal soft tissue calcifications..? Subacromial space is preserved and there no upward subluxation nor downward subluxation of the humeral head within the osseous glenoid fossa.? AC joint appears unremarkable.? No ominous osseous lesions. Incidentally noted is a subacute appearing fracture in a right rib.? Probably rib 6. IMPRESSION: No evidence of right shoulder fracture or dislocation. Incidentally noted is a subacute appearing fracture of the right 6th rib. Exam(s) XR ELBOW RT COMPLETE EXAM:? XR ELBOW RT COMPLETE CLINICAL HISTORY: ? pain. ? TECHNIQUE:? 2D digital imaging was performed. COMPARISON:? No exams were available for comparison FINDINGS: 3 views No evidence of right elbow fracture nor dislocation.? No joint effusion.? No swelling of the olecranon bursa.? Radial head appears unremarkable.? No loose bodies. IMPRESSION: No significant radiograph findings in the right elbow. Lab and Radiology Reports: Laboratory Results WBC 7.23 10^3/uL (4.4-10.8) 11/11/21 10:40 RBC 3.59 10^6/uL (3.93-5.22) L 11/11/21 10:40 Hgb 12.7 g/dL (11.2-15.7) 11/11/21 10:40 Hct 38.4 % (36.0-46.0) 11/11/21 10:40 MCV 107 fL (80-95) H 11/11/21 10:40 MCH 35.4 pg (27.0-33.0) H 11/11/21 10:40 MCHC 33.1 % (32.0-36.0) 11/11/21 10:40 RDW 14.6 % (11.7-14.6) 11/11/21 10:40 Plt Count 118 10^3/uL (130-400) L 11/14/21 06:05 MPV 10.3 fL (8.0-11.0) 11/11/21 10:40 Immature Gran % 0.3 11/11/21 10:40 Neutrophils % 57.1 11/11/21 10:40 Lymphocytes % 33.5 11/11/21 10:40 Monocytes % 7.3 11/11/21 10:40 Eosinophils % 1.2 11/11/21 10:40 Basophils % 0.6 11/11/21 10:40 Nucleated RBC % 0.0 % (0.0-0.3) 11/11/21 10:40 Absolute Neutrophils 4.13 10^3/uL (1.2-6.7) 11/11/21 10:40 Absolute Lymphocytes 2.42 10^3/uL (1.2-3.4) 11/11/21 10:40 Absolute Monocytes 0.53 10^3/uL (0.1-0.8) 11/11/21 10:40 Absolute Eosinophils 0.09 10^3/uL (0.0-0.7) 11/11/21 10:40 Absolute Basophils 0.04 10^3/uL (0.0-0.2) 11/11/21 10:40 Sodium 137 mmol/L (136-145) 11/12/21 06:42 Potassium 4.6 mmol/L (3.5-5.1) 11/12/21 06:42 Chloride 101 mmol/L (98-107) 11/12/21 06:42 Carbon Dioxide 30.0 mmol/L (21.0-32.0) 11/12/21 06:42 Anion Gap 6.0 mmol/L (3-11) 11/12/21 06:42 BUN 23 mg/dL (7-18) H 11/12/21 06:42 Creatinine 1.1 mg/dL (0.55-1.02) H 11/12/21 06:42 Estimated GFR/1.73 m2 47.21 (mL/min/1.73m2) 11/12/21 06:42 Glucose 111 mg/dL (74-106) H 11/12/21 06:42 Calcium 8.5 mg/dL (8.5-10.1) 11/12/21 06:42 Magnesium 2.0 mg/dL (1.8-2.4) 11/11/21 10:40 Total Bilirubin 1.1 mg/dL (0.2-1.0) H 11/11/21 10:40 AST 26 U/L (15-37) 11/11/21 10:40 ALT 17 U/L (14-59) 11/11/21 10:40 Alkaline Phosphatase 77 U/L (46-116) 11/11/21 10:40 Troponin I < 50 ng/L (<or=60) 11/11/21 10:40 Total Protein 6.4 g/dL (6.4-8.2) 11/11/21 10:40 Albumin 3.5 g/dL (3.4-5.0) 11/11/21 10:40 Urine Color Yellow (Yellow) 11/11/21 12:30 Urine Clarity Sl Cloudy (Clear) 11/11/21 12:30 Urine pH 7.0 (5-8) 11/11/21 12:30 Ur Specific Firth >= 1.030 (1.005-1.025) H 11/11/21 12:30 Urine Protein Negative mg/dL (Negative) 11/11/21 12:30 Urine Ketones Trace mg/dL (Negative) H 11/11/21 12:30 Urine Blood Trace-intact (Negative) H 11/11/21 12:30 Urine Nitrite Negative (Negative) 11/11/21 12:30 Urine Bilirubin Negative (Negative) 11/11/21 12:30 Urine Urobilinogen 0.2 EU/dL (Up TO 0.2) 11/11/21 12:30 Ur Leukocyte Esterase Negative (Negative) 11/11/21 12:30 Urine RBC 3-5 HPF (0-2) H 11/11/21 12:30 Urine WBC 0-2 HPF (0-5) 11/11/21 12:30 Ur Epithelial Cells Rare HPF (Negative) 11/11/21 12:30 Urine Crystals Negative HPF (Negative) 11/11/21 12:30 Urine Bacteria Rare HPF (Negative) 11/11/21 12:30 Urine Casts Negative LPF (Negative) 11/11/21 12:30 Urine Mucus Negative (Negative) 11/11/21 12:30 Ur Culture Indicated? No 11/11/21 12:30 Urine Glucose Negative mg/dL (Negative) 11/11/21 12:30 COVID-19 Source Nasal/Nares 11/14/21 11:00 SARS-CoV-2 (PCR) Negative (Negative) 11/11/21 11:15 PFSH All Active Problems Compression fracture of vertebrae (Acute) Intertrochanteric fracture of right hip (Acute) Unwitnessed fall (Acute) Compression fracture of thoracic vertebra (Acute) Anticoagulation management encounter (Chronic 08/09/16) Switched to Apixaban 08/05/16 due to TIA on Warfarin Paroxysmal atrial fibrillation (Chronic 09/12/15) noted 09/12/15; converted spontaneously on Metoprolol, paroxysmal SVT on 2 wk Z-patch 12/2015; but in and out of A Fib/flutter when hospitalized ; ECHO mod M 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) RX LIGHT AND EXERCISE, FEELS MOOD CHANGE IN JUNE, 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) Atrial fibrillation and flutter (Chronic) Dementia (Chronic) 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 Low body mass index (Acute) Seasonal affective disorder (Acute) Atrial flutter by electrocardiography (Acute 02/01/16) Encounter for routine gynecological examination (Acute 08/17/14) Hernia of ovary (Acute 02/09/16) Obturator hernia with obstruction (Acute 01/31/16) Unintentional weight loss (Chronic) Memory disturbance (Chronic 04/19/16) 04/2016 MOCA: 22 Advanced directive placed in chart this admission (Chronic 12/03/04) SEE ARCHIVES UNDER LEGAL, FOR DPOA, FULL CODE FOR NOW Abnormal MRI, pelvis (Chronic 04/03/16) thickened endometrial stripe; expectant management Medical History 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 No problems noted. Social History Smoking/Tobacco Use Status: Former Tobacco Use Smoking risk assessment performed?: Yes Alcohol Intake: never Drug use: Never Substance use type: does not use Adopted: No Caregiver/Support person: No Foster care: No Household members: none Number of Children: 2 Current gender identity: female What type of physical activity do you participate in: walking Frequency: 5-6 times per week Seatbelt use: always Drive intox or ride w/intox deliver driver: No Working smoke detector in home: Yes Carbon monox detector in home: Yes Do you feel safe at home: Yes Do you feel safe in your relationship?: Yes Additional Social history: pt lives at the [facility]
[2021-11-14 11:09] LABS: Source Nasal/Nares
[2021-11-14 11:23] VITALS: BP 117/72; PULSE 91; RESP 11; TEMP 36.8; O2SAT 95
--- NOTE | 2021-11-14 11:30 | DI.RAD_ITS ---
Exam(s) XR SHOULDER RT COMPLETE 2+V EXAM: XR SHOULDER RT COMPLETE 2+V CLINICAL HISTORY: injury. TECHNIQUE: 2D digital imaging was performed. COMPARISON: No exams were available for comparison FINDINGS: 3 views No evidence of fracture or dislocation or abnormal soft tissue calcifications.. Subacromial space is preserved and there no upward subluxation nor downward subluxation of the humeral head within the os seous glenoid fossa. AC joint appears unremarkable. No ominous osseous lesions. Incidentally noted is a subacute appearing fracture in a right rib. Probably rib 6. IMPRESSION: No evidence of right shoulder fracture or dislocation. Incidentally noted is a subacute appearing fracture of the right 6th rib. DATA REPOSITORY: RADIATION DOSE DELIVERED:
--- NOTE | 2021-11-14 11:30 | DI.RAD_ITS ---
Exam(s) XR ELBOW RT COMPLETE EXAM: XR ELBOW RT COMPLETE CLINICAL HISTORY: pain. TECHNIQUE: 2D digital imaging was performed. COMPARISON: No exams were available for comparison FINDINGS: 3 views No evidence of right elbow fracture nor dislocation. No joint effusion. No swelling of the olecrano n bursa. Radial head appears unremarkable. No loose bodies. IMPRESSION: No significant radiograph findings in the right elbow. DATA REPOSITORY: RADIATION DOSE DELIVERED:
[2021-11-14 12:03] LABS: COVID-19 PCR Negative (Negative)
[2021-11-14 12:24] VITALS: PULSE 104
--- NOTE | 2021-11-14 12:31 | NUR.NOTE ---
Nursing Note: At this time, this RN called report to [facility] and spoke with Connor. Questions they had were answered. Transportation is to be at [facility] at 1245.
--- NOTE | 2021-11-14 14:49 | PT.INTREAT ---
PT Notes Visit Reasons: Intertrochanteric Fracture Inpatient Physical Therapy Treatment Note [facility] Date: 11/14/21 SUBJECTIVE: You people are just trying to kill me. OBJECTIVE: [] BED MOBILITY/TRANSFERS Sit-supine: max A with LE Sit-stand: min A x2 Stand-sit:CGA GAIT Assistive Device: FWW Weight bearing: full Assist: CGA x2 Distance: 15' and then 20' Deviation: toileted in btwn walks. ASSESSMENT: pt verbally abusive. Confused and felt we were there to torture her not help her. She was willing to work with PT, and put forth good effort. Able to listen and follow directions. She was unaware that she broke her hip, and did not know where she was. PLAN: pt d/c to SNF this pm. TREATMENT CODE/TIME: 25 min [id number]
--- NOTE | 2021-11-14 16:31 | CMDISCH_ITS ---
- If Service Date Differs Date of service: 11/14/21 Time of Service: 16:32 LACE Index Scoring Tool - Questions: Length of Stay (in days): 3 Acuity (Admit via E.D.?): Yes Comorbidities: Cerebrovascular Disease, Any Tumor, Dementia E.D. Visits: 1 - Answers: Total Score: 12 Risk of Readmission: High Risk Care Management Discharge Reason for Hospitalization: left hip fracture Discharge Plan: Daina returned to the [facility] today for continued rehab, where she resides. She was transported via [facility] due to her dementia. She will follow up with facility providers and her discharge plan of care. Patient/Family Education Needs: Review discharge instructions and limitations, discussion of self care needs including ask me three and goals of care. Services Needed at Discharge: [facility] ([facility]), Transportation ([facility])
--- NOTE | 2021-11-14 18:00 | PT.INDS ---
Date of service: 11/14/21 PT Notes Visit Reasons: Intertrochanteric Fracture Physical Therapy Inpatient Discharge Summary Date: 11/14/2021 Dates of Service: 11/13/2021 through 11/14/2021 This is a clinical summary of care provided for the duration of dates listed above. No charge was made in the completion of this documentation. Referring Doctor: Yusuf Barney MD PT Orders: PT CONSULT: S/p Ortho surgery.? S/p IM and of right hip fracture Precautions: Fall. Standard. WBAT ON R LE with AD.? back to DNR/DNI. Patient Profile/Admitting Diagnosis: Daina is an 86-year-old female admitted on 11/11/2021 from a long-term facility due to a displaced intertrochanteric fracture of the right hip sustained from an unwitnessed fall.? Patient is status post right intramedullary fixation of IT fracture on postoperative day 1.? Secondary diagnoses include compression fracture of the vertebral, paroxysmal atrial fibrillation, and essential hypertension. 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) Atrial fibrillation and flutter (Chronic) Dementia (Chronic) 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Low body mass index (Acute) Seasonal affective disorder (Acute) Atrial flutter by electrocardiography (Acute 02/01/16) Encounter for routine gynecological examination (Acute 08/17/14) Hernia of ovary (Acute 02/09/16) Obturator hernia with obstruction (Acute 01/31/16) Unintentional weight loss (Chronic) Memory disturbance (Chronic 04/19/16) 04/2016 MOCA: 22 Advanced directive placed in chart this admission (Chronic 12/03/04) SEE ARCHIVES UNDER LEGAL, FOR DPOA, FULL CODE FOR NOW Abnormal MRI, pelvis (Chronic 04/03/16) thickened endometrial stripe; expectant management Medical History?(Updated 11/11/21 @ 16:03 by Sundar Phillips MD) 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 Incarcerated Obdurator Hernia (01/31/16) Dr Nicholas, [facility] Social History/Home Situation: SNF resident. Equipment Owned/DME: None Subjective: NT. See most recent INSTRUCTIONAL DESIGN SPECIALIST notes. Objective: General Observation: NT. See most recent INSTRUCTIONAL DESIGN SPECIALIST notes. Mental Status: NT. See most recent INSTRUCTIONAL DESIGN SPECIALIST notes. Pain: NT. See most recent INSTRUCTIONAL DESIGN SPECIALIST notes. Vital Signs: NT. See most recent INSTRUCTIONAL DESIGN SPECIALIST notes. ROM: Right Upper Extremity: ?Grossly WFL Left Upper Extremity:? Grossly WFL Right Lower Extremity: Hip flexion only able to perform the first 25% of AROM due to pain. Hip abduction only able to perform the first 25% of AROM due to pain. Knee flexion WFL. Ankle dorsiflexion WFL. Ankle plantarflexion WFL. Left Lower Extremity: Hip flexion only able to perform the first 25% of AROM due to pain. Hip abduction only able to perform the first 25% of AROM due to pain. Knee flexion WFL. Ankle dorsiflexion WFL. Ankle plantarflexion WFL. Strength: Right Upper Extremity: Grossly 4/5 Left Upper Extremity: Grossly 4/5: Pending home Right Lower Extremity: Hip flexors 2-/5. Hip abductors 2-/5. Knee flexors 3-/5. Knee extensors 3-/5. Ankle dorsiflexors 4-/5. Ankle plantarflexors 4-/5. Left Lower Extremity:Hip flexors 4/5. Hip abductors 4/5. Knee flexors 4/5. Knee extensors 4/5. Ankle dorsiflexors 4/5. Ankle plantarflexors 4/5. Sensation: Intact as to pain and pressure on bilateral lower extremities. Bed Mobility/Transfers: Rolling minimal assist with minimal to moderate verbal cues needed for correct technique Supine to sit minimal assist with minimal to moderate verbal cues needed for correct technique Sit to supine minimal assist with minimal to moderate verbal cues needed for correct technique Sit to stand minimal assist of 2 with minimal to moderate verbal cues needed for correct technique Stand to sit? minimal assist of 2 with minimal to moderate verbal cues needed for correct technique Bed to chair minimal assist of 2 with minimal to moderate verbal cues needed for correct technique Chair to bed minimal assist of 2 with minimal to moderate verbal cues needed for correct technique Gait: Patient was able to tolerate level surface ambulation of 20 feet steps using front wheeled walker with full weight bearing requiring minimal assist of 2 and moderate verbal cueing for walker management, overall safety, and directional changes.? Gait antalgic.? Did not complain of headache, dizziness, chest pain. Balance: Static Sitting: Good Dynamic Sitting: Fair Static Standing: Poor Dynamic Standing: Poor Assessment: Pain in R hip.? Need for assistive device for all mobility ADL performance, unsteadiness on feet, impaired safety awareness, decreased activity tolerance, and generalized muscle weakness. ? Patient presents with clinical signs and symptoms consistent with current/admitting diagnoses that have resulted to mobility limitations, gait instability, generalized weakness, and impairment of motor control as demonstrated by the following impairment level findings: 1.? Decreased strength to B UE/LE major muscle groups 2.? Impaired standing balance 3.? Impaired activity tolerance 4.? Impaired safety awareness due to dementia Impairments are contributing to the following functional limitations: 1.? Dependent bed mobility skills 2.? Increased dependence with transfers 3.? Inability to safely ambulate without assistive device and physical assistance 4.? Increase completion time for mobility ADL performance 5.? Increased fall risk 6.? Inability to negotiate steps alone safely Goals: Goals X1 week 1. Supine-Sit independent NOT MET 2. Sit-Supine independent NOT MET 3. Sit-Stand supervision with FWW NOT MET 4. Stand-Sit supervision with FWW NOT MET 5. Bed-Chair supervision with FWW NOT MET 6. Chair-Bed supervision with FWW NOT MET 7. Supervision gait on level surface with use of least restrictive device for at least 100 feet without report of pain nor dyspnea with FWW NOT MET 8. Supervision with home exercise program NOT MET 9. Good static and dynamic standing balance/tolerance NOT MET DISCHARGE RECOMMENDATIONS: [] ? Home with no services [] [] ? Home with services [specify] [] ? Home with outpatient PT [] [X] ? SNF for continued rehabilitation.? Return to SNF in order to progress mobility level using least restrictive assistive ambulatory device, assess home safety, identify additional equipment needs, and establish a functional maintenance program that will increase ability of patient to remain at home. [] ? [facility] [] [] ? SNF versus LTC based on ability to participate and progress [] TREATMENT CODE/TIME: CHANCE Thank you very much for this referral. Venessa Wong PT, DPT, CLT [facility] [place], [place]
== END 2021-11-14 12:52 | disposition skilled nursing facility (03) | DRG 481 ==
LOC: ER 13:25 → MS 14:18
PROVIDERS: Nurse Practitioner Acute Care; Student in an Organized Health Care Education/Training Program; Admitting Provider Family Medicine; Emergency Provider Physician Assistant; PCP Family Medicine; Visit Provider Family Medicine
PROC: 0QS606Z Reposition Right Upper Femur with Intramedullary Internal Fixation Device, Open Approach (ICD-10-PCS; CPT 27245; principal; 2021-11-12 12:00)
DX: S72.141A Displaced intertrochanteric fracture of right femur, initial encounter for closed fracture (principal); E46 Unspecified protein-calorie malnutrition; M48.54XA Collapsed vertebra, not elsewhere classified, thoracic region, initial encounter for fracture; M48.56XA Collapsed vertebra, not elsewhere classified, lumbar region, initial encounter for fracture; Z68.1 Body mass index [BMI] 19.9 or less, adult; I48.92 Unspecified atrial flutter; R29.6 Repeated falls; I48.0 Paroxysmal atrial fibrillation; F01.50 Vascular dementia, unspecified severity, without behavioral disturbance, psychotic disturbance, mood disturbance, and anxiety; I10 Essential (primary) hypertension; W19.XXXA Unspecified fall, initial encounter; Z66 Do not resuscitate; Z86.73 Personal history of transient ischemic attack (TIA), and cerebral infarction without residual deficits; E55.9 Vitamin D deficiency, unspecified; Z79.01 Long term (current) use of anticoagulants; I34.0 Nonrheumatic mitral (valve) insufficiency; Z90.49 Acquired absence of other specified parts of digestive tract
CPT/HCPCS: 27245; 36415; 51702; 73552; 80048; 80053; 87081; 87635; 93005; 96361; 96374; 96375; 97162; 97530; 99223; 99285; 70450; 71045; 72125; 72128; 72131; 73030; 73080; 73501; 73502; 81003; 81015; 83735; 84484; 85025; 85049; 93010; 99232; 99233; 99239; J0131; J0690; J1100; J1170; J2405; J2704; J3490

== ENCOUNTER 2021-11-14 15:17 | Outpatient (REF) | payer MEDICARE, BC, MEDICAID, SELFPAY ==
[2021-11-14 16:24] LABS: Abs Immature Grans 0.05 10^3/uL (0.0-0.06); Absolute Basophil Count 0.03 10^3/uL (0.0-0.2); Absolute Eosinophil Count 0.01 10^3/uL (0.0-0.7); Absolute Lymphocyte Count 1.03 10^3/uL (1.2-3.4); Absolute Monocyte Count 0.78 10^3/uL (0.1-0.8); Absolute Neutrophil Count 6.18 10^3/uL (1.2-6.7); Basophils % 0.4; Eosinophils % 0.1; HCT 23.2 % (36.0-46.0); HGB 7.6 g/dL (11.2-15.7); Immature Grans % 0.6; Lymphocytes % 12.7; MCH 35.5 pg (27.0-33.0); MCHC 32.8 % (32.0-36.0); MCV 108 fL (80-95); MPV 9.9 fL (8.0-11.0); Monocytes % 9.7; Neutrophils % 76.5; Platelet Count 158 10^3/uL (130-400); RBC 2.14 10^6/uL (3.93-5.22); RDW 15.6 % (11.7-14.6); RDW-SD 62.3 fL; WBC 8.08 10^3/uL (4.4-10.8)
[2021-11-14 16:27] LABS: Iron 56 ug/dL (50-170); Total Iron Binding Capacity 179 ug/dL (250-450); Transferrin Sat 31 % (15-50)
[2021-11-14 16:55] LABS: ALT 20 U/L (14-59); AST 41 U/L (15-37); Alkaline Phosphatase 57 U/L (46-116); Anion Gap 7.6 mmol/L (3-11); BUN 23 mg/dL (7-18); Bilirubin, Total 1.5 mg/dL (0.2-1.0); CO2 29.4 mmol/L (21.0-32.0); CREATININE 0.7 mg/dL (0.55-1.02); Calcium 8.2 mg/dL (8.5-10.1); Chloride 98 mmol/L (98-107); Ferritin 419 ng/mL (8-252); Glucose 113 mg/dL (74-106); Magnesium 1.6 mg/dL (1.8-2.4); Potassium 4.6 mmol/L (3.5-5.1); Sodium 135 mmol/L (136-145); TSH (W/Ref FT4) 1.69 uIU/mL (0.36-3.74); Total Protein 5.2 g/dL (6.4-8.2); Vitamin B12 831 pg/mL (193-986)
[2021-11-14 17:05] LABS: Hemoglobin A1C 4.9 % (<5.7)
[2021-11-15 05:25] LABS: Vitamin D 25 Total 22.8 ng/mL (30-100)
== END 2021-11-14 15:18 | disposition home or self-care (01) ==
LOC: LBN 15:17
PROVIDERS: PCP Family Medicine; Visit Provider Nurse Practitioner Gerontology
DX: I48.0 Paroxysmal atrial fibrillation (principal); M48.50XS Collapsed vertebra, not elsewhere classified, site unspecified, sequela of fracture; E55.9 Vitamin D deficiency, unspecified; M54.6 Pain in thoracic spine; F01.50 Vascular dementia, unspecified severity, without behavioral disturbance, psychotic disturbance, mood disturbance, and anxiety; W19.XXXS Unspecified fall, sequela; E44.0 Moderate protein-calorie malnutrition; S72.141S Displaced intertrochanteric fracture of right femur, sequela; I61.3 Nontraumatic intracerebral hemorrhage in brain stem
CPT/HCPCS: 80053; 82306; 82607; 82728; 83036; 83540; 83550; 83735; 84443; 85025

== ENCOUNTER 2021-11-15 10:28 | Outpatient (REF) | payer MEDICARE, BC, MEDICAID, SELFPAY ==
[2021-11-15 10:52] LABS: Abs Immature Grans 0.03 10^3/uL (0.0-0.06); Absolute Basophil Count 0.03 10^3/uL (0.0-0.2); Absolute Eosinophil Count 0.03 10^3/uL (0.0-0.7); Absolute Lymphocyte Count 0.99 10^3/uL (1.2-3.4); Absolute Monocyte Count 0.59 10^3/uL (0.1-0.8); Absolute Neutrophil Count 5.14 10^3/uL (1.2-6.7); Basophils % 0.4; Eosinophils % 0.4; HCT 22.9 % (36.0-46.0); HGB 7.6 g/dL (11.2-15.7); Immature Grans % 0.4; Lymphocytes % 14.5; MCH 36.2 pg (27.0-33.0); MCHC 33.2 % (32.0-36.0); MCV 109 fL (80-95); MPV 9.8 fL (8.0-11.0); Monocytes % 8.7; Neutrophils % 75.6; Nucleated RBC 0.3 % (0.0-0.3); Platelet Count 135 10^3/uL (130-400); RDW 15.5 % (11.7-14.6); RDW-SD 59.7 fL; WBC 6.81 10^3/uL (4.4-10.8)
== END 2021-11-15 10:29 | disposition home or self-care (01) ==
LOC: LBN 10:28
PROVIDERS: PCP Family Medicine; Visit Provider Nurse Practitioner Gerontology
DX: D50.9 Iron deficiency anemia, unspecified (principal)
CPT/HCPCS: 85025

== ENCOUNTER 2021-11-19 18:24 | Outpatient (REF) | payer MEDICARE, BC, MEDICAID, SELFPAY ==
[2021-11-19 12:59] LABS: Abs Immature Grans 0.06 10^3/uL (0.0-0.06); Absolute Basophil Count 0.03 10^3/uL (0.0-0.2); Absolute Eosinophil Count 0.08 10^3/uL (0.0-0.7); Absolute Lymphocyte Count 0.68 10^3/uL (1.2-3.4); Absolute Monocyte Count 0.39 10^3/uL (0.1-0.8); Absolute Neutrophil Count 6.67 10^3/uL (1.2-6.7); Basophils % 0.4; HCT 25.7 % (36.0-46.0); HGB 8.3 g/dL (11.2-15.7); Immature Grans % 0.8; Lymphocytes % 8.6; MCH 36.1 pg (27.0-33.0); MCHC 32.3 % (32.0-36.0); MCV 112 fL (80-95); Monocytes % 4.9; Neutrophils % 84.3; Nucleated RBC 0.4 % (0.0-0.3); RDW 18.6 % (11.7-14.6); RDW-SD 71.7 fL; WBC 7.91 10^3/uL (4.4-10.8)
[2021-11-19 13:08] LABS: Anion Gap 8.8 mmol/L (3-11); BUN 18 mg/dL (7-18); CO2 26.2 mmol/L (21.0-32.0); CREATININE 0.8 mg/dL (0.55-1.02); Calcium 8.3 mg/dL (8.5-10.1); Chloride 97 mmol/L (98-107); Glucose 126 mg/dL (74-106); Potassium 3.6 mmol/L (3.5-5.1); Sodium 132 mmol/L (136-145)
[2021-11-19 13:15] LABS: Diff Comment RBC Morph Reviewed; Macrocytosis 2+; Polychromasia Present
== END 2021-11-19 18:25 | disposition home or self-care (01) ==
LOC: LBN 18:24
PROVIDERS: PCP Family Medicine; Visit Provider Nurse Practitioner Gerontology
DX: R68.89 Other general symptoms and signs (principal); D50.9 Iron deficiency anemia, unspecified
CPT/HCPCS: 80048; 85025

== ENCOUNTER 2021-11-26 15:58 | Outpatient (REF) | payer MEDICARE, BC, MEDICAID, SELFPAY ==
[2021-11-26 16:23] LABS: Abs Immature Grans 0.03 10^3/uL (0.0-0.06); Absolute Basophil Count 0.04 10^3/uL (0.0-0.2); Absolute Eosinophil Count 0.06 10^3/uL (0.0-0.7); Absolute Lymphocyte Count 0.69 10^3/uL (1.2-3.4); Absolute Monocyte Count 0.38 10^3/uL (0.1-0.8); Absolute Neutrophil Count 4.15 10^3/uL (1.2-6.7); Basophils % 0.7; Eosinophils % 1.1; HCT 28.5 % (36.0-46.0); HGB 9.4 g/dL (11.2-15.7); Immature Grans % 0.6; Lymphocytes % 12.9; MCH 38.1 pg (27.0-33.0); MCV 115 fL (80-95); MPV 9.1 fL (8.0-11.0); Monocytes % 7.1; Neutrophils % 77.6; Platelet Count 224 10^3/uL (130-400); RBC 2.47 10^6/uL (3.93-5.22); RDW 20.4 % (11.7-14.6); RDW-SD 85.5 fL; WBC 5.35 10^3/uL (4.4-10.8)
[2021-11-26 16:28] LABS: Anion Gap 6.1 mmol/L (3-11); BUN 21 mg/dL (7-18); CO2 28.9 mmol/L (21.0-32.0); CREATININE 0.9 mg/dL (0.55-1.02); Calcium 8.6 mg/dL (8.5-10.1); Chloride 101 mmol/L (98-107); Estimated GFR 59.51 (mL/min/1.73m2); Glucose 86 mg/dL (74-106); Potassium 4.5 mmol/L (3.5-5.1); Sodium 136 mmol/L (136-145)
[2021-11-26 16:59] LABS: Anisocytosis 3+; Diff Comment RBC Morph Reviewed; Macrocytosis 3+; Target Cells 2+; Vitamin D 25 Total 23.8 ng/mL (30-100)
== END 2021-11-26 15:59 | disposition home or self-care (01) ==
LOC: LBN 15:58
PROVIDERS: PCP Family Medicine; Visit Provider Nurse Practitioner Gerontology
DX: E55.9 Vitamin D deficiency, unspecified (principal); D50.9 Iron deficiency anemia, unspecified; E44.0 Moderate protein-calorie malnutrition
CPT/HCPCS: 80048; 82306; 85025

== ENCOUNTER 2022-01-25 11:21 | Emergency (ER) | payer MEDICARE, BC, MEDICAID, SELFPAY ==
[2022-01-25 11:25] VITALS: BP 140/82; PULSE 66; TEMP 36.7; O2SAT 97
--- NOTE | 2022-01-25 12:15 | DI.RAD_ITS ---
Exam(s) XR WRIST LT COMPLETE EXAM: XR WRIST LT COMPLETE CLINICAL HISTORY: fall, injury. TECHNIQUE: 2D digital imaging was performed. Three views. COMPARISON: No exams were available for comparison FINDINGS: BONES: There is a fracture of the distal radius with the transverse component which is nondisplaced t hrough the metaphysis. There is additional vertically oriented fracture line extending through throu gh the medial aspect of the distal radius to the articular surface where there is a few millimeters o f separation. There is no significant angulation or impaction. The distal ulna and carpal bones mango ear intact. There are degenerative changes at the 1st carpal metacarpal joint as well as the scaphoi d trapezium trapezoid joint.. The bones appear osteopenic. No bony destructive lesion is seen. JOINTS: The carpal bones are normally aligned. SOFT TISSUE: Diffuse swelling around the wrist. IMPRESSION: Intra-articular fracture of the distal radius. DATA REPOSITORY: RADIATION DOSE DELIVERED:
--- NOTE | 2022-01-25 12:42 | TELEP.MEDR_ITS ---
Date of service: 01/25/22 Time of Service: 12:42 Telepharmacy Home Med Rec Allergies Allergies: cimetidine Adverse Reaction (Intermediate, Verified 12/10/21 13:23) BREAST TENDERNESS diltiazem Adverse Reaction (Intermediate, Verified 12/10/21 13:23) bowel problem Penicillins Adverse Reaction (Unknown, Verified 12/10/21 13:23) unknown Interview Person Interviewed: [facility] Quality Quality of Interview/Accuracy of Medication List: Excellent Sources Sources used to compile medication list: Interse Medication List, [facility] and [employer] Changes made to Home Medication List: ADDITIONS: None DELETIONS: Lidoderm patch, oxycodone, stool softener were all discontinued 12/10/2021 CHANGES: Vitamin D3 last dose was given today 12/25/2021 the order was for 8 weeks and this concludes the 8 weeks Additional Notes Additional Notes: the aspirin 81 mg has dispense history, appears on [employer] list but is not listed on MAR - marked as unknown last taken Recommended Changes Recommended Changes(reason for recommendation): none Attestation: The home medication list is now updated to the best of my knowledge and is ready to be reconciled by the provider. Please contact the TelePharmacy Medication Reconciliation Pharmacist at for any questions.
--- NOTE | 2022-01-25 12:51 | NUR.NOTE ---
Telepharmacy completed med rec -Nursing Note:
--- NOTE | 2022-01-25 13:00 | ED.GENADUL_ITS ---
Discharge Plan Disposition Patient Disposition: HOME Condition: Stable Discharge Details Clinical Impression: Fracture of left wrist Primary Care Provider: Gulshan Howe ED Provider: Eulalia Lewis Home Meds and New Rx's Prescriptions: Continued cholecalciferol (vitamin D3) 1,250 mcg (50,000 unit) capsule 1,250 mcg PO QWEEK Rx Instructions: discontinue after 8 weeks week 8 dose given on 01/24/2022 acetaminophen 500 mg Tablet 1,000 mg PO TID Rx Instructions: question as to whether this was actually scheduled or PRN calcitonin (salmon) 200 unit/actuation spray,non-aerosol 1 spray intranasal (ALT) DAILY Rx Instructions: 1 spray daily alternating nostrils. in right nostril Friday, Friday, Friday and Friday, and in the left nostril Friday, , and ferrous sulfate 325 mg (65 mg iron) Tablet 325 mg PO Q OTHER DAY Rx Instructions: takes every other day omeprazole 20 mg capsule,delayed release(DR/EC) 20 mg PO DAILY vitamin B complex-folic acid 400 mcg Tablet Extended Release 1 tab PO DAILY polyethylene glycol 3350 17 gram Powder In Packet 17 g PO DAILY PRN PRN (Reason: Constipation) Qty: 0 0RF metoprolol tartrate 25 mg tablet 37.5 mg PO BID Qty: 0 0RF Rx Instructions: hold for a pulse less than 60 aspirin 81 mg capsule 81 mg PO DAILY Qty: 60 0RF Discharge Instructions Additional Instructions: ice, elevate orthopedic follow-up keep splint in place return earlier with worsening pain or with any new symptoms Referrals: Yusuf Barney MD [ [facility] STAFF PHYSICIAN] - Discharge Data Discharge Date/Time-TO BE ENTERED AT DEPARTURE: 01/25/22 13:17 HPI General Date/Time Provider Initiated Documentation: 01/25/22 12:08 . HPI Narrative: This 86-year-old female presents status post fall yesterday. She has had pain and swelling to her left wrist since that time. She denies any fever or chills. She denies any head injury. Is mechanical in nature and was witnessed by staff. She has had bruising which is why she presents. Denies history of being anticoagulated. No reported additional injuries. Related Data Home Medications Medication Instructions Recorded Confirmed acetaminophen 500 mg tablet 1,000 mg PO TID 11/11/21 01/11/22 calcitonin (salmon) 200 1 spray intranasal (ALT) DAILY 11/11/21 01/25/22 unit/actuation nasal spray ferrous sulfate 325 mg (65 mg 325 mg PO Q OTHER DAY 11/11/21 01/25/22 iron) tablet omeprazole 20 mg capsule,delayed 20 mg PO DAILY 11/11/21 01/25/22 release vitamin B complex-folic acid ER 1 tab PO DAILY 11/11/21 01/25/22 400 mcg tablet,extended release aspirin 81 mg capsule 81 mg PO DAILY #60 caps 11/14/21 01/25/22 metoprolol tartrate 25 mg tablet 37.5 mg PO BID #0 tabs 11/14/21 01/25/22 polyethylene glycol 3350 17 gram 17 g PO DAILY PRN PRN Constipation 11/14/21 01/25/22 oral powder packet #0 ea cholecalciferol (vitamin D3) 1,250 1,250 mcg PO QWEEK 12/10/21 01/25/22 mcg (50,000 unit) capsule Previous Rx's Medication Instructions Recorded aspirin 81 mg capsule 81 mg PO DAILY #60 caps 11/14/21 metoprolol tartrate 25 mg tablet 37.5 mg PO BID #0 tabs 11/14/21 polyethylene glycol 3350 17 gram 17 g PO DAILY PRN PRN Constipation 11/14/21 oral powder packet #0 ea Allergies Allergy/AdvReac Type Severity Reaction Status Date / Time cimetidine AdvReac Intermediate BREAST Verified 12/10/21 13:23 TENDERNESS diltiazem AdvReac Intermediate bowel Verified 12/10/21 13:23 problem Penicillins AdvReac Unknown unknown Verified 12/10/21 13:23 General Stated Complaint: Orthopedic JODY: 4 Review of Systems All systems reviewed & are unremarkable except as noted in HPI and below PFSH All Active Problems (Updated 01/25/22 @ 13:02 by JOHNNA Deras) Fracture of left wrist (Acute) Onychomycosis (Acute) Compression fracture of vertebrae (Acute) Intertrochanteric fracture of right hip (Acute 11/11/21) S/P ORIF 11/12/2021 Unwitnessed fall (Acute) Compression fracture of thoracic vertebra (Acute) Anticoagulation management encounter (Chronic 08/09/16) Switched to Apixaban 08/05/16 due to TIA on Warfarin Paroxysmal atrial fibrillation (Chronic 09/12/15) noted 09/12/15; converted spontaneously on Metoprolol, paroxysmal SVT on 2 wk Z-patch 12/2015; but in and out of A Fib/flutter when hospitalized ; ECHO mod M 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) RX LIGHT AND EXERCISE, FEELS MOOD CHANGE IN JUNE, 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) Atrial fibrillation and flutter (Chronic) Dementia (Chronic) 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 Low body mass index (Acute) Seasonal affective disorder (Acute) Atrial flutter by electrocardiography (Acute 02/01/16) Encounter for routine gynecological examination (Acute 08/17/14) Hernia of ovary (Acute 02/09/16) Obturator hernia with obstruction (Acute 01/31/16) Unintentional weight loss (Chronic) Memory disturbance (Chronic 04/19/16) 04/2016 MOCA: 22 Advanced directive placed in chart this admission (Chronic 12/03/04) SEE ARCHIVES UNDER LEGAL, FOR DPOA, FULL CODE FOR NOW Abnormal MRI, pelvis (Chronic 04/03/16) thickened endometrial stripe; expectant management Medical History (Updated 01/25/22 @ 13:02 by JOHNNA Deras) Anemia due to blood loss, acute Cecal volvulus Hyponatremia Surgical History Incarcerated Obdurator Hernia (01/31/16) Dr Nicholas, [facility] Family History Mother , vascular at age 95. No problems noted. Social History Smoking/Tobacco Use Status: Former Tobacco Use Smoking risk assessment performed?: Yes Alcohol Intake: never Drug use: Never Substance use type: does not use Adopted: No Caregiver/Support person: No Foster care: No Household members: none Number of Children: 2 Current gender identity: female What type of physical activity do you participate in: walking Frequency: 5-6 times per week Seatbelt use: always Drive intox or ride w/intox cdl company flatbed driver: No Working smoke detector in home: Yes Carbon monox detector in home: Yes Do you feel safe at home: Yes Do you feel safe in your relationship?: Yes Additional Social history: pt lives at the [facility] Exam Const General: cooperative, comfortable and no acute distress HENMT Head: normal to inspection Eyes Pupils: PERRL Resp Effort & Inspection: normal respiratory effort Auscultation: clear to auscultation bilaterally Cardio Rate: regular rate Rhythm: regular rhythm Other: distal pulses intact Skin Other: ecchymosis left wrist Neuro General: patient alert Cranial Nerves: tongue midline Other: oriented to baseline sensation intact distallyu Extrem Other: left wrist with swelling and ecchymoisis mild tenderness neurovascularly intact no evidence of compartment syndrome Course Vital Signs Vital signs: Vital Signs Temperature 36.7 C 01/25/22 11:25 Pulse 66 01/25/22 11:25 Blood Pressure 140/82 01/25/22 11:25 Pulse Oximetry 97 01/25/22 11:25 Temperature 36.7 C 01/25/22 11:25 Temperature Source Temporal Artery Scan 01/25/22 11:25 Pulse 66 01/25/22 11:25 Respiratory Effort Non-Labored 01/25/22 11:50 Blood Pressure 140/82 01/25/22 11:25 Blood Pressure Position Sitting 01/25/22 11:25 Pulse Oximetry 97 01/25/22 11:25
== END 2022-01-25 13:17 | disposition home or self-care (01) ==
PROVIDERS: Emergency Provider Physician Assistant; PCP Family Medicine
DX: S62.102A Fracture of unspecified carpal bone, left wrist, initial encounter for closed fracture (principal); W19.XXXA Unspecified fall, initial encounter; Z87.891 Personal history of nicotine dependence
CPT/HCPCS: 29125; 99283; 73110; 99284

== ENCOUNTER 2022-01-28 13:50 | Outpatient (CLI) | payer MEDICARE, BC, MEDICAID, SELFPAY ==
--- NOTE | 2022-01-28 13:00 | DI.RAD_ITS ---
Exam(s) XR HIP RT AP LAT ONLY EXAM: XR HIP RT AP LAT ONLY INDICATION: f/u R Hip IMN fixation. COMPARISON: CR XR HIP RT AP LAT ONLY from 12/10/2021 TECHNIQUE: 2D digital imaging was performed. Two views. FINDINGS: There has been no change in fracture or hardware alignment. No new findings. DATA REPOSITORY: RADIATION DOSE DELIVERED:
== END 2022-01-28 13:51 | disposition home or self-care (01) ==
LOC: DIORS 13:50
PROVIDERS: PCP Family Medicine; Referring Provider Family Medicine; Visit Provider Student in an Organized Health Care Education/Training Program
DX: S72.141A Displaced intertrochanteric fracture of right femur, initial encounter for closed fracture (principal); W19.XXXA Unspecified fall, initial encounter; S62.102A Fracture of unspecified carpal bone, left wrist, initial encounter for closed fracture
CPT/HCPCS: 99212; 73502

== ENCOUNTER 2022-01-29 16:42 | Outpatient (REF) | payer MEDICARE, BC, MEDICAID, SELFPAY ==
[2022-01-29 21:07] LABS: Anion Gap 5.9 mmol/L (3-11); BUN 20 mg/dL (7-18); CO2 29.1 mmol/L (21.0-32.0); Calcium 8.9 mg/dL (8.5-10.1); Chloride 100 mmol/L (98-107); Estimated GFR 55.21 (mL/min/1.73m2); Glucose 118 mg/dL (74-106); Magnesium 1.9 mg/dL (1.8-2.4); Potassium 4.2 mmol/L (3.5-5.1); Sodium 135 mmol/L (136-145)
[2022-01-31 05:37] LABS: Vitamin D 25 Total 53.7 ng/mL (30-100)
== END 2022-01-29 16:43 | disposition home or self-care (01) ==
LOC: LBN 16:42
PROVIDERS: PCP Family Medicine; Visit Provider Nurse Practitioner Gerontology
DX: R68.89 Other general symptoms and signs (principal)
CPT/HCPCS: 80048; 82306; 83735

== ENCOUNTER 2022-02-07 15:57 | Emergency (ER) | payer MEDICARE, BC, MEDICAID, SELFPAY ==
--- NOTE | 2022-02-07 16:00 | DI.RAD_ITS ---
Exam(s) XR HUMERUS RT EXAM: XR HUMERUS RT CLINICAL HISTORY: pain. TECHNIQUE: 2D digital imaging was performed. COMPARISON: No exams were available for comparison FINDINGS: Two views No evidence of humerus fracture or dislocation. Distal epicondyles appear intact. Other images have revealed and olecranon fracture at the elbow level. IMPRESSION: No evidence of humerus fracture. DATA REPOSITORY: RADIATION DOSE DELIVERED:
--- NOTE | 2022-02-07 16:00 | DI.RAD_ITS ---
Exam(s) XR FOREARM RT EXAM: XR FOREARM RT CLINICAL HISTORY: pain. TECHNIQUE: 2D digital imaging was performed. COMPARISON: CR,XR XR HUMERUS RT from 02/07/2022 FINDINGS: Two views: There is a mildly distracted fracture of the proximal ulna at the olecranon. No other form fractures identified. No radiopaque foreign body. No osseous lesions. IMPRESSION: Olecranon fracture. DATA REPOSITORY: RADIATION DOSE DELIVERED:
--- NOTE | 2022-02-07 16:00 | DI.RAD_ITS ---
Exam(s) XR ELBOW RT COMPLETE EXAM: XR ELBOW RT COMPLETE CLINICAL HISTORY: pain. TECHNIQUE: 2D digital imaging was performed. COMPARISON: CR XR ELBOW RT COMPLETE from 11/14/2021 FINDINGS: Four views: There is a mildly displaced fracture of the olecranon fossa. There is overlying soft tissue swelling . There are no fractures of the distal humerus epicondyles nor of the radial head and neck. IMPRESSION: Olecranon fracture with distraction. DATA REPOSITORY: RADIATION DOSE DELIVERED:
[2022-02-07 16:01] VITALS: BP 95/74; PULSE 105; RESP 16; O2SAT 96
--- NOTE | 2022-02-07 16:16 | ED.GENADUL_ITS ---
Discharge Plan Disposition Patient Disposition: HOME Condition: Stable Discharge Details Clinical Impression: Closed fracture of right olecranon process Primary Care Provider: Gulshan Howe ED Provider: Avila Gaines Home Meds and New Rx's Prescriptions: Continued cholecalciferol (vitamin D3) 1,250 mcg (50,000 unit) capsule 1,250 mcg PO QWEEK Rx Instructions: discontinue after 8 weeks week 8 dose given on 01/24/2022 bisacodyl 10 mg suppository 10 mg RI ONCE acetaminophen 500 mg Tablet 1,000 mg PO TID Rx Instructions: question as to whether this was actually scheduled or PRN calcitonin (salmon) 200 unit/actuation spray,non-aerosol 1 spray intranasal (ALT) DAILY Rx Instructions: 1 spray daily alternating nostrils. in right nostril Friday, Friday, Friday and Friday, and in the left nostril Friday, , and ferrous sulfate 325 mg (65 mg iron) Tablet 325 mg PO Q OTHER DAY Rx Instructions: takes every other day vitamin B complex-folic acid 400 mcg Tablet Extended Release 1 tab PO DAILY polyethylene glycol 3350 17 gram Powder In Packet 17 g PO DAILY PRN PRN (Reason: Constipation) Qty: 0 0RF metoprolol tartrate 25 mg tablet 37.5 mg PO BID Qty: 0 0RF Rx Instructions: hold for a pulse less than 60 omeprazole 20 mg capsule,delayed release(DR/EC) 37.5 mg PO BID Discharge Instructions Instructions: Elbow Fracture (ED) Additional Instructions: you have a small broken bone in the elbow call orthopedics tomorrow to arrange for follow up if you have severe worsening pain or new pain such as chest pain return to the emergency department Referrals: Yusuf Barney MD [ [facility] STAFF PHYSICIAN] - Medical Decision Making 86 yo female with hx of afib not on anticoagulation, dementia, who resides at the [facility] comes in after she had a fall earlier today and started to have right elbow pain so was sent here. She is oriented to name and place, is not sure of date and can't provide much details on what happened earlier but per report she was heard to have fallen and was awake when the staff got to her which per report was quick. She denies chest pain, dyspnea, abdomen pain. She has no headache, neck pain, back pain, abdomen pain. She localizes the pain to the right elbow with some mild swelling on exam, no wrist or shoulder tenderness, normal sensation and pulses in the arm. No signs of trauma to the head, no midline c spine pain with full rom of the neck. Suspect contusion vs fracture, will obtain xrays of the elbow, humerus and forearm. No abdomen or chest tenderness and no pain or tenderness in her legs or back xray shows olecranon fracture, patient stable, placed in posterior long arm splint and sling, will have her f/u with ortho, return precautions given Differential Diagnosis Differential Diagnosis: fracture contusion sprain Medical Records Medical records reviewed: Yes I reviewed the patient's medical records. Imaging Data Radiologic Study: Attestation: I personally reviewed and interpreted this imaging study as follows: Imaging: X-Ray Radiologist's impression: olecranon fracture on elbow xray Radiologic Study #2: Attestation: I personally reviewed and interpreted this imaging study as follows: Imaging: X-Ray My impression: no huermus fracture Radiologic Study #3: Attestation: I personally reviewed and interpreted this imaging study as follows: Imaging: X-Ray My impression: no radius or ulna fracture on forearm xray HPI General Mode of arrival: ambulatory . Date/Time Provider Initiated Documentation: 02/07/22 16:05 . Limitations to Documentation: no limitations . Information obtained by: patient . History of Present Illness 86 year old F presents to the emergency department with the chief complaint of right elbow pain, described as moderate, Quality is described as aching, and it has been constant. No relieving factors improve symptom(s), No exacerbating factors reported . Patient notes no other symptoms.. Patient did receive the following treatments prior to arrival, none Related Data Home Medications Medication Instructions Recorded Confirmed acetaminophen 500 mg tablet 1,000 mg PO TID 11/11/21 02/07/22 calcitonin (salmon) 200 1 spray intranasal (ALT) DAILY 11/11/21 02/07/22 unit/actuation nasal spray ferrous sulfate 325 mg (65 mg 325 mg PO Q OTHER DAY 11/11/21 02/07/22 iron) tablet vitamin B complex-folic acid ER 1 tab PO DAILY 11/11/21 02/07/22 400 mcg tablet,extended release metoprolol tartrate 25 mg tablet 37.5 mg PO BID #0 tabs 11/14/21 02/07/22 polyethylene glycol 3350 17 gram 17 g PO DAILY PRN PRN Constipation 11/14/21 02/07/22 oral powder packet #0 ea cholecalciferol (vitamin D3) 1,250 1,250 mcg PO QWEEK 12/10/21 02/07/22 mcg (50,000 unit) capsule bisacodyl 10 mg rectal suppository 10 mg RI ONCE 01/28/22 02/07/22 omeprazole 20 mg capsule,delayed 37.5 mg PO BID 01/28/22 02/07/22 release Previous Rx's Medication Instructions Recorded metoprolol tartrate 25 mg tablet 37.5 mg PO BID #0 tabs 11/14/21 polyethylene glycol 3350 17 gram 17 g PO DAILY PRN PRN Constipation 11/14/21 oral powder packet #0 ea Allergies Allergy/AdvReac Type Severity Reaction Status Date / Time cimetidine AdvReac Intermediate BREAST Verified 01/28/22 13:09 TENDERNESS diltiazem AdvReac Intermediate bowel Verified 01/28/22 13:09 problem Penicillins AdvReac Unknown unknown Verified 01/28/22 13:09 General Stated Complaint: Orthopedic JODY: 3 Review of Systems All systems reviewed & are unremarkable except as noted in HPI and below Constitutional Constitutional: Denies chills, Denies fever(s) and Denies weakness Cardiovascular Cardiovascular: Denies chest pain and Denies dyspnea Respiratory Respiratory: Denies cough and Denies dyspnea Gastrointestinal Gastrointestinal: Denies abdominal pain, Denies nausea and Denies vomiting Musculoskeletal Musculoskeletal: Denies joint swelling Integumentary/Breasts Skin/Breast: Denies rash Neurologic Neurologic: Denies weakness PFSH All Active Problems (Updated 02/07/22 @ 18:33 by Avila Gaines MD) Closed fracture of right olecranon process (Acute) Fracture of left wrist (Acute) Onychomycosis (Acute) Compression fracture of vertebrae (Acute) Intertrochanteric fracture of right hip (Acute 11/11/21) S/P ORIF 11/12/2021 Unwitnessed fall (Acute) Compression fracture of thoracic vertebra (Acute) Anticoagulation management encounter (Chronic 08/09/16) Switched to Apixaban 08/05/16 due to TIA on Warfarin Paroxysmal atrial fibrillation (Chronic 09/12/15) noted 09/12/15; converted spontaneously on Metoprolol, paroxysmal SVT on 2 wk Z-patch 12/2015; but in and out of A Fib/flutter when hospitalized -02/2016; ECHO mod M 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) RX LIGHT AND EXERCISE, FEELS MOOD CHANGE IN JUNE, 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) Atrial fibrillation and flutter (Chronic) Dementia (Chronic) 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 Low body mass index (Acute) Seasonal affective disorder (Acute) Atrial flutter by electrocardiography (Acute 02/01/16) Encounter for routine gynecological examination (Acute 08/17/14) Hernia of ovary (Acute 02/09/16) Obturator hernia with obstruction (Acute 01/31/16) Unintentional weight loss (Chronic) Memory disturbance (Chronic 04/19/16) 04/2016 MOCA: 22 Advanced directive placed in chart this admission (Chronic 12/03/04) SEE ARCHIVES UNDER LEGAL, FOR DPOA, FULL CODE FOR NOW Abnormal MRI, pelvis (Chronic 04/03/16) thickened endometrial stripe; expectant management Medical History (Updated 02/07/22 @ 18:33 by Avila Gaines MD) Anemia due to blood loss, acute Cecal volvulus Hyponatremia Surgical History Incarcerated Obdurator Hernia (01/31/16) Dr Nicholas, [facility] Family History Mother , vascular at age 95. No problems noted. Social History Smoking/Tobacco Use Status: Former Tobacco Use Smoking risk assessment performed?: Yes Alcohol Intake: never Drug use: Never Substance use type: does not use Adopted: No Caregiver/Support person: No Foster care: No Household members: none Number of Children: 2 Current gender identity: female What type of physical activity do you participate in: walking Frequency: 5-6 times per week Seatbelt use: always Drive intox or ride w/intox funeral car driver: No Working smoke detector in home: Yes Carbon monox detector in home: Yes Do you feel safe at home: Yes Do you feel safe in your relationship?: Yes Additional Social history: pt lives at the [facility] Exam Const General: no acute distress Orientation: alert HENFL Head: normal to inspection Ears: external ears normal General nose exam: external nose normal Mouth: moist mucous membranes Eyes General: appearance normal, both eyes and all related structures Neck Neck: normal visual inspection Resp Effort & Inspection: normal respiratory effort and able to speak in complete sentences Cardio Rate: regular rate Skin General skin exam: no rashes or lesions noted Neuro General: patient alert Extrem General: normal to inspection Psych Mental Status: mental status grossly normal Course Vital Signs Vital signs: Vital Signs Pulse 105 H 02/07/22 16:01 Respiratory Rate 16 02/07/22 16:01 Blood Pressure 95/74 L 02/07/22 16:01 Pulse Oximetry 96 02/07/22 16:01 Temperature Source Tympanic 02/07/22 16:01 Pulse 105 H 02/07/22 16:01 Respiratory Rate 16 02/07/22 16:01 Blood Pressure 95/74 L 02/07/22 16:01 Blood Pressure Position Supine 02/07/22 16:01 Pulse Oximetry 96 02/07/22 16:01 Oxygen Delivery Method Room Air 02/07/22 16:01 Oxygen Flow Rate 0 02/07/22 16:01 Pain Level 6 02/07/22 16:11
[2022-02-07] MEDS: Acetaminophen Solution 650 MG/20.3 ML CUP (16:32)
[2022-02-07] MEDS: Acetaminophen 500 MG TAB 1000 MG PO (16:32)
--- NOTE | 2022-02-07 18:12 | DI.VRAD_ITS ---
PROCEDURE INFORMATION: Exam: XR Right Elbow Exam date and time: 02/07/2022 5:01 PM Age: 86 years old Clinical indication: Injury or trauma; Fall; Swelling (edema); Elbow; Right; Patient HX: Pain TECHNIQUE: Imaging protocol: Radiologic exam of the Right elbow. Views: 3 or more views. COMPARISON: CR XR ELBOW RT COMPLETE 14/11/2021 10:58 FINDINGS: Bones/joints: There is a nondisplaced fracture through the olecranon process of the ulna. Soft tissues: Marked soft tissue swelling is present around the elbow. IMPRESSION: Olecranon fracture. Dictated and Authenticated by: German Rios MD. Ordering:NITZA Gramajo MD
--- NOTE | 2022-02-07 18:35 | DI.VRAD_ITS ---
PROCEDURE INFORMATION: Exam: XR Right Humerus Exam date and time: 02/07/2022 5:00 PM Age: 86 years old Clinical indication: Pain; Upper arm; Right TECHNIQUE: Imaging protocol: Radiologic exam of the Right humerus. Views: 2 or more views. COMPARISON: CR XR HUMERUS RT 10/12/2021 16:52 FINDINGS: Bones/joints: Humerus is intact. Olecranon fracture is visible on the lateral projection. This has been separately reported. Soft tissues: Soft tissue swelling at the elbow.. IMPRESSION: Intact humerus.. Dictated and Authenticated by: German Rios MD. Ordering:NITZA Gramajo MD
--- NOTE | 2022-02-07 18:35 | DI.VRAD_ITS ---
PROCEDURE INFORMATION: Exam: XR Right Forearm Exam date and time: 02/07/2022 5:00 PM Age: 86 years old Clinical indication: Pain; Upper arm; Right TECHNIQUE: Imaging protocol: Radiologic exam of the Right forearm. Views: 2 views. COMPARISON: CR XR ELBOW RT COMPLETE 14/11/2021 10:58 FINDINGS: Bones/joints: Bones are osteopenic. Olecranon fracture has been separately reported. Radius and ulna otherwise are intact. Wrist appears grossly normal. Soft tissues: Soft tissue swelling around the elbow.. IMPRESSION: Olecranon fracture. Dictated and Authenticated by: German Rios MD. Ordering:NITZA Gramajo MD
== END 2022-02-07 19:03 | disposition home or self-care (01) ==
PROVIDERS: Emergency Provider Emergency Medicine; PCP Family Medicine
DX: S52.021A Displaced fracture of olecranon process without intraarticular extension of right ulna, initial encounter for closed fracture (principal); Z87.891 Personal history of nicotine dependence; W19.XXXA Unspecified fall, initial encounter
CPT/HCPCS: 29105; 99284; 73060; 73080; 73090

== ENCOUNTER 2022-02-18 11:16 | Outpatient (CLI) | payer MEDICARE, BC, MEDICAID, SELFPAY ==
--- NOTE | 2022-02-18 11:00 | DI.RAD_ITS ---
Exam(s) XR ELBOW RT LIMITED EXAM: XR ELBOW RT LIMITED CLINICAL HISTORY: R elbow fx. TECHNIQUE: 2D digital imaging was performed of the left elbow. Three images were obtained. AP, lat eral and oblique views were obtained. COMPARISON: CR,XR XR ELBOW RT COMPLETE from 02/07/2022 FINDINGS: BONES: There is again seen a fracture through the olecranon. There has been mild increased distracti on of the fracture since the prior examination. No bony destructive lesion is seen. JOINTS: The elbow is normally aligned. A joint effusion is present. SOFT TISSUE: Normal. IMPRESSION: Olecranon fracture is again identified with increased distraction since examination from 02/07/2022. DATA REPOSITORY: RADIATION DOSE DELIVERED:
== END 2022-02-18 11:17 | disposition home or self-care (01) ==
LOC: DIORS 11:18
PROVIDERS: PCP Family Medicine; Referring Provider Family Medicine; Visit Provider Physician Assistant
DX: S52.021A Displaced fracture of olecranon process without intraarticular extension of right ulna, initial encounter for closed fracture (principal); W19.XXXA Unspecified fall, initial encounter; R29.6 Repeated falls
CPT/HCPCS: 99214; 73070

== ENCOUNTER 2022-03-04 11:47 | Outpatient (CLI) | payer MEDICARE, BC, MEDICAID, SELFPAY ==
--- NOTE | 2022-03-04 10:00 | DI.RAD_ITS ---
Exam(s) XR WRIST LT LIMITED EXAM: XR WRIST LT LIMITED INDICATION: F/U L WRIST FRACTURE. COMPARISON: CR XR WRIST LT COMPLETE from 01/25/2022 TECHNIQUE: 2D digital imaging was performed. Two views. FINDINGS: There has been no change in the alignment of the distal radial fracture which shows increased callus formation. The amount of soft tissue swelling has decreased. DATA REPOSITORY: RADIATION DOSE DELIVERED:
--- NOTE | 2022-03-04 10:00 | DI.RAD_ITS ---
Exam(s) XR ELBOW RT LIMITED EXAM: XR ELBOW RT LIMITED INDICATION: F/U R ELBOW FRACTURE. COMPARISON: CR XR ELBOW RT LIMITED from 02/18/2022 TECHNIQUE: 2D digital imaging was performed. Two views. FINDINGS: There has been no change in the alignment of the olecranon fracture. There is increased posterior so ft tissue swelling. A joint effusion remains present. DATA REPOSITORY: RADIATION DOSE DELIVERED:
--- NOTE | 2022-03-04 10:00 | DI.RAD_ITS ---
Exam(s) XR HIP RT AP LAT ONLY EXAM: XR HIP RT AP LAT ONLY INDICATION: F/U R HIP FRACTURE. COMPARISON: CR XR HIP RT AP LAT ONLY from 01/28/2022 TECHNIQUE: 2D digital imaging was performed. Two views. FINDINGS: There has been no change in the alignment of the inter trochanteric fracture or hardware. There has been continued healing at the fracture site. No new abnormalities are seen. DATA REPOSITORY: RADIATION DOSE DELIVERED:
== END 2022-03-04 11:48 | disposition home or self-care (01) ==
LOC: DIORS 11:47
PROVIDERS: PCP Family Medicine; Referring Provider Family Medicine; Visit Provider Student in an Organized Health Care Education/Training Program
DX: S62.102D Fracture of unspecified carpal bone, left wrist, subsequent encounter for fracture with routine healing (principal); S72.141D Displaced intertrochanteric fracture of right femur, subsequent encounter for closed fracture with routine healing; S52.021D Displaced fracture of olecranon process without intraarticular extension of right ulna, subsequent encounter for closed fracture with routine healing; W19.XXXD Unspecified fall, subsequent encounter
CPT/HCPCS: 73070; 73100; 73502

== ENCOUNTER 2022-03-22 09:04 | Emergency (ER) | payer MEDICARE, BC, MEDICAID, SELFPAY ==
[2022-03-22 09:08] VITALS: BP 142/95; PULSE 60; RESP 17; TEMP 36.4; O2SAT 99
--- NOTE | 2022-03-22 09:30 | DI.CT_ITS ---
Exam(s) CT HEAD CERVICAL SPINE WO EXAM: CT HEAD CERVICAL SPINE WO CLINICAL HISTORY: fall neck pain. TECHNIQUE: Imaging Protocol: Axial computed tomography images with coronal and sagittal reformatted images were created and reviewed COMPARISON: MR MR BRAIN WO from 11/05/[address] HEAD CERVICAL SPINE WO from 11/11/2021 FINDINGS: BRAIN: There are no skull fractures nor fluid in the visualized paranasal sinuses. There is no evidence of intracranial hemorrhage, mass effect, or shift of midline structures. There are no extra-axial fluid collections. The ventricles are not enlarged or shifted and there is no blo od within the ventricular system nor within the basal cisterns. Again noted is abundant bilateral periventricular hypodensity consistent with chronic small vessel. This is symmetrical. No evidence obvious acute infarct. CERVICAL SPINE: There is no evidence of acute fracture nor listhesis. No significant prevertebral soft tissue swelli ng. Multilevel disc space narrowing again. There is no significant facet joint malalignment. No significant osseous lesions evident. The lower aspect of the field of view of the sagittal images there is a T4 compression fracture again noted, unchanged. IMPRESSION: No acute intracranial findings on this noninfused CT scan of the brain.Abundant periventricular white matter microvascular disease again noted. No evidence of cervical spine fracture, malalignment, nor acute compromise of the cervical spinal can al. Again noted is a T4 compression fracture as seen on the prior study November 2021. Called by myself to ER physician. RADIATION DOSE DELIVERED: Total DLP DATA REPOSITORY: All CT scans at this facility are submitted to the National Radiology Data Registry (NRDR) Dose Index Registry (DIR) with the [employer] (A[employer]). RADIATION OPTIMIZATION: All CT scans at this facility use at least one of these dose optimization te chniques: automated exposure control; mA and/or kV adjustment per patient size (includes targeted exa ms where dose is matched to clinical indication); or iterative reconstruction.
--- NOTE | 2022-03-22 10:04 | W.ED.GENAD ---
Discharge Plan Discharge Details Chief Complaint: HeadInjury Primary Care Provider: Gulshan Howe ED Provider: Sundar Gomez Home Meds and New Rx's Prescriptions: No Action cholecalciferol (vitamin D3) 1,250 mcg (50,000 unit) capsule 1,250 mcg PO QWEEK Rx Instructions: discontinue after 8 weeks week 8 dose given on 01/24/2022 bisacodyl 10 mg suppository 10 mg VT ONCE lorazepam [Ativan] 0.5 mg tablet 0.5 mg PO Q2H PRN PRN morphine 20 mg/5 mL (4 mg/mL) solution 20 mg PO Q4H PRN Rx Instructions: morphine 20 mg/1 ml give0.25 ml am /pm and q2h lorazepam [Ativan] 0.5 mg tablet 0.5 mg PO Q2H PRN PRN lorazepam [Ativan] 0.5 mg tablet 0.25 mg PO DAILY PRN acetaminophen 500 mg Tablet 1,000 mg PO TID Rx Instructions: question as to whether this was actually scheduled or PRN calcitonin (salmon) 200 unit/actuation spray,non-aerosol 1 spray intranasal (ALT) DAILY Rx Instructions: 1 spray daily alternating nostrils. in right nostril Friday, Friday, Friday and Friday, and in the left nostril Friday, , and ferrous sulfate 325 mg (65 mg iron) Tablet 325 mg PO Q OTHER DAY Rx Instructions: takes every other day vitamin B complex-folic acid 400 mcg Tablet Extended Release 1 tab PO DAILY polyethylene glycol 3350 17 gram Powder In Packet 17 g PO DAILY PRN PRN (Reason: Constipation) Qty: 0 0RF metoprolol tartrate 25 mg tablet 37.5 mg PO BID Qty: 0 0RF Rx Instructions: hold for a pulse less than 60 omeprazole 20 mg capsule,delayed release(DR/EC) 37.5 mg PO BID quetiapine 25 mg tablet 25 mg PO DAILY Medical Decision Making 86-year-old female presents after fall, sustaining superficial abrasion/laceration to occipital scalp hemostatic, no loss of consciousness, does endorse mild head discomfort and neck discomfort, no midline spinal tenderness, does have paraspinal cervical discomfort without step-off or deformity, moving all extremities however some discomfort with movement of left hip, pelvis stable. Hemodynamically stable. Consider simple contusion versus concussion versus must consider intracranial process given age and traumatic head injury, muscles consider left hip dislocation or fracture however more likely hip contusion. Patient does not want any analgesia at this time. Awaiting imaging which included CT head CT C-spine and x-ray pelvis and left hip pain 10:28 patient refusing imaging, spoke with daughter who endorses that patient takes psychiatric medication daily and did not get her medication today. Will administer lorazepam 0.5 mg p.o. and reattempt imaging. 13: 54 patient resting comfortably no acute distress. Evidence of superior and inferior left pubic rami fractures, incidental hypoechoic structure near the right aspect of liver consider component of hemoperitoneum; will obtain basic labs, PT PTT type and screen CT chest abdomen pelvis with contrast 16: 08 resting comfortably no acute distress hemodynamically stable. Awaiting results of CT abdomen pelvis to assess hypoechoic collection near liver. Spoke with Anusha from at the [facility] if this is a simple pelvic fracture she was able to be discharged back to the [facility] otherwise if there is evidence of further traumatic injury patient will need transfer to trauma center Sign Out Yes HPI General Date/Time Provider Initiated Documentation: 03/22/22 09:23. HPI Narrative: 86-year-old female presents after fall at the [facility], fell backward hit the back of her head, no loss of conscious does endorse some mild head discomfort and neck discomfort. No blood thinner use. Related Data Home Medications Medication Instructions Recorded Confirmed acetaminophen 500 mg tablet 1,000 mg PO TID 11/11/21 03/22/22 calcitonin (salmon) 200 1 spray intranasal (ALT) DAILY 11/11/21 03/22/22 unit/actuation nasal spray ferrous sulfate 325 mg (65 mg 325 mg PO Q OTHER DAY 11/11/21 03/22/22 iron) tablet vitamin B complex-folic acid ER 1 tab PO DAILY 11/11/21 03/22/22 400 mcg tablet,extended release metoprolol tartrate 25 mg tablet 37.5 mg PO BID #0 tabs 11/14/21 03/22/22 polyethylene glycol 3350 17 gram 17 g PO DAILY PRN PRN Constipation 11/14/21 03/22/22 oral powder packet #0 ea cholecalciferol (vitamin D3) 1,250 1,250 mcg PO QWEEK 12/10/21 03/04/22 mcg (50,000 unit) capsule bisacodyl 10 mg rectal suppository 10 mg VT ONCE 01/28/22 03/22/22 omeprazole 20 mg capsule,delayed 37.5 mg PO BID 01/28/22 03/22/22 release lorazepam 0.5 mg tablet (Ativan) 0.5 mg PO Q2H PRN PRN 02/18/22 03/04/22 morphine 20 mg/5 mL (4 mg/mL) oral 20 mg PO Q4H PRN 02/18/22 03/22/22 solution lorazepam 0.5 mg tablet (Ativan) 0.25 mg PO DAILY PRN 03/04/22 03/04/22 lorazepam 0.5 mg tablet (Ativan) 0.5 mg PO Q2H PRN PRN 03/04/22 03/22/22 quetiapine 25 mg tablet 25 mg PO DAILY 03/22/22 03/22/22 Previous Rx's Medication Instructions Recorded metoprolol tartrate 25 mg tablet 37.5 mg PO BID #0 tabs 11/14/21 polyethylene glycol 3350 17 gram 17 g PO DAILY PRN PRN Constipation 11/14/21 oral powder packet #0 ea Allergies Allergy/AdvReac Type Severity Reaction Status Date / Time cimetidine AdvReac Intermediate BREAST Verified 03/04/22 10:08 TENDERNESS diltiazem AdvReac Intermediate bowel Verified 03/04/22 10:08 problem Penicillins AdvReac Unknown unknown Verified 03/04/22 10:08 General Stated Complaint: HeadInjury JODY: 3 Review of Systems Narrative: Review of Systems Constitutional: negative Eyes: negative ENT: negative Cardiovascular: negative Respiratory: negative Gastrointestinal: negative : negative Musculoskeletal: Neck pain, head pain Skin: Scalp bleeding Neurologic: negative Psych: negative PFSH All Active Problems (Updated 02/25/22 @ 00:08 by VIV CRUZ) Closed fracture of right olecranon process (Acute 02/07/22) Onychomycosis (Acute) Compression fracture of vertebrae (Acute) Intertrochanteric fracture of right hip (Acute 11/11/21) S/P ORIF 11/12/2021 Unwitnessed fall (Acute) Compression fracture of thoracic vertebra (Acute) Anticoagulation management encounter (Chronic 08/09/16) Switched to Apixaban 08/05/16 due to TIA on Warfarin Paroxysmal atrial fibrillation (Chronic 09/12/15) noted 09/12/15; converted spontaneously on Metoprolol, paroxysmal SVT on 2 wk Z-patch 12/2015; but in and out of A Fib/flutter when hospitalized ; ECHO mod M 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) RX LIGHT AND EXERCISE, FEELS MOOD CHANGE IN JUNE, 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) Atrial fibrillation and flutter (Chronic) Dementia (Chronic) 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 Low body mass index (Acute) Seasonal affective disorder (Acute) Atrial flutter by electrocardiography (Acute 02/01/16) Encounter for routine gynecological examination (Acute 08/17/14) Hernia of ovary (Acute 02/09/16) Obturator hernia with obstruction (Acute 01/31/16) Unintentional weight loss (Chronic) Memory disturbance (Chronic 04/19/16) 04/2016 MOCA: 22 Advanced directive placed in chart this admission (Chronic 12/03/04) SEE ARCHIVES UNDER LEGAL, FOR DPOA, FULL CODE FOR NOW Abnormal MRI, pelvis (Chronic 04/03/16) thickened endometrial stripe; expectant management Medical History (Updated 02/25/22 @ 00:08 by VIV CRUZ) Anemia due to blood loss, acute Cecal volvulus Hyponatremia Surgical History Incarcerated Obdurator Hernia (01/31/16) Dr Nicholas, [facility] Family History Mother , vascular at age 95. No problems noted. Social History Smoking/Tobacco Use Status: Former Tobacco Use Smoking risk assessment performed?: Yes Alcohol Intake: never Drug use: Never Substance use type: does not use Adopted: No Caregiver/Support person: No Foster care: No Household members: none Number of Children: 2 Current gender identity: female What type of physical activity do you participate in: walking Frequency: 5-6 times per week Seatbelt use: always Drive intox or ride w/intox courier driver: No Working smoke detector in home: Yes Carbon monox detector in home: Yes Do you feel safe at home: Yes Do you feel safe in your relationship?: Yes Additional Social history: pt lives at the [facility] Exam Narrative Exam Narrative: Physical Examination General: alert, awake, cooperative, resting comfortably, no acute distress HEENT: normocephalic, superficial abrasion/laceration to occipital scalp hemostatic; PERRL, EOM intact, conjunctiva normal; no nasal discharge; moist mucous membranes, oral and pharyngeal mucosa normal, tolerating secretions Neck: supple, trachea midline; full ROM Chest: normal to inspection Respiratory: normal respiratory effort, speaking in full sentences, clear to auscultation, no wheezing, rales or rhonchi Cardiac: regular rate, regular rhythm, S1S2 intact, no murmurs rubs or gallops GI: abdomen soft, non-tender, non-distended; no palpable mass or hepatosplenomegaly Back: No midline spinal tenderness, paraspinal cervical tenderness without crepitus or deformity Skin: Superficial abrasion/laceration to occipital scalp hemostatic Neuro: AAOx3, normal speech, moving all extremities Extremities: Able to move all extremities however some discomfort with moving left lower extremity, pelvis stable, no palpable deformities Psych: Appropriate mood and affect Course Vital Signs Vital signs: Vital Signs Temperature 36.4 C L 03/22/22 09:08 Pulse 60 03/22/22 09:08 Respiratory Rate 17 03/22/22 09:08 Blood Pressure 142/95 H 03/22/22 09:08 Pulse Oximetry 99 03/22/22 09:08 Temperature 36.4 C L 03/22/22 09:08 Temperature Source Temporal Artery Scan 03/22/22 09:08 Pulse 60 03/22/22 09:08 Respiratory Rate 17 03/22/22 09:08 Respiratory Effort Non-Labored 03/22/22 09:14 Respiratory Depth Normal 03/22/22 09:14 Respiratory Pattern Normal 03/22/22 09:14 Blood Pressure 142/95 H 03/22/22 09:08 Blood Pressure Position Sitting 03/22/22 09:08 Pulse Oximetry 99 03/22/22 09:08 Oxygen Delivery Method Room Air 03/22/22 09:08 Oxygen Flow Rate 0 03/22/22 09:08
[2022-03-22] MEDS: LORazepam 2 MG/ML VIAL 0.5 MG IVP ×2 (10:48→14:33)
--- NOTE | 2022-03-22 11:35 | DI.RAD_ITS ---
Exam(s) XR HIP LT COMPLETE AP PELVIS EXAM: XR HIP LT COMPLETE AP PELVIS CLINICAL HISTORY: fall hip pain. TECHNIQUE: 2D digital imaging was performed. COMPARISON: CR,XR XR HIP RT COMPLETE AP PELVIS from 11/11/2021 FINDINGS: 3 views Right hip hardware from prior intertrochanteric fracture of 11/11/2021. There is no obvious left hip fracture but the appearance of the left superior pubic ramus is somewhat suspicious although secured by bowel contents. Recommend additional views. IMPRESSION: Possible fracture of the left superior pubic ramus. Additional views or CT scan recommended. Called by myself to ER physician DATA REPOSITORY: RADIATION DOSE DELIVERED:
--- NOTE | 2022-03-22 12:02 | DI.CT_ITS ---
Exam(s) CT PELVIC WO EXAM: CT PELVIC WO CLINICAL HISTORY: bony pelvis without contrast, fall. TECHNIQUE: Imaging Protocol: Axial computed tomography images with coronal and sagittal reformatted images were created and reviewed CONTRAST MATERIAL: Intravenous: none Oral: None COMPARISON: CT CT BRAIN NECK CTA from 11/04/2019 FINDING: PELVIS: OSSEOUS: There is an acute mid level fracture of the left inferior pubic ramus with mild displacement . Also fracture of the left superior pubic ramus anteriorly. There is no fracture of the ipsilatera l acetabulum, and the femoral head and neck and subtrochanteric region are intact. Hardware is seen in the opposite-right hip from prior subtrochanteric fracture repair. No other pelvic fractures iden tified.No significant osseous lesions evident. ABDOMINAL AORTA: There is a fusiform abdominal aortic aneurysm with maximum external diameter 3 cm. ANTERIOR ABDOMINAL WALL/GI:No evidence of significant anterior abdominal wall nor inguinal hernia in the pelvis evident.No obvious bowel obstruction. No evidence of appendicitis.No evidence of acute si gmoid diverticulitis.No free fluid in the pelvis. LYMPH NODES: There is no intrapelvic nor inguinal adenopathy. URINARY BLADDER: No calculi nor obvious masses evident REPRODUCTIVE: Age-appropriate.. Other: There is fluid around the partially visualized liver adjacent to the right hepatic lobe appear s difficult to determine this is true ascites orbits possibly part of the gallbladder lumen. This re quire imaging higher up to include the entire abdomen. IMPRESSION: 1. There fractures of the superior and inferior pubic rami on the left side. Fracture does not invol ve the ipsilateral acetabulum nor femoral head and neck. No other acute fractures identified. 2. Right hip hardware from previous ORIF 3. Abdominal aortic aneurysm 3 cm diameter. Fluid around the liver noted although there is a possibly that this may just be the gallbladder lumen . Not possible to assess accurately as this pelvic CT study does not include this entire area. Called by myself to the ER provider. RADIATION DOSE DELIVERED: Total DLP DATA REPOSITORY: All CT scans at this facility are submitted to the National Radiology Data Registry (NRDR) Dose Index Registry (DIR) with the [employer] ([employer]). RADIATION OPTIMIZATION: All CT scans at this facility use at least one of these dose optimization te chniques: automated exposure control; mA and/or kV adjustment per patient size (includes targeted exa ms where dose is matched to clinical indication); or iterative reconstruction.
--- NOTE | 2022-03-22 13:45 | DI.CT_ITS ---
Exam(s) CT CHEST/ABD/PEL W EXAM: CT CHEST/ABD/PEL W CLINICAL HISTORY: trauma, pelv fracture, hemoperitoneum?. TECHNIQUE: Imaging Protocol: Axial computed tomography images with coronal and sagittal reformatted images were created and reviewed CONTRAST MATERIAL: Intravenous: Omnipaque 350 Contrast volume:100 ml Oral: None COMPARISON: CR CHEST 2 VIEWS PA,LAT from 09/28/2015 CT ABD PELVIS WO CONTRAST from 01/31/2016 CR XR THORACOLUMB JUNCT 2V from 03/17/[address] PELVIC WO from 03/22/2022 FINDINGS: CHEST: LUNGS: There are moderate-sized bilateral pleural effusions and subjacent atelectasis of the basal se gments of both lower lobes.. No obvious lung masses. MEDIASTINUM: There is no hilar nor mediastinal adenopathy. No mediastinal hematoma. CARDIAC: Cardiomegaly. No pericardial effusion. Caliber thoracic aorta is within normal limits. No dissection. OSSEOUS: No significant osseous lesions.No acute rib fractures identified. T6 compression fracture. T7 and T8 compression fractures. These were not evident on chest x-ray of September 2015. Also compressi on fracture of L4 which was not evident on prior abdominal CT scan of January 2016 ABDOMEN: There is no ascites. LIVER: There are no focal hepatic lesions nor dilatation of intrahepatic ducts. No liver laceration. No perihepatic fluid. Finding described on the pelvic CT scan earlier today is actually the gallbl adder lumen draped over the liver, this better appreciated now that the entire abdomen is scanned. GALLBLADDER/BILIARY: No gallstones. No gallbladder wall edema. CBD is not dilated. PANCREAS: No evidence of pancreatic mass nor dilatation of the pancreatic duct. SPLEEN: Normal size. No laceration. Splenic and portal veins are patent. ADRENALS: There are no significant adrenal masses. KIDNEYS: No acute findings. No laceration.. No cysts evident. ABDOMINAL AORTA: Fusiform abdominal aortic aneurysm measuring 3 cm. No prominent aneurysmal dilatati on of the iliac arteries. LYMPH NODES: There is no retroperitoneal nor paraaortic adenopathy. ABDOMINAL WALL: No evidence of significant anterior abdominal wall nor inguinal hernia. GI: There is no evidence of bowel obstruction.No evidence of mesenteric nor bowel wall hematoma. PELVIS: LYMPH NODES: There is no intrapelvic nor inguinal adenopathy. GI: No evidence of appendicitis.No evidence of sigmoid diverticulitis. URINARY BLADDER: No calculi nor masses evident REPRODUCTIVE: Age-appropriate. OSSEOUS: There are acute fractures of the left superior and inferior pubic rami. Asymmetric enlargem ent of the ipsilateral obturator internus muscle consistent with hematoma. There is a small amount o f free fluid in the pelvis dependent aspect. Urinary bladder is not overly distended. There are no fractures of the actual left acetabulum nor of the femoral head and neck.. L4 compression fracture. Mild L3 compression fracture, both age-indeterminate. T8 and T9 wedge comp ression fractures. T6 compression fracture. IMPRESSION: 1. There are moderate-sized bilateral pleural effusions and relaxation atelectasis of the basal segme nts of both lower lobes. No obvious lung contusion. No pneumothorax. No obvious lung masses. No m ediastinal hematoma. 2. Abdominal aortic aneurysm (fusiform) with maximum diameter 3 cm. No asymmetric enlargement of the iliac arteries. 3. No significant trauma sequelae in the abdominal organs. 4. Left yelena pelvic fracture at the level of the left superior and inferior pubic rami. Adjacent mus cular hematoma in the obturator internus left side. This exhibits thickness 2 cm. Normal on opposit e side is 1 cm. No fracture of the actual acetabulum nor of the femoral head and neck. 5. Compression fractures of T6, T8, T9, L3 and L4. Age indeterminate. Correlation with sites of re cent onset tenderness recommended. 6. RADIATION DOSE DELIVERED: Total DLP DATA REPOSITORY: All CT scans at this facility are submitted to the National Radiology Data Registry (NRDR) Dose Index Registry (DIR) with the [employer] (ACR). RADIATION OPTIMIZATION: All CT scans at this facility use at least one of these dose optimization te chniques: automated exposure control; mA and/or kV adjustment per patient size (includes targeted exa ms where dose is matched to clinical indication); or iterative reconstruction.
[2022-03-22 14:37] LABS: Abs Immature Grans 0.03 10^3/uL (0.0-0.06); Absolute Basophil Count 0.04 10^3/uL (0.0-0.2); Absolute Eosinophil Count 0.16 10^3/uL (0.0-0.7); Absolute Lymphocyte Count 1.39 10^3/uL (1.2-3.4); Absolute Monocyte Count 0.46 10^3/uL (0.1-0.8); Absolute Neutrophil Count 7.81 10^3/uL (1.2-6.7); Basophils % 0.4; Eosinophils % 1.6; HCT 37.2 % (36.0-46.0); Immature Grans % 0.3; Lymphocytes % 14.1; MCHC 32.3 % (32.0-36.0); MCV 109 fL (80-95); MPV 9.7 fL (8.0-11.0); Monocytes % 4.7; Neutrophils % 78.9; Platelet Count 161 10^3/uL (130-400); RBC 3.43 10^6/uL (3.93-5.22); RDW 15.8 % (11.7-14.6); RDW-SD 63.5 fL; WBC 9.89 10^3/uL (4.4-10.8)
[2022-03-22 14:48] LABS: Macrocytosis 1+
[2022-03-22 14:54] LABS: ALT 13 U/L (14-59); AST 23 U/L (15-37); Albumin 3.1 g/dL (3.4-5.0); Alkaline Phosphatase 115 U/L (46-116); Anion Gap 6.2 mmol/L (3-11); BUN 22 mg/dL (7-18); Bilirubin, Total 0.8 mg/dL (0.2-1.0); CO2 28.8 mmol/L (21.0-32.0); CREATININE 0.9 mg/dL (0.55-1.02); Calcium 8.5 mg/dL (8.5-10.1); Chloride 100 mmol/L (98-107); Estimated GFR 62.65 (mL/min/1.73m2); Glucose 102 mg/dL (74-106); Potassium 4.2 mmol/L (3.5-5.1); Sodium 135 mmol/L (136-145); Total Protein 6.4 g/dL (6.4-8.2)
[2022-03-22] MEDS: Omnipaque 350 MG/ML 100 ML BTL IJ (15:06)
--- NOTE | 2022-03-22 16:55 | ED.PROG_ITS ---
Date of service: 03/22/22 Time of Service: 16:30 Medical Decision Making 1620 --please see Dr. Gomez's note for initial presentation, exam and plan. Case endorsed to follow-up on CT imaging and if negative for any acute abdominal findings, will plan for discharge back to the [facility] for continued management status post pubic rami fracture. 1650 --CT reviewed and negative for any acute abdominal abnormality. There are moderate-sized bilateral pleural effusions and atelectasis noted in the lungs but no contusions or pneumothorax. Again noted the left hemipelvic fracture at the level of the left to superior and inferior pubic rami but no fracture of the acetabulum or the femoral head or neck. There are also compression fractures of T6, T8, T9, L3 and L4 which are age-indeterminate. Pelvic rami fracture discussed with Dr. Lemus and agrees with plan for weightbearing as tolerated with walker. Dr. Gomez discussed with the [facility] previously that if CT negative for acute abdominal abnormality, will discharge back to the [facility] at this time. Advised to follow up with the primary care doctor for re-evaluation and for referral to orthopedics if needed. Usual and customary return precautions given prior to discharge. Discussed with patient's daughter Coretta - she was informed of result findings and that pt will be discharged back to the [facility]. Medical Records Medical records reviewed: Yes I reviewed the patient's medical records. Imaging Data Radiologic Study: Radiologist's impression: CT CHEST/ABD/PEL W CLINICAL HISTORY: ? trauma, pelv fracture, hemoperitoneum?. ? TECHNIQUE:? Imaging Protocol: Axial computed tomography images with coronal and sagittal reformatted images were created and reviewed CONTRAST MATERIAL:? Intravenous: Omnipaque 350 Contrast volume:100 ml Oral: None COMPARISON:? CR CHEST 2 VIEWS PA,LAT from 09/28/2015 CT ABD ? PELVIS WO CONTRAST from 01/31/2016 CR XR THORACOLUMB JUNCT 2V from 03/17/[address] PELVIC WO from 03/22/2022 FINDINGS: CHEST: LUNGS: There are moderate-sized bilateral pleural effusions and subjacent atelectasis of the basal segments of both lower lobes..? No obvious lung masses. MEDIASTINUM: There is no hilar nor mediastinal adenopathy. No mediastinal hematoma. CARDIAC: Cardiomegaly.? No pericardial effusion.? Caliber thoracic aorta is within normal limits.? No dissection. OSSEOUS: No significant osseous lesions.No acute rib fractures identified.? T6 compression fracture.? T7 and T8 compression fractures.? These were not evident on chest x-ray of September 2015.? Also compression fracture of L4 which was not evident on prior abdominal CT scan of January 2016 ABDOMEN: There is no ascites. LIVER: There are no focal hepatic lesions nor dilatation of intrahepatic ducts.? No liver laceration.? No perihepatic fluid.? Finding described on the pelvic CT scan earlier today is actually the gallbladder lumen draped over the liver, this better appreciated now that the entire abdomen is scanned. GALLBLADDER/BILIARY: No gallstones.? No gallbladder wall edema.? CBD is not dilated. PANCREAS: No evidence of pancreatic mass nor dilatation of the pancreatic duct.? SPLEEN: Normal size.? No laceration.? Splenic and portal veins are patent. ADRENALS: There are no significant adrenal masses. KIDNEYS: No acute findings.? No laceration..? No cysts evident. ABDOMINAL AORTA: Fusiform abdominal aortic aneurysm measuring 3 cm.? No prominent aneurysmal dilatation of the iliac arteries. LYMPH NODES: There is no retroperitoneal nor paraaortic adenopathy. ABDOMINAL WALL: No evidence of significant anterior abdominal wall nor inguinal hernia.? GI: There is no evidence of bowel obstruction.No evidence of mesenteric nor bowel wall hematoma. PELVIS:? LYMPH NODES: There is no intrapelvic nor inguinal adenopathy. GI: No evidence of appendicitis.No evidence of sigmoid diverticulitis. URINARY BLADDER: No calculi nor masses evident REPRODUCTIVE: Age-appropriate. OSSEOUS: There are acute fractures of the left superior and inferior pubic rami.? Asymmetric enlargement of the ipsilateral obturator internus muscle consistent with hematoma.? There is a small amount of free fluid in the pelvis dependent aspect.? Urinary bladder is not overly distended.? There are no fractures of the actual left acetabulum nor of the femoral head and neck.. L4 compression fracture.? Mild L3 compression fracture, both age-indeterminate.? T8 and T9 wedge compression fractures.? T6 compression fracture. IMPRESSION: 1. There are moderate-sized bilateral pleural effusions and relaxation atelectasis of the basal segments of both lower lobes.? No obvious lung contusion.? No pneumothorax.? No obvious lung masses.? No mediastinal hematoma. 2. Abdominal aortic aneurysm (fusiform) with maximum diameter 3 cm.? No asymmetric enlargement of the iliac arteries. 3. No significant trauma sequelae in the abdominal organs. 4. Left yelena pelvic fracture at the level of the left superior and inferior pubic rami.? Adjacent muscular hematoma in the obturator internus left side.? This exhibits thickness 2 cm.? Normal on opposite side is 1 cm.? No fracture of the actual acetabulum nor of the femoral head and neck. 5.? Compression fractures of T6, T8, T9, L3 and L4.? Age indeterminate.? Correlation with sites of recent onset tenderness recommended. Sign Out Yes Sign Out Sign Out Data: Sign Out Comment: pelvic fracture. pending ct chest abd pelv to evaluate hy podensity near liver; if simple pelv fracture dc back to [facility] with precautions Last updated by Sundar Gomez MD at 03/22/22 16:10 Discharge Plan Disposition Patient Disposition: Home Condition: Stable Discharge Details Clinical Impression: Fracture of pubic ramus, Frequent falls Primary Care Provider: Gulshan Howe ED Provider: Ashlee Michael [place] Meds and New Rx's Prescriptions: Continued cholecalciferol (vitamin D3) 1,250 mcg (50,000 unit) capsule 1,250 mcg PO QWEEK Rx Instructions: discontinue after 8 weeks week 8 dose given on 01/24/2022 bisacodyl 10 mg suppository 10 mg ME ONCE lorazepam [Ativan] 0.5 mg tablet 0.5 mg PO Q2H PRN PRN morphine 20 mg/5 mL (4 mg/mL) solution 20 mg PO Q4H PRN Rx Instructions: morphine 20 mg/1 ml give0.25 ml am /pm and q2h lorazepam [Ativan] 0.5 mg tablet 0.5 mg PO Q2H PRN PRN lorazepam [Ativan] 0.5 mg tablet 0.25 mg PO DAILY PRN acetaminophen 500 mg Tablet 1,000 mg PO TID Rx Instructions: question as to whether this was actually scheduled or PRN calcitonin (salmon) 200 unit/actuation spray,non-aerosol 1 spray intranasal (ALT) DAILY Rx Instructions: 1 spray daily alternating nostrils. in right nostril Friday, Friday, Friday and Friday, and in the left nostril Friday, , and [place] ferrous sulfate 325 mg (65 mg iron) Tablet 325 mg PO Q OTHER DAY Rx Instructions: takes every other day vitamin B complex-folic acid 400 mcg Tablet Extended Release 1 tab PO DAILY polyethylene glycol 3350 17 gram Powder In Packet 17 g PO DAILY PRN PRN (Reason: Constipation) Qty: 0 0RF metoprolol tartrate 25 mg tablet 37.5 mg PO BID Qty: 0 0RF Rx Instructions: hold for a pulse less than 60 omeprazole 20 mg capsule,delayed release(DR/EC) 37.5 mg PO BID quetiapine 25 mg tablet 25 mg PO DAILY Discharge Instructions Instructions: Pelvic Fracture (ED) Additional Instructions: Your imaging today noted that you have an left-sided pelvic fracture. This was discussed with orthopedics and they are recommending weightbearing as tolerated with using a walker. Rest as much as possible. Use a walker at all times for ambulation. You can apply ice to the affected areas several times daily for 20 minutes at a time. Take Tylenol as needed and directed for pain. Follow-up with your primary care doctor in 1 week and for referral to orthopedics if needed. Return to the emergency department with any worsening or new concerning symptoms. Referrals: Malcolm Lemus MD [ [facility] ST[facility]FF [facility]YSICIAN] - Discharge Data Discharge Date/Time-TO BE ENTERED AT DEPARTURE: 03/22/22 18:31 Discharge Physician: Ashlee Michael
[2022-03-22 16:59] VITALS: BP 158/90; PULSE 76; RESP 16; O2SAT 96
[2022-03-22 17:30] VITALS: BP 128/92; PULSE 94; TEMP 36.1; O2SAT 96
== END 2022-03-22 18:31 | disposition home or self-care (01) ==
PROVIDERS: Emergency Medicine; Emergency Provider Physician Assistant; PCP Family Medicine
DX: S09.8XXA Other specified injuries of head, initial encounter (principal); W19.XXXA Unspecified fall, initial encounter
CPT/HCPCS: 74177; 80053; 86900; 86901; 96374; 96375; 99284; 70450; 71260; 72125; 72192; 73502; 81003; 85025; 85610; 85730; J2060; J3490